=== PATIENT | male | born 1955 | race Caucasian/White ===

== ENCOUNTER 2016-04-19 10:22 | Observation (INO) | payer BC, OTHER ==
[~2016-04-19] VITALS: Ht 180.3 cm; Wt 94.0 kg
[~2016-04-19 10:22] MED LIST: ALFU10TA30 PO; ASPI81TA21 PO; CIPR-255 PO; MULTTAB58 PO; OXYC-57 PO
[2016-04-19] MEDS ORDERED: SODIUM CHLORIDE 0.9% 1000ML 1,000 ML IV SCH (10:49)
--- NOTE | 2016-04-19 11:00 | EMERGENCY ROOM VISIT NOTE ---
History Report prepared by Jessica: Ketan Wilde Under the Supervision of: Dr. Chacho Schrader M.D. First contact with patient: 10:38 Chief Complaint: DIZZY Stated Complaint: DIZZY, LIGHTHEADED, BURNING SENSATION IN ARM Nursing Triage Summary: Reports dizziness and light headedness upon awakening at 0730 this am. Also reports left bicep discomfort. History of Present Illness The patient is a 60 year old male who presents to the Emergency Room with complaints of persistent dizziness beginning about 3.5 hours ago. He notes when he woke this morning he was lightheaded and dizzy, but did not feel as though the room was spinning. He reports worsening of his symptoms with standing. The patient states he has some tingling, numbness, and burning in his left shoulder that was present when he woke and is still present. He reports having some cramps in his left leg but without numbness or burning. He has not had difficulty walking, difficulty with speech, or numbness on the left side of his face. He also denies having any headache. He admits he is currently getting over a recent cold. He admits to having a heart murmur which he has had for some time. The patient admits taking a baby Aspirin once per day at night. He denies having any history of stroke or TIA, though admits to a family history of stroke and hypertension. He notes a history of kidney stones. Source of History: patient Onset: about 3.5 hours ago Position: other (global) Quality: other (dizziness) Timing: other (persistent) Modifying Factors (Worsening): other (standing) Associated Symptoms: No headache Note: The patient reports having tingling, numbness, and burning in his left shoulder , and left leg cramping. Review of Systems See HPI for pertinent positives & negatives. A total of 10 systems reviewed and were otherwise negative. Past Medical & Surgical Medical Problems: (1) History of kidney stones (2) Peritonitis Surgical Problems: (1) History of appendectomy (2) S/P hemorrhoidectomy Family History Cancer Heart disease Hypertension Stroke Social History Smoking Status: Never Smoker Alcohol Use: occasionally Marital Status: Housing Status: lives with family Occupation Status: employed Current/Historical Medications Scheduled Alfuzosin Hcl (Uroxatral), 10 MG PO DAILY Aspirin Enteric Coated (Ecotrin Or Generic), 81 MG PO DAILY Calcium/Vitamin D (Os-Suhail 500 Plus D), 1 TAB PO DAILY Multiple Vitamin (Multivitamin), 1 TAB PO DAILY Allergies Coded Allergies: No Known Allergies (Unverified , 04/19/16) Physical Exam Vital Signs Date Time Temp Pulse Resp B/P Pulse Ox O2 Delivery O2 Flow Rate FiO2 04/19/16 12:41 36.7 85 18 144/95 95 Room Air 04/19/16 11:50 79 16 119/84 95 Room Air 04/19/16 11:08 94 Room Air 04/19/16 11:06 86 04/19/16 10:30 36.6 100 16 147/93 98 Room Air Physical Exam GENERAL: Patient is in no acute distress. HEENT: No acute trauma, normocephalic atraumatic, mucous membranes moist, no nasal congestion, no scleral icterus. NECK: No stridor, no adenopathy, no meningismus, trachea is midline. LUNGS: Clear to auscultation bilaterally, no wheeze, no rhonchi, breath sounds equal. HEART: Without murmurs gallops or rubs, regular rate and rhythm. ABDOMEN: Soft, nontender, bowel sounds positive, no hernias, no peritonitis. EXTREMITIES: No cyanosis or edema, full range of motion of all the joints without pain or difficulty, no signs for acute trauma. NEUROLOGIC: Awake, alert, oriented x3. No speech slur or facial droop. No upper or lower extremity drift. No lower extremity cerebellar dysfunction. Slight unsteadiness with left upper extremity cerebellar testing. SKIN: No rash, no jaundice, no diaphoresis. Medical Decision & Procedures ER Provider Diagnostic Interpretation: X ray results and stated below per my interpretation and radiologist interpretation. Other radiology results and stated below per my review and radiologist interpretation: HEAD CT NONCONTRAST Findings: The paranasal sinuses and mastoid air cells are clear. The calvarium and skull base are intact. The ventricles and sulci are within normal limits. There is no mass, hematoma, midline shift, or acute infarct. Impression: No acute intracranial abnormality. Electronically signed by: Javed Pearl M.D. 04/19/2016 11:24 AM Dictated Date/Time: 04/19/2016 11:23 AM CHEST ONE VIEW PORTABLE FINDINGS: The bones soft tissues and hemidiaphragms are normal. The cardiomediastinal silhouette is normal. The lungs are clear. The pulmonary vasculature is normal. IMPRESSION: Negative chest. Electronically signed by: Javed Pearl M.D. 04/19/2016 11:02 AM Dictated Date/Time: 04/19/2016 11:02 AM Laboratory Results 04/19/16 11:08 Red Blood Count 5.15, Mean Corpuscular Volume 91.3, Mean Corpuscular Hemoglobin 31.8, Mean Corpuscular Hemoglobin Concent 34.9, Mean Platelet Volume 10.1, Neutrophils (%) (Auto) 69.4, Lymphocytes (%) (Auto) 20.7, Monocytes (%) (Auto) 8.2, Eosinophils (%) (Auto) 1.2, Basophils (%) (Auto) 0.3, Neutrophils # (Auto) 4.05, Lymphocytes # (Auto) 1.21, Monocytes # (Auto) 0.48, Eosinophils # (Auto) 0.07, Basophils # (Auto) 0.02 04/19/16 11:08 Test 04/19/16 10:54 04/19/16 11:03 04/19/16 11:08 04/19/16 11:09 Bedside Glucose 86 mg/dl (70-99) Bedside Prothrombin Time INR 1.0 (0.9-1.1) White Blood Count 5.84 K/uL (4.8-10.8) Red Blood Count 5.15 M/uL (4.7-6.1) Hemoglobin 16.4 g/dL (14.0-18.0) Hematocrit 47.0 % (42-52) Mean Corpuscular Volume 91.3 fL (80-100) Mean Corpuscular Hemoglobin 31.8 pg (25-34) Mean Corpuscular Hemoglobin Concent 34.9 g/dl (32-36) Platelet Count 219 K/uL (130-400) Mean Platelet Volume 10.1 fL (7.4-10.4) Neutrophils (%) (Auto) 69.4 % Lymphocytes (%) (Auto) 20.7 % Monocytes (%) (Auto) 8.2 % Eosinophils (%) (Auto) 1.2 % Basophils (%) (Auto) 0.3 % Neutrophils # (Auto) 4.05 K/uL (1.4-6.5) Lymphocytes # (Auto) 1.21 K/uL (1.2-3.4) Monocytes # (Auto) 0.48 K/uL (0.11-0.59) Eosinophils # (Auto) 0.07 K/uL (0-0.5) Basophils # (Auto) 0.02 K/uL (0-0.2) RDW Standard Deviation 43.8 fL (36.4-46.3) RDW Coefficient of Variation 13.1 % (11.5-14.5) Immature Granulocyte % (Auto) 0.2 % Immature Granulocyte # (Auto) 0.01 K/uL (0.00-0.02) Prothrombin Time 10.2 SECONDS (9.0-12.0) Prothromb Time International Ratio 1.0 (0.9-1.1) Activated Partial Thromboplast Time 25.5 SECONDS (21.0-31.0) Partial Thromboplastin Ratio 1.0 Anion Gap 8.0 mmol/L (3-11) Est Creatinine Clear Calc Drug Dose 90.1 ml/min Estimated GFR () 93.1 Estimated GFR (Non- 80.3 BUN/Creatinine Ratio 16.6 (10-20) Estimated Average Glucose 105 mg/dl Hemoglobin A1c 5.3 % (4.5-5.6) Calcium Level 9.4 mg/dl (8.5-10.1) Total Creatine Kinase 316 U/L (39-308) Creatine Kinase MB 1.2 ng/ml (0.5-3.6) Creatine Kinase MB Ratio 0.4 (0-3.0) Troponin I < 0.015 ng/ml (0-0.045) Hepatitis C Antibody Screen NEG (NEG) Urine Opiates Screen NEG (NEG) Urine Methadone, Qualitative NEG (NEG) Urine Barbiturates NEG (NEG) Urine Phencyclidine (PCP) Level NEG (NEG) Ur Amphetamine/Methamphetamine NEG (NEG) MDMA (Ecstasy) Screen NEG (NEG) Urine Benzodiazepines Screen NEG (NEG) Urine Cocaine Metabolite NEG (NEG) Urine Marijuana (THC) NEG (NEG) Laboratory results reviewed by me. Medications Administered Medications (Trade) Dose Ordered Sig/Anel Route Start Time Stop Time Status Last Admin Dose Admin Sodium Chloride (Nss 1000ml) 1,000 ml @ 50 mls/hr Q20H IV 04/19/16 10:49 04/19/16 15:12 DC 04/19/16 11:26 50 MLS/HR ECG Indication: other (dizziness) Rate (beats per minute): 80 Rhythm: normal sinus Findings: no acute ischemic change, no ectopy ED Course 1041: The patient was evaluated in room C7. A complete history and physical exam was performed. 1049: Ordered NSS 1,000 ml @ 50 mls/hr IV. 1200: Discussed the patient's case with Nisha Salvador PA-C. The patient will be evaluated for further management. 1205: Upon reexamination the patient is hemodynamically stable. I discussed results and treatment plan with the patient. He verbalizes agreement and understanding. The patient will be evaluated for further management. Medical Decision Differentials include CVA or TIA, intracranial bleeding, nerve impingement, IL, dysrhythmia, anemia, electrolyte imbalance, and infection. There is no leukocytosis or concerning anemia. No significant electrolyte abnormality or kidney failure. EKG shows a normal sinus rhythm, no acute ischemia. Cardiac enzyme testing times one is not consistent with acute cardiac injury. Chest x-ray shows no mediastinal widening, pneumonia or pneumothorax. Brain CT shows no acute bleed or mass effect. The patient presents with symptoms concerning for a TIA or small stroke. On exam, he had some very subtle unsteadiness when performing left upper extremity cerebellar testing. This was the side that he had noticed issues with today. Stroke scale testing did return at 0. Admission/observation is warranted. Further workup for stroke is advised. The patient is not a candidate for TPA as he is out of the window for this medication. In addition, he has no significant findings that would warrant the use of TPA. I talked to the patient, I talked to the on-call hospitalist and case management. Consults Time Called: 1155 Consulting Physician: Nisha Salvador PA-C, [facility] [place] Returned Call: 1200 Discussed the patient's case with iNsha Salvador PA-C. The patient will be evaluated for further management. Impression Primary Impression: Stroke-like symptoms Scribe Attestation The scribe's documentation has been prepared under my direction and personally reviewed by me in its entirety. I confirm that the note above accurately reflects all work, treatment, procedures, and medical decision making performed by me. Departure Information Dispostion Being Evaluated By Hospitalist Referrals Cristiano Arana M.D. (PCP) Patient Instructions [facility]
--- NOTE | 2016-04-19 11:04 | DIAGNOSTIC IMAGING REPORT ---
CHEST ONE VIEW PORTABLE CLINICAL HISTORY: Stroke dyspnea COMPARISON STUDY: 04/28/2014 FINDINGS: The bones soft tissues and hemidiaphragms are normal. The cardiomediastinal silhouette is normal. The lungs are clear. The pulmonary vasculature is normal. IMPRESSION: Negative chest. Electronically signed by: Javed Pearl M.D. 04/19/2016 11:02 AM Dictated Date/Time: 04/19/2016 11:02 AM
[2016-04-19 11:18] LABS: BASO % 0.3 %; BASO ABS # 0.02 K/uL (0-0.2); COMPLETE YES; EOS % 1.2 %; IG% 0.2 %; LYMPH % 20.7 %; LYMPH ABS # 1.21 K/uL (1.2-3.4); MEAN CELL VOLUME 91.3 fL (80-100); MEAN CORPUSCULAR HEMOGLOBIN 31.8 pg (25-34); MEAN CORPUSCULAR HGB CONC 34.9 g/dl (32-36); MEAN PLATELET VOLUME 10.1 fL (7.4-10.4); MONO % 8.2 %; NEUT % 69.4 %; PLATELET COUNT 219 K/uL (130-400); RED BLOOD COUNT 5.15 M/uL (4.7-6.1); WHITE BLOOD COUNT 5.84 K/uL (4.8-10.8)
--- NOTE | 2016-04-19 11:25 | DIAGNOSTIC IMAGING REPORT ---
HEAD CT NONCONTRAST CT DOSE: 687.98 mGy.cm HISTORY: Mental status change Stroke TECHNIQUE: Multiaxial CT images of the head were performed without the use of intravenous contrast. Comparison: None. Findings: The paranasal sinuses and mastoid air cells are clear. The calvarium and skull base are intact. The ventricles and sulci are within normal limits. There is no mass, hematoma, midline shift, or acute infarct. Impression: No acute intracranial abnormality. Electronically signed by: Javed Pearl M.D. 04/19/2016 11:24 AM Dictated Date/Time: 04/19/2016 11:23 AM
[2016-04-19 11:26] LABS: PROTHROMBIN TIME (PATIENT) 10.2 SECONDS (9.0-12.0)
[2016-04-19 12:03] LABS: BLOOD UREA NITROGEN 17 mg/dl (7-18); BUN/CREATININE RATIO 16.6 (10-20); CALCIUM 9.4 mg/dl (8.5-10.1); CARBON DIOXIDE 27 mmol/L (21-32); CHLORIDE 106 mmol/L (98-107); GLUCOSE 86 mg/dl (70-99)
[2016-04-19 12:08] LABS: POTASSIUM 4.5 mmol/L (3.5-5.1); SODIUM 141 mmol/L (136-145)
[2016-04-19 12:16] LABS: CKMB/CK RATIO 0.4 (0-3.0)
[2016-04-19 12:18] LABS: BENZODIAZEPINE, URINE NEG (NEG); COCAINE,URINE NEG (NEG); PHENCYCLIDINE, URINE NEG (NEG)
[2016-04-19 12:41] VITALS: BP 144/95; PULSE 85; TEMP 36.7; O2SAT 95; Ht 180.3 cm; Wt 94.0 kg
[2016-04-19] MEDS ORDERED: CALC500C70 PO (13:07)
[2016-04-19] MEDS ORDERED: ONDANSETRON INJ 2 MG/ML 2 ML VIAL IV PRN (13:15)
[2016-04-19] MEDS ORDERED: PHARMACIST DISCHARGE MED REC CONSULT PRN (13:15)
[2016-04-19] MEDS ORDERED: ACETAMINOPHEN 325 MG TAB PO PRN (13:15)
--- NOTE | 2016-04-19 13:23 | History and Physical ---
History & Physical Date & Time of Service: Apr 19, 2016 at 13:13 Chief Complaint: Dizzy, Lightheaded, Burning Sensation In Arm Primary Care Physician: Cristiano Arana M.D. History of Present Illness Source: patient, family, hospital records This patient is a pleasant 60-year-old male that presents the emergency department complaining of dizziness that started when he woke up this morning at around 7:30 AM. He describes it as a lightheadedness, however he does admit to feeling a little bit of a spinning sensation. He denies any nausea. Ambulating makes it slightly worse. It is not currently as bad as it was at 7: 30 this morning. The patient also describes a burning, numbness and tingling sensation in his left shoulder down into his left bicep. He denies any weakness. He denies any confusion or slurred speech. The patient denies any chest pressure, shortness of breath or diaphoresis. He denies any personal history of TIA or stroke. He denies any history of vertigo. The patient does note a family history of strokes. His father had a stroke in his 50s. Workup in the emergency department thus far has been benign. Past Medical/Surgical History Medical Problems: BPH History of a heart murmur Obstructive sleep apnea-uses a CPAP at night Surgical history (1) History of appendectomy Status: Resolved (2) S/P hemorrhoidectomy Status: Chronic Family History Cancer Heart disease Hypertension Stroke Father-stroke in his 50s Hypertension Skin cancer Social History Smoking Status: Never Smoker Smokeless Tobacco Use: No Alcohol Use: socially Drug Use: none Marital Status: Housing status: lives with family Occupational Status: employed Multi-Drug Resistant Organisms History of MDRO: No Allergies Coded Allergies: No Known Allergies (Unverified , 04/19/16) Home Medications Scheduled Alfuzosin Hcl (Uroxatral), 10 MG PO DAILY Aspirin Enteric Coated (Ecotrin Or Generic), 81 MG PO DAILY Calcium/Vitamin D (Os-Suhail 500 Plus D), 1 TAB PO DAILY Multiple Vitamin (Multivitamin), 1 TAB PO DAILY Review of Systems 10 system review performed and negative unless noted in HPI or below Physical Exam Vital Signs Date Time Temp Pulse Resp B/P Pulse Ox O2 Delivery O2 Flow Rate FiO2 04/19/16 12:41 95 Room Air 04/19/16 11:50 79 16 119/84 95 Room Air 04/19/16 11:08 94 Room Air 04/19/16 11:06 86 04/19/16 10:30 36.6 100 16 147/93 98 Room Air VITALS: Vitals are noted on the nurse's note and reviewed by myself. Vital signs stable. GENERAL: 60-year-old male, in no acute distress, nondiaphoretic, well-developed well-nourished. SKIN: The skin was without rashes, erythema, edema, or bruising. HEAD: Normocephalic atraumatic. EYES: Pupils equal round and reactive to light and accommodation. Conjunctivae without injection, sclerae without icterus. Extraocular movements intact. MOUTH: Mucous membranes dry Tongue does not deviate. NECK: Supple without nuchal rigidity. No JVD. HEART: Regular rate and rhythm without murmurs gallops or rubs. LUNGS: Clear to auscultation bilaterally without wheezes, rales or rhonchi. No accessory muscle use. ABDOMEN: Positive bowel sounds x 4.Soft, nontender, without organomegaly. No guarding or rebound tenderness. MUSCULOSKELETAL: No muscle atrophy, erythema, or edema noted. Strength 5/5 throughout. NEURO: Patient was alert and oriented to person place and time. Cerebellar function intact. No pronator drift noted. No weakness noted. Cranial nerves II through XII grossly intact. Normal sensation to touch. No focal neurological deficits. Diagnostics Laboratory Results Results Past 24 Hours Test 04/19/16 10:54 04/19/16 11:03 04/19/16 11:08 04/19/16 11:09 Range/Units Bedside Glucose 86 70-99 mg/dl Bedside Prothrombin Time INR 1.0 0.9-1.1 White Blood Count 5.84 4.8-10.8 K/uL Red Blood Count 5.15 4.7-6.1 M/uL Hemoglobin 16.4 14.0-18.0 g/dL Hematocrit 47.0 42-52 % Mean Corpuscular Volume 91.3 80-100 fL Mean Corpuscular Hemoglobin 31.8 25-34 pg Mean Corpuscular Hemoglobin Concent 34.9 32-36 g/dl Platelet Count 219 130-400 K/uL Mean Platelet Volume 10.1 7.4-10.4 fL Neutrophils (%) (Auto) 69.4 % Lymphocytes (%) (Auto) 20.7 % Monocytes (%) (Auto) 8.2 % Eosinophils (%) (Auto) 1.2 % Basophils (%) (Auto) 0.3 % Neutrophils # (Auto) 4.05 1.4-6.5 K/uL Lymphocytes # (Auto) 1.21 1.2-3.4 K/uL Monocytes # (Auto) 0.48 0.11-0.59 K/uL Eosinophils # (Auto) 0.07 0-0.5 K/uL Basophils # (Auto) 0.02 0-0.2 K/uL RDW Standard Deviation 43.8 36.4-46.3 fL RDW Coefficient of Variation 13.1 11.5-14.5 % Immature Granulocyte % (Auto) 0.2 % Immature Granulocyte # (Auto) 0.01 0.00-0.02 K/uL Prothrombin Time 10.2 9.0-12.0 SECONDS Prothromb Time International Ratio 1.0 0.9-1.1 Activated Partial Thromboplast Time 25.5 21.0-31.0 SECONDS Partial Thromboplastin Ratio 1.0 Sodium Level 141 136-145 mmol/L Potassium Level 4.5 3.5-5.1 mmol/L Chloride Level 106 98-107 mmol/L Carbon Dioxide Level 27 21-32 mmol/L Anion Gap 8.0 3-11 mmol/L Blood Urea Nitrogen 17 7-18 mg/dl Creatinine 1.00 0.60-1.40 mg/dl Est Creatinine Clear Calc Drug Dose 90.1 ml/min Estimated GFR () 93.1 Estimated GFR (Non- 80.3 BUN/Creatinine Ratio 16.6 10-20 Random Glucose 86 70-99 mg/dl Calcium Level 9.4 8.5-10.1 mg/dl Total Creatine Kinase 316 39-308 U/L Creatine Kinase MB 1.2 0.5-3.6 ng/ml Creatine Kinase MB Ratio 0.4 0-3.0 Troponin I < 0.015 0-0.045 ng/ml Urine Opiates Screen NEG NEG Urine Methadone, Qualitative NEG NEG Urine Barbiturates NEG NEG Urine Phencyclidine (PCP) Level NEG NEG Ur Amphetamine/Methamphetamine NEG NEG MDMA (Ecstasy) Screen NEG NEG Urine Benzodiazepines Screen NEG NEG Urine Cocaine Metabolite NEG NEG Urine Marijuana (THC) NEG NEG Test 2/4/17 13:03 Range/Units Diagnostic Radiology HEAD CT NONCONTRAST Findings: The paranasal sinuses and mastoid air cells are clear. The calvarium and skull base are intact. The ventricles and sulci are within normal limits. There is no mass, hematoma, midline shift, or acute infarct. Impression: No acute intracranial abnormality. Electronically signed by: Javed Pearl M.D. 04/19/2016 11:24 AM Dictated Date/Time: 04/19/2016 11:23 AM CHEST ONE VIEW PORTABLE FINDINGS: The bones soft tissues and hemidiaphragms are normal. The cardiomediastinal silhouette is normal. The lungs are clear. The pulmonary vasculature is normal. IMPRESSION: Negative chest. Electronically signed by: Javed Pearl M.D. 04/19/2016 11:02 AM Dictated Date/Time: 04/19/2016 11:02 AM EKG Normal sinus rhythm 80 bpm Impression Assessment and Plan 60-year-old male presents to the emergency department with a main complaint of dizziness and a burning and tingling sensation in his left shoulder/arm. CT of the head shows no acute findings. No deficits noted on physical exam TIA versus CVA-has strong family hx as risk factor -Observe in telemetry -Neuro checks every 4 hours -MRI brain combo -Check echo -Carotid US -Trend cardiac enzymes -Lipid profile -Begin atorvastatin 40 mg daily -Increase aspirin to 325 mg daily BPH -Continue Uroxatral 10 mg daily DVT prophylaxis -Lovenox 40 mg subQ daily -TEDS, SCDs CODE STATUS -LEVEL I FULL CODE Advanced Directives Existing Living Will: Yes Existing Power of Clipper Counters: No VTE Prophylaxis VTE Risk Assessment Done? Y/N: Yes Risk Level: Low Given or contraindicated: Enoxaparin (Lovenox)SQ, T.E.D. Stockings, SCD's Note Attending note: Patient was seen and examined. Case was discussed with Nisha Salvador PA-C. I agree with her assessment and plan as written above. In addition, MRI shows chronic small vessel ischemic changes without evidence for acute stroke. On exam, he has left upper extremity dysmetria and dysdiadochokinesia. Will ask neuro opinion. Await TTE.
[2016-04-19 13:35] LABS: ESTIMATED AVERAGE GLUCOSE 105 mg/dl; HA1C FLAG Normal (Normal)
[2016-04-19] MEDS ORDERED: IV FLUIDS COMPLETED PRN (13:45)
--- NOTE | 2016-04-19 15:00 | DIAGNOSTIC IMAGING REPORT ---
BILATERAL CAROTID DOPPLER STUDY HISTORY: Mental status change Stroke COMPARISON: None. TECHNIQUE: Real-time, grayscale, and color Doppler sonography of the carotid arteries was performed. Imaging reviewed in the transverse and longitudinal planes. All measurements were calculated based on NASCET criteria. FINDINGS: Antegrade flow is seen in the bilateral vertebral arteries. The brachial pressures are hemodynamically similar. The peak systolic velocity within the right ICA is 53. The right systolic ratio is 0.7. The peak systolic velocity within the left ICA is 52. The left systolic ratio is 0.7. IMPRESSION: No hemodynamically significant stenosis seen within the carotid arteries. Electronically signed by: Javed Pearl M.D. 04/19/2016 2:59 PM Dictated Date/Time: 04/19/2016 2:58 PM
[2016-04-19 15:16] VITALS: BP 144/95; PULSE 85; TEMP 36.7; O2SAT 96
--- NOTE | 2016-04-19 16:53 | DIAGNOSTIC IMAGING REPORT ---
MRI OF THE BRAIN WITHOUT AND WITH IV CONTRAST CLINICAL HISTORY: Stroke mental status change COMPARISON STUDY: CT study same date TECHNIQUE: Utilizing a 1.5 Jaleesa magnet and dedicated coil, multiplanar, multiecho imaging of the brain was performed pre and postcontrast administration. IV administration of 8.5 mL of Gadavist contrast was uneventful. FINDINGS: Diffusion-weighted images are negative for an acute ischemic insult. Several small foci of increased signal within the periventricular and deep white matter regions consistent with minimal chronic small vessel change. Ventricular system is midline. Internal artery canals are symmetric. Sella and parasellar regions are unremarkable. Postcontrast images are negative for an enhancing lesion. IMPRESSION: Negative MRI of the brain for age Electronically signed by: Javed Pearl M.D. 04/19/2016 4:51 PM Dictated Date/Time: 04/19/2016 4:49 PM
[2016-04-19 19:41] VITALS: BP 133/90; PULSE 79; TEMP 36.9; O2SAT 94
[2016-04-19 20:56] LABS: CKMB/CK RATIO 0.4 (0-3.0)
[2016-04-19] MEDS ORDERED: ENOXAPARIN 40 MG/0.4 ML SYR SC SCH (21:00)
[2016-04-19 22:39] VITALS: BP 119/85; PULSE 81; TEMP 36.7; O2SAT 94
[2016-04-20] VITALS: O2SAT 94
[2016-04-20 03:14] LABS: BASO % 0.6 %; BASO ABS # 0.04 K/uL (0-0.2); COMPLETE YES; EOS % 2.7 %; HEMATOCRIT 44.9 % (42-52); IG% 0.3 %; LYMPH % 23.5 %; LYMPH ABS # 1.54 K/uL (1.2-3.4); MEAN CELL VOLUME 91.6 fL (80-100); MEAN CORPUSCULAR HEMOGLOBIN 31.8 pg (25-34); MEAN CORPUSCULAR HGB CONC 34.7 g/dl (32-36); MONO % 8.1 %; NEUT % 64.8 %; PLATELET COUNT 213 K/uL (130-400); WHITE BLOOD COUNT 6.56 K/uL (4.8-10.8)
[2016-04-20 03:34] LABS: BLOOD UREA NITROGEN 16 mg/dl (7-18); BUN/CREATININE RATIO 16.6 (10-20); CALCIUM 9.5 mg/dl (8.5-10.1); CARBON DIOXIDE 27 mmol/L (21-32); CHLORIDE 106 mmol/L (98-107); CHOLESTEROL 185 mg/dl (0-200); CREATININE 0.96 mg/dl (0.60-1.40); GLUCOSE 81 mg/dl (70-99); POTASSIUM 4.2 mmol/L (3.5-5.1); SODIUM 142 mmol/L (136-145)
[2016-04-20 03:39] LABS: CKMB/CK RATIO 0.5 (0-3.0); HDL CHOLESTEROL 46 mg/dl; LDL CHOLESTEROL CALCULATED 108 mg/dl; TRIGLYCERIDES 155 mg/dl (0-150); VERY LOW DENSITY LIPOPROT CALC 31 mg/dl
[2016-04-20 04:00] VITALS: BP 125/82; PULSE 74; TEMP 36.5; O2SAT 95
[2016-04-20] MEDS: ATORVASTATIN 40 MG TAB PO SCH ×2 (07:35→07:54)
[2016-04-20 07:57] VITALS: BP 135/89; PULSE 80; TEMP 36.5; O2SAT 96
[2016-04-20] MEDS ORDERED: ASPIRIN 325 MG ECTAB PO SCH ×2 (09:00→19:00)
[2016-04-20] MEDS ORDERED: ALFUZosin TAB 10 MG TAB PO SCH ×2 (09:00→19:00)
[2016-04-20] MEDS ORDERED: MULTIVITAMIN TAB PO SCH ×2 (09:00→19:00)
[2016-04-20] MEDS ORDERED: CALCIUM 600MG + VIT D 400 IU TAB PO SCH ×2 (09:00→19:00)
[2016-04-20] MEDS ORDERED: NURSING VERBAL MED ORDER ONE (09:45)
--- NOTE | 2016-04-20 11:26 | Neurology Consultation ---
Neurology Consultation Date of Consultation: Apr 20, 2016. Attending Physician: Sam Magaña MD Primary Care Physician: Cristiano Arana M.D. Reason for Consultation: Consultation for stroke like symptoms and concern for ataxia History of Present Illness Source: patient, hospital records This is a 60-year-old right-handed man who presents for evaluation of dizziness. He reports that he woke up yesterday morning with new dizziness. He reports that it felt like accommodation of lightheadedness and feeling off balance. He couldn't describe any specific of vertigo but reports that it was more than just lightheadedness. He reports that it was there when he was both laid down or standing up. It was worse with movement. He has been recovering from a viral upper respiratory cold. He's never had anything like this in the past. In addition to-year-old so reported some new burning/numbness over his left bicep. He reports that for the last month he is also felt like his left upper extremity was a little bit weaker than normal. He is also have filled past few months the numbness in his second distal digit of his left hand. He denies any changes with his vision. Denies any trouble with walking or coordination. Denies any trouble with speaking or swallowing. No slurred speech. No aphasia. No facial symptoms. No facial numbness or droop face. No double vision. He denies any chest pain or heart palpitations. No symptoms of the lower extremities except for some nonspecific muscle cramps. Patient reports stiffness but no severe neck pain or shooting pain down his arms. 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 He is normally independent in his activities of daily living. No tobacco use. Drinks a couple of drinks per week. No illegal drug use Smoking Status: Never smoker Smokeless Tobacco Use: No Alcohol Use: socially Drug Use: none Marital Status: Housing Status: lives with family Occupation Status: employed Allergies Coded Allergies: No Known Allergies (Unverified , 04/19/16) Current Inpatient Medications Current Inpatient Medications Medications (Trade) Dose Ordered Sig/Anel Route Start Time Stop Time Status Last Admin Dose Admin Miscellaneous Information (Pharmacist Discharge Med Rec Consult) 1 ea UD PRN N/A 04/19/16 13:15 05/19/16 13:14 Enoxaparin Sodium (Lovenox Inj) 40 mg Q24H SC 04/19/16 21:00 05/19/16 20:59 04/19/16 21:16 40 MG Acetaminophen (Tylenol Tab) 650 mg Q4H PRN PO 04/19/16 13:15 05/19/16 13:14 Ondansetron HCl (Zofran Inj) 4 mg Q6H PRN IV 04/19/16 13:15 05/19/16 13:14 Miscellaneous (Iv Fluids Completed) 1 ea PRN PRN N/A 04/19/16 13:45 04/19/17 13:44 Atorvastatin Calcium (Lipitor Tab) 40 mg DAILY@1900 PO 04/20/16 19:00 05/20/16 18:59 Aspirin (Ecotrin Tab) 325 mg DAILY@1900 PO 04/20/16 19:00 05/20/16 18:59 Alfuzosin HCl (Uroxatral Tab) 10 mg DAILY@1900 PO 04/20/16 19:00 05/20/16 18:59 Calcium/Vitamin D (Caltrate Plus Tab) 1 tab DAILY@1900 PO 04/20/16 19:00 05/20/16 18:59 Multivitamins (Multivitamin Tab) 1 tab DAILY@1900 PO 04/20/16 19:00 05/20/16 18:59 Review of Systems Complete review of systems otherwise negative except for what is noted in history of present illness. Physical Exam Vital Signs (Past 24 Hrs): Date Time Temp Pulse Resp B/P Pulse Ox O2 Delivery O2 Flow Rate FiO2 04/20/16 07:57 36.5 80 18 135/89 96 Room Air 04/20/16 04:00 36.5 74 20 125/82 95 CPAP 04/20/16 04:00 95 CPAP 04/20/16 00:00 94 Room Air 04/19/16 22:39 36.7 81 20 119/85 94 Room Air 04/19/16 20:00 Room Air 04/19/16 19:41 36.9 79 20 133/90 94 Room Air 04/19/16 15:16 36.7 85 18 144/95 96 04/19/16 13:52 86 16 128/86 96 Room Air 04/19/16 12:41 36.7 85 18 144/95 95 Room Air 04/19/16 11:50 79 16 119/84 95 Room Air Gen.: Patient is alert and sitting in bed, in no acute distress. HEENT: Normocephalic /atraumatic, no scleral icterus Heart: Regular rate and rhythm Extremities: No gross deformities or rashes noted Neurological examination: Mental status: Patient is alert and oriented x3. Attention and concentration normal for the situation. Good fund of knowledge. Able to give her own history. Speech is fluent without any dysarthria or aphasia noted Cranial nerve: Funduscopic examination was unremarkable. No papilledema. Pupils equally round and reactive to light. Extraocular muscles intact without nystagmus. No facial asymmetry noted. Facial sensation intact. Tongue is midline. Good palatal elevation. Good shoulder shrug bilaterally. Hearing grossly intact to voice. Strength: 5/5 both proximal and distally in all extremities. There is no arm drift. Tone is normal. Sensation: Grossly intact to light touch in all extremities. Deep tendon reflexes: +1 in bilateral biceps, brachioradialis and patellar. Toes were downgoing to plantar stimulation Coordination: Patient had good finger to nose without dysmetria Station within the bed was normal Laboratory Results Past 24 Hours: 04/20/16 02:59 Red Blood Count 4.90, Mean Corpuscular Volume 91.6, Mean Corpuscular Hemoglobin 31.8, Mean Corpuscular Hemoglobin Concent 34.7, Mean Platelet Volume 10.0, Neutrophils (%) (Auto) 64.8, Lymphocytes (%) (Auto) 23.5, Monocytes (%) (Auto) 8.1, Eosinophils (%) (Auto) 2.7, Basophils (%) (Auto) 0.6, Neutrophils # (Auto) 4.25, Lymphocytes # (Auto) 1.54, Monocytes # (Auto) 0.53, Eosinophils # (Auto) 0.18, Basophils # (Auto) 0.04 04/20/16 02:59 Test 04/20/16 02:59 White Blood Count 6.56 K/uL (4.8-10.8) Red Blood Count 4.90 M/uL (4.7-6.1) Hemoglobin 15.6 g/dL (14.0-18.0) Hematocrit 44.9 % (42-52) Mean Corpuscular Volume 91.6 fL (80-100) Mean Corpuscular Hemoglobin 31.8 pg (25-34) Mean Corpuscular Hemoglobin Concent 34.7 g/dl (32-36) Platelet Count 213 K/uL (130-400) Mean Platelet Volume 10.0 fL (7.4-10.4) Neutrophils (%) (Auto) 64.8 % Lymphocytes (%) (Auto) 23.5 % Monocytes (%) (Auto) 8.1 % Eosinophils (%) (Auto) 2.7 % Basophils (%) (Auto) 0.6 % Neutrophils # (Auto) 4.25 K/uL (1.4-6.5) Lymphocytes # (Auto) 1.54 K/uL (1.2-3.4) Monocytes # (Auto) 0.53 K/uL (0.11-0.59) Eosinophils # (Auto) 0.18 K/uL (0-0.5) Basophils # (Auto) 0.04 K/uL (0-0.2) RDW Standard Deviation 43.7 fL (36.4-46.3) RDW Coefficient of Variation 13.1 % (11.5-14.5) Immature Granulocyte % (Auto) 0.3 % Immature Granulocyte # (Auto) 0.02 K/uL (0.00-0.02) Anion Gap 9.0 mmol/L (3-11) Est Creatinine Clear Calc Drug Dose 93.9 ml/min Estimated GFR () 97.8 Estimated GFR (Non- 84.4 BUN/Creatinine Ratio 16.6 (10-20) Calcium Level 9.5 mg/dl (8.5-10.1) Total Creatine Kinase 274 U/L (39-308) Creatine Kinase MB 1.4 ng/ml (0.5-3.6) Creatine Kinase MB Ratio 0.5 (0-3.0) Troponin I < 0.015 ng/ml (0-0.045) Triglycerides Level 155 mg/dl (0-150) Cholesterol Level 185 mg/dl (0-200) HDL Cholesterol 46 mg/dl LDL Cholesterol, Calculated 108 mg/dl VLDL Cholesterol, Calculated 31 mg/dl Cholesterol/HDL Ratio 4.0 Imaging MRI of the brain report and images were reviewed by myself and normal for age. No evidence of new or old strokes. Total cholesterol 185, LDL 108, HDL 46, triglycerides 155, hemoglobin A1c 5.3 Toxicology screen was negative and CBC and complete metabolic panel were unremarkable. Impression This is a 60-year-old male who presented with nonspecific dizziness. Has been recovering from a viral cold and may have a component of viral induced peripheral vertigo. No signs of strokes. I do not think that the patient had a TIA or mini stroke. No signs of vascular compromise. Neuralgia over the left bicep and is likely secondary either to compression of a peripheral nerve to the bicep versus a mild radiculopathy. In addition the patient's more long-standing numbness of the second digit on the left hand is either secondary to peripheral neuropathy versus radiculopathy. Cramping of the lower extremity is nonspecific. Plan No additional neurological workup needed at this time. Continue with home aspirin 81 mg daily If the patient continues to have pain, numbness, and a sense of weakness in his left arm, could follow up as an outpatient for further evaluation for neuropathy versus cervical radiculopathy. In general would recommend outpatient physical therapy of the arm and neck, and if that does not help, consideration for an EMG and MRI of the neck if needed. General vascular risk factor modifications per primary care: Neurology vascular risk factor modifications recommendations: Blood pressure recommendations 130/80-110/70 Total cholesterol goal 100- 200 and LDL goal less than 100 Hemoglobin A1c goal less than 7 Encourage cardiovascular exercise at least 3 times a week for 30 minutes. Thank you for allowing me to participate in this patient's care. If there is any questions or concerns, feel free to call/page me.
[2016-04-20 11:40] VITALS: BP 119/77; PULSE 85; TEMP 36.6; O2SAT 92
--- NOTE | 2016-04-20 13:32 | Discharge Instructions ---
Discharge Instructions Admission Reason for Admission: Stroke-Like Symptoms Discharge Discharge Diagnosis / Problem: Vertigo, likely related to viral infection Discharge Goals Goal(s): Decrease discomfort, Improve function, Increase independence Activity Recommendations Activity Limitations: resume your previous activity . Instructions / Follow-Up Instructions / Follow-Up Follow up with PCP, Dr. Arana, within one week. Current Hospital Diet Patient's current hospital diet: AHA Diet (Heart Healthy) Discharge Diet Recommended Diet: AHA Diet (Heart Healthy) Procedures Procedures Performed: CT head: no acute findings Chest x-ray: normal. Carotid artery dopplers: No significant blockages in either carotid artery. MRI brain: Normal for age. No evidence of acute stroke. Pending Studies Studies pending at discharge: no Laboratory Results Hemoglobin A1c Test 04/19/16 11:08 Range/Units Estimated Average Glucose 105 mg/dl Hemoglobin A1c 5.3 4.5-5.6 % Lipid Panel Test 04/20/16 02:59 Range/Units Triglycerides Level 155 H 0-150 mg/dl Cholesterol Level 185 0-200 mg/dl HDL Cholesterol 46 mg/dl Cholesterol/HDL Ratio 4.0 LDL Cholesterol, Calculated 108 mg/dl Medical Emergencies . Who to Call and When: Medical Emergencies: If at any time you feel your situation is an emergency, please call 911 immediately. . Non-Emergent Contact Non-Emergency issues call your: Primary Care Provider Call Non-Emergent contact if: you have any medication questions You become dizzy again. If the numbness in the shoulder gets worse. . . "Provider Documentation" section prepared by Sam Magaña. VTE Core Measure Inpt VTE Proph given/why not?: Enoxaparin (Lovenox)DORA, T.E.Caro. Stockings, SCD's
[2016-04-20 13:44] VITALS: BP 119/77; PULSE 85; TEMP 36.6; O2SAT 92
--- NOTE | 2016-04-20 13:44 | Discharge Summary ---
Discharge Summary Admission Date: Apr 19, 2016 at 13:11 Discharge Date: Apr 20, 2016 Discharge Disposition: Home Principal Diagnosis: Vertigo, probably related to viral infection Procedures: CT head: no acute findings Chest x-ray: normal. Carotid artery dopplers: No significant blockages in either carotid artery. MRI brain: Normal for age. No evidence of acute stroke. Consultations: Dr. Rolle, Neurology Medication Reconciliation Continued Medications: Alfuzosin Hcl (Uroxatral) 10 Mg Tab 10 MG PO DAILY, TAB Aspirin Enteric Coated (Ecotrin Or Generic) 81 Mg Tab 81 MG PO DAILY, TAB Calcium/Vitamin D (Os-Suhail 500 Plus D) Tab 1 TAB PO DAILY, TAB Multiple Vitamin (Multivitamin) 1 Tab Tab 1 TAB PO DAILY, TAB Discharge Exam Physical Exam: General Appearance: no apparent distress Eyes: sclerae normal Neck: no JVD Respiratory/Chest: lungs clear, no respiratory distress Cardiovascular: regular rate, rhythm, no murmur Abdomen / GI: normal bowel sounds, non tender, soft Extremities: no pedal edema Neurologic/Psychiatric: alert, normal mood/affect, oriented x 3 Skin: normal color, warm/dry Hospital Course Mr. Young is a 60-year-old male with a history of MAGDALENE and BPH who presented to the Emergency Department complaining of dizziness that he was unable to really describe along with a vague burning, tingling or numbness in his left shoulder. Initial work up included a negative CT head and CXR. EKG was non-revealing. He was subsequently admitted for further evaluation. MRI of the brain showed no evidence for acute stroke and carotid dopplers were negative for any significant stenosis. When I examined him shortly after admission, he had dysmetria on finger to nose testing with the left arm. He also had obvious dysdiadochokinesia with his left hand. Both tests were plainly normal on the right side. Because of this, I had neurology evaluate the patient. By this morning, he is no longer complaining of dizziness and the dysmetria is not present on the neurologist's exam. She recommended that he undergo EMG or MRI of the spine if his symptoms were to recur or worsen. At this point, he is stable for discharge home. No changes were made to his medication regimen. He will follow up with his PCP within one week. Total Time Spent: Less than 30 minutes This includes examination of the patient, discharge planning, medication reconciliation, and communication with other providers. Discharge Instructions Please refer to the electronic Patient Visit Report (Discharge Instructions) for additional information. Follow-Up 1. Make appointment to be seen by PCP, Dr. Arana, within one week. Additional Copies To Cristiano Arana M.D.
[2016-04-20] MEDS ORDERED: ATORVASTATIN 40 MG TAB PO SCH (19:00)
--- NOTE | 2016-04-21 10:41 | ECHOCARDIOGRAM REPORT ---
*NOTICE TO RECEIVING DEMOCRAT AGENCY This information is strictly Confidential and protected under [place] law. [place] law prohibits you from making any further disclosure of this information unless further disclosure is expressly permitted by the written consent of the person to whom it pertains or is authorized by law. A general authorization for the release of medical or other information is not sufficient for this purpose. Hospital accepts no responsibility if the information is made available to any other person, INCLUDING THE PATIENT. Interpretation Summary * Name: VANIA OSBORN Study Date: 04/20/2016 08:04 AM BP: 125/82 mmHg * Patient Location: .2E\S\E211\S\1 HR: 74 * : 1955 (M/d/yyyy) Gender: Male Height: 71 in * Age: 60 yrs Ethnicity: CA Weight: 209 lb * Ordering Physician: Nisha Salvador * Performed By: Rosetta Snider * * Reason For Study: CEREBRAL ISCHEMIA/ EMBOLUS * BSA: 2.1 m2 * Low normal left ventricular systolic function. * Mild concentric left ventricular hypertrophy. * Left ventricular diastolic dysfunction. * No significant valvular abnormalities. * No cardiac source of emboli noted. Procedure Details * A complete two-dimensional transthoracic echocardiogram was performed (2D, M-mode, Doppler and color flow Doppler). * A saline contrast injection was performed to assess for cardiac shunting. * The injection was performed through an intravenous line in the right arm. * The attending nurse who injected the saline contrast was OLIVE CUBA RN. * A total of 20 cc of agitated saline was given. Left Ventricle * The left ventricle is normal in size. * There is no thrombus. * There is mild concentric left ventricular hypertrophy. * Ejection Fraction = 50-55%. * Left ventricular systolic function is low normal. * The transmitral spectral Doppler flow pattern is suggestive of impaired LV relaxation. * No regional wall motion abnormalities noted. Right Ventricle * The right ventricle is normal in size and function. * The right ventricular systolic function is normal as assessed by tricuspid annular plane systolic excursion (TAPSE) (normal >1.5 cm). Atria * The left atrial size is normal. * Right atrial size is normal. * Injection of contrast documented no interatrial shunt. Mitral Valve * The mitral valve is normal. * There is no mitral valve stenosis. * There is trace mitral regurgitation. Tricuspid Valve * The tricuspid valve is normal. * There is no tricuspid stenosis. * There is trace tricuspid regurgitation. Aortic Valve * The aortic valve is trileaflet. * The aortic valve opens well. * Aortic stenosis is absent. * No aortic regurgitation is present. Pulmonic Valve * The pulmonic valve is not well seen, but is grossly normal. * There is no pulmonic valvular stenosis. * There is no pulmonic valvular regurgitation. Great Vessels * The aortic root is normal size. Pericardium/Pleural * There is no pericardial effusion. MMode 2D Measurements and Calculations IVSd 1.2 cm IVSs 1.3 cm LVIDd 3.9 cm LVIDs 2.9 cm LVPWd 1.2 cm LVPWs 1.7 cm IVS/LVPW 1.0 FS 25.3 % EDV(Teich) 65.6 ml ESV(Teich) 32.4 ml EF(Teich) 50.6 % EDV(cubed) 59.0 ml ESV(cubed) 24.6 ml EF(cubed) 58.3 % % IVS thick 10.5 % % LVPW thick 41.2 % LV mass(C)d 161.2 grams LV mass(C)dI 75.0 grams/m\S\2 LV mass(C)s 155.9 grams LV mass(C)sI 72.6 grams/m\S\2 SV(Teich) 33.2 ml SI(Teich) 15.5 ml/m\S\2 SV(cubed) 34.4 ml SI(cubed) 16.0 ml/m\S\2 Ao root diam 2.9 cm Ao root area 6.7 cm\S\2 ACS 1.8 cm asc Aorta Diam 3.1 cm LVOT diam 2.0 cm LVOT area 3.3 cm\S\2 LVAd ap4 36.1 cm\S\2 LVLd ap4 9.6 cm EDV(MOD-sp4) 109.2 ml EDV(sp4-el) 115.4 ml LVAs ap4 22.2 cm\S\2 LVLs ap4 7.7 cm ESV(MOD-sp4) 52.6 ml ESV(sp4-el) 54.5 ml EF(MOD-sp4) 51.8 % EF(sp4-el) 52.8 % LVAd ap2 32.1 cm\S\2 LVLd ap2 9.2 cm EDV(MOD-sp2) 94.5 ml EDV(sp2-el) 95.0 ml LVAs ap2 20.5 cm\S\2 LVLs ap2 7.6 cm ESV(MOD-sp2) 44.7 ml ESV(sp2-el) 46.7 ml EF(MOD-sp2) 52.7 % EF(sp2-el) 50.9 % LVLd %diff -4.10 % EDV(MOD-bp) 102.6 ml LVLs %diff -1.12 % ESV(MOD-bp) 48.3 ml EF(MOD-bp) 52.9 % SV(MOD-sp4) 56.6 ml SI(MOD-sp4) 26.3 ml/m\S\2 SV(MOD-sp2) 49.8 ml SI(MOD-sp2) 23.2 ml/m\S\2 SV(MOD-bp) 54.3 ml SI(MOD-bp) 25.3 ml/m\S\2 SV(sp4-el) 61.0 ml SI(sp4-el) 28.4 ml/m\S\2 SV(sp2-el) 48.4 ml SI(sp2-el) 22.5 ml/m\S\2 Doppler Measurements and Calculations MV E max alvarez 62.6 cm/sec MV A max alvarez 60.2 cm/sec MV E/A 1.0 MV dec time 0.29 sec Ao V2 max 114.7 cm/sec Ao max PG 5.3 mmHg Ao max PG (full) 10 mmHg MARIAELENA(V,A) 3.0 cm\S\2 MARIAELENA(V,D) 3.0 cm\S\2 LV V1 max PG 4.3 mmHg LV V1 mean PG 2.3 mmHg LV V1 max 103.2 cm/sec LV V1 mean 69.4 cm/sec LV V1 VTI 21.7 cm MR max alvarez 220.0 cm/sec MR max PG 19.4 mmHg SV(LVOT) 71.3 ml SI(LVOT) 33.2 ml/m\S\2 PA V2 max 77.1 cm/sec PA max PG 2.4 mmHg
[2016-12-15] MEDS ORDERED: PSYL0.524 PO (11:41)
== END 2016-04-20 17:13 | disposition home or self-care (01) ==
LOC: ENRESERVTM → ENRESERVDT → C.EDB 10:24 → C.2E 13:11
PROVIDERS: ADMIT Hospitalist; ATTEND Hospitalist
DX: R42 Dizziness and giddiness (principal); G47.33 Obstructive sleep apnea (adult) (pediatric); N40.0 Benign prostatic hyperplasia without lower urinary tract symptoms; R20.0 Anesthesia of skin; Z79.82 Long term (current) use of aspirin; Z87.442 Personal history of urinary calculi; Z90.49 Acquired absence of other specified parts of digestive tract; Z82.49 Family history of ischemic heart disease and other diseases of the circulatory system; Z82.3 Family history of stroke

== ENCOUNTER → 2016-07-27 | Outpatient (CLI) | payer BC ==
[~2016-07-27] MED LIST changes: +ALFU10TA2 PO; -ALFU10TA30 PO; +CALC500C70 PO; -CIPR-255 PO; -OXYC-57 PO; +PSYL0.524 PO
--- NOTE | 2016-07-27 13:18 | DIAGNOSTIC IMAGING REPORT ---
RIGHT RIBS UNILATERAL WITH PA CHEST CLINICAL HISTORY: Right rib pain. COMPARISON STUDY: Right rib series and chest radiograph April 28, 2014. FINDINGS: There is no pneumothorax or pleural effusion. Lungs are clear. Cardiac size is normal. Mediastinal contours are normal. There are multiple old right-sided rib fractures. This makes evaluation for acute rib fractures difficult. There is a possible acute nondisplaced fracture of the lateral right fifth rib. A mixed lucent and sclerotic lesion within the proximal shaft of the right humerus is unchanged since exam of April 28, 2014. IMPRESSION: 1. No pneumothorax. Possible acute nondisplaced fracture of the lateral right fifth rib. 2. Multiple old right-sided rib fractures which makes evaluation for acute rib fractures difficult. Electronically signed by: Mian Pizano M.D. 07/27/2016 1:17 PM Dictated Date/Time: 07/27/2016 1:10 PM
== END | disposition home or self-care (01) ==
LOC: C.RAD 12:30
PROVIDERS: ATTEND Nurse Practitioner Family
DX: R07.81 Pleurodynia (principal)

== ENCOUNTER → 2016-08-29 | Outpatient (CLI) | payer BC ==
--- NOTE | 2016-08-29 09:36 | DIAGNOSTIC IMAGING REPORT ---
ABDOMINAL ULTRASOUND COMPLETE HISTORY: Pain. Nausea. GASTRITIS. COMPARISON: None. FINDINGS: Pancreas: The pancreas demonstrates a normal echotexture. Liver: Unremarkable. Gallbladder: Several small gallstones. CBD: 4 mm Kidneys: No hydronephrosis. Spleen: Normal in size. Aorta: Normal in caliber. IVC: Patent. IMPRESSION: Several small gallstones. Normal caliber bile ducts. Otherwise negative study. Electronically signed by: Javed Pearl M.D. 08/29/2016 9:34 AM Dictated Date/Time: 08/29/2016 9:29 AM
== END | disposition home or self-care (01) ==
LOC: C.ULTR 08:11
PROVIDERS: ATTEND Family Medicine
DX: K29.70 Gastritis, unspecified, without bleeding (principal); K80.20 Calculus of gallbladder without cholecystitis without obstruction

== ENCOUNTER → 2016-09-09 | Outpatient (CLI) | payer BC ==
[~2016-09-09] MED LIST changes: -ALFU10TA2 PO; +ALFU10TA30 PO; -PSYL0.524 PO
== END | disposition home or self-care (01) ==
LOC: C.RDSM 17:14
PROVIDERS: ATTEND Family Medicine
DX: M54.2 Cervicalgia (principal); M95.8 Other specified acquired deformities of musculoskeletal system; M54.12 Radiculopathy, cervical region

== ENCOUNTER → 2016-09-15 | Outpatient (CLI) | payer BC ==
[~2016-09-15] MED LIST changes: +PSYL0.524 PO
--- NOTE | 2016-09-15 13:31 | DIAGNOSTIC IMAGING REPORT ---
MRI OF THE CERVICAL SPINE WITHOUT IV CONTRAST CLINICAL HISTORY: Cervicalgia. Left upper extremity weakness and numbness. COMPARISON STUDY: Radiographs of the cervical spine dated 09/09/2016. TECHNIQUE: MRI of the cervical spine is performed using various T1 and T2-weighted sequences in the axial and sagittal planes. IV contrast was not administered for this examination. FINDINGS: Cervical spine: Vertebral body height is maintained throughout the cervical spine. There is minimal anterolisthesis at C6-C7. Alignment is otherwise preserved. There is straightening of cervical lordosis with mild reversal centered at C5-C6. The atlantodental articulation appears maintained. The spinous processes are intact as imaged. Chronic degenerative plate change is seen at C6-C7. Tiny anterior osteophytes are seen in the lower cervical region. Intervertebral discs: There is degenerative disc desiccation seen throughout the cervical spine. Moderate loss of height is noted at C5-C6 and C6-C7. Spinal cord: The cervical spinal cord is normal in morphology and signal intensity. C2-C3: A small posterior disc osteophyte complex effaces the ventral subarachnoid space. Mild facet arthropathy is of no consequence. The neural foramina are patent. C3-C4: A posterior disc osteophyte complex eccentric to the right abuts the ventral cord. Uncovertebral and facet arthropathy contribute to severe right and minimal left neural foraminal stenosis. C4-C5: A posterior disc osteophyte complex eccentric to the right abuts the ventral cord. Uncovertebral and facet arthropathy causes moderate to severe right and mild left neural foraminal stenosis. C5-C6: A posterior disc osteophyte complex effaces the ventral subarachnoid space. Uncovertebral and facet arthropathy causes severe bilateral neural foraminal stenosis, right greater than left. C6-C7: A posterior disc osteophyte complex effaces the ventral subarachnoid space. Uncovertebral and facet arthropathy causes severe right and moderate to severe left neural foraminal stenosis. C7-T1: Unremarkable. Soft tissues: The prevertebral and paraspinous soft tissues are normal as imaged. Brain parenchyma: Partially imaged brain parenchyma at the skull base is within normal limits. IMPRESSION: 1. The cervical spinal cord is normal in morphology and signal intensity. 2. Multilevel cervical spondylosis as detailed above. See discussion for detailed level by level analysis. 3. No destructive bony process is seen. Electronically signed by: Chacho Velasco M.D. 09/15/2016 1:30 PM Dictated Date/Time: 09/15/2016 1:24 PM
== END | disposition home or self-care (01) ==
LOC: C.MRIBC 12:29
PROVIDERS: ATTEND Family Medicine
DX: R29.898 Other symptoms and signs involving the musculoskeletal system (principal); M47.22 Other spondylosis with radiculopathy, cervical region

== ENCOUNTER → 2017-01-28 | Outpatient (CLI) | payer BC ==
[~2017-01-28] MED LIST changes: +ALFU10TA2 PO; -ALFU10TA30 PO; +GADAVIST IV PRN
[2017-01-28 17:44] LABS: ISTAT CREATININE 0.9 mg/dl (0.6-1.3); ISTAT IONIZED CALCIUM 0.92 mmol/l (1.12-1.32)
--- NOTE | 2017-01-28 18:30 | DIAGNOSTIC IMAGING REPORT ---
BRAIN COMBO CLINICAL HISTORY: 61 years-old Male presenting with LEFT ARM WEAKNESS,TREMORS. TECHNIQUE: Multisequence, multiplanar MR imaging of the brain was performed before and after the administration of intravenous contrast. IV contrast: 8 mL of Gadavist. COMPARISON: 04/19/2016. FINDINGS: Ventricles and sulci normal in size. Minimal subcortical white matter T2/FLAIR hyperintensity, nonspecific but likely age-related change or chronic small vessel ischemic change. No mass effect or midline shift. No restricted diffusion to suggest acute ischemia. No hemorrhage. No extra-axial fluid collection. T2 skull base flow voids preserved. Tiny focus of enhancement in the lauro may represent a capillary telangiectasia. No suspicious focus of enhancement. Bone marrow signal intensity within the calvarium within normal limits. Atherosclerosis of the cavernous segments of the carotid arteries suspected. [place] left lens is absent. IMPRESSION: 1. No acute intracranial pathology. No suspicious enhancement. Electronically signed by: Carlos Enrique Nielsen M.D. 01/28/2017 6:29 PM Dictated Date/Time: 01/28/2017 6:17 PM
== END | disposition home or self-care (01) ==
LOC: C.MRI 16:44
PROVIDERS: ATTEND Family Medicine
DX: R25.3 Fasciculation (principal); R29.898 Other symptoms and signs involving the musculoskeletal system

== ENCOUNTER → 2017-02-18 | Outpatient (CLI) | payer BC ==
[~2017-02-18] MED LIST changes: -GADAVIST IV PRN
== END | disposition home or self-care (01) ==
LOC: C.LAB 11:07
PROVIDERS: ATTEND Urology
DX: R35.0 Frequency of micturition (principal); N40.1 Benign prostatic hyperplasia with lower urinary tract symptoms

== ENCOUNTER → 2017-05-18 | Outpatient (CLI) | payer OTHER ==
[~2017-05-18] MED LIST changes: +SNM/25100 PO
== END | disposition home or self-care (01) ==
LOC: C.LAB 16:25
PROVIDERS: ATTEND Urology
DX: R35.0 Frequency of micturition (principal)

== ENCOUNTER 2020-05-17 08:42 | Inpatient (IN) ==
[2020-05-17] MEDS ORDERED: SODIUM CHLORIDE 0.9% 1000ML 1,000 ML IV STA (09:25)
[2020-05-17] MEDS ORDERED: ONDANSETRON INJ 2 MG/ML 2 ML VIAL IV STA (09:25)
[2020-05-17] MEDS ORDERED: MoRPHine SULFATE 4 MG/ML 1 ML CARP\\VIAL IV STA ×2 (09:25→10:28)
[2020-05-17 09:54] LABS: Basophils # (auto) 0.01 K/uL (0-0.2); Basophils % (auto) 0.1 %; Hematocrit (blood only) 43.4 % (42-52); Immature Granulocytes # (auto) 0.03 K/uL (0.00-0.02); Immature Granulocytes % (auto) 0.2 %; Lymphocytes # (auto) 1.26 K/uL (1.2-3.4); Lymphocytes % (auto) 7.6 %; Mean Corpuscular Hemoglobin 32.2 pg (25-34); Mean Corpuscular Hgb Conc 34.6 g/dL (32-36); Mean Corpuscular Volume 93.1 fL (80-100); Monocytes # (auto) 0.53 K/uL (0.11-0.59); Monocytes % (auto) 3.2 %; Neutrophils # (auto) 14.65 K/uL (1.4-6.5); Neutrophils % (auto) 88.9 %; Platelet Count 205 K/uL (130-400); RDW Coefficient of Variation 13.7 % (11.5-14.5); RDW Standard Deviation 46.3 fL (36.4-46.3); Red Blood Count 4.66 M/uL (4.7-6.1); White Blood Count 16.48 K/uL (4.8-10.8)
--- NOTE | 2020-05-17 09:54 | Emergency Department Note ---
History of Present Illness General Chief complaint: Abdominal Pain Stated complaint: LOWER ABD PAIN ON LEFT SIDE Time Seen by Provider: 05/17/20 09:07 History of Present Illness 64-year-old male who presents to the emergency department for evaluation of left lower quadrant abdominal pain, nausea and sensation like he has to have a bowel movement. The patient also reports that he is also had some increased urinary frequency as well. The patient reports a prior history of kidney stones, but reports this feels different. He did see his PCP yesterday, who was concerned that this could be diverticulitis. They tried to draw bloods in the office, but were unsuccessful. The patient elected to go home and try Metamucil in case it was related to constipation. Patient reports decreased appetite and chills. His reports that he has not been spiking a fever at home. The patient has had prior colonoscopies with history of polyps. The patient thinks that he may have been told that he had diverticulosis as well. The patient reports that the majority of the pain is in the lower abdomen, and does not feel any significant pain radiating into the back or right abdomen region. The patient rates his d iscomfort a 7 out of 10. Home Medications Medication Instructions Recorded Confirmed Type aspirin 81 mg tablet,delayed 81 mg PO PM 03/11/18 05/17/20 History release calcium carbonate 500 mg calcium 500 mg PO PM tab 03/11/18 05/17/20 History (1,250 mg) tablet carbidopa 25 mg-levodopa 100 mg 1 tab PO QID 03/11/18 05/17/20 History tablet multivitamin 1 tab PO PM 03/11/18 05/17/20 History psyllium seed (sugar) oral powder 1 tbs PO DAILY 03/12/18 05/17/20 History amitriptyline 25 mg tablet 25 mg PO QPM tab 01/03/19 05/17/20 History acetaminophen [Tylenol 8 Hour] 1,300 mg PO Q8H PRN 05/17/20 05/17/20 History alfuzosin [Uroxatral] 10 mg PO PM 05/17/20 05/17/20 History ibuprofen 600 mg PO Q6H PRN 05/17/20 05/17/20 History rasagiline 1 mg PO QAM 05/17/20 05/17/20 History Allergies Allergy/AdvReac Type Severity Reaction Status Date / Time No Known Drug Allergies Allergy Verified 05/17/20 10:26 Past Med/Surg History Medical History BPH (benign prostatic hyperplasia) Heart murmur History of kidney stones Left lumbar radiculopathy HX INJECTION DEC 05 2019 LLQ abdominal pain Low back pain Neck pain PINCHED NERVE AND ARTHRITIS - MILD LIMITATION WITH ROM Obstructive sleep apnea CPAP Parkinson disease Surgical History History of appendectomy History of colonoscopy History of left cataract surgery History of right cataract surgery S/P hemorrhoidectomy HX Family History Mother Breast cancer Father Hypertension Stroke Social History Smoking Status: Never smoker Hx Alcohol Use: No Hx Substance Use: No Preferred Language: Kiswahili Communication Ability: Effective Visual Impairment: No Limitations Hearing Ability: Normal Supervisor [employer] Required: No Beliefs That Will Affect Care: None marital status: Current Living Situation: Spouse current occupational status: retired Other Information That Helps Us Care for You: No Feels Safe at Home: Yes Safety Concerns: Feels Safe At This Time Assistive Devices: Glasses Review of Systems 10 system review was performed and was negative except for pertinent positives and negatives as indicated in history of present illness Physical Exam Vital Signs Vital Signs - 24 hr 05/17/20 08:48 05/17/20 10:40 05/17/20 11:01 Temperature 36.8 C Temperature Source Temporal Artery Scan Pulse Rate 123 H Pulse Rate [Right] 112 H Pulse Rate from SpO2 Sensor 101 H Pulse Rhythm Regular Pulse Strength Normal Respiratory Rate 18 20 Respiratory Effort / Characteristics Non-Labored Spontaneous Non-Labored Spontaneous Respiratory Depth Normal Normal Respiratory Pattern Regular Regular Blood Pressure 112/70 127/84 Blood Pressure [Right Arm] 128/80 Blood Pressure Mean 84 98 Blood Pressure Mean [Right Arm] 96 Blood Pressure Position Sitting Blood Pressure Position [Right Arm] Lying Pulse Oximetry 98 95 97 Oxygen Delivery Method Room Air Room Air Sepsis Recent Fever Within 48 Hours No Sepsis New/Unexplained Change in Mental Status No Sepsis Action Taken by Nursing No Action Required 05/17/20 11:47 05/17/20 12:00 Temperature Temperature Source Pulse Rate 98 H 105 H Pulse Rate [Right] Pulse Rate from SpO2 Sensor 98 H 105 H Pulse Rhythm Pulse Strength Respiratory Rate 27 H 19 Respiratory Effort / Characteristics Respiratory Depth Respiratory Pattern Blood Pressure 126/86 127/84 Blood Pressure [Right Arm] Blood Pressure Mean 99 98 Blood Pressure Mean [Right Arm] Blood Pressure Position Blood Pressure Position [Right Arm] Pulse Oximetry 94 94 Oxygen Delivery Method Sepsis Recent Fever Within 48 Hours Sepsis New/Unexplained Change in Mental Status Sepsis Action Taken by Nursing CONSTITUTIONAL: Healthy and well nourished. Patient appears in mild to moderate discomfort, and does not appear toxic. HEENT: Normocephalic, atraumatic. No scleral icterus or conjunctival injection. NECK: Full active range of motion without discomfort. LYMPHATICS: No cervical chain adenopathy. RESPIRATORY: Clear to auscultation bilaterally with no wheezing, crackles, rhon chi or stridor. CARDIOVASCULAR: Regular rate and rhythm with no murmurs, rubs or gallops. GASTROINTESTINAL: Bowel sounds present in all quadrants. Patient has notable left lower quadrant tenderness to palpation without rigidity, guarding or rebound. Negative CVA tenderness. Negative McBurney's point tenderness. MUSCULOSKELETAL: Full range of motion of all joints without discomfort. Negative logroll of the left hip. INTEGUMENTARY: No rash or other significant dermatologic conditions noted. HEMATOLOGIC: No ecchymosis or petechiae. PSYCHIATRIC: Positive affect. NEUROLOGIC: No focal neurologic deficits noted. Course Course History and physical exam were performed. Nurses notes were reviewed. Vital signs were reviewed, showing a tachycardia without fever. The patient is also normotensive. IV access was established, and labs were drawn. The patient was hydrated with a liter normal saline, and administered IV morphine and Zofran for pain and nausea. Review of labs shows a moderate leukocytosis with left shift and bandemia. Remaining labs are otherwise grossly normal except a mildly elevated random glucose. Urinalysis shows no evidence for infection. CT with IV contrast of the abdomen and pelvis is concerning for a partial colonic obstruction secondary to stool, along with pericolonic stranding concerning for possible ischemic colitis. He also has moderate stool within the cecum and ascending colon as well. Findings were discussed with Dr. Babin, ED attending physician, who recommended consulting gastroenterology. The case was then further discussed with Dr. Hewitt, [facility], who recommended admission for possible ischemic colitis. The patient was ordered Zosyn IV antibiotics. COVID-19 test was performed and was negative. While awaiting consultation with the [facility] hospitalist group, Dr. Lira (Dr. Hewitt's partner) did come to the emergency department to perform a physical examination, and agrees with hospital admission with antibiotics and hopefully planning for outpatient colonoscopy. Dr. Lira did explain these options with the patient and , who were in agreement. The patient was further evaluated by the hospitalist service. Please see their dictation for further treatment and final disposition. Administered Medications Lactated Ringer's (Lr) 1,000 mls @ 125 mls/hr IV .Q8H ZEB Stop: 06/16/20 14:40 Last Admin: 05/17/20 15:46 Dose: 125 mls/hr Documented by: [id number] Acetaminophen (Ofirmev) 1,000 mg in 100 mls @ 400 mls/hr IV Q8H ZEB Stop: 05/20/20 15:59 Last Infusion: 05/17/20 16:26 Dose: 0 mls/hr Documented by: [id number] Admin: 05/17/20 15:51 Dose: 400 mls/hr Documented by: [id number] Miscellaneous (Rasagiline - Order Awaiting Action) 1 ea N/A QS ZEB Stop: 06/16/20 15:59 Last Admin: 05/17/20 16:26 Dose: Not Given Documented by: [id number] Discontinued Medications Carbidopa/Levodopa (Carbidopa/Levodopa 25/100mg Tab) 1 tab PO QID ZEB Stop: 06/16/20 14:40 Last Admin: 05/17/20 15:46 Dose: 1 tab Documented by: [id number] Sodium Chloride (Nss 1000ml) 1,000 mls @ 999 mls/hr IV .Q1H1M STA Stop: 05/17/20 10:25 Last Infusion: 05/17/20 11:05 Dose: 0 mls/hr Documented by: [id number] Admin: 05/17/20 09:58 Dose: 999 mls/hr Documented by: [id number] Piperacillin Sod/Tazobactam Sod (Zosyn) 4.5 gm in 120 mls @ 240 mls/hr IV NOW ONE Stop: 05/17/20 12:06 Last Infusion: 05/17/20 12:21 Dose: 0 mls/hr Documented by: [id number] Admin: 05/17/20 11:50 Dose: 240 mls/hr Documented by: [id number] Ioversol (Ioversol 100ml) 94 ml IV ONCE ONE Stop: 05/17/20 10:47 Last Admin: 05/17/20 10:46 Dose: 94 ml Documented by: [id number] Morphine Sulfate (Morphine Sulfate 4 Mg/Ml 1 Ml Carp\Vial) 4 mg IV NOW STA Stop: 05/17/20 09:26 Last Admin: 05/17/20 09:58 Dose: 4 mg Documented by: [id number] Morphine Sulfate (Morphine Sulfate 4 Mg/Ml 1 Ml Carp\Vial) 4 mg IV NOW STA Stop: 05/17/20 10:29 Last Admin: 05/17/20 10:37 Dose: 4 mg Documented by: [id number] Ondansetron HCl (Ondansetron Inj 2 Mg/Ml 2 Ml Vial) 4 mg IV NOW STA Stop: 05/17/20 09:26 Last Admin: 05/17/20 09:58 Dose: 4 mg Documented by: [id number] Medical Decision Making Medical Records Attestation: I reviewed the patient's medical records. Home Medications Current Medication List: was personally reviewed by me Laboratory Data Attestation: I reviewed the patient's lab results. Result diagrams: 05/17/20 09:40 05/17/20 09:40 Lab Results 05/17/20 05/17/20 05/17/20 Range/Units 09:40 09:40 11:00 WBC 16.48 H (4.8-10.8) K/uL RBC 4.66 L (4.7-6.1) M/uL Hgb 15.0 (14.0-18.0) g/dL Hct 43.4 (42-52) % MCV 93.1 (80-100) fL MCH 32.2 (25-34) pg MCHC 34.6 (32-36) g/dL RDW Std Deviation 46.3 (36.4-46.3) fL RDW Coeff of Gregorio 13.7 (11.5-14.5) % Plt Count 205 (130-400) K/uL MPV 10.0 (7.4-10.4) fL Immature Gran % (Auto) 0.2 % Neut % (Auto) 88.9 % Lymph % (Auto) 7.6 % Pershing % (Auto) 3.2 % Eos % (Auto) 0.0 % Baso % (Auto) 0.1 % Neut # (Auto) 14.65 H (1.4-6.5) K/uL Lymph # (Auto) 1.26 (1.2-3.4) K/uL Pershing # (Auto) 0.53 (0.11-0.59) K/uL Eos # (Auto) 0.00 (0-0.5) K/uL Baso # (Auto) 0.01 (0-0.2) K/uL Immature Gran # (Auto) 0.03 H (0.00-0.02) K/uL Sodium 137 (136-145) mmol/L Potassium 4.2 (3.5-5.1) mmol/L Chloride 105 (98-107) mmol/L Carbon Dioxide 26 (21-32) mmol/L Anion Gap 6.0 (3-11) BUN 15 (7-18) mg/dl Creatinine 1.00 (0.6-1.4) mg/dl Est Cr Clr Drug Dosing 75.0 ml/min Est GFR ( Amer) 90.5 Est GFR (Non-Af Amer) 78.1 BUN/Creatinine Ratio 15.4 (10-20) Glucose 120 H (70-99) mg/dl Calcium 10.0 (8.5-10.1) mg/dl Total Bilirubin 0.9 (0.2-1) mg/dl AST 33 (15-37) U/L ALT 17 (12-78) U/L Alkaline Phosphatase 88 (45-117) U/L Total Protein 7.8 (6.4-8.2) gm/dl Albumin 4.1 (3.4-5.0) gm/dl Globulin 3.7 (2.5-4.0) gm/dl Albumin/Globulin Ratio 1.1 (0.9-2) Lipase 114 (73-393) U/L Urine Color Dark Yellow Urine Appearance Clear (Clear) Urine pH 6.5 (4.5-7.5) Ur Specific [place] 1.028 (1.000-1.030) Urine Protein 1+ H (Negative) Urine Glucose (UA) Negative (Negative) Urine Ketones 2+ H (Negative) Urine Blood Negative (Negative) Urine Nitrite Negative (Negative) Urine Bilirubin Negative (Negative) Urine Urobilinogen Negative (Negative) Ur Leukocyte Esterase Negative (Negative) Urine WBC (Auto) 1-5 (0-5) /hpf Urine RBC (Auto) 5-10 H (0-4) /hpf U Hyaline Cast (Auto) 5-10 H (0-5) /lpf U Epithel Cells (Auto) 10-20 H (0-5) /lpf Urine Bacteria (Auto) Negative (Negative) Imaging Data Attestation: I personally reviewed and interpreted this imaging study as follows: My Impression: My interpretation of a CT with IV contrast of the abdomen and pelvis shows at least a partial colonic obstruction from distal descending colon stool. Adjacent infiltration is also suggestive of a stercoral colitis. Radiologist report was also reviewed. Radiologist's Impression: CT OF THE ABDOMEN AND PELVIS WITH CONTRAST CLINICAL HISTORY: Left lower quadrant abdominal pain. COMPARISON STUDY: CT of the abdomen and pelvis April 30, 2012. KUB August 03, 2018. TECHNIQUE: Following IV administration of 94 mL of Optiray-320, axial images of the abdomen and pelvis were obtained from the lung bases to the proximal femurs. Images were reviewed in the axial, sagittal, and coronal planes. IV contrast was administered without complication. Automated exposure control was utilized for the study. A dose lowering technique was utilized adhering to the principles of ALARA. CT DOSE: 705.31 mGycm FINDINGS: Lung bases are unremarkable. No pneumatosis, free air or portal venous gas is present. A 9 mm hypodense segment 6 hepatic lesion is unchanged since CT of April 30, 2012. This is benign. There is no biliary or pancreatic ductal dilatation. There is no peripancreatic or pericholecystic infiltration. Note is made of calcified gallstones within the gallbladder without evidence for acute cholecystitis. The spleen and adrenal glands are unremarkable. Several bilateral renal calculi measure up to 5 mm. There are no ureteral calculi. There is no hydronephrosis. Several renal cysts are noted. There are a few subcentimeter r enal lesions which are too small to characterize. Colonic diverticulosis is noted. There is no convincing evidence for acute diverticulitis. There is moderate stranding adjacent to the distal descending colon. There is a moderate amount of stool within the distal descending colon with caliber change at the junction of the descending colon and sigmoid colon shown on axial image 335 of 471. No colonic mass is identified however these may be occult by CT. Moderate colonic distention is noted with a large amount stool within the cecum and ascending colon. These findings suggest a partial colonic obstruction. No lymphadenopathy is present. A few prominent small bowel loops are noted. This may reflect an ileus. Mild mesenteric infiltration is shown on prior CT. This is of doubtful significance. IMPRESSION: 1. Moderate amount of stool within the distal descending colon with adjacent stranding and mild to moderate upstream colonic dilatation. The findings suggest a partial colonic obstruction most likely due to stool. Adjacent infiltration suggests stercoral colitis. An underlying stricture or occult mass cannot be excluded by CT. Therefore, GI consultation for consideration for colonoscopy is recommended. Large amount of stool within the cecum and ascending colon. 2. A few mildly dilated loops of small bowel. This may reflect an ileus. No evidence for a small bowel obstruction. 3. Cholelithiasis. 4. Bilateral nephrolithiasis. Blood Pressure Blood Pressure Findings: Normal blood pressure MDM Narrative 64-year-old male who presents to the emergency department for evaluation of left lower quadrant abdominal pain for the past few days, that is progressively worsening. CT imaging is concerning for possible stercoral colitis, and possibility of ischemic colitis. CT imaging does show pericolonic infiltration without obvious perforation or abscess. Other differentials include carcinoma or diverticulitis. Patient does not have any additional small bowel obstruction, appendicitis or abdominal free air. Urinalysis is not consistent with UTI. Patient does have a history of BPH, however I do not suspect pain secondary to this condition or prostatitis. Impression & Plan Partial obstruction of colon, Parkinson disease, LLQ abdominal pain Discharge Plan Visit Data Chief Complaint: Abdominal Pain Stated Complaint: LOWER ABD PAIN ON LEFT SIDE ED Provider: Ketan Babin ED Midlevel Provider: Rashaad Cao Discharge Problem: Partial obstruction of colon, Parkinson disease, LLQ abdominal pain Patient Disposition: Admitted As Inpatient Discharge Instructions Interventions: ED Discharge Assessment Last Done: 05/17/20 13:36
[2020-05-17 10:13] LABS: Albumin Level 4.1 gm/dl (3.4-5.0); BUN Creatinine Ratio 15.4 (10-20); Est GFR (African American) 90.5; Est GFR (Non-African American) 78.1; Potassium 4.2 mmol/L (3.5-5.1)
[2020-05-17 10:16] LABS: Albumin Globulin Ratio 1.1 (0.9-2); Bilirubin,Total 0.9 mg/dl (0.2-1); Globulin 3.7 gm/dl (2.5-4.0); Total Protein 7.8 gm/dl (6.4-8.2)
[2020-05-17] MEDS ORDERED: OPTIRAY 320 100ml IV ONE (10:46)
--- NOTE | 2020-05-17 11:09 | CT Scan Report ---
CT OF THE ABDOMEN AND PELVIS WITH CONTRAST CLINICAL HISTORY: Left lower quadrant abdominal pain. COMPARISON STUDY: CT of the abdomen and pelvis April 30, 2012. KUB August 03, 2018. TECHNIQUE: Following IV administration of 94 mL of Optiray-320, axial images of the abdomen and pelvi s were obtained from the lung bases to the proximal femurs. Images were reviewed in the axial, sagitt al, and coronal planes. IV contrast was administered without complication. Automated exposure contro l was utilized for the study. A dose lowering technique was utilized adhering to the principles of A BRITTNEE. CT DOSE: 705.31 mGycm FINDINGS: Lung bases are unremarkable. No pneumatosis, free air or portal venous gas is present. A 9 mm hypodense segment 6 hepatic lesion is unchanged since CT of April 30, 2012. This is benign. The re is no biliary or pancreatic ductal dilatation. There is no peripancreatic or pericholecystic infil tration. Note is made of calcified gallstones within the gallbladder without evidence for acute maranda cystitis. The spleen and adrenal glands are unremarkable. Several bilateral renal calculi measure up to 5 mm. There are no ureteral calculi. There is no hydronephrosis. Several renal cysts are noted. Th ere are a few subcentimeter renal lesions which are too small to characterize. Colonic diverticulosis is noted. There is no convincing evidence for acute diverticulitis. There is m oderate stranding adjacent to the distal descending colon. There is a moderate amount of stool within the distal descending colon with caliber change at the junction of the descending colon and sigmoid colon shown on axial image 335 of 471. No colonic mass is identified however these may be occult by C T. Moderate colonic distention is noted with a large amount stool within the cecum and ascending colo n. These findings suggest a partial colonic obstruction. No lymphadenopathy is present. A few promine nt small bowel loops are noted. This may reflect an ileus. Mild mesenteric infiltration is shown on p rior CT. This is of doubtful significance. IMPRESSION: 1. Moderate amount of stool within the distal descending colon with adjacent stranding and mild to mo derate upstream colonic dilatation. The findings suggest a partial colonic obstruction most likely du e to stool. Adjacent infiltration suggests stercoral colitis. An underlying stricture or occult mass cannot be excluded by CT. Therefore, GI consultation for consideration for colonoscopy is recommended . Large amount of stool within the cecum and ascending colon. 2. A few mildly dilated loops of small bowel. This may reflect an ileus. No evidence for a small marisol l obstruction. 3. Cholelithiasis. 4. Bilateral nephrolithiasis. ACT 112: Negative or not required by law. Electronically signed by: Mian Pizano M.D. 05/17/2020 11:07 AM
[2020-05-17 11:17] LABS: Appearance Urine Clear (Clear); Bacteria Urine Automated Negative (Negative); Bilirubin Urine Negative (Negative); Blood Urine Negative (Negative); Color Urine Dark Yellow; Glucose Urine UA Negative (Negative); Ketones Urine 2+ (Negative); Leukocyte Esterase Urine Negative (Negative); Nitrite Urine Negative (Negative); Protein Urine 1+ (Negative); Specific Gravity Urine 1.028 (1.000-1.030); Urobilinogen Urine Negative (Negative); pH Urine 6.5 (4.5-7.5)
[2020-05-17] MEDS ORDERED: PIPERACILL/TAZOBAC CONSULT ACTIVE PRN (11:37)
[2020-05-17] MEDS ORDERED: PIPERACILLIN/TAZOBACTAM 4.5 GM/120 ML BAG IV ONE (11:37)
--- NOTE | 2020-05-17 12:14 | Gastrointestinal Consultation ---
Date of Consultation May 17, 2020 Assessment & Plan (1) LLQ abdominal pain: Differential includes diverticulitis and ischemic colitis both of which can cause pain and elevated WBC. Would give broad spectrum abx and supportive care with NPO, IVF and pain meds. If patient develops worsening pain and/or peritoneal signs would get general surgery involved. change of caliber of DC on CT with partial obstruction --can be from inflammatory process causing edema but will need colonoscopy electively (likely need to wait 6 weeks) to rule out occult neoplasm increased stool in colon on CT--reevaluate in 24 hours--may be able to use some enemas from below of miralax from above to stimulate BM History of Present Illness Reason for Consultation: LLQ pain History of Present Illness CC abd pain HPI with patient for H and P. Pt with hx of colonoscopy done 2017 showing sigmoid diverticulitis presents with 48 hours of abupt onset of LLQ pain. Pain level waxes and wanes but continues to present throughout. Some sweats and chills but he checked his temp and afebrile. Pt states he moves his bowels once daily and occosional hard stools but no definite change in bowels until onset of pain and no bms since. WBC elevated to 16.5, LFTs nl, lipase nl. CT a/p shows diverticulosis, moderate colon distension with stool, change of caliber of colon at jxn DC /sigmoid and stranding at DC. Allergies Allergy/AdvReac Type Severity Reaction Status Date / Time No Known Drug Allergies Allergy Verified 05/17/20 10:26 Home Medications Medication Instructions Recorded Confirmed Type aspirin 81 mg tablet,delayed 81 mg PO PM 03/11/18 05/17/20 History release calcium carbonate 500 mg calcium 500 mg PO PM tab 03/11/18 05/17/20 History (1,250 mg) tablet carbidopa 25 mg-levodopa 100 mg 1 tab PO QID 03/11/18 05/17/20 History tablet multivitamin 1 tab PO PM 03/11/18 05/17/20 History psyllium seed (sugar) oral powder 1 tbs PO DAILY 03/12/18 05/17/20 History amitriptyline 25 mg tablet 25 mg PO QPM tab 01/03/19 05/17/20 History acetaminophen [Tylenol 8 Hour] 1,300 mg PO Q8H PRN 05/17/20 05/17/20 History alfuzosin [Uroxatral] 10 mg PO PM 05/17/20 05/17/20 History ibuprofen 600 mg PO Q6H PRN 05/17/20 05/17/20 History rasagiline 1 mg PO QAM 05/17/20 05/17/20 History Patient History Medical History BPH (benign prostatic hyperplasia) Heart murmur History of kidney stones Left lumbar radiculopathy HX INJECTION DEC 05 2019 Low back pain Neck pain PINCHED NERVE AND ARTHRITIS - MILD LIMITATION WITH ROM Obstructive sleep apnea CPAP Parkinson disease Surgical History History of appendectomy History of colonoscopy History of left cataract surgery History of right cataract surgery S/P hemorrhoidectomy HX Family History Mother Breast cancer Father Hypertension Stroke Social History Smoking Status: Never smoker Hx Alcohol Use: No Hx Substance Use: No Preferred Language: Hungarian Communication Ability: Effective Visual Impairment: No Limitations Hearing Ability: Normal Manager Transplant Required: No Beliefs That Will Affect Care: None marital status: Current Living Situation: Spouse and Family current occupational status: retired Feels Safe at Home: Yes Assistive Devices: CPAP Review of Systems Review of Systems: All systems reviewed & are unremarkable except as noted in HPI & below Physical Exam Constitutional: WD/WN, vitals as above Eyes: PERRL, conjunctivae normal, anicteric sclerae ENMT: external ears and nose normal. Neck: normal visual inspection and trachea midline Respiratory: normal respiratory effort, lungs clear to auscultation Cardiovascular: RRR, no murmur, no edema Gastrointestinal (Abdomen): diminshed bowel sounds, guarding LLQ but no rebound, no visible distension. Skin: normal turgor Neurologic: PERRL, EOMI, accommodation nl, no face palsy, no dysarthria Psychiatric: A+Ox3, euthymic affect Results & Data ([facility]) Vital Signs (Past 12 Hours) Vital Signs Temp Pulse Pulse Resp BP BP Pulse Ox 05/17/20 11:01 127/84 97 05/17/20 10:40 112 H 20 128/80 95 03/04/21 08:48 36.8 C 123 H 18 112/70 98
--- NOTE | 2020-05-17 12:20 | History & Physical Report ---
Date of Service May 17, 2020 Assessment & Plan (1) LLQ abdominal pain: N.p.o. except p.o. meds for Sinemet and alfuzosin as benefit > risk with partial bowel obstruction. IV fluids. Acetaminophen scheduled and Dilaudid as needed for pain relief Broad-spectrum antibiotics to cover for diverticulitis with Zosyn. Discontinue amitriptyline Consult GI -planning on outpatient colonoscopy. Will defer MiraLAX or enemas at present time due to concern for partial bowel obstruction. X-ray KUB in a.m. If worsening will consult surgery. (2) BPH (benign prostatic hyperplasia): Continue alfuzosin 10 mg p.o. every afternoon (3) Obstructive sleep apnea: CPAP at bedtime (4) Parkinson disease: Continue his usual Sinemet dosing. Admission and Anticipated Discharge Date Admission Date: May 17, 2020 History of Present Illness Chief Complaint: Abdominal pain Primary Care Provider: Cristiano Arana MD Zelalem Young is a 64-year-old male who presents to the ER with abdominal pain. He reports 2 days of mainly LLQ abdominal cramping pain - felt like he needed to move his bowels but could not go. Seen by PCP yesterday and was ordered lab work but were unable to get this. Therefore he went home and tried Metamucil for constipation taking then twice yesterday with no effect. He does not take any regular laxatives. This morning he felt lightheaded and faint with associated nausea and diaphoresis therefore decided to come to the ER. He denies any vomiting, just nausea. His pain is generalized abdominal but more concentrated in left lower quadrant radiating to left flank, severity 7/10 in ER, currently 2/10. No bowel movement for past 2 days, usually regular with Metamucil daily. He reports a significant history of Parkinson's disease and has been taking his Sinemet regularly. Also notably taking amitriptyline for insomnia for last 6 months although he is unclear if this is helping his insomnia. In the ER CT was concerning for moderate amount of stool in descending colon with adjacent stranding and mild to moderate upstream colonic dilatation concerning for partial colonic obstruction suggestive of stercoral colitis. NG t ube was placed with significant output of green thin liquid and relief of his abdominal discomfort. He was given Zosyn to cover for infective cause +/- translocation of bacteria. He was referred to medicine for admission and ongoing management of ischemic colitis. Allergies Allergy/AdvReac Type Severity Reaction Status Date / Time No Known Drug Allergies Allergy Verified 05/22/20 14:06 Home Medications Medication Instructions Recorded Confirmed Type aspirin 81 mg tablet,delayed 81 mg PO PM 03/11/18 05/17/20 History release calcium carbonate 500 mg calcium 500 mg PO PM tab 03/11/18 05/17/20 History (1,250 mg) tablet carbidopa 25 mg-levodopa 100 mg 1 tab PO QID 03/11/18 05/17/20 History tablet multivitamin 1 tab PO PM 03/11/18 05/17/20 History psyllium seed (sugar) oral powder 1 tbs PO DAILY 03/12/18 05/17/20 History amitriptyline 25 mg tablet 25 mg PO QPM tab 01/03/19 05/17/20 History acetaminophen [Tylenol 8 Hour] 1,300 mg PO Q8H PRN 05/17/20 05/17/20 History alfuzosin [Uroxatral] 10 mg PO PM 05/17/20 05/17/20 History ibuprofen 600 mg PO Q6H PRN 05/17/20 05/17/20 History rasagiline 1 mg PO QAM 05/17/20 05/17/20 History Past Med/Surg History Medical History BPH (benign prostatic hyperplasia) Heart murmur History of kidney stones Left lumbar radiculopathy HX INJECTION DEC 05 2019 LLQ abdominal pain Low back pain Neck pain PINCHED NERVE AND ARTHRITIS - MILD LIMITATION WITH ROM Obstructive sleep apnea CPAP Parkinson disease Surgical History History of appendectomy History of colonoscopy History of left cataract surgery History of right cataract surgery S/P hemorrhoidectomy HX Family History Mother Breast cancer Father Hypertension Stroke Social History Smoking Status: Never smoker Hx Alcohol Use: No Hx Substance Use: No Preferred Language: Moroccan Communication Ability: Effective Visual Impairment: No Limitations Hearing Ability: Normal Stock Trader Required: No Beliefs That Will Affect Care: None marital status: Current Living Situation: Spouse current occupational status: retired Other Information That Helps Us Care for You: No Feels Safe at Home: Yes Safety Concerns: Feels Safe At This Time Assistive Devices: Walker Review of Systems Review of Systems: All systems reviewed & are unremarkable except as noted in HPI & below Physical Exam Constitutional: WD/WN, vitals as above Eyes: + anicteric sclerae; normal pupil size ENMT: external ear and nose normal, oropharynx normal Neck: trachea midline Respiratory: normal respiratory effort, lungs clear to auscultation Cardiovascular: Rate/Rhythm: regular rhythm and + tachycardic Heart Sounds: no murmur Vessels: no JVD Extremities: normal capillary refill; no calf tenderness and no pedal edema Gastrointestinal (Abdomen): Inspection/Auscultation: + abdomen distended and + hypoactive bowel sounds Percussion/Palpation: + abdomen tender (epigastric and LLQ, improved since NG tube placement) and abdomen soft; no guarding and abdomen not rigid Musculoskeletal: no cyanosis or clubbing, extremities motor strength 5/5 Skin: no rashes, warm and dry Neurologic: moves all extremities and awake; not confused Psychiatric: A+Ox3, euthymic affect Genitourinary: no CVA tenderness Results & Data Results & Data ([facility]) Vital Signs (Past 12 Hours) Vital Signs Temp Pulse Pulse Resp BP BP Pulse Ox 05/17/20 11:01 127/84 97 05/17/20 10:40 112 H 20 128/80 95 05/17/20 08:48 36.8 C 123 H 18 112/[address] OF THE ABDOMEN AND PELVIS WITH CONTRAST IMPRESSION: 1. Moderate amount of stool within the distal descending colon with adjacent stranding and mild to moderate upstream colonic dilatation. The findings suggest a partial colonic obstruction most likely due to stool. Adjacent infiltration suggests stercoral colitis. An underlying stricture or occult mass cannot be excluded by CT. Therefore, GI consultation for consideration for colonoscopy is recommended. Large amount of stool within the cecum and ascending colon. 2. A few mildly dilated loops of small bowel. This may reflect an ileus. No evidence for a small bowel obstruction. 3. Cholelithiasis. 4. Bilateral nephrolithiasis. Medications Administered ER medications given: NSS 1 hour bolus Morphine 4 mg IV Ondansetron 4 mg IV Morphine 4 mg IV Zosyn 4.5 g IV ECG Rate (beats per minute): 103 Rhythm: normal sinus Findings: + other (T wave flattening in lateral leads) and + acute ischemic change Comparison ECG Date: from (April 20, 2016) Change: the following changes noted (T wave flattening as above is new) Code Status & VTE Plan Code Status Full VTE Prophylaxis Plan VTE Prophylaxis will be ordered: Yes PG Care Time/CCT Total # of Minutes Spent Total Time Spent with Patient: Total time spent is greater than 50% in coordination of care (as documented) at patient's floor/unit and/or counseling patient: Coding Level of Care Code 40090 Initial Inpt Care Lvl 3 Diagnoses LLQ abdominal pain R10.32 BPH (benign prostatic hyperplasia) N40.0 Obstructive sleep apnea G47.33 Parkinson disease G20
[2020-05-17] MEDS ORDERED: HYDROmorphone INJ 0.5 MG/0.5 ML SYR IV PRN (14:41)
[2020-05-17] MEDS ORDERED: CARBIDOPA/LEVODOPA 25/100MG TAB PO SCH (14:41)
[2020-05-17] MEDS: LACTATED RINGER'S 1,000 ML IV SCH ×2 (15:46→23:10)
[2020-05-17] MEDS: ACETAMINOPHEN 1,000 MG/100 ML VIAL IV SCH ×2 (15:51→23:10)
[2020-05-17] MEDS ORDERED: Nursing to Pharmacy Communication SCH (16:30)
[2020-05-17] MEDS: PIPERACILLIN/TAZOBACTAM 3.375 GM in DEXTROSE 5% 100 ML IV SCH (17:27)
[2020-05-17] MEDS: CARBIDOPA/LEVODOPA 25/100MG TAB PO SCH (19:57)
[2020-05-17] MEDS: ALFUZOSIN HCL 10 MG TAB PO SCH (22:02)
[2020-05-18] MEDS: PIPERACILLIN/TAZOBACTAM 3.375 GM in DEXTROSE 5% 100 ML IV SCH ×3 (02:10→17:45)
[2020-05-18] MEDS: ONDANSETRON INJ 2 MG/ML 2 ML VIAL IV PRN (02:18)
[2020-05-18] MEDS: PROMETHAZINE HCL 12.5 MG in SODIUM CHLORIDE 0.9% 50 ML IV PRN (05:06)
--- NOTE | 2020-05-18 05:37 | Electrocardiogram Report ---
Test Reason : Blood Pressure : / mmHG Vent. Rate : 103 BPM Atrial Rate : 103 BPM P-R Int : 196 ms QRS Dur : 114 ms QT Int : 344 ms P-R-T Axes : 078 046 073 degrees QTc Int : 450 ms Sinus tachycardia Nonspecific T wave abnormality Abnormal ECG When compared with ECG of 20-APR-2016 06:27, Non-specific change in ST segment in Anterolateral leads Nonspecific T wave abnormality now evident in Inferior leads Nonspecific T wave abnormality, worse in Lateral leads Confirmed by Harinder Olivia ([id number]) on 05/18/2020 5:37:44 AM Referred By: REFERRED SELF Confirmed By:Harinder Olivia
[2020-05-18] MEDS: LACTATED RINGER'S 1,000 ML IV SCH ×3 (06:31→21:54)
[2020-05-18 06:56] LABS: Basophils # (auto) 0.01 K/uL (0-0.2); Hematocrit (blood only) 39.5 % (42-52); Hemoglobin 13.6 g/dL (14.0-18.0); Immature Granulocytes # (auto) 0.07 K/uL (0.00-0.02); Immature Granulocytes % (auto) 0.3 %; Lymphocytes # (auto) 0.96 K/uL (1.2-3.4); Lymphocytes % (auto) 4.4 %; Mean Corpuscular Hemoglobin 31.6 pg (25-34); Mean Corpuscular Hgb Conc 34.4 g/dL (32-36); Mean Corpuscular Volume 91.6 fL (80-100); Neutrophils # (auto) 19.35 K/uL (1.4-6.5); Neutrophils % (auto) 89.3 %; Platelet Count 206 K/uL (130-400); RDW Coefficient of Variation 13.7 % (11.5-14.5); RDW Standard Deviation 46.2 fL (36.4-46.3); Red Blood Count 4.31 M/uL (4.7-6.1); White Blood Count 21.69 K/uL (4.8-10.8)
[2020-05-18 07:34] LABS: BUN Creatinine Ratio 14.3 (10-20); Calcium 9.3 mg/dl (8.5-10.1); Creatinine Clr Calc Pharmacy 78.2 ml/min; Est GFR (African American) 95.1; Potassium 3.8 mmol/L (3.5-5.1)
[2020-05-18] MEDS: ACETAMINOPHEN 1,000 MG/100 ML VIAL IV SCH ×3 (07:37→23:28)
[2020-05-18] MEDS: CARBIDOPA/LEVODOPA 25/100MG TAB PO SCH ×4 (07:38→20:05)
[2020-05-18] MEDS: RASAGILINE PO SCH (07:39)
--- NOTE | 2020-05-18 08:50 | XRay Report ---
XR KUB/Abdomen 1 view CLINICAL HISTORY: bowel obstruction COMPARISON STUDY: 08/03/2018 FINDINGS: There is moderate right colonic stool. There is mild gaseous distention of both large and s mall bowel loops. There is cholelithiasis. There are equivocal renal calculi. IMPRESSION: Gaseous distention of both large and small bowel loops. ACT 112: Negative or not required by law. Electronically signed by: Mika Smith M.D. 05/18/2020 8:48 AM
[2020-05-18] MEDS ORDERED: RASAGILINE PO SCH (09:00)
[2020-05-18] MEDS ORDERED: SOD PHOSPHATE/SOD BIPHOSPHATE ENEMA 132 ML BTL PR STA ×2 (12:03→14:55)
--- NOTE | 2020-05-18 12:04 | Hospitalist Progress Note ---
Date of Service May 18, 2020 Assessment & Plan (1) Partial obstruction of colon: CT shows large amount of stool in cecum and ascending colon, pressure on colon large amount of stool in junction of sigmoid and descending colon evidence of obstruction with distension of colon, small bowel and obstipation had a small BM with fleet enema, will repeat allow clear liquid diet once he evacuates more will give some laxatives to promote motility appreciate GI and surgical consults will continue on Zosyn for coverage of sterocolitis (2) Obstipation: due to stool had a BM and passed some flatus with fleet enema will repeat, follow clinically (3) Colitis: stercocolitis, could represent diverticulitis but less likely will cover with Zosyn IV clear liquid diet promote bowel movements with enema will need colonoscopy in 6 weeks (4) LLQ abdominal pain: see above, most of the pain is in LLQ gained relief with enema and moving bowels (5) BPH (benign prostatic hyperplasia): Continue alfuzosin 10 mg p.o. every afternoon (6) Obstructive sleep apnea: CPAP at bedtime (7) Parkinson disease: Continue his usual Sinemet dosing. Admission and Anticipated Discharge Date Admission Date: May 17, 2020 Subjective patient says his last BM was on Thursday, 3 days ago typically has no issues with moving his bowels, goes every morning without fail currently he has some distension, burping, mild discomfort he is not passing any gas either reviewed chart, reviewed CT personally and read the radiology report d/w Dr. Lira this morning, gave him a fleet enema which induced a small bowel movement and some flatus spoke with Dr. Hewitt this afternoon, will give another enema, try to reduce distension further with promoting bowel movements once he is moving bowels will use laxatives consulted general surgery, Dr. Núñez, he will follow this weekend updated his at the bedside Review of Systems Review of Systems: All systems reviewed & are unremarkable except as noted in Subjective Constitutional: no fever, no chills, no sweats, no fatigue and no weakness Respiratory: no cough and no dyspnea Cardiovascular: no chest pain, no syncope and no edema Gastrointestinal: + belching, + bloating, + nausea, + cramping and + constipation; no abdominal pain, no vomiting, no excessive flatulence, no diarrhea/loose stools, no blood in stools and no melena Genitourinary: no dysuria Musculoskeletal: no back pain, no neck pain and no joint pain Physical Exam Constitutional: WD/WN, vitals as above + uncomfortable Neck: trachea midline, no thyromegaly Respiratory: normal respiratory effort, lungs clear to auscultation Cardiovascular: RRR, no murmur, no edema Gastrointestinal (Abdomen): Inspection/Auscultation: + abdomen distended and + hypoactive bowel sounds Percussion/Palpation: + tympanic to percussion and + abdomen firm; abdomen nontender and no ascites Musculoskeletal: no cyanosis or clubbing, extremities motor strength 5/5 Skin: no rashes, warm and dry Neurologic: patellar DTR's 2+ bilat, sensation intact and PERRL, EOMI, accommodation nl, no face palsy, no dysarthria Psychiatric: A+Ox3, euthymic affect Lymphatic: no cervical or axillary lymphadenopathy Results & Data Results & Data ([facility]) Vital Signs (Past 12 Hours) Vital Signs Temp Pulse Pulse Resp BP Pulse Ox 05/18/20 11:49 36.9 C 100 H 18 122/77 91 05/18/20 07:40 95 H 05/18/20 07:26 36.9 C 104 H 18 123/77 91 05/18/20 03:47 104 H Laboratory Results Laboratory Results - last 24 hr 05/17/20 05/17/20 05/18/20 12:34 12:34 06:35 WBC 21.69 H RBC 4.31 L Hgb 13.6 L Hct 39.5 L MCV 91.6 MCH 31.6 MCHC 34.4 RDW Std Deviation 46.2 RDW Coeff of Gregorio 13.7 Plt Count 206 MPV 10.0 Immature Gran % (Auto) 0.3 Neut % (Auto) 89.3 Lymph % (Auto) 4.4 [place] % (Auto) 6.0 Eos % (Auto) 0.0 Baso % (Auto) 0.0 Neut # (Auto) 19.35 H Lymph # (Auto) 0.96 L [place] # (Auto) 1.30 H Eos # (Auto) 0.00 Baso # (Auto) 0.01 Immature Gran # (Auto) 0.07 H Sodium Potassium Chloride Carbon Dioxide Anion Gap BUN Creatinine Est Cr Clr Drug Dosing Est GFR ( Amer) Est GFR (Non-Af Amer) BUN/Creatinine Ratio Glucose Calcium COVID-19 Eval [facility] SARS-CoV-2, RNA, NAAT NEGATIVE 05/18/20 06:35 WBC RBC Hgb Hct MCV MCH MCHC RDW Std Deviation RDW Coeff of Gregorio Plt Count MPV Immature Gran % (Auto) Neut % (Auto) Lymph % (Auto) [place] % (Auto) Eos % (Auto) Baso % (Auto) Neut # (Auto) Lymph # (Auto) [place] # (Auto) Eos # (Auto) Baso # (Auto) Immature Gran # (Auto) Sodium 137 Potassium 3.8 Chloride 104 Carbon Dioxide 26 Anion Gap 7.0 BUN 14 Creatinine 0.96 Est Cr Clr Drug Dosing 78.2 Est GFR ( Amer) 95.1 Est GFR (Non-Af Amer) 82.0 BUN/Creatinine Ratio 14.3 Glucose 117 H Calcium 9.3 COVID-19 Eval Order SARS-CoV-2, RNA, NAAT Diagnostic Findings XR KUB/Abdomen 1 view CLINICAL HISTORY: bowel obstruction COMPARISON STUDY: 08/03/2018 FINDINGS: There is moderate right colonic stool. There is mild gaseous distention of both large and small bowel loops. There is cholelithiasis. There are equivocal renal calculi. IMPRESSION: Gaseous distention of both large and small bowel loops. Medications Administered Current Inpatient Medications Alfuzosin HCl (Alfuzosin Hcl 10 Mg Tab) 10 mg PO PM ZEB Stop: 06/16/20 20:59 Last Admin: 05/17/20 22:02 Dose: 10 mg Documented by: Carbidopa/Levodopa (Carbidopa/Levodopa 25/100mg Tab) 1 tab PO 0800,1200,1600,2000 ZEB Stop: 06/16/20 19:59 Last Admin: 05/18/20 12:03 Dose: 1 tab Documented by: Hydromorphone HCl (Hydromorphone Inj 0.5 Mg/0.5 Ml Syr) 0.5 mg IV Q4H PRN PRN Reason: Pain Stop: 05/31/20 14:40 Last Admin: 05/18/20 05:06 Dose: 0.5 mg Documented by: Lactated Ringer's (Lr) 1,000 mls @ 125 mls/hr IV .Q8H ZEB Stop: 06/16/20 14:40 Last Admin: 05/18/20 06:31 Dose: 125 mls/hr Documented by: Acetaminophen (Ofirmev) 1,000 mg in 100 mls @ 400 mls/hr IV Q8H ZEB Stop: 05/20/20 15:59 Last Infusion: 05/18/20 07:56 Dose: Infused Documented by: Promethazine HCl 12.5 mg/ (Sodium Chloride) 50.5 mls @ 202 mls/hr IV Q6H PRN PRN Reason: Nausea And Vomiting Stop: 06/16/20 14:40 Last Infusion: 05/18/20 05:32 Dose: Infused Documented by: Piperacillin Sod/Tazobactam (Sod 3.375 gm/ Dextrose) 115 mls @ 28.75 mls/hr IV Q8H ZEB; Protocol Stop: 05/27/20 17:59 Last Admin: 05/18/20 10:41 Dose: 28.8 mls/hr Documented by: Miscellaneous Information (Piperacill/Tazobac Consult Active) 1 ea N/A UD PRN PRN Reason: Consult Stop: 06/16/20 11:36 *Rasagiline*Non- Formulary Patient's Own Med 1 ea PO Q24H ZEB; Protocol Stop: 06/17/20 07:59 Last Admin: 05/18/20 07:39 Dose: 1 mg Documented by: Ondansetron HCl (Ondansetron Inj 2 Mg/Ml 2 Ml Vial) 4 mg IV Q4H PRN PRN Reason: Nausea/Vomiting Stop: 06/16/20 14:40 Last Admin: 05/18/20 02:18 Dose: 4 mg Documented by: Polyethylene Glycol (Polyethylene (Miralax) 17 Gm Pack) 17 gm PO DAILY ZEB Stop: 06/17/20 12:14 Sodium Biphosphate/Sodium Phosphate (Sod Phosphate/Sod Biphosphate Enema 132 Ml Btl) 132 ml NC NOW STA Stop: 05/18/20 12:04 PG Care Time/CCT Total # of Minutes Spent Total Time Spent: 35 Total Time Spent with Patient: Total time spent is greater than 50% in coordination of care (as documented) at patient's floor/unit and/or counseling patient: spoke with Dr. Lira, Dr. Hewitt and Dr. Núñez updated his on the phone and again in person at the bedside reviewed chart, imaging, labs documentation Coding Level of Care Code 50153 Subseq Hosp Care Lvl 3 Diagnoses Partial obstruction of colon K56.600 Obstipation K59.00 Colitis K52.9 LLQ abdominal pain R10.32 BPH (benign prostatic hyperplasia) N40.0 Obstructive sleep apnea G47.33 Parkinson disease G20
[2020-05-18] MEDS ORDERED: POLYETHYLENE (MIRALAX) 17 GM PACK PO SCH (12:30)
--- NOTE | 2020-05-18 13:19 | Surgery Consultation ---
Date of Consultation May 18, 2020 Assessment & Plan (1) Obstipation: WBC elevated, continue Zosyn. No acute abdominal findings. Would start Miralax and enemas, and possibly more aggressive regimen if needed. as above. agree...would start with enemas and then initiate miralax once bowel fx begins. force fluids. colonoscopy in near future [facility]. will follow along until issue improves. History of Present Illness Attending Physician: Taz Bell DO History of Present Illness 64 y/o male admitted 1 day ago for abdominal pain, no BM for several days. Had colonoscopy approx 5 years ago. No previous bowel history or surgery. Was seen by GI, Miralax and enemas were recommended with outpatient colonoscopy planned in a few weeks. He has a little more discomfort today, no fevers or chills. Is NPO, c/o some acid reflux. Allergies Allergy/AdvReac Type Severity Reaction Status Date / Time No Known Drug Allergies Allergy Verified 05/17/20 10:26 Home Medications Medication Instructions Recorded Confirmed Type aspirin 81 mg tablet,delayed 81 mg PO PM 03/11/18 05/17/20 History release calcium carbonate 500 mg calcium 500 mg PO PM tab 03/11/18 05/17/20 History (1,250 mg) tablet carbidopa 25 mg-levodopa 100 mg 1 tab PO QID 03/11/18 05/17/20 History tablet multivitamin 1 tab PO PM 03/11/18 05/17/20 History psyllium seed (sugar) oral powder 1 tbs PO DAILY 03/12/18 05/17/20 History amitriptyline 25 mg tablet 25 mg PO QPM tab 01/03/19 05/17/20 History acetaminophen [Tylenol 8 Hour] 1,300 mg PO Q8H PRN 05/17/20 05/17/20 History alfuzosin [Uroxatral] 10 mg PO PM 05/17/20 05/17/20 History ibuprofen 600 mg PO Q6H PRN 05/17/20 05/17/20 History rasagiline 1 mg PO QAM 05/17/20 05/17/20 History Patient History Medical History BPH (benign prostatic hyperplasia) Heart murmur History of kidney stones Left lumbar radiculopathy HX INJECTION DEC 05 2019 LLQ abdominal pain Low back pain Neck pain PINCHED NERVE AND ARTHRITIS - MILD LIMITATION WITH ROM Obstructive sleep apnea CPAP Parkinson disease Surgical History History of appendectomy History of colonoscopy History of left cataract surgery History of right cataract surgery S/P hemorrhoidectomy HX Family History Mother Breast cancer Father Hypertension Stroke Social History Smoking Status: Never smoker Hx Alcohol Use: No Hx Substance Use: No Preferred Language: Lao Communication Ability: Effective Visual Impairment: No Limitations Hearing Ability: Normal Trial Consultant Required: No Beliefs That Will Affect Care: None marital status: Current Living Situation: Spouse current occupational status: retired Other Information That Helps Us Care for You: No Feels Safe at Home: Yes Safety Concerns: Feels Safe At This Time Assistive Devices: None Review of Systems Constitutional: no fever and no chills Gastrointestinal: + abdominal pain and + bloating; no vomiting and no change in stools Physical Exam Constitutional: WD/WN, vitals as above Respiratory: normal respiratory effort Cardiovascular: Rate/Rhythm: + tachycardic Gastrointestinal (Abdomen): Inspection/Auscultation: + abdomen distended Percussion/Palpation: + abdomen tender (mild lower ) and abdomen soft; no guarding Results & Data ([facility]) Vital Signs (Past 12 Hours) Vital Signs Temp Pulse Pulse Resp BP Pulse Ox 05/18/20 11:49 36.9 C 100 H 18 122/77 91 05/18/20 07:40 95 H 05/18/20 07:26 36.9 C 104 H 18 123/77 91 05/18/20 03:47 104 H PG Care Time/CCT Total # of Minutes Spent Total Time Spent with Patient: Total time spent is greater than 50% in coordination of care (as documented) at patient's floor/unit and/or counseling patient: Coding Level of Care Code 56428 Inpt Consult Level 4 Diagnoses Obstipation K59.00
--- NOTE | 2020-05-18 15:33 | Consultation Report ---
DATE OF CONSULTATION: 05/18/2020 GASTROINTESTINAL CONSULT NOTE REASON FOR EVALUATION: Left lower quadrant pain and leukocytosis. HISTORY OF PRESENT ILLNESS: The patient is a 64-year-old with Parkinson disease, who presented with the onset of left lower quadrant pain on Monday 05/15. The patient states that he typically moves his bowels once a day in the morning and has a formed or firm stool. The patient noted that his abdomen started hurting later on Thursday and into the evening on Thursday, he went to see his primary care physician who noted the left lower quadrant pain and was suspecting that he might have diverticulitis. The patient did have a colonoscopy less than 3 years ago that just showed diffuse sigmoid diverticula and no other abnormalities. He ordered some lab work, which was to be drawn the next morning, but by that time his pain had gotten worse and he presented to the Emergency Room where he was noted to have a white count of 16,000, and a CT scan showed some thickening of the descending colon and sigmoid with a lot of stool burden and distention associated with it. There was some mesenteric stranding, but it did not really fit the pattern typical of diverticulitis. There was no tumor to suggest cancer. There was a narrowed area in the descending and sigmoid junction area where there appeared to be impacted stool. Since being hospitalized, the patient has been n.p.o. and got an enema and he had kind of a thin caliber stool, but is still significantly distended more so than yesterday even. His white count has also gone from 16,000 to 21,000 but he has remained afebrile. He has had a previous appendectomy when he had a ruptured appendix in the past. PHYSICAL EXAMINATION: GENERAL: The patient appears awake, alert, in no acute distress. He does have a little bit of bradykinesia and a slight tremor. ABDOMEN: Distended. There is a right lower quadrant scar. Abdomen is tympanitic. There is some tenderness in the left lower quadrant. RECTAL: Showed normal anal sphincter tone and no stool palpable in the rectal vault. IMPRESSION AND PLAN: The patient appears to have obstipation with some pressure necrosis in the descending and sigmoid colon from the stool. It is also possible it may be slightly ischemic and I have ordered a lactic acid level. I have ordered an additional enemas to help hopefully open up his bowel from below and remove the remaining stool in the sigmoid and descending area. Once this occurs, we can start MiraLax from above. He has been taking a lot of Metamucil and I have recommended that he stop the fiber and instead, once this resolves, to go with MiraLax to keep his bowels soft and moving. We will continue to follow his abdominal exam and white count and physical exam. Dr. Fernie Mills from [facility] will be covering for me this weekend.
[2020-05-18] MEDS: SOD PHOSPHATE/SOD BIPHOSPHATE ENEMA 132 ML BTL PR PRN (17:46)
[2020-05-18] MEDS: ALFUZOSIN HCL 10 MG TAB PO SCH (20:06)
[2020-05-19] MEDS: PIPERACILLIN/TAZOBACTAM 3.375 GM in DEXTROSE 5% 100 ML IV SCH ×3 (02:09→18:08)
[2020-05-19] MEDS: LACTATED RINGER'S 1,000 ML IV SCH ×2 (06:00→18:07)
[2020-05-19] MEDS: SOD PHOSPHATE/SOD BIPHOSPHATE ENEMA 132 ML BTL PR PRN (06:09)
--- NOTE | 2020-05-19 06:40 | Surgery Progress Note ---
Date of Service May 19, 2020 Assessment & Plan (1) Obstipation: -Continue hydration measures that are in place Continue bowel regimen as ordered by primary service Continue antibiotics for concern of colitis The present time there is no indication for surgical intervention as above. constipation regiment per GI. will continue to follow until bowel fx resumes. Admission and Anticipated Discharge Date Admission Date: May 17, 2020 Subjective Patient denies nausea, vomiting, or abdominal pain. He is passing small amount of flatus and he notes that he had a very tiny bowel movement this morning. Physical Exam Constitutional: well developed and well nourished; no acute distress Gastrointestinal (Abdomen): Nondistended. No pain with palpation Results & Data ([facility]) Vital Signs (Past 12 Hours) Vital Signs Temp Pulse Pulse Resp BP BP Pulse Ox 05/19/20 03:04 36.6 C 92 H 18 131/84 94 05/18/20 23:15 36.7 C 98 H 18 127/84 92 05/18/20 22:20 89 05/18/20 19:50 36.9 C 79 18 114/74 93 PG Care Time/CCT Total # of Minutes Spent Total Time Spent with Patient: Total time spent is greater than 50% in coordination of care (as documented) at patient's floor/unit and/or counseling p atient: Coding Level of Care Code 16347 Subseq Hosp Care Lvl 2 Diagnoses Obstipation K59.00
[2020-05-19] MEDS: CARBIDOPA/LEVODOPA 25/100MG TAB PO SCH ×4 (07:45→20:00)
[2020-05-19] MEDS: RASAGILINE PO SCH (07:46)
[2020-05-19] MEDS: ACETAMINOPHEN 1,000 MG/100 ML VIAL IV SCH ×2 (07:47→16:00)
[2020-05-19 08:35] LABS: Basophils # (auto) 0.01 K/uL (0-0.2); Basophils % (auto) 0.1 %; Eosinophils # (auto) 0.02 K/uL (0-0.5); Eosinophils % (auto) 0.1 %; Hematocrit (blood only) 37.1 % (42-52); Hemoglobin 12.7 g/dL (14.0-18.0); Immature Granulocytes # (auto) 0.05 K/uL (0.00-0.02); Immature Granulocytes % (auto) 0.3 %; Lymphocytes % (auto) 5.1 %; Mean Corpuscular Hemoglobin 31.5 pg (25-34); Mean Corpuscular Hgb Conc 34.2 g/dL (32-36); Mean Corpuscular Volume 92.1 fL (80-100); Mean Platelet Volume 9.8 fL (7.4-10.4); Monocytes # (auto) 1.15 K/uL (0.11-0.59); Monocytes % (auto) 7.4 %; Neutrophils # (auto) 13.53 K/uL (1.4-6.5); Platelet Count 192 K/uL (130-400); RDW Coefficient of Variation 13.5 % (11.5-14.5); RDW Standard Deviation 45.6 fL (36.4-46.3); Red Blood Count 4.03 M/uL (4.7-6.1); White Blood Count 15.56 K/uL (4.8-10.8)
[2020-05-19 08:51] LABS: BUN Creatinine Ratio 17.9 (10-20); Calcium 9.4 mg/dl (8.5-10.1); Creatinine Clr Calc Pharmacy 98.7 ml/min; Est GFR (African American) 110.2; Est GFR (Non-African American) 95.1; Potassium 3.5 mmol/L (3.5-5.1)
--- NOTE | 2020-05-19 11:49 | Hospitalist Progress Note ---
Date of Service May 19, 2020 Assessment & Plan (1) Partial obstruction of colon: CT shows large amount of stool in cecum and ascending colon, pressure on colon large amount of stool in junction of sigmoid and descending colon evidence of obstruction with distension of colon, small bowel and obstipation had a small BM with fleet enema on 05/18 no further BM today but is passing much more flatus, a little less distended continue clear liquid diet will give Miralax bowel prep this afternoon to try to evacuate bowels will continue on Zosyn for coverage of sterocolitis (2) Obstipation: due to stool resolved, passing flatus a few times today (3) Colitis: stercocolitis, could represent diverticulitis but less likely will cover with Zosyn IV, no fever, less pain, WBC going down clear liquid diet promote bowel movements with enema and try Miralax today will need colonoscopy in 6 weeks (4) LLQ abdominal pain: see above, most of the pain is in LLQ gained relief with enema and moving bowels (5) BPH (benign prostatic hyperplasia): Continue alfuzosin 10 mg p.o. every afternoon (6) Obstructive sleep apnea: CPAP at bedtime (7) Parkinson disease: Continue his usual Sinemet dosing. Admission and Anticipated Discharge Date Admission Date: May 17, 2020 Subjective patient feeling better, passing more flatus had a tap water enema this morning, 500mL, could not hold it very long but then he had flatus abdomen still distended, no vomiting, tolerating clear liquids WBC trending down d/w Dr. Mills with GI, will give miralax bowel prep to clear him out he was reviewing prior films, he had a KUB in 2019 that looked similar, the right sided fecal load might have been even more Review of Systems Review of Systems: All systems reviewed & are unremarkable except as noted in Subjective Gastrointestinal: + belching, + bloating, + cramping and + constipation; no abdominal pain, no nausea, no vomiting and no diarrhea/loose stools Physical Exam Constitutional: WD/WN, vitals as above Neck: trachea midline, no thyromegaly Respiratory: normal respiratory effort, lungs clear to auscultation Cardiovascular: RRR, no murmur, no edema Gastrointestinal (Abdomen): Inspection/Auscultation: + abdomen distended and + hypoactive bowel sounds Percussion/Palpation: + tympanic to percussion and + abdomen firm; abdomen nontender and no ascites Musculoskeletal: no cyanosis or clubbing, extremities motor strength 5/5 Skin: no rashes, warm and dry Neurologic: patellar DTR's 2+ bilat, sensation intact and PERRL, EOMI, accommodation nl, no face palsy, no dysarthria Psychiatric: A+Ox3, euthymic affect Lymphatic: no cervical or axillary lymphadenopathy Results & Data Results & Data ([facility]) Vital Signs (Past 12 Hours) Vital Signs Temp Pulse Pulse Resp BP BP Pulse Ox 05/19/20 11:39 36.9 C 109 H 18 114/79 92 05/19/20 07:50 103 H 05/19/20 07:47 36.7 C 98 H 18 126/77 92 05/19/20 03:04 36.6 C 92 H 18 131/84 94 Laboratory Results Laboratory Results - last 24 hr 05/18/20 05/19/20 05/19/20 14:57 08:25 08:25 WBC 15.56 H RBC 4.03 L Hgb 12.7 L Hct 37.1 L MCV 92.1 MCH 31.5 MCHC 34.2 RDW Std Deviation 45.6 RDW Coeff of Gregorio 13.5 Plt Count 192 MPV 9.8 Immature Gran % (Auto) 0.3 Neut % (Auto) 87.0 Lymph % (Auto) 5.1 [place] % (Auto) 7.4 Eos % (Auto) 0.1 Baso % (Auto) 0.1 Neut # (Auto) 13.53 H Lymph # (Auto) 0.[address] [place] # (Auto) 1.15 H Eos # (Auto) 0.02 Baso # (Auto) 0.01 Immature Gran # (Auto) 0.05 H Sodium 135 L Potassium 3.5 Chloride 102 Carbon Dioxide 26 Anion Gap 6.0 BUN 14 Creatinine 0.76 Est Cr Clr Drug Dosing 98.7 Est GFR ( Amer) 110.2 Est GFR (Non-Af Amer) 95.1 BUN/Creatinine Ratio 17.9 Glucose 100 H Lactate 1.2 Calcium 9.4 Medications Administered Current Inpatient Medications Alfuzosin HCl (Alfuzosin Hcl 10 Mg Tab) 10 mg PO PM ZEB Stop: 06/16/20 20:59 Last Admin: 05/18/20 20:06 Dose: 10 mg Documented by: Carbidopa/Levodopa (Carbidopa/Levodopa 25/100mg Tab) 1 tab PO 0800,1200,1600,2000 [facility] Stop: 06/16/20 19:59 Last Admin: 05/19/20 07:45 Dose: 1 tab Documented by: Hydromorphone HCl (Hydromorphone Inj 0.5 Mg/0.5 Ml Syr) 0.5 mg IV Q4H PRN PRN Reason: Pain Stop: 05/31/20 14:40 Last Admin: 05/18/20 05:06 Dose: 0.5 mg Documented by: Lactated Ringer's (Lr) 1,000 mls @ 80 mls/hr IV .[id number] [facility] Stop: 06/16/20 14:40 Last Infusion: 05/19/20 08:39 Dose: 80 mls/hr Documented by: Acetaminophen (Ofirmev) 1,000 mg in 100 mls @ 400 mls/hr IV Q8H [facility] Stop: 05/20/20 15:59 Last Infusion: 05/19/20 08:38 Dose: Infused Documented by: Promethazine HCl 12.5 mg/ (Sodium Chloride) 50.5 mls @ 202 mls/hr IV Q6H PRN PRN Reason: Nausea And Vomiting Stop: 06/16/20 14:40 Last Infusion: 05/18/20 05:32 Dose: Infused Documented by: Piperacillin Sod/Tazobactam (Sod 3.375 gm/ Dextrose) 115 mls @ 28.75 mls/hr IV Q8H [facility]; Protocol Stop: 05/27/20 17:59 Last Admin: 05/19/20 10:04 Dose: 28.8 mls/hr Documented by: Miscellaneous Information (Piperacill/Tazobac Consult Active) 1 ea N/A UD PRN PRN Reason: Consult Stop: 06/16/20 11:36 *Rasagiline*Non- Formulary Patient's Own Med 1 ea PO Q24H [facility]; Protocol Stop: 06/17/20 07:59 Last Admin: 05/19/20 07:46 Dose: 1 mg Documented by: Ondansetron HCl (Ondansetron Inj 2 Mg/Ml 2 Ml Vial) 4 mg IV Q4H PRN PRN Reason: Nausea/Vomiting Stop: 06/16/20 14:40 Last Admin: 05/18/20 02:18 Dose: 4 mg Documented by: Sodium Biphosphate/Sodium Phosphate (Sod Phosphate/Sod Biphosphate Enema 132 Ml Btl) 132 ml [place] Q2H PRN PRN Reason: UNTIL LESS DISTENDED Stop: 06/17/20 17:25 Last Admin: 05/19/20 06:09 Dose: 132 ml Documented by: PG Care Time/CCT Total # of Minutes Spent Total Time Spent with Patient: Total time spent is greater than 50% in coordination of care (as documented) at patient's floor/unit and/or counseling patient: Coding Level of Care Code 83744 Subseq Hosp Care Lvl 2 Diagnoses Partial obstruction of colon K56.600 Obstipation K59.00 Colitis K52.9 LLQ abdominal pain R10.32 BPH (benign prostatic hyperplasia) N40.0 Obstructive sleep apnea G47.33 Parkinson disease G20
--- NOTE | 2020-05-19 12:26 | Gastroenterology Progress Note ---
Date of Service May 19, 2020 Assessment & Plan (1) Constipation: Please start a miralax colon prep. If patient develops abdominal pain stop the prep and then we may consider a barium enema +/_ a flex sig for evaluation and help empty stool. His belly is soft , mildly distended and he is comfortable. passing gas is a good sign. Stool pattern has been there on KUB from 2018! Present on Admission?: Yes Admission and Anticipated Discharge Date Admission Date: May 17, 2020 Subjective Doing well, passing gas, no much of a BM despite a large volume enema Physical Exam Physical Exam: NAD Gastrointestinal (Abdomen): Inspection/Auscultation: abdomen normal to inspection, normal bowel sounds and + abdominal surgical scar Percussion/Palpation: abdomen soft; abdomen nontender Results & Data ([facility]) Vital Signs (Past 12 Hours) Vital Signs Temp Pulse Pulse Resp BP BP Pulse Ox 05/19/20 11:39 36.9 C 109 H 18 114/79 92 05/19/20 07:50 103 H 05/19/20 07:47 36.7 C 98 H 18 126/77 92 05/19/20 03:04 36.6 C 92 H 18 131/84 94
[2020-05-19] MEDS ORDERED: POLYETHYLENE (MIRALAX) 17 GM PACK PO SCH (13:00)
[2020-05-19] MEDS: POLYETHYLENE (MIRALAX) 17 GM PACK PO SCH (14:11)
--- NOTE | 2020-05-19 14:12 | XRay Report ---
XR KUB/Abdomen 1 view CLINICAL HISTORY: Colonic obstruction COMPARISON STUDY: 05/18/2020 FINDINGS: There is persistent but slightly diminished colonic distention. Transverse colon measures 7 .5 cm in diameter. IMPRESSION: Persistent but diminished gaseous distention of the colon. ACT 112: Negative or not required by law. Electronically signed by: Mika Smith M.D. 05/19/2020 2:11 PM
[2020-05-19] MEDS: ALFUZOSIN HCL 10 MG TAB PO SCH (20:00)
[2020-05-19] MEDS ORDERED: MELATONIN 3 MG TAB PO PRN (22:14)
[2020-05-20] MEDS: ACETAMINOPHEN 1,000 MG/100 ML VIAL IV SCH ×2 (00:10→08:12)
[2020-05-20] MEDS: ONDANSETRON INJ 2 MG/ML 2 ML VIAL IV PRN (00:38)
[2020-05-20] MEDS: PROMETHAZINE HCL 12.5 MG in SODIUM CHLORIDE 0.9% 50 ML IV PRN (01:00)
[2020-05-20] MEDS: PIPERACILLIN/TAZOBACTAM 3.375 GM in DEXTROSE 5% 100 ML IV SCH ×3 (01:38→17:57)
[2020-05-20 06:42] LABS: Basophils # (auto) 0.01 K/uL (0-0.2); Basophils % (auto) 0.1 %; Eosinophils # (auto) 0.01 K/uL (0-0.5); Eosinophils % (auto) 0.1 %; Hematocrit (blood only) 39.3 % (42-52); Hemoglobin 13.8 g/dL (14.0-18.0); Immature Granulocytes # (auto) 0.04 K/uL (0.00-0.02); Immature Granulocytes % (auto) 0.3 %; Lymphocytes # (auto) 0.83 K/uL (1.2-3.4); Lymphocytes % (auto) 6.4 %; Mean Corpuscular Hemoglobin 31.8 pg (25-34); Mean Corpuscular Hgb Conc 35.1 g/dL (32-36); Mean Corpuscular Volume 90.6 fL (80-100); Mean Platelet Volume 9.9 fL (7.4-10.4); Monocytes # (auto) 0.99 K/uL (0.11-0.59); Monocytes % (auto) 7.7 %; Neutrophils # (auto) 11.04 K/uL (1.4-6.5); Neutrophils % (auto) 85.4 %; Platelet Count 275 K/uL (130-400); RDW Coefficient of Variation 13.4 % (11.5-14.5); RDW Standard Deviation 44.6 fL (36.4-46.3); Red Blood Count 4.34 M/uL (4.7-6.1); White Blood Count 12.92 K/uL (4.8-10.8)
--- NOTE | 2020-05-20 06:51 | Surgery Progress Note ---
Date of Service May 20, 2020 Assessment & Plan (1) Obstipation: -Continue hydration measures GI had ordered MiraLAX bowel prep Due to events last night NG tube has been inserted we will continue this modality for the present time GI had previously noted if MiraLAX was unsuccessful they may consider a flexible sigmoidoscopy. Will await their recommendations today concerning this intervention Continue antibiotics for concern of colitis No plans for surgical invention at the present time pt seen/sleeping. agree with above. will wait to see results of flex sig/etiology of the stricture. ideally would get the colon decompress prior to surgical intervention. will continue to follow along closely. Admission and Anticipated Discharge Date Admission Date: May 17, 2020 Subjective Patient developed some nausea and abdominal pressure yesterday and therefore had an NG tube placed. Currently he denies significant abdominal pain does not have any nausea or vomiting. Passed a small amount of flatus but has not really had much in the way of bowel movement in the past 24 hours. Physical Exam Gastrointestinal (Abdomen): Bowel sounds are present. There is slight distention of his abdomen. There is no pain with palpation. Results & Data ([facility]) Vital Signs (Past 12 Hours) Vital Signs Temp Pulse Pulse Resp BP Pulse Ox 05/20/20 03:44 36.7 C 105 H 16 130/90 91 05/20/20 01:43 98 H 05/19/20 23:14 37 C 95 H 16 124/85 95 05/19/20 19:29 37.1 C 87 18 127/85 93 PG Care Time/CCT Total # of Minutes Spent Total Time Spent with Patient: Total time spent is greater than 50% in coordination of care (as documented) at patient's floor/unit and/or counseling patient: Coding Level of Care Code 72791 Subseq Hosp Care Lvl 3 Diagnoses Obstipation K59.00
[2020-05-20 07:13] LABS: BUN Creatinine Ratio 18.2 (10-20); Calcium 9.5 mg/dl (8.5-10.1); Creatinine Clr Calc Pharmacy 91.5 ml/min; Est GFR (African American) 106.8; Est GFR (Non-African American) 92.1; Potassium 3.3 mmol/L (3.5-5.1)
[2020-05-20 07:23] LABS: Thyroid Stimulating Hormone 1.58 uIu/ml (0.300-4.500)
--- NOTE | 2020-05-20 08:00 | Gastroenterology Progress Note ---
Date of Service May 20, 2020 Assessment & Plan (1) Constipation: Will do an unprepped flex sig for evaluation and help empty stool + _ diagnosis. We may be facing a surgical situation. I discussed with his Milly and Dilip the procedure and its potential complications. His belly is more distented mildly distended and he is less comfortable. HBe behaved like an obstruction with the prepp. Not passing gas at this time. Admission and Anticipated Discharge Date Admission Date: May 17, 2020 Subjective He took a step back with the miralax. now has an NG tube. Pain and distention Physical Exam Constitutional: cooperative Gastrointestinal (Abdomen): Inspection/Auscultation: + abdomen distended and + hypoactive bowel sounds Percussion/Palpation: + abdomen firm Psychiatric: Orientation: alert, oriented to person and cooperative Eye Contact: good eye contact Results & Data ([facility]) Vital Signs (Past 12 Hours) Vital Signs Temp Pulse Pulse Resp BP Pulse Ox 05/20/20 07:30 116 H 05/20/20 07:17 36.6 C 102 H 20 129/87 90 05/20/20 03:44 36.7 C 105 H 16 130/90 91 05/20/20 01:43 98 H 05/19/20 23:14 37 C 95 H 16 124/85 95
[2020-05-20] MEDS: RASAGILINE PO SCH (08:12)
[2020-05-20] MEDS: CARBIDOPA/LEVODOPA 25/100MG TAB PO SCH ×4 (08:13→19:28)
[2020-05-20] MEDS: POLYETHYLENE (MIRALAX) 17 GM PACK PO SCH (08:14)
--- NOTE | 2020-05-20 09:46 | Hospitalist Progress Note ---
Date of Service May 20, 2020 Assessment & Plan (1) Partial obstruction of colon: CT shows large amount of stool in cecum and ascending colon, pressure on colon large amount of stool in junction of sigmoid and descending colon evidence of obstruction with distension of colon, small bowel and obstipation had a small BM with fleet enema on 05/18 no further BM for two days attempted Miralax bowel prep on 05/19 but this caused more pain and distension Dr. Mills took for flex sigmoidoscopy on 05/20, encountered 5cm long segment of very dense, fibrous stool that was at junction of descending and sigmoid colon Dr. Mills was able to break up the stool, irrigated with saline patient feels better, less distended, passing some flatus plan is to give Miralax through NGT, want to clean out his colon while he is here if he has several bowel movements and feels better then pull NGT if the miralax causes more pain and distension then stop miralax and attach NGT to low intermittent suction he will need repeat colonoscopy in 6 months to follow up on ulcer in descending colon will continue on Zosyn for coverage of sterocolitis (2) Obstipation: due to hard stool in distal descending colon passing more flatus since flex sig today (3) Colitis: stercocolitis from very hard impacted stool in distal descending colon will cover with Zosyn IV, no fever, less pain, WBC going down clear liquid diet promote bowel movements with Miralax (4) LLQ abdominal pain: see above, most of the pain is in LLQ gained relief after flex sig (5) BPH (benign prostatic hyperplasia): Continue alfuzosin 10 mg p.o. every afternoon (6) Obstructive sleep apnea: CPAP at bedtime (7) Parkinson disease: Continue his usual Sinemet dosing. Admission and Anticipated Discharge Date Admission Date: May 17, 2020 Subjective patient feeling more distended, more tender this morning had to have NG tube inserted last night due to pain and distension and nausea yellow, bilious fluid draining, he says he feels a little better since he had the NGT d/w GI, plan for flex sig this morning to try to relieve obstruction reviewed labs, WBC down to 12k, Hb 13, Cr 0.8 and K is 3.3, will replace the K through IV d/w Dr. Núñez, surgery, he is aware of plans for flex sig patient denies any chest pain, dyspnea, cough, fever/chills flex sigmoidoscopy showed large amount of solid stool in the distal descending colon, irrigated with saline one large ulcer seen in colon, no bleeding tolerated procedure well, no complications d/w Dr. Mills after procedure, he feels that the hard stool was the source of obstruction should be able to move bowels now recommends giving Miralax through the NGT will give a dose now and then scheduled TID Review of Systems Review of Systems: All systems reviewed & are unremarkable except as noted in Subjective Constitutional: no fever, no chills, no sweats, no fatigue and no weakness Respiratory: no cough and no dyspnea Cardiovascular: no chest pain, no palpitations, no syncope and no edema Gastrointestinal: + abdominal pain, + bloating, + nausea, + cramping and + constipation (obstipation); no belching, no vomiting and no diarrhea/loose stools Physical Exam Constitutional: WD/WN, vitals as above + uncomfortable Neck: trachea midline, no thyromegaly Respiratory: normal respiratory effort, lungs clear to auscultation Cardiovascular: RRR, no murmur, no edema Gastrointestinal (Abdomen): Inspection/Auscultation: + abdomen distended and + hypoactive bowel sounds Percussion/Palpation: + tympanic to percussion and + abdomen firm; abdomen nontender and no ascites Musculoskeletal: no cyanosis or clubbing, extremities motor strength 5/5 Skin: no rashes, warm and dry Neurologic: patellar DTR's 2+ bilat, sensation intact and PERRL, EOMI, accommodation nl, no face palsy, no dysarthria Psychiatric: A+Ox3, euthymic affect Lymphatic: no cervical or axillary lymphadenopathy Results & Data Results & Data ([facility]) Vital Signs (Past 12 Hours) Vital Signs Temp Pulse Pulse Resp BP Pulse Ox 05/20/20 07:30 116 H 05/20/20 07:17 36.6 C 102 H 20 129/87 90 05/20/20 03:44 36.7 C 105 H 16 130/90 91 05/20/20 01:43 98 H 05/19/20 23:14 37 C 95 H 16 124/85 95 Laboratory Results Laboratory Results - last 24 hr 05/20/20 05/20/20 06:19 06:19 WBC 12.92 H RBC 4.34 L Hgb 13.8 L Hct 39.3 L MCV 90.6 MCH 31.8 MCHC 35.1 RDW Std Deviation 44.6 RDW Coeff of Gregorio 13.4 Plt Count 275 MPV 9.9 Immature Gran % (Auto) 0.3 Neut % (Auto) 85.4 Lymph % (Auto) 6.4 [place] % (Auto) 7.7 Eos % (Auto) 0.1 Baso % (Auto) 0.1 Neut # (Auto) 11.04 H Lymph # (Auto) 0.83 L [place] # (Auto) 0.99 H Eos # (Auto) 0.01 Baso # (Auto) 0.01 Immature Gran # (Auto) 0.04 H Sodium 133 L Potassium 3.3 L Chloride 96 L Carbon Dioxide 29 Anion Gap 8.0 BUN 15 Creatinine 0.82 Est Cr Clr Drug Dosing 91.5 Est GFR ( Amer) 106.8 Est GFR (Non-Af Amer) 92.1 BUN/Creatinine Ratio 18.2 Glucose 94 Calcium 9.5 TSH 1.580 Medications Administered Current Inpatient Medications Alfuzosin HCl (Alfuzosin Hcl 10 Mg Tab) 10 mg PO PM ZEB Stop: 06/16/20 20:59 Last Admin: 05/19/20 20:00 Dose: 10 mg Documented by: Carbidopa/Levodopa (Carbidopa/Levodopa 25/100mg Tab) 1 tab PO 0800,1200,1600,2000 Z[facility] Stop: 06/16/20 19:59 Last Admin: 05/20/20 08:13 Dose: 1 tab Documented by: Hydromorphone HCl (Hydromorphone Inj 0.5 Mg/0.5 Ml Syr) 0.5 mg IV Q4H PRN PRN Reason: Pain Stop: 05/31/20 14:40 Last Admin: 05/18/20 05:06 Dose: 0.5 mg Documented by: Acetaminophen (Ofirmev) 1,000 mg in 100 mls @ 400 mls/hr IV Q8H ZEB Stop: 05/20/20 15:59 Last Infusion: 05/20/20 08:27 Dose: Infused Documented by: Promethazine HCl 12.5 mg/ (Sodium Chloride) 50.5 mls @ 202 mls/hr IV Q6H PRN PRN Reason: Nausea And Vomiting Stop: 06/16/20 14:40 Last Infusion: 05/20/20 01:38 Dose: Infused Documented by: Piperacillin Sod/Tazobactam (Sod 3.375 gm/ Dextrose) 115 mls @ 28.75 mls/hr IV Q8H [facility]; Protocol Stop: 05/27/20 17:59 Last Admin: 05/20/20 09:37 Dose: 28.8 mls/hr Documented by: Potassium Chloride 40 meq/ (Sodium Chloride) 1,020 mls @ 80 mls/hr IV .[id number] [facility] Stop: 06/19/20 09:59 Melatonin (Melatonin 3 Mg Tab) 3 mg PO HS PRN PRN Reason: Sleep Stop: 06/18/20 22:13 Last Admin: 05/19/20 22:30 Dose: 3 mg Documented by: Miscellaneous Information (Piperacill/Tazobac Consult Active) 1 ea N/A UD PRN PRN Reason: Consult Stop: 06/16/20 11:36 *Rasagiline*Non- Formulary Patient's Own Med 1 ea PO Q24H [facility]; Protocol Stop: 06/17/20 07:59 Last Admin: 05/20/20 08:12 Dose: 1 mg Documented by: Ondansetron HCl (Ondansetron Inj 2 Mg/Ml 2 Ml Vial) 4 mg IV Q4H PRN PRN Reason: Nausea/Vomiting Stop: 06/16/20 14:40 Last Admin: 05/20/20 00:38 Dose: 4 mg Documented by: Polyethylene Glycol (Polyethylene (Miralax) 17 Gm Pack) 119 gm PO TODAY@0800,1300 [facility] Stop: 05/20/20 12:00 Last Admin: 05/20/20 08:14 Dose: Not Given Documented by: Sodium Biphosphate/Sodium Phosphate (Sod Phosphate/Sod Biphosphate Enema 132 Ml Btl) 132 ml [place] Q2H PRN PRN Reason: UNTIL LESS DISTENDED Stop: 06/17/20 17:25 Last Admin: 05/19/20 06:09 Dose: 132 ml Documented by: PG Care Time/CCT Total # of Minutes Spent Total Time Spent: 33 Total Time Spent with Patient: Total time spent is greater than 50% in coordination of care (as documented) at patient's floor/unit and/or counseling patient: Coding Level of Care Code 66664 Subseq Hosp Care Lvl 3 Diagnoses Partial obstruction of colon K56.600 Obstipation K59.00 Colitis K52.9 LLQ abdominal pain R10.32 BPH (benign prostatic hyperplasia) N40.0 Obstructive sleep apnea G47.33 Parkinson disease G20
[2020-05-20] MEDS: LACTATED RINGER'S 1,000 ML IV SCH (09:56)
[2020-05-20] MEDS: POTASSIUM CHLORIDE 40 MEQ in SODIUM CHLORIDE 0.9% 1000ML 1,000 ML IV SCH ×2 (09:56→23:39)
--- NOTE | 2020-05-20 10:13 | Anesthesiology Consultation ---
Date of Service May 20, 2020 Assessment & Plan Chart Review Chart Review: Acceptable Risk for Surgery and Patient NOT seen in Pre Admission Testing Consults Requested none ASA ASA3 Proposed Anesthesia Anesthesia Type: MAC History Surgery Operation Date: 05/20/20 11:00 Proposed Procedures p Colonoscopy - Jax Addison MD Height/Weight Height: 5 ft 10 in Weight: 83.6 kg Allergies Allergy/AdvReac Type Severity Reaction Status Date / Time No Known Drug Allergies Allergy Verified 05/17/20 10:26 Medications Home Medications Medication Instructions Recorded Confirmed Last Taken aspirin 81 mg tablet,delayed 81 mg PO PM 03/11/18 05/17/20 05/16/20 release calcium carbonate 500 mg calcium 500 mg PO PM tab 03/11/18 05/17/20 05/16/20 (1,250 mg) tablet carbidopa 25 mg-levodopa 100 mg 1 tab PO QID 03/11/18 05/17/20 05/17/20 tablet multivitamin 1 tab PO PM 03/11/18 05/17/20 05/16/20 psyllium seed (sugar) oral powder 1 tbs PO DAILY 03/12/18 05/17/20 12/05/19 12:00 amitriptyline 25 mg tablet 25 mg PO QPM tab 01/03/19 05/17/20 05/16/20 acetaminophen [Tylenol 8 Hour] 1,300 mg PO Q8H PRN 05/17/20 05/17/20 05/16/20 1300 mg alfuzosin [Uroxatral] 10 mg PO PM 05/17/20 05/17/20 05/16/20 ibuprofen 600 mg PO Q6H PRN 05/17/20 05/17/20 05/16/20 rasagiline 1 mg PO QAM 05/17/20 05/17/20 05/17/20 Active Medications Generic Name Dose Route Start Last Admin Trade Name Freq PRN Reason Stop Dose Admin Alfuzosin HCl 10 mg 05/17/20 21:00 05/19/20 20:00 Alfuzosin Hcl 10 Mg Tab PO 06/16/20 20:59 10 mg PM ZEB Administration Carbidopa/Levodopa 1 tab 05/17/20 20:00 05/20/20 08:13 Carbidopa/Levodopa 25/100mg Tab PO 06/16/20 19:59 1 tab 0800,1200,1600,2000 ZEB Administration Hydromorphone HCl 0.5 mg 05/17/20 14:41 05/18/20 05:06 Hydromorphone Inj 0.5 Mg/0.5 Ml Syr IV 05/31/20 14:40 0.5 mg Q4H PRN Administration Pain Acetaminophen 1,000 mg in 100 mls @ 400 mls/hr 05/17/20 16:00 05/20/20 08:27 Ofirmev IV 05/20/20 15:59 Infused Q8H ZEB Infusion Promethazine HCl 12.5 mg/ 50.5 mls @ 202 mls/hr 05/17/20 14:41 05/20/20 01:38 Sodium Chloride IV 06/16/20 14:40 Infused Q6H PRN Infusion Nausea And Vomiting Piperacillin Sod/Tazobactam 115 mls @ 28.75 mls/hr 05/17/20 18:00 05/20/20 09:37 Sod 3.375 gm/ Dextrose IV 05/27/20 17:59 28.8 mls/hr Q8H ZEB Administration Protocol Potassium Chloride 40 meq/ 1,020 mls @ 80 mls/hr 05/20/20 10:00 05/20/20 09:56 Sodium Chloride IV 06/19/20 09:59 80 mls/hr .[id number] ZEB Administration Melatonin 3 mg 05/19/20 22:14 05/19/20 22:30 Melatonin 3 Mg Tab PO 06/18/20 22:13 3 mg HS PRN Administration Sleep *Rasagiline*Non- 1 ea 05/18/20 08:00 05/20/20 08:12 Formulary Patient's PO 06/17/20 07:59 1 mg Own Med Q24H ZEB Administration Protocol Ondansetron HCl 4 mg 05/17/20 14:41 05/20/20 00:38 Ondansetron Inj 2 Mg/Ml 2 Ml Vial IV 06/16/20 14:40 4 mg Q4H PRN Administration Nausea/Vomiting Polyethylene Glycol 119 gm 05/19/20 13:00 05/20/20 08:14 Polyethylene (Miralax) 17 Gm Pack PO 05/20/20 12:00 Not Given TODAY@0800,1300 ZEB Sodium Biphosphate/Sodium Phosphate 132 ml 05/18/20 17:26 05/19/20 06:09 Sod Phosphate/Sod Biphosphate Enema 132 Ml Btl DE 06/17/20 17:25 132 ml Q2H PRN Administration UNTIL LESS DISTENDED Past Medical History Medical History BPH (benign prostatic hyperplasia) Heart murmur History of kidney stones Left lumbar radiculopathy HX INJECTION DEC 05 2019 LLQ abdominal pain Low back pain Neck pain PINCHED NERVE AND ARTHRITIS - MILD LIMITATION WITH ROM Obstructive sleep apnea CPAP Parkinson disease Exercise / Class Metabolic Activity II 4-5 Yardwork/Stairs/Walk up hill Past Family History Family History Mother Breast cancer Father Hypertension Stroke Past Surgical History Surgical History History of appendectomy History of colonoscopy History of left cataract surgery History of right cataract surgery S/P hemorrhoidectomy HX Past Anesthesia History No Hx of Anesthesia Complications and No Family Hx of Anesthesia Complications History of PONV No Hx of PONV and No Hx of Motion Sickness Social History Smoking Status: Never smoker Hx Alcohol Use: No Hx Substance Use: No substance use type: does not use Physical Exam Vital Signs Last Vital Signs Temp 36.6 C 05/20/20 07:17 Pulse 116 H 05/20/20 07:30 Resp 20 05/20/20 07:17 BP 129/87 05/20/20 07:17 Pulse Ox 90 05/20/20 07:17 Testing Laboratory Results 05/20/20 06:19 05/20/20 06:19 Urine Color Dark Yellow 05/17/20 11:00 Urine Appearance Clear (Clear) 05/17/20 11:00 Urine pH 6.5 (4.5-7.5) 05/17/20 11:00 Ur Specific [place] 1.028 (1.000-1.030) 05/17/20 11:00 Urine Protein 1+ (Negative) H 05/17/20 11:00 Urine Glucose (UA) Negative (Negative) 05/17/20 11:00 Urine Ketones 2+ (Negative) H 05/17/20 11:00 Urine Nitrite Negative (Negative) 05/17/20 11:00 Ur Leukocyte Esterase Negative (Negative) 05/17/20 11:00 Urine WBC (Auto) 1-5 /hpf (0-5) 05/17/20 11:00 Urine RBC (Auto) 5-10 /hpf (0-4) H 05/17/20 11:00 U Hyaline Cast (Auto) 5-10 /lpf (0-5) H 05/17/20 11:00 U Epithel Cells (Auto) 10-20 /lpf (0-5) H 05/17/20 11:00 Urine Bacteria (Auto) Negative (Negative) 05/17/20 11:00 Electrocardiogram Date: 05/17/20 Findings: + NSST changes and + ST @ (at 103) Echocardiogram Date: 04/20/16 EF: 50% LV Function: normal RWMA: + none Other Findings: + LVH (mild) and + diastolic dysfunction (grade 1) Valvular Disease: + no significant valvular disease
[2020-05-20] MEDS ORDERED: ATROPINE SULFATE 0.1 MG/ML 10ML SYR IV PRN (11:57)
[2020-05-20] MEDS ORDERED: FLUMAZENIL 0.1 MG/1 ML 10 ML VIAL IV PRN (11:57)
[2020-05-20] MEDS ORDERED: NALOXONE HCL 0.4 MG/1 ML VIAL/CARP IV PRN (11:57)
[2020-05-20] MEDS ORDERED: PROMETHAZINE HCL 12.5 MG in SODIUM CHLORIDE 0.9% 50 ML IV PRN (11:57)
[2020-05-20] MEDS ORDERED: ONDANSETRON INJ 2 MG/ML 2 ML VIAL IV PRN (11:57)
[2020-05-20] MEDS ORDERED: fentaNYL citrate 100 MCG/2 ML VIAL IV PRN (11:57)
[2020-05-20] MEDS ORDERED: ePHEDrine sulfate 50 MG/ML AMP IV PRN (11:57)
[2020-05-20] MEDS ORDERED: LABETALOL HCL IV 5 MG/ML 20ML IV PRN (11:57)
[2020-05-20] MEDS ORDERED: MINERAL OIL 30 ML UDC ONE (12:06)
[2020-05-20] MEDS ORDERED: LIDOCAINE 2% 2 ML VIAL/AMP(20MG/ML) INFIL ONE (12:10)
[2020-05-20] MEDS ORDERED: PROPOFOL IV EMULSION 10 MG/ML 20 ML VIAL IV ONE ×2 (12:10→12:52)
[2020-05-20] MEDS ORDERED: MINERAL OIL LIGHT 10 ML BTL ONE (12:50)
--- NOTE | 2020-05-20 13:37 | GI REPORT ---
Patient Name: Zelalem Young Procedure Date: 05/20/2020 10:28 AM Date of : 1955 Admit Type: Inpatient Age: 64 Gender: Male Attending MD: Fernie Mills MD Procedure: Colonoscopy Providers: Fernie Mills MD Referring MD: Taz Bell Indications: Abdominal pain in the left lower quadrant, Abnormal CT of the GI tract Medicines: Propofol per Anesthesia Complications: No immediate complications. Estimated blood loss: Minimal. Estimated Blood Loss: Estimated blood loss: none. Procedure: Pre-Anesthesia Assessment: - Prior to the procedure, a History and Physical was performed, and patient medications and allergies were reviewed. The patient's tolerance of previous anesthesia was also reviewed. The risks and benefits of the procedure and the sedation options and risks were discussed with the patient. All questions were answered, and informed consent was obtained. Prior Anticoagulants: The patient has taken no previous anticoagulant or antiplatelet agents. ASA Grade Assessment: III - A patient with severe systemic disease. After reviewing the risks and benefits, the patient was deemed in satisfactory condition to undergo the procedure. After I obtained informed consent, the scope was passed under direct vision. Throughout the procedure, the patient's blood pressure, pulse, and oxygen saturations were monitored continuously. The Endoscope was introduced through the anus and advanced to the transverse colon for evaluation. This was the intended extent. The colonoscopy was performed without difficulty. The patient tolerated the procedure well. The quality of the bowel preparation was poor. Findings: A large amount of solid stool was found in the distal descending colon, precluding visualization. Lavage of the area was performed using a large amount of normal saline, resulting in clearance with fair visualization. A single (solitary) ulcer was found in the distal descending colon. No bleeding was present. No stigmata of recent bleeding were seen. Consistent with a lkarge stercpral ulcer Impression: - Preparation of the colon was poor. - Stool in the distal descending colon. - A single (solitary) ulcer in the distal descending colon. - No specimens collected. Recommendation: - [facility]. - Clear liquid diet today. - Continue present medications. Lu Mcdonald MD 05/20/2020 1:36:55 PM This report has been signed electronically. Note Initiated On: 05/20/2020 10:28 AM Number of Addenda: 0 I attest to the content of the Intraoperative Record and orders documented therein, exceptions below {[id number]}
[2020-05-20] MEDS ORDERED: ONDANSETRON INJ 2 MG/ML 2 ML VIAL ONE (13:50)
[2020-05-20] MEDS ORDERED: ACETAMINOPHEN 325 MG TAB PO PRN (14:23)
[2020-05-20] MEDS ORDERED: IBUPROFEN 600 MG TAB PO PRN (14:23)
[2020-05-20] MEDS ORDERED: POLYETHYLENE (MIRALAX) 17 GM PACK NG STA (15:17)
--- NOTE | 2020-05-20 15:30 | Anesthesiology Progress Note ---
Date of Service May 20, 2020 Anesthesia Post Procedure Vital Signs Vital Signs: Temp Pulse Pulse Pulse Pulse Resp BP 05/20/20 15:11 36.8 C 87 20 05/20/20 14:49 36.5 C 90 18 120/82 05/20/20 14:22 36.5 C 89 20 127/78 05/20/20 14:10 36.7 C 88 20 126/81 05/20/20 14:00 92 H 20 134/86 05/20/20 13:50 87 20 130/79 05/20/20 13:42 36.5 C 96 H 20 129/91 05/20/20 11:14 36.4 C L 111 H 19 134/83 05/20/20 07:30 116 H 05/20/20 07:17 36.6 C 102 H 20 129/87 05/20/20 03:44 36.7 C 105 H 16 130/90 05/20/20 01:43 98 H 05/19/20 23:14 37 C 95 H 16 124/85 05/19/20 19:29 37.1 C 87 18 127/85 05/19/20 17:20 93 H 05/19/20 15:46 36.5 C 89 18 129/86 BP Pulse Ox 05/20/20 15:11 132/83 90 05/20/20 14:49 90 05/20/20 14:22 94 05/20/20 14:10 93 05/20/20 14:00 95 05/20/20 13:50 95 05/20/20 13:42 100 05/20/20 11:14 90 05/20/20 07:30 05/20/20 07:17 90 05/20/20 03:44 91 05/20/20 01:43 05/19/20 23:14 95 05/19/20 19:29 93 05/19/20 17:20 05/19/20 15:46 94 Pain Intensity Abdomen: Pain Intensity: 4 Transfer of Care Handoff Completed per policy Notes Mental Status: alert / awake / arousable Patient Amnestic to Procedure: Yes Nausea / Vomiting: adequately controlled Pain: adequately controlled Airway Patency, RR, SpO2: stable & adequate BP & HR: stable & adequate Hydration State: stable & adequate Anesthetic Complications: no major complications apparent
--- NOTE | 2020-05-20 19:52 | XRay Report ---
KUB HISTORY: obstruction, s/p flex sig with stool removal COMPARISON: KUB 05/29/2020. FINDINGS: The nasogastric tube terminates in the stomach. There is trace bilateral pleural effusions and bibasilar densities suggesting subsegmental atelectasis. A few small gallstones are again noted. Stable to slight improvement in the dilated gas-filled loops of large or small bowel seen throughout the abdomen. This favors an ileus. No renal calculi. No ureteral calculi. No pneumoperitoneum or pne umatosis. IMPRESSION: Stable to slight improvement in the gaseous distention of the large and small bowel. ACT 112: Negative or not required by law. Electronically signed by: Ramon Farley M.D. 05/20/2020 7:51 PM
[2020-05-20] MEDS: MULTIVITAMIN TAB PO SCH (20:45)
[2020-05-20] MEDS: ASPIRIN 81 MG ECTAB PO SCH (20:45)
[2020-05-20] MEDS: CALCIUM CARBONATE 1250MG TAB PO SCH (20:45)
[2020-05-20] MEDS: ALFUZOSIN HCL 10 MG TAB PO SCH (20:46)
[2020-05-20] MEDS ORDERED: POLYETHYLENE (MIRALAX) 17 GM PACK NG SCH (21:00)
[2020-05-20] MEDS: GABAPENTIN 100 MG CAP PO PRN (22:08)
[2020-05-21] MEDS: PIPERACILLIN/TAZOBACTAM 3.375 GM in DEXTROSE 5% 100 ML IV SCH ×3 (02:08→17:58)
[2020-05-21 06:17] LABS: Hematocrit (blood only) 39.2 % (42-52); Hemoglobin 13.4 g/dL (14.0-18.0); Mean Corpuscular Hemoglobin 31.3 pg (25-34); Mean Corpuscular Hgb Conc 34.2 g/dL (32-36); Mean Corpuscular Volume 91.6 fL (80-100); Mean Platelet Volume 9.7 fL (7.4-10.4); Platelet Count 274 K/uL (130-400); RDW Coefficient of Variation 13.5 % (11.5-14.5); RDW Standard Deviation 44.6 fL (36.4-46.3); Red Blood Count 4.28 M/uL (4.7-6.1); White Blood Count 10.53 K/uL (4.8-10.8)
[2020-05-21 06:47] LABS: BUN Creatinine Ratio 17.3 (10-20); Calcium 8.9 mg/dl (8.5-10.1); Creatinine Clr Calc Pharmacy 93.8 ml/min; Est GFR (African American) 107.9; Est GFR (Non-African American) 93.1; Potassium 3.5 mmol/L (3.5-5.1)
--- NOTE | 2020-05-21 07:42 | Surgery Progress Note ---
Date of Service May 21, 2020 Assessment & Plan (1) Obstipation: sx improved after endo/levage KUB last night improved cont NG, can probably restart some miralax WBC normalized as above. nothing to add surgically. surgical resection of the ulcerated/strictured area would be last resort. Admission and Anticipated Discharge Date Admission Date: May 17, 2020 Subjective BM this AM solid and liquid, no pain, better with NG Physical Exam Gastrointestinal (Abdomen): Inspection/Auscultation: + abdomen distended (mild) Percussion/Palpation: abdomen soft; abdomen nontender Results & Data ([facility]) Vital Signs (Past 12 Hours) Vital Signs Temp Pulse Pulse Resp BP Pulse Ox 05/21/20 07:22 36.5 C 91 H 18 145/82 H 90 05/21/20 03:33 36.5 C 84 18 133/75 91 05/21/20 00:28 97 H 05/20/20 23:10 36.7 C 91 H 16 137/73 92 PG Care Time/CCT Total # of Minutes Spent Total Time Spent with Patient: Total time spent is greater than 50% in coordination of care (as documented) at patient's floor/unit and/or counseling patient: Coding Level of Care Code 70072 Inpt Consult Level 3 Diagnoses Obstipation K59.00
[2020-05-21] MEDS: CARBIDOPA/LEVODOPA 25/100MG TAB PO SCH ×4 (07:44→20:04)
[2020-05-21] MEDS: RASAGILINE PO SCH (07:45)
--- NOTE | 2020-05-21 08:54 | Hospitalist Progress Note ---
Date of Service May 21, 2020 Assessment & Plan (1) Partial obstruction of colon: CT abd pelvis 05/17/20 IMPRESSION: 1. Moderate amount of stool within the distal descending colon with adjacent stranding and mild to moderate upstream colonic dilatation. The findings suggest a partial colonic obstruction most likely due to stool. Adjacent infiltration suggests stercoral colitis. An underlying stricture or occult mass cannot be excluded by CT. Therefore, GI consultation for consideration for colonoscopy is recommended. Large amount of stool within the cecum and ascending colon. 2. A few mildly dilated loops of small bowel. This may reflect an ileus. No evidence for a small bowel obstruction. 3. Cholelithiasis. 4. Bilateral nephrolithiasis. small formed stool and liquid stools today Dr. Mills took for flex sigmoidoscopy on 05/20, encountered 5cm long segment of very dense, fibrous stool that was at junction of descending and sigmoid colon Dr. Mills was able to break up the stool, irrigated with saline passing flatus and liquid stools Surgery wants to clean out his colon while he is here he will need repeat colonoscopy in 6 months to follow up on ulcer in descending colon will continue on Zosyn for coverage of sterocolitis (2) Obstipation: due to hard stool in distal descending colon passing more flatus since flex sig no convincing large stool passed (3) Colitis: stercocolitis from very hard impacted stool in distal descending colon will cover with Zosyn IV, no fever, less pain, WBC going down clear liquid diet promote bowel movements with Miralax (4) LLQ abdominal pain: see above, most of the pain is in LLQ obstipation (5) BPH (benign prostatic hyperplasia): Continue alfuzosin 10 mg p.o. every afternoon (6) Obstructive sleep apnea: CPAP at bedtime (7) Parkinson disease: Continue his usual Sinemet dosing. Admission and Anticipated Discharge Date Admission Date: May 17, 2020 Subjective this pt has some formed stool but mostly diarrhea, did have ng suction stopped and developed bloating, KUB from this am looks similar to previous without much improvement. Review of Systems Review of Systems: Mild distress and fatigue no headache, blurry or double vision no speech or swallowing issues no chest pain, pressure or palpitations no shortness of breath, cough or wheezes vague diffuse abdominal pain, no nausea or vomiting while with NGT to suction still without significant stool output no dysuria, hematuria or frequency no focal joint pain or swelling no back pain, CVA tenderness or radicular pain no bruising, bleeding or rashes no focal signs of weakness or numbness or altered sensation no complaints of anxiety or depression.. Physical Exam Physical Exam: The patient appeared well nourished and normally developed. Vital signs as documented. Head exam is normocephalic atraumatic no scleral icterus Neck is without JVD, thyromegaly, or carotid bruits. Lungs are clear to auscultation, no focal loss of breath sounds Cardiac exam, Rhythm is regular.. No murmurs, rubs or gallops. Abdominal exam reveals hypoactive bowel sounds, soft mildly tender Extremities are nonedematous and both pedal pulses are present Neurologic exam is alert and oriented, no focal loss of strength or sensation Skin is without bruises or rashes Psychologically is without concerns for anxiety or depression Results & Data Results & Data ([facility]) Vital Signs (Past 12 Hours) Vital Signs Temp Pulse Pulse Resp BP Pulse Ox 05/21/20 08:46 86 05/21/20 07:22 97.7 F 91 H 18 145/82 H 90 05/21/20 03:33 97.7 F 84 18 133/75 91 05/21/20 00:28 97 H 05/20/20 23:10 98.1 F 91 H 16 137/73 92 PG Care Time/CCT Total # of Minutes Spent Total Time Spent with Patient: Total time spent is greater than 50% in coordination of care (as documented) at patient's floor/unit and/or counseling patient: Coding Level of Care Code 92336 Subseq Hosp Care Lvl 2 Diagnoses Partial obstruction of colon K56.600 Obstipation K59.00 Colitis K52.9 LLQ abdominal pain R10.32 BPH (benign prostatic hyperplasia) N40.0 Obstructive sleep apnea G47.33 Parkinson disease G20
--- NOTE | 2020-05-21 09:15 | XRay Report ---
KUB HISTORY: large bowel obstruction COMPARISON: KUB 05/20/2020. FINDINGS: Nasogastric tube terminates in the stomach. This remains unchanged. There are trace bilater al pleural effusions. No change in the distended gas-filled loops of large or small bowel seen throug hout the abdomen. The distal colon is decompressed consistent with the history of a partial large bow el obstruction. No renal calculi. No ureteral calculi. No pneumoperitoneum or pneumatosis. Cholelith iasis. IMPRESSION: No change in the distended gas-filled loops of large and small bowel suggestive of a partial large anabel wel obstruction. Nasogastric tube remains within the stomach. ACT 112: Negative or not required by law. Electronically signed by: Ramon Farley M.D. 05/21/2020 9:14 AM
[2020-05-21] MEDS: POTASSIUM CHLORIDE 40 MEQ in SODIUM CHLORIDE 0.9% 1000ML 1,000 ML IV SCH (11:50)
[2020-05-21] MEDS ORDERED: SOD PHOSPHATE/SOD BIPHOSPHATE ENEMA 132 ML BTL PR PRN (15:21)
--- NOTE | 2020-05-21 15:49 | Progress Notes ---
DATE: 05/21/2020 The patient reports that he has been passing some solid stool, but mostly liquid and gas. He has had a nasogastric tube placed yesterday after Dr. Mills did a sigmoid exam and found an impacted stool in the sigmoid and descending region covering an area of about 5 cm. This was broken up and irrigated free. After that, he was ordered MiraLax orally to help flush out the remainder of his colon, but when he drank the MiraLax, he started vomiting, so they put a nasogastric tube down. He is draining a fair amount of dark brown liquid. His abdomen still feels slightly distended on exam. His white count has returned to normal and he is afebrile. IMPRESSION: The patient is still distended and has a pressure or stercoral ulcer in the sigmoid, descending area. We would like to continue nasogastric suction overnight and reassess tomorrow. If he is still distended and still draining a fair amount through his nasogastric tube, we will proceed with a flexible sigmoidoscopy tomorrow to try to make sure that that area still remains open and irrigated to assure that stool can flow through that area. We will hold off on the MiraLax at this time.
[2020-05-21] MEDS: ALFUZOSIN HCL 10 MG TAB PO SCH (20:04)
[2020-05-21] MEDS: CALCIUM CARBONATE 1250MG TAB PO SCH (20:04)
[2020-05-21] MEDS: ASPIRIN 81 MG ECTAB PO SCH (20:04)
[2020-05-21] MEDS: MULTIVITAMIN TAB PO SCH (20:04)
[2020-05-21] MEDS: GABAPENTIN 100 MG CAP PO PRN (20:04)
[2020-05-22] MEDS: POTASSIUM CHLORIDE 40 MEQ in SODIUM CHLORIDE 0.9% 1000ML 1,000 ML IV SCH ×2 (00:34→12:06)
[2020-05-22] MEDS: PIPERACILLIN/TAZOBACTAM 3.375 GM in DEXTROSE 5% 100 ML IV SCH ×3 (03:15→17:58)
[2020-05-22] MEDS: CARBIDOPA/LEVODOPA 25/100MG TAB PO SCH ×4 (07:55→20:19)
[2020-05-22] MEDS: RASAGILINE PO SCH (07:56)
--- NOTE | 2020-05-22 09:34 | XRay Report ---
KUB CLINICAL HISTORY: Enteric tube placement. FINDINGS: 2 AP, portable, supine abdominal radiograph is are compared to study dated 05/21/2020 and cor related with abdominal CT dated 05/17/2020. An enteric tube is in place. The tip projects below the vani phragm over the proximal stomach. There is evidence of persistent bowel obstruction. Small bowel loop s measure up to 5 cm in diameter. There is a paucity of distal bowel gas. No evidence of intraperiton eal free air is seen on these supine views. Surgical clips are noted in the lower abdomen and there a re numerous pelvic phleboliths. Calcified gallstones are seen in the right upper quadrant. The bony s tructures appear intact noting mild lumbosacral spondylosis. Trace pleural effusions are suggested at the lung bases. IMPRESSION: 1. An enteric tube projects below the diaphragm over the proximal stomach. 2. Persistent bowel obstruction. 3. Cholelithiasis. Electronically signed by: Chacho Velasco M.D. 05/22/2020 9:33 AM
--- NOTE | 2020-05-22 09:39 | Surgery Progress Note ---
Date of Service May 22, 2020 Assessment & Plan (1) Obstipation: clinically doing better. await to see xray results large bm on his own obviously a good sign will continue to follow along. GI may re-look at colonic ulceration/stool burden again today. (2) Partial obstruction of colon: Admission and Anticipated Discharge Date Admission Date: May 17, 2020 Subjective pt seen. just had large/soft bm. no new complaints. looks better Physical Exam Physical Exam: alert. nad abd: soft. mild distension. non-tender. Results & Data ([facility]) Vital Signs (Past 12 Hours) Vital Signs Temp Pulse Pulse Resp BP Pulse Ox 05/22/20 07:58 36.5 C 84 20 133/83 90 05/22/20 03:20 36.6 C 92 H 16 137/83 93 05/22/20 01:10 80 05/21/20 22:45 36.8 C 86 16 124/79 94 PG Care Time/CCT Total # of Minutes Spent Total Time Spent with Patient: Total time spent is greater than 50% in coordination of care (as documented) at patient's floor/unit and/or counseling patient: Coding Level of Care Code 78476 Subseq Hosp Care Lvl 2 Diagnoses Obstipation K59.00 Partial obstruction of colon K56.600
[2020-05-22] MEDS: ENOXAPARIN INJ 40 MG/0.4 ML SYR SQ SCH (10:37)
[2020-05-22] MEDS ORDERED: ONDANSETRON INJ 2 MG/ML 2 ML VIAL ONE (13:47)
[2020-05-22] MEDS ORDERED: LIDOCAINE 2% 2 ML VIAL/AMP(20MG/ML) INFIL ONE (13:47)
[2020-05-22] MEDS ORDERED: PROPOFOL IV EMULSION 10 MG/ML 20 ML VIAL IV ONE (13:47)
[2020-05-22] MEDS ORDERED: MIDAZOLAM HCL 1 MG/ML 2ML VIAL ONE ×2 (14:14→14:23)
[2020-05-22] MEDS ORDERED: SODIUM CHLORIDE 0.9% 1000ML 1,000 ML IV SCH (14:30)
--- NOTE | 2020-05-22 14:30 | History & Physical Report ---
Date of Service May 22, 2020 Assessment & Plan Admission and Anticipated Discharge Date Admission Date: May 17, 2020 History of Present Illness Chief Complaint: Obstipation with stercoral colon ulcer Primary Care Provider: Cristiano Arana MD For Flex sig Allergies Allergy/AdvReac Type Severity Reaction Status Date / Time No Known Drug Allergies Allergy Verified 05/22/20 14:06 Home Medications Medication Instructions Recorded Confirmed Type aspirin 81 mg tablet,delayed 81 mg PO PM 03/11/18 05/17/20 History release calcium carbonate 500 mg calcium 500 mg PO PM tab 03/11/18 05/17/20 History (1,250 mg) tablet carbidopa 25 mg-levodopa 100 mg 1 tab PO QID 03/11/18 05/17/20 History tablet multivitamin 1 tab PO PM 03/11/18 05/17/20 History psyllium seed (sugar) oral powder 1 tbs PO DAILY 03/12/18 05/17/20 History amitriptyline 25 mg tablet 25 mg PO QPM tab 01/03/19 05/17/20 History acetaminophen [Tylenol 8 Hour] 1,300 mg PO Q8H PRN 05/17/20 05/17/20 History alfuzosin [Uroxatral] 10 mg PO PM 05/17/20 05/17/20 History ibuprofen 600 mg PO Q6H PRN 05/17/20 05/17/20 History rasagiline 1 mg PO QAM 05/17/20 05/17/20 History Past Med/Surg History Medical History BPH (benign prostatic hyperplasia) Heart murmur History of kidney stones Left lumbar radiculopathy HX INJECTION DEC 05 2019 LLQ abdominal pain Low back pain Neck pain PINCHED NERVE AND ARTHRITIS - MILD LIMITATION WITH ROM Obstructive sleep apnea CPAP Parkinson disease Surgical History History of appendectomy History of colonoscopy History of left cataract surgery History of right cataract surgery S/P hemorrhoidectomy HX Family History Mother Breast cancer Father Hypertension Stroke Social History Smoking Status: Never smoker Hx Alcohol Use: No Hx Substance Use: No Preferred Language: Greek Communication Ability: Effective Visual Impairment: No Limitations Hearing Ability: Normal 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 Beliefs That Will Affect Care: None marital status: Current Living Situation: Spouse current occupational status: retired Other Information That Helps Us Care for You: No Feels Safe at Home: Yes Safety Concerns: Feels Safe At This Time Assistive Devices: None Physical Exam Constitutional: well developed and well nourished Respiratory: normal respiratory effort Cardiovascular: Rate/Rhythm: regular rate and regular rhythm Gastrointestinal (Abdomen): Percussion/Palpation: + tympanic to percussion Results & Data ([facility]) Vital Signs (Past 12 Hours) Vital Signs Temp Pulse Pulse Pulse Resp BP Pulse Ox 05/22/20 14:08 36.9 C 89 16 133/84 91 05/22/20 11:22 36.6 C 85 18 117/77 94 05/22/20 08:00 87 05/22/20 07:58 36.5 C 84 20 133/83 90 05/22/20 03:20 36.6 C 92 H 16 137/83 93 Code Status & VTE Plan VTE Prophylaxis Plan VTE Prophylaxis will be ordered: Yes
--- NOTE | 2020-05-22 14:32 | Anesthesiology Consultation ---
Date of Service May 22, 2020 Assessment & Plan (1) Encounter for pre-operative examination: Chart Review Chart Review: Acceptable Risk for Surgery and Patient NOT seen in Pre Admission Testing Consults Requested none ASA ASA3 Proposed Anesthesia Anesthesia Type: MAC History Surgery Operation Date: 05/20/20 11:00 Proposed Procedures p Colonoscopy - Jax Addison MD Operation Date: 05/20/20 12:30 Proposed Procedures p Colonoscopy - Fernie Mills Operation Date: 05/22/20 17:45 Proposed Procedures p Flexible Sigmoidoscopy Dr Kash Hewitt Height/Weight Height: 5 ft 10 in Weight: 82 kg Allergies Allergy/AdvReac Type Severity Reaction Status Date / Time No Known Drug Allergies Allergy Verified 05/22/20 14:06 Medications Home Medications Medication Instructions Recorded Confirmed Last Taken aspirin 81 mg tablet,delayed 81 mg PO PM 03/11/18 05/17/20 05/16/20 release calcium carbonate 500 mg calcium 500 mg PO PM tab 03/11/18 05/17/20 05/16/20 (1,250 mg) tablet carbidopa 25 mg-levodopa 100 mg 1 tab PO QID 03/11/18 05/17/20 05/17/20 tablet multivitamin 1 tab PO PM 03/11/18 05/17/20 05/16/20 psyllium seed (sugar) oral powder 1 tbs PO DAILY 03/12/18 05/17/20 12/05/19 12:00 amitriptyline 25 mg tablet 25 mg PO QPM tab 01/03/19 05/17/20 05/16/20 acetaminophen [Tylenol 8 Hour] 1,300 mg PO Q8H PRN 05/17/20 05/17/20 05/16/20 1300 mg alfuzosin [Uroxatral] 10 mg PO PM 05/17/20 05/17/20 05/16/20 ibuprofen 600 mg PO Q6H PRN 05/17/20 05/17/20 05/16/20 rasagiline 1 mg PO QAM 05/17/20 05/17/20 05/17/20 Active Medications Generic Name Dose Route Start Last Admin Trade Name Freq PRN Reason Stop Dose Admin Alfuzosin HCl 10 mg 05/17/20 21:00 05/21/20 20:04 Alfuzosin Hcl 10 Mg Tab PO 06/16/20 20:59 10 mg PM ZEB Administration Aspirin 81 mg 05/20/20 21:00 05/21/20 20:04 Aspirin 81 Mg Ectab PO 06/19/20 20:59 81 mg PM ZEB Administration Calcium Carbonate 1,250 mg 05/20/20 21:00 05/21/20 20:04 Calcium Carbonate 1250mg Tab PO 06/19/20 20:59 1,250 mg PM ZEB Administration Carbidopa/Levodopa 1 tab 05/17/20 20:00 05/22/20 12:03 Carbidopa/Levodopa 25/100mg Tab PO 06/16/20 19:59 1 tab 0800,1200,1600,2000 ZEB Administration Enoxaparin Sodium 40 mg 05/22/20 09:00 05/22/20 10:37 Enoxaparin Inj 40 Mg/0.4 Ml Syr SQ 06/21/20 08:59 40 mg QAM ZEB Administration Gabapentin 100 mg 05/20/20 21:17 05/21/20 20:04 Gabapentin 100 Mg Cap PO 06/20/20 08:59 100 mg TID PRN Administration hiccups Hydromorphone HCl 0.5 mg 05/17/20 14:41 05/18/20 05:06 Hydromorphone Inj 0.5 Mg/0.5 Ml Syr IV 05/31/20 14:40 0.5 mg Q4H PRN Administration Pain Promethazine HCl 12.5 mg/ 50.5 mls @ 202 mls/hr 05/17/20 14:41 05/20/20 01:38 Sodium Chloride IV 06/16/20 14:40 Infused Q6H PRN Infusion Nausea And Vomiting Piperacillin Sod/Tazobactam 115 mls @ 28.75 mls/hr 05/17/20 18:00 05/22/20 10:37 Sod 3.375 gm/ Dextrose IV 05/27/20 17:59 28.8 mls/hr Q8H ZEB Administration Protocol Potassium Chloride 40 meq/ 1,020 mls @ 80 mls/hr 05/20/20 10:00 05/22/20 12:06 Sodium Chloride IV 06/19/20 09:59 80 mls/hr .[id number] ZEB Administration Melatonin 3 mg 05/19/20 22:14 05/19/20 22:30 Melatonin 3 Mg Tab PO 06/18/20 22:13 3 mg HS PRN Administration Sleep Multivitamins 1 tab 05/20/20 21:00 05/21/20 20:04 Multivitamin Tab PO 06/19/20 20:59 1 tab PM ZEB Administration *Rasagiline*Non- 1 ea 05/18/20 08:00 05/22/20 07:56 Formulary Patient's PO 06/17/20 07:59 1 mg Own Med Q24H ZEB Administration Protocol Ondansetron HCl 4 mg 05/17/20 14:41 05/20/20 00:38 Ondansetron Inj 2 Mg/Ml 2 Ml Vial IV 06/16/20 14:40 4 mg Q4H PRN Administration Nausea/Vomiting NPO Date Last Intake of Fluids: 05/22/20 Time Last Intake of Fluids: 12:30 Date Last Intake of Solids: 05/17/20 Time Last Intake of Solids: 21:00 Past Medical History Medical History BPH (benign prostatic hyperplasia) Heart murmur History of kidney stones Left lumbar radiculopathy HX INJECTION DEC 05 2019 LLQ abdominal pain Low back pain Neck pain PINCHED NERVE AND ARTHRITIS - MILD LIMITATION WITH ROM Obstructive sleep apnea CPAP Parkinson disease Past Family History Family History Mother Breast cancer Father Hypertension Stroke Past Surgical History Surgical History History of appendectomy History of colonoscopy History of left cataract surgery History of right cataract surgery S/P hemorrhoidectomy HX Social History Smoking Status: Never smoker Hx Alcohol Use: No Hx Substance Use: No substance use type: does not use Physical Exam Vital Signs Last Vital Signs Temp 36.9 C 05/22/20 14:08 Pulse 89 05/22/20 14:08 Resp 16 05/22/20 14:08 BP 133/84 05/22/20 14:08 Pulse Ox 91 05/22/20 14:08 Testing Laboratory Results 05/21/20 05:37 05/21/20 05:37 Urine Color Dark Yellow 05/17/20 11:00 Urine Appearance Clear (Clear) 05/17/20 11:00 Urine pH 6.5 (4.5-7.5) 05/17/20 11:00 Ur Specific Center Line 1.028 (1.000-1.030) 05/17/20 11:00 Urine Protein 1+ (Negative) H 05/17/20 11:00 Urine Glucose (UA) Negative (Negative) 05/17/20 11:00 Urine Ketones 2+ (Negative) H 05/17/20 11:00 Urine Nitrite Negative (Negative) 05/17/20 11:00 Ur Leukocyte Esterase Negative (Negative) 05/17/20 11:00 Urine WBC (Auto) 1-5 /hpf (0-5) 05/17/20 11:00 Urine RBC (Auto) 5-10 /hpf (0-4) H 05/17/20 11:00 U Hyaline Cast (Auto) 5-10 /lpf (0-5) H 05/17/20 11:00 U Epithel Cells (Auto) 10-20 /lpf (0-5) H 05/17/20 11:00 Urine Bacteria (Auto) Negative (Negative) 05/17/20 11:00 Electrocardiogram Date: 05/17/20 Findings: + NSST changes and + ST @ (at 103) Echocardiogram Date: 04/20/16 EF: 50% LV Function: normal RWMA: + none Other Findings: + LVH (mild) and + diastolic dysfunction (grade 1) Valvular Disease: + no significant valvular disease
[2020-05-22] MEDS ORDERED: Nursing to Pharmacy Communication SCH (15:00)
--- NOTE | 2020-05-22 15:00 | Anesthesiology Progress Note ---
Date of Service May 22, 2020 Anesthesia Post Procedure Vital Signs Vital Signs: Temp Pulse Pulse Pulse Resp BP BP 05/22/20 14:08 36.9 C 89 16 133/84 05/22/20 11:22 36.6 C 85 18 117/77 05/22/20 08:00 87 05/22/20 07:58 36.5 C 84 20 133/83 05/22/20 03:20 36.6 C 92 H 16 137/83 05/22/20 01:10 80 05/21/20 22:45 36.8 C 86 16 124/79 05/21/20 19:07 36.5 C 81 16 136/83 05/21/20 15:51 36.5 C 89 18 123/83 Pulse Ox 05/22/20 14:08 91 05/22/20 11:22 94 05/22/20 08:00 05/22/20 07:58 90 05/22/20 03:20 93 05/22/20 01:10 05/21/20 22:45 94 05/21/20 19:07 94 05/21/20 15:51 93 Pain Intensity Abdomen: Pain Intensity: 4 Transfer of Care Handoff Completed per policy Notes Mental Status: alert / awake / arousable Patient Amnestic to Procedure: Yes Nausea / Vomiting: adequately controlled Pain: adequately controlled Airway Patency, RR, SpO2: stable & adequate BP & HR: stable & adequate Hydration State: stable & adequate Anesthetic Complications: no major complications apparent
--- NOTE | 2020-05-22 15:40 | Progress Notes ---
DATE: 05/22/2020 The patient continues to drain fluid out of his nasogastric tube and is little bit more distended today than he was yesterday. He did report that he has had 3 stools this morning. Unfortunately, did not get an enema before having a sigmoid exam. The sigmoid exam was done with Versed sedation and the procedure was carried up to the descending colon. At 30 cm at the junction of the sigmoid and descending, there is an ulcerated area in a circumferential fashion. There are couple of associated diverticula. It is not clear whether this represents a stercoral ulcer from impacted stool or whether this is localized diverticulitis. The patient continues on IV antibiotics. Biopsies were not performed because of the necrotic nature of the lesion. IMPRESSION: The patient has a localized area of inflammation at the junction of the sigmoid and descending colon. For now, we will continue on nasogastric suction because he is still somewhat distended and his KUB today shows persistent distention, although much less than when he came in. I plan on starting him back on MiraLax 3 times a day. We will clamp the NG tube for now or after each dose and see if that will help flush out his colon and decompress him and hopefully avoid any surgical intervention.
--- NOTE | 2020-05-22 18:44 | Hospitalist Progress Note ---
Date of Service May 22, 2020 Assessment & Plan (1) Partial obstruction of colon: CT abd pelvis 05/17/20 IMPRESSION: 1. Moderate amount of stool within the distal descending colon with adjacent stranding and mild to moderate upstream colonic dilatation. The findings suggest a partial colonic obstruction most likely due to stool. Adjacent infiltration suggests stercoral colitis. An underlying stricture or occult mass cannot be excluded by CT. Therefore, GI consultation for consideration for colonoscopy is recommended. Large amount of stool within the cecum and ascending colon. 2. A few mildly dilated loops of small bowel. This may reflect an ileus. No evidence for a small bowel obstruction. 3. Cholelithiasis. 4. Bilateral nephrolithiasis. small formed stool and liquid stools continue on 05/22 Dr. Mills took for flex sigmoidoscopy on 05/20, encountered 5cm long segment of very dense, fibrous stool that was at junction of descending and sigmoid colon Dr. Mills was able to break up the stool, irrigated with saline passing flatus and liquid stools GI medicine for repeat flex sig on 05/22/2020 he will need repeat colonoscopy in 6 months to follow up on ulcer in descending colon will continue on Zosyn for coverage of sterocolitis (2) Obstipation: due to hard stool in distal descending colon Additional flex sig attempted for cleaning out hard stool clinically still has some distention and previous KUB showing abdominal bowel distention (3) Colitis: stercocolitis from very hard impacted stool in distal descending colon will cover with Zosyn IV, no fever, less pain, WBC going down clear liquid diet Continue to promote bowel movements with Miralax (4) LLQ abdominal pain: see above, most of the pain is in LLQ obstipation (5) BPH (benign prostatic hyperplasia): Continue alfuzosin 10 mg p.o. every afternoon (6) Obstructive sleep apnea: CPAP at bedtime (7) Parkinson disease: Continue his usual Sinemet dosing. Admission and Anticipated Discharge Date Admission Date: May 17, 2020 Subjective Patient is not feeling much better with abdominal distention he did have 3 soft bowel movements today. He has been allowed clear liquids by GI medicine but continues have NG tube to low intermittent suction. Unclear exactly what his fluid balance is however clinically he feels still distended Review of Systems Review of Systems: Mild distress and fatigue no headache, blurry or double vision no speech or swallowing issues no chest pain, pressure or palpitations no shortness of breath, cough or wheezes Mild abdominal fullness and distention. No nausea or vomiting while having NG tube is having soft stools no dysuria, hematuria or frequency no focal joint pain or swelling no back pain, CVA tenderness or radicular pain no bruising, bleeding or rashes no focal signs of weakness or numbness or altered sensation no complaints of anxiety or depression.. Physical Exam Physical Exam: The patient appeared well nourished and normally developed. Vital signs as documented. Head exam is normocephalic atraumatic no scleral icterus Neck is without JVD, thyromegaly, or carotid bruits. Lungs are clear to auscultation, no focal loss of breath sounds Cardiac exam, Rhythm is regular.. No murmurs, rubs or gallops. Abdominal exam reveals hypoactive bowel sounds, soft distended with fullness no fluid wave Extremities are nonedematous and both pedal pulses are present Neurologic exam is alert and oriented, no focal loss of strength or sensation Skin is without bruises or rashes Psychologically is without concerns for anxiety or depression Results & Data Results & Data ([facility]) Vital Signs (Past 12 Hours) Vital Signs Temp Pulse Pulse Pulse Resp BP Pulse Ox 05/22/20 16:02 98.2 F 80 18 127/80 92 05/22/20 15:26 79 16 125/76 92 05/22/20 15:11 86 16 127/75 93 05/22/20 14:56 99 H 16 113/65 96 05/22/20 14:08 98.4 F 89 16 133/84 91 05/22/20 11:22 97.9 F 85 18 117/77 94 05/22/20 08:00 87 05/22/20 07:58 97.7 F 84 20 133/83 90 PG Care Time/CCT Total # of Minutes Spent Total Time Spent with Patient: Total time spent is greater than 50% in coordination of care (as documented) at patient's floor/unit and/or counseling patient: Coding Level of Care Code 86493 Subseq Hosp Care Lvl 2 Diagnoses Partial obstruction of colon K56.600 Obstipation K59.00 Colitis K52.9 LLQ abdominal pain R10.32 BPH (benign prostatic hyperplasia) N40.0 Obstructive sleep apnea G47.33 Parkinson disease G20
[2020-05-22] MEDS: CALCIUM CARBONATE 1250MG TAB PO SCH (20:18)
[2020-05-22] MEDS: MULTIVITAMIN TAB PO SCH (20:18)
[2020-05-22] MEDS: ASPIRIN 81 MG ECTAB PO SCH (20:18)
[2020-05-22] MEDS: POLYETHYLENE (MIRALAX) 17 GM PACK NG SCH (20:18)
[2020-05-22] MEDS: GABAPENTIN 100 MG CAP PO PRN (20:18)
[2020-05-22] MEDS: ALFUZOSIN HCL 10 MG TAB PO SCH (20:19)
[2020-05-23] MEDS: POTASSIUM CHLORIDE 40 MEQ in SODIUM CHLORIDE 0.9% 1000ML 1,000 ML IV SCH ×2 (00:50→13:06)
[2020-05-23] MEDS: PIPERACILLIN/TAZOBACTAM 3.375 GM in DEXTROSE 5% 100 ML IV SCH ×3 (00:50→18:12)
--- NOTE | 2020-05-23 08:05 | Anesthesiology Progress Note ---
Date of Service May 23, 2020 Anesthesia Post Procedure Vital Signs Vital Signs: Temp Pulse Pulse Pulse Pulse Resp BP 05/23/20 04:00 36.6 C 84 18 05/22/20 23:52 75 05/22/20 23:00 36.5 C 79 16 05/22/20 19:44 36.5 C 87 18 05/22/20 16:02 36.8 C 80 18 127/80 05/22/20 15:47 83 05/22/20 15:26 79 16 125/76 05/22/20 15:11 86 16 127/75 05/22/20 14:56 99 H 16 113/65 05/22/20 14:08 36.9 C 89 16 133/84 05/22/20 11:22 36.6 C 85 18 117/77 BP Pulse Ox 05/23/20 04:00 143/84 H 90 05/22/20 23:52 05/22/20 23:00 134/88 92 05/22/20 19:44 126/85 95 05/22/20 16:02 92 05/22/20 15:47 05/22/20 15:26 92 05/22/20 15:11 93 05/22/20 14:56 96 05/22/20 14:08 91 05/22/20 11:22 94 Pain Intensity Abdomen: Pain Intensity: 0 Notes Mental Status: alert / awake / arousable and participated in evaluation Patient Amnestic to Procedure: Yes Nausea / Vomiting: adequately controlled Pain: adequately controlled Airway Patency, RR, SpO2: stable & adequate BP & HR: stable & adequate Hydration State: stable & adequate Anesthetic Complications: no major complications apparent
[2020-05-23] MEDS: CARBIDOPA/LEVODOPA 25/100MG TAB PO SCH ×4 (08:09→20:10)
[2020-05-23] MEDS: ENOXAPARIN INJ 40 MG/0.4 ML SYR SQ SCH (08:10)
[2020-05-23] MEDS: RASAGILINE PO SCH (08:10)
[2020-05-23] MEDS: POLYETHYLENE (MIRALAX) 17 GM PACK NG SCH ×4 (08:10→20:10)
[2020-05-23 09:35] LABS: Hematocrit (blood only) 40.5 % (42-52); Hemoglobin 14.1 g/dL (14.0-18.0); Mean Corpuscular Hemoglobin 31.6 pg (25-34); Mean Corpuscular Hgb Conc 34.8 g/dL (32-36); Mean Corpuscular Volume 90.8 fL (80-100); Mean Platelet Volume 9.5 fL (7.4-10.4); Platelet Count 309 K/uL (130-400); RDW Coefficient of Variation 13.5 % (11.5-14.5); RDW Standard Deviation 44.3 fL (36.4-46.3); Red Blood Count 4.46 M/uL (4.7-6.1); White Blood Count 9.78 K/uL (4.8-10.8)
--- NOTE | 2020-05-23 09:50 | Surgery Progress Note ---
Date of Service May 23, 2020 Assessment & Plan (1) Obstipation: Patient still with some abdominal discomfort, not as much pain. denies n/v He is passing BM's, minimal flatus Abdomen non tender, but remains mildly distended NGT 1350cc over 24hrs/850cc over 12 hrs, but he is drinking clear liquids which could account for some of the output Yesterday GI took patient for a flex sig which revealed an ulcerated area at the junction of the sigmoid and descending colon, which a couple diverticula. Questionable if from a stercoral ulcer vs localized diverticulitis Appreciate GI assistance with patient. He appears to be making some slow improvement No plans for surgical intervention at this time as above. continues to have loose bm's but continues to be distended. IM ordered ct of abdomen....will continue to follow along. Admission and Anticipated Discharge Date Admission Date: May 17, 2020 Subjective Patient states he is feeling about the same, still has some abdominal "tightness and discomfort", not as much pain. He is passing BM's, minimal flatus. He denies any n/v. He is drinking clears with NGT in place. Physical Exam Physical Exam: awake/alert Gastrointestinal (Abdomen): Inspection/Auscultation: + abdomen distended Percussion/Palpation: abdomen soft; abdomen nontender NGT with brown bilious fluid Results & Data ([facility]) Vital Signs (Past 12 Hours) Vital Signs Temp Pulse Pulse Pulse Resp BP BP 05/23/20 08:08 36.7 C 79 18 128/85 05/23/20 04:00 36.6 C 84 18 143/84 H 05/22/20 23:52 75 05/22/20 23:00 36.5 C 79 16 134/88 Pulse Ox 05/23/20 08:08 93 05/23/20 04:00 90 05/22/20 23:52 05/22/20 23:00 92 PG Care Time/CCT Total # of Minutes Spent Total Time Spent with Patient: Total time spent is greater than 50% in coordination of care (as documented) at patient's floor/unit and/or counseling patient: Coding Level of Care Code 42671 Subseq Hosp Care Lvl 3 Diagnoses Obstipation K59.00
[2020-05-23 10:22] LABS: BUN Creatinine Ratio 11.3 (10-20); Creatinine Clr Calc Pharmacy 104.2 ml/min; Est GFR (African American) 112.7; Est GFR (Non-African American) 97.2; Potassium 3.9 mmol/L (3.5-5.1)
--- NOTE | 2020-05-23 15:17 | Progress Notes ---
DATE: 05/23/2020 The patient has been ambulating in the hallways, which tends to make his abdomen a little more tender, but the left lower quadrant pain is significantly improved. He had 4 mushy bowel movements today. He is not passing a tremendous amount of gas rectally. He continues to have NG tube in for decompression. His white count continues to remain normal. Vital signs are normal. The patient is going for a CAT scan this evening to reassess the status of his colon. On exam, his abdomen is less distended, less tympanitic and there is no appreciable left lower quadrant tenderness anymore on exam. These were all encouraging signs, we will see what his CAT scan shows today, and we will continue to follow him.
--- NOTE | 2020-05-23 16:08 | CT Scan Report ---
CT abd pelvis oral con only CLINICAL HISTORY: Bowel obstruction. COMPARISON STUDY: 05/17/2020 FINDINGS: Patient was imaged following administration of dilute oral contrast. No intravenous contrast was admi nistered. Images to the lung bases reveal small bilateral pleural effusions with bibasilar parenchymal opacitie s likely representing compressive atelectasis although a pneumonia could appear similar There is an indwelling nasogastric tube. There is mild hepatic steatosis. No focal masses are visualized in this noncontrast study. There is cholelithiasis. No splenic masses are visualized. No pancreatic masses are visualized. There is mild low density adrenal gland thickening. There are multiple bilateral nonobstructing renal calculi. No ureteral or bladder calculi are visuali zed. There is no evidence of abdominal aortic aneurysm. There is no pathologic adenopathy. There is mild prostatomegaly. There are dilated fluid-filled small bowel loops, with normal caliber distal ileum. There appears to be a transition within the right anterior abdomen. The colon is relatively decompressed. There is an area of borderline colonic wall thickening at the descending sigmoid junction. In addition there is a mildly thick-walled distal ileal small bowel loop. IMPRESSION: 1. Small bowel obstruction with a transition identified within the right anterior abdomen 2. Nonspecific mildly thick-walled distal ileal small bowel loop 3. Area of borderline colonic wall thickening at the descending sigmoid junction. 4. Cholelithiasis 5. Bilateral nephrolithiasis ACT 112: Negative or not required by law. Electronically signed by: Mika Smith M.D. 05/23/2020 4:06 PM
--- NOTE | 2020-05-23 18:32 | Hospitalist Progress Note ---
Date of Service May 23, 2020 Assessment & Plan (1) Partial obstruction of colon: CT abd pelvis 05/23/20 IMPRESSION: 1. Small bowel obstruction with a transition identified within the right anterior abdomen 2. Nonspecific mildly thick-walled distal ileal small bowel loop 3. Area of borderline colonic wall thickening at the descending sigmoid junction. 4. Cholelithiasis 5. Bilateral nephrolithiasis small formed stool and liquid stools continue on 05/23 but still with ngt output Dr. Mills took for flex sigmoidoscopy on 05/20, encountered 5cm long segment of very dense, fibrous stool that was at junction of descending and sigmoid colon Dr. Mills was able to break up the stool, irrigated with saline passing flatus and liquid stools GI medicine for repeat flex sig on 05/22/2020, did see ulceration in colon, agrees to CT -> make NPO and discuss with surgery he will need repeat colonoscopy in 6 months to follow up on ulcer in descending colon will continue on Zosyn for coverage of sterocolitis (2) Obstipation: due to hard stool in distal descending colon Additional flex sig attempted for cleaning out hard stool clinically still has some distention and previous KUB showing abdominal bowel distention now CT suggests sbo (3) Colitis: stercocolitis from very hard impacted stool in distal descending colon will cover with Zosyn IV, no fever, less pain, WBC going down clear liquid diet Continue to promote bowel movements with Miralax (4) LLQ abdominal pain: see above, most of the pain is in LLQ obstipation (5) BPH (benign prostatic hyperplasia): Continue alfuzosin 10 mg p.o. every afternoon (6) Obstructive sleep apnea: CPAP at bedtime (7) Parkinson disease: Continue his usual Sinemet dosing. Admission and Anticipated Discharge Date Admission Date: May 17, 2020 Subjective Patient states he is feeling about the same, still has some abdominal "tightness and discomfort", not as much pain. He is passing BM's, minimal flatus. He denies any n/v. He is drinking clears with NGT in place. Review of Systems Review of Systems: Mild distress and fatigue no headache, blurry or double vision no speech or swallowing issues no chest pain, pressure or palpitations no shortness of breath, cough or wheezes Mild abdominal fullness and distention. No nausea or vomiting while having NG tube is having soft stools no dysuria, hematuria or frequency no focal joint pain or swelling no back pain, CVA tenderness or radicular pain no bruising, bleeding or rashes no focal signs of weakness or numbness or altered sensation no complaints of anxiety or depression.. Physical Exam Physical Exam: The patient appeared well nourished and normally developed. Vital signs as documented. Head exam is normocephalic atraumatic no scleral icterus Neck is without JVD, thyromegaly, or carotid bruits. Lungs are clear to auscultation, no focal loss of breath sounds Cardiac exam, Rhythm is regular.. No murmurs, rubs or gallops. Abdominal exam reveals hypoactive bowel sounds, soft distended with fullness no fluid wave Extremities are nonedematous and both pedal pulses are present Neurologic exam is alert and oriented, no focal loss of strength or sensation Skin is without bruises or rashes Psychologically is without concerns for anxiety or depression Results & Data Results & Data ([facility]) Vital Signs (Past 12 Hours) Vital Signs Temp Pulse Pulse Resp BP BP Pulse Ox 05/23/20 16:09 98.2 F 86 16 125/86 96 05/23/20 16:00 99 H 05/23/20 11:44 97.7 F 84 20 138/92 93 05/23/20 08:08 98.1 F 79 18 128/85 93 05/23/20 08:00 105 H PG Care Time/CCT Total # of Minutes Spent Total Time Spent with Patient: Total time spent is greater than 50% in coordination of care (as documented) at patient's floor/unit and/or counseling patient: Coding Level of Care Code 52418 Subseq Hosp Care Lvl 2 Diagnoses Partial obstruction of colon K56.600 Obstipation K59.00 Colitis K52.9 LLQ abdominal pain R10.32 BPH (benign prostatic hyperplasia) N40.0 Obstructive sleep apnea G47.33 Parkinson disease G20
[2020-05-23] MEDS: ALFUZOSIN HCL 10 MG TAB PO SCH (20:11)
[2020-05-24] MEDS ORDERED: MELATONIN 3 MG TAB PO PRN (01:44)
[2020-05-24] MEDS ORDERED: MELATONIN 3 MG TAB PO ONE (01:47)
[2020-05-24] MEDS: POTASSIUM CHLORIDE 40 MEQ in SODIUM CHLORIDE 0.9% 1000ML 1,000 ML IV SCH ×2 (02:33→15:32)
[2020-05-24] MEDS: PIPERACILLIN/TAZOBACTAM 3.375 GM in DEXTROSE 5% 100 ML IV SCH ×3 (02:34→17:31)
[2020-05-24 06:27] LABS: Creatinine Clr Calc Pharmacy 93.8 ml/min; Est GFR (African American) 107.9; Est GFR (Non-African American) 93.1
[2020-05-24] MEDS: CARBIDOPA/LEVODOPA 25/100MG TAB PO SCH ×4 (07:57→19:55)
[2020-05-24] MEDS: POLYETHYLENE (MIRALAX) 17 GM PACK NG SCH ×2 (07:58→15:40)
[2020-05-24] MEDS: ENOXAPARIN INJ 40 MG/0.4 ML SYR SQ SCH (07:58)
[2020-05-24] MEDS: THIAMINE HCL 100 MG in SYRINGE 9 ML IV SCH (07:58)
--- NOTE | 2020-05-24 08:16 | Surgery Progress Note ---
Date of Service May 24, 2020 Assessment & Plan (1) Obstipation: Patient underwent CT a/p yesterday which revealed small bowel obstruction with a transition identified within the right anterior abdomen with a nonspecific mildly thick-walled distal ileal small bowel loop He reports he is passing more flatus today, and continues to pass loose BM's Denies n/v/abdominal pain NGT documented 1.2L over last 12 hours Abdomen feels a little less distended today Will order KUB for further evaluation as above. pt seen. feels better. feels less distended. +multiple loose bm's. on toilet now going. very confusing picture. pt presented with "large bowel obstruction"... now radiographic evidence of "small bowel obstruction"...yet he is having a large volume of loose bm's. I suspect this is more functional than physical obstruction. may need to start tpn. would keep ngt for now. surgery would be last resort and i suspect conservative tx would better serve him at this point. Admission and Anticipated Discharge Date Admission Date: May 17, 2020 Subjective Patient states he has not been sleeping well. From an abdominal standpoint he feeling okay. He denies any abdominal pain/nausea/vomiting. Says the abdominal tightness he was getting is improving. He is feeling hungry. Patient is passing loose BM's and more flatus. Physical Exam Physical Exam: awake/alert Constitutional: no acute distress Gastrointestinal (Abdomen): Inspection/Auscultation: + abdomen distended (improving some) Percussion/Palpation: abdomen soft; abdomen nontender NGT with brown drainage (2 L overnight) Results & Data ([facility]) Vital Signs (Past 12 Hours) Vital Signs Temp Pulse Pulse Resp BP BP Pulse Ox 05/24/20 07:48 86 05/24/20 07:31 36.5 C 85 18 138/89 95 05/24/20 04:00 100 H 05/24/20 03:18 36.5 C 91 H 18 145/84 H 93 05/23/20 23:13 36.5 C 98 H 18 146/93 H 96 PG Care Time/CCT Total # of Minutes Spent Total Time Spent with Patient: Total time spent is greater than 50% in coordination of care (as documented) at patient's floor/unit and/or counseling patient: Coding Level of Care Code 74196 Subseq Hosp Care Lvl 2 Diagnoses Obstipation K59.00
[2020-05-24] MEDS: RASAGILINE PO SCH (08:23)
[2020-05-24] MEDS ORDERED: NON-FORMULARY PATIENT'S OWN MED SCH (09:00)
--- NOTE | 2020-05-24 09:00 | XRay Report ---
KUB CLINICAL HISTORY: Follow-up bowel obstruction. FINDINGS: An AP, portable, supine abdominal radiograph is compared to study dated 05/22/2020 and correl ated with abdominal CT dated 05/23/2020. An enteric tube is in place. The tip projects over the proxim al stomach. There is evidence of bowel obstruction with persistent gaseous distention of the small anabel wel loops measuring up to 5 cm. There is a paucity of distal bowel gas. No evidence of intraperitonea l free air is seen on this supine image. Surgical clips and vascular calcifications are noted in the pelvis. The bony structures appear intact. IMPRESSION: Persistent small bowel obstruction. Electronically signed by: Chacho Velasco M.D. 05/24/2020 8:59 AM
--- NOTE | 2020-05-24 11:33 | Gastroenterology Progress Note ---
Date of Service May 24, 2020 Assessment & Plan (1) Partial obstruction of colon: He is passing stools at present. Ulceration found at jxn DC/sigmoid on FS times two so whether obstipation caused ulcer or ulcer caused obstipation is unclear. Recommend outpt colonoscopy in 6 weeks. ? SBO--CT a/p 05/23 suggested SBO but maybe this is residual dilatation from colon obstruction. Good bs today. Per surgery but maybe can clamp NG. constipation--will need to be on bowel regimen on DC I am going off service tomorrow at [address] Hewitt assuming GI care then. Admission and Anticipated Discharge Date Admission Date: May 17, 2020 Subjective cc f/u bowel obstruction HPI No abd pain. NG draining brown bile. He is passing liquid stools. Physical Exam Gastrointestinal (Abdomen): normal bowel sounds, soft, nontender, no hepatosplenomegaly Results & Data ([facility]) Vital Signs (Past 12 Hours) Vital Signs Temp Pulse Pulse Resp BP Pulse Ox 05/24/20 07:48 86 05/24/20 07:31 36.5 C 85 18 138/89 95 05/24/20 04:00 100 H 05/24/20 03:18 36.5 C 91 H 18 145/84 H 93
[2020-05-24] MEDS ORDERED: DEXTROSE 10% 1,000 ML IV PRN (12:54)
--- NOTE | 2020-05-24 13:31 | Hospitalist Progress Note ---
Date of Service May 24, 2020 Assessment & Plan (1) Partial obstruction of colon: CT abd pelvis 05/23/20 IMPRESSION: 1. Small bowel obstruction with a transition identified within the right anterior abdomen 2. Nonspecific mildly thick-walled distal ileal small bowel loop 3. Area of borderline colonic wall thickening at the descending sigmoid junction. 4. Cholelithiasis 5. Bilateral nephrolithiasis small formed stool and liquid stools continue on 05/24 but still with ngt output. unclear if sbo was result of colon obstipation. will start ppn as now without feeding for some time may need to transition to tpn but will need picc or similar, will discuss with surgery Dr. Mills took for flex sigmoidoscopy on 05/20, encountered 5cm long segment of very dense, fibrous stool that was at junction of descending and sigmoid colon Dr. Mills was able to break up the stool, irrigated with saline passing flatus and liquid stools GI medicine for repeat flex sig on 05/22/2020, did see ulceration in colon, agrees to CT -> make NPO and discuss with surgery he will need repeat colonoscopy in 6 months to follow up on ulcer in descending colon will continue on Zosyn for coverage of sterocolitis (2) Obstipation: due to hard stool in distal descending colon now CT suggests sbo (3) Colitis: stercocolitis from very hard impacted stool in distal descending colon continues on Zosyn IV, no fever, less pain, WBC initially elevated now normalized npo now with sbo (4) LLQ abdominal pain: see above, most of the pain is in LLQ obstipation (5) BPH (benign prostatic hyperplasia): Continue alfuzosin 10 mg p.o. every afternoon (6) Obstructive sleep apnea: CPAP at bedtime (7) Parkinson disease: Continue his usual Sinemet and other parkinsons meds dosing. Admission and Anticipated Discharge Date Admission Date: May 17, 2020 Subjective pt still with ngt drainage, dark at times, labs 05/23 Stable. did not eat for 7 days or so, still with bloating and some discomfort to walking Review of Systems Review of Systems: Mild distress and fatigue no headache, blurry or double vision no speech or swallowing issues no chest pain, pressure or palpitations no shortness of breath, cough or wheezes Mild abdominal fullness and distention. No nausea or vomiting while having NG tube is having soft stools no dysuria, hematuria or frequency no focal joint pain or swelling no back pain, CVA tenderness or radicular pain no bruising, bleeding or rashes no focal signs of weakness or numbness or altered sensation no complaints of anxiety or depression.. Physical Exam Physical Exam: The patient appeared well nourished and normally developed. Vital signs as documented. Head exam is normocephalic atraumatic no scleral icterus Neck is without JVD, thyromegaly, or carotid bruits. Lungs are clear to auscultation, no focal loss of breath sounds Cardiac exam, Rhythm is regular.. No murmurs, rubs or gallops. Abdominal exam reveals hypoactive bowel sounds, soft distended with fullness no fluid wave Extremities are nonedematous and both pedal pulses are present Neurologic exam is alert and oriented, no focal loss of strength or sensation Skin is without bruises or rashes Psychologically is without concerns for anxiety or depression Results & Data Results & Data ([facility]) Vital Signs (Past 12 Hours) Vital Signs Temp Pulse Pulse Resp BP Pulse Ox 05/24/20 11:43 97.9 F 82 18 137/87 92 05/24/20 07:48 86 05/24/20 07:31 97.7 F 85 18 138/89 95 05/24/20 04:00 100 H 05/24/20 03:18 97.7 F 91 H 18 145/84 H 93 PG Care Time/CCT Total # of Minutes Spent Total Time Spent with Patient: Total time spent is greater than 50% in coordination of care (as documented) at patient's floor/unit and/or counseling patient: Coding Level of Care Code 41439 Subseq Hosp Care Lvl 3 Diagnoses Partial obstruction of colon K56.600 Obstipation K59.00 Colitis K52.9 LLQ abdominal pain R10.32 BPH (benign prostatic hyperplasia) N40.0 Obstructive sleep apnea G47.33 Parkinson disease G20
[2020-05-24 14:22] LABS: Hematocrit (blood only) 39.7 % (42-52); Hemoglobin 13.8 g/dL (14.0-18.0); Mean Corpuscular Hemoglobin 31.8 pg (25-34); Mean Corpuscular Volume 91.5 fL (80-100); Mean Platelet Volume 9.2 fL (7.4-10.4); Platelet Count 286 K/uL (130-400); RDW Coefficient of Variation 13.5 % (11.5-14.5); RDW Standard Deviation 44.7 fL (36.4-46.3); Red Blood Count 4.34 M/uL (4.7-6.1); White Blood Count 9.75 K/uL (4.8-10.8)
[2020-05-24 14:25] LABS: Mean Corpuscular Hgb Conc 34.8 g/dL (32-36)
[2020-05-24 15:02] LABS: Bilirubin,Total 0.7 mg/dl (0.2-1)
[2020-05-24] MEDS: LORazepam 0.5 MG/1 ML VIAL IV PRN (22:49)
[2020-05-25] MEDS ORDERED: TPN/PPN CONSULT PHARMACY PRN (00:01)
[2020-05-25] MEDS: PIPERACILLIN/TAZOBACTAM 3.375 GM in DEXTROSE 5% 100 ML IV SCH ×3 (01:59→17:58)
[2020-05-25] MEDS: POTASSIUM CHLORIDE 40 MEQ in SODIUM CHLORIDE 0.9% 1000ML 1,000 ML IV SCH (03:12)
[2020-05-25 07:25] LABS: BUN Creatinine Ratio 13.3 (10-20); Calcium 9.4 mg/dl (8.5-10.1); Creatinine Clr Calc Pharmacy 89.3 ml/min; Est GFR (African American) 105.7; Est GFR (Non-African American) 91.2; Magnesium 2.2 mg/dl (1.8-2.4); Phosphorus 3.1 mg/dl (2.5-4.9); Potassium 4.2 mmol/L (3.5-5.1)
[2020-05-25] MEDS: CARBIDOPA/LEVODOPA 25/100MG TAB PO SCH ×4 (08:05→20:09)
[2020-05-25] MEDS: RASAGILINE PO SCH (08:05)
--- NOTE | 2020-05-25 09:45 | Surgery Progress Note ---
Date of Service May 25, 2020 Assessment & Plan (1) Stercoral ulcer of large intestine: (2) Small bowel obstruction: I had a lonng discussion with patient as well as with Dr. Durnat and Dr. Farley. Not a clear-cut scenario particularly with his bowels continuing to move. Since his symptoms are relatively mild I think we should continue conservative treatment for another couple of days. would start peripheral nutrition and keep his NG tube. We will repeat his KUB daily. There is no improvement in his x-rays and NG tube output then we may be forced for an exploration on Thursday. Discussed all this with the patient and he is agrees with the plan. Dr. Luna will be covering for the weekend. Admission and Anticipated Discharge Date Admission Date: May 17, 2020 Subjective Patient seen. No new complaints. He had another bowel movement last night and again this morning. He has no pain. Physical Exam Physical Exam: Alert and oriented no acute distress Abdomen is soft with mild distention. Nontender. Results & Data ([facility]) Vital Signs (Past 12 Hours) Vital Signs Temp Pulse Pulse Resp BP Pulse Ox 05/25/20 07:31 36.8 C 85 18 129/83 96 05/25/20 00:55 108 H PG Care Time/CCT Total # of Minutes Spent Total Time Spent with Patient: Total time spent is greater than 50% in coordination of care (as documented) at patient's floor/unit and/or counseling patient: Coding Level of Care Code 96151 Subseq Hosp Care Lvl 2 Diagnoses Stercoral ulcer of large intestine K63.3 Small bowel obstruction K56.609
[2020-05-25] MEDS: ENOXAPARIN INJ 40 MG/0.4 ML SYR SQ SCH (09:47)
[2020-05-25] MEDS: THIAMINE HCL 100 MG in SYRINGE 9 ML IV SCH (09:48)
--- NOTE | 2020-05-25 13:52 | Progress Notes ---
DATE: 05/25/2020 The patient is day 8 in the hospital for a stercoral ulcer of the colon and the sigmoid descending junction with obstipation. The patient continues to have NG tube in place with drainage of a fair amount of liquid. He is passing liquidy stools without the need for MiraLax. He is not reporting any extensive abdominal pain. He was seen by the surgeons today and they plan on checking his KUBs daily due to some persistent small bowel distention and continue the NG tube through the weekend. If he is not showing any significant progress or deterioration by that time then the plan is for him to do a laparotomy or laparoscopy for further evaluation. Hopefully, the patient will continue to improve and it will not be necessary. We will continue to follow the patient during his hospital stay. If he does recover, we will proceed with a colonoscopy as an outpatient in 6-8 weeks.
--- NOTE | 2020-05-25 14:35 | Pharmacy Report ---
Pharmacy PN Initial Consult - Date of Service May 25, 2020 - Scope Pharmacy has been consulted to manage parenteral nutrition orders and order appropriate labs. As part of the Nutrition Support Team guidelines, pharmacy will work in conjunction with dietary when determining the patients caloric needs. - Subjective The patient is a 64 year old M admitted on 05/17/20 12:21 for PARTIAL LARGE BOWEL OBSTRUCTION, COLITIS. Patient is to receive parenteral nutrition for prolonged NPO status secondary to bowel obstruction. - Objective Height: 5 ft 10 in Weight: 85.2 kg Intake & Output (Last 24Hrs): Intake & Output 05/23/20 05/24/20 05/25/20 05/26/20 06:59 06:59 06:59 06:59 Intake Total 3511.334 / 3511.334 3963.173 / 3963.173 2292.773 / 2292.773 115 / 115 Output Total 2251 / 2251 2555 / 2555 2151 / 2151 440 / 440 Balance 1260.334 / 3290.062 5384.173 / 1408.173 141.773 / 141.773 -325 / -325 Weight 85.2 kg 85.2 kg 85.2 kg Laboratory Data (Last 24 Hrs):: 05/24/20 05/25/20 14:08 06:07 Sodium 136 Potassium 4.2 Chloride 102 Carbon Dioxide 29 BUN 11 Creatinine 0.84 Glucose 73 Calcium 9.4 Phosphorus 3.1 Magnesium 2.2 Total Bilirubin 0.7 AST 63 H ALT 51 Alkaline Phosphatase 107 Triglycerides 98 Nutrition Assessment:: Please refer to the Notes section of the EMR for the most recent community living coach note. - Assessment * GHADA is a 64 year old male originally presented to [facility] ED on 05/17/20 with complaints of LLQ abdominal pain * He was subsequently found to have partial colon obstruction * PO intake has been minimal/absent since admission * PPN to be initiated due to this prolonged NPO status (> 1 week) * Macronutrient goals provided by dietitian * Dextrose 125 g * Amino Acids 80 g * Lipids 50 g * This will provide 1245 Kcal/day * Currently, NS w/ 40 KCl infusing at 80 mL/hr - fluids to be discontinued at time of ppn discontinuation * PPN to also infuse at 80 mL/hr * Day #8 of Zosyn for treatment of colitis - Plan For day 1 of PN administration, the following will be ordered: Macronutrients Amino acids 60 grams/day Dextrose 100 grams/day Lipids 25 grams/day Will titrate to goal macronutrients as provided by dietitian Micronutrients Combined electrolytes 40 mL - contains 35 mEq Na, 20 meq K, 4.5 mEq Ca, 5 mEq Mg, 35 mEq Cl, 29.5 mEq acetate per 20 mL Sodium chloride 20 mEq Potassium phosphate 24 mMol Potassium chloride 10 mEq Multivitamins 10 mL Trace Elements 10 mL Additional additives: folic acid 1 mg, thiamine 100 mg Total volume 1920 mL to be infused over 24 hrs will provide 830 kcal/day Final osmolarity 784 mOsm/L (maximum for PPN is 900 mOsm/L) Labs to be ordered per PN order protocol Pharmacy will follow and adjust parenteral nutrition orders on a daily basis. Thank you.
[2020-05-25] MEDS ORDERED: Custom Peripheral Pn 1,920 ML in TPN BAG 0 ML IV SCH (16:00)
[2020-05-25] MEDS ORDERED: DEXTROSE 10% 1,000 ML IV PRN (16:00)
--- NOTE | 2020-05-25 17:41 | Hospitalist Progress Note ---
Date of Service May 25, 2020 Assessment & Plan (1) Partial obstruction of colon: CT abd pelvis 05/23/20 IMPRESSION: 1. Small bowel obstruction with a transition identified within the right anterior abdomen 2. Nonspecific mildly thick-walled distal ileal small bowel loop 3. Area of borderline colonic wall thickening at the descending sigmoid junction. 4. Cholelithiasis 5. Bilateral nephrolithiasis small formed stool and liquid stools continue on 05/24 but still with ngt output. unclear if sbo was result of colon obstipation. will start ppn as now without feeding for some time may need to transition to tpn but will need picc or similar, will discuss with surgery Dr. Mills took for flex sigmoidoscopy on 05/20, encountered 5cm long segment of very dense, fibrous stool that was at junction of descending and sigmoid colon Dr. Mills was able to break up the stool, irrigated with saline passing flatus and liquid stools GI medicine for repeat flex sig on 05/22/2020, did see ulceration in colon, kub 05/26 he will need repeat colonoscopy in 6 months to follow up on ulcer in descending colon will continue on Zosyn for coverage of sterocolitis (2) Obstipation: due to hard stool in distal descending colon now CT suggests sbo (3) Colitis: stercocolitis from very hard impacted stool in distal descending colon continues on Zosyn IV, no fever, less pain, WBC initially elevated now no rmalized npo now with sbo (4) LLQ abdominal pain: see above, most of the pain is in LLQ obstipation (5) BPH (benign prostatic hyperplasia): Continue alfuzosin 10 mg p.o. every afternoon (6) Obstructive sleep apnea: CPAP at bedtime (7) Parkinson disease: Continue his usual Sinemet and other parkinsons meds dosing. Admission and Anticipated Discharge Date Admission Date: May 17, 2020 Subjective Patient seen. No new complaints. He had another bowel movement last night and again this morning. He has no pain. ngt still draining, some improved abdominal pain. kub still shows persistent bowel obstruction Review of Systems Review of Systems: Mild distress and fatigue no headache, blurry or double vision no speech or swallowing issues no chest pain, pressure or palpitations no shortness of breath, cough or wheezes Mild abdominal fullness and distention. No nausea or vomiting while having NG tube is having soft stools no dysuria, hematuria or frequency no focal joint pain or swelling no back pain, CVA tenderness or radicular pain no bruising, bleeding or rashes no focal signs of weakness or numbness or altered sensation no complaints of anxiety or depression.. Physical Exam Physical Exam: The patient appeared well nourished and normally developed. Vital signs as documented. Head exam is normocephalic atraumatic no scleral icterus Neck is without JVD, thyromegaly, or carotid bruits. Lungs are clear to auscultation, no focal loss of breath sounds Cardiac exam, Rhythm is regular.. No murmurs, rubs or gallops. Abdominal exam reveals hypoactive bowel sounds, soft distended with fullness no fluid wave Extremities are nonedematous and both pedal pulses are present Neurologic exam is alert and oriented, no focal loss of strength or sensation Skin is without bruises or rashes Psychologically is without concerns for anxiety or depression Results & Data Results & Data ([facility]) Vital Signs (Past 12 Hours) Vital Signs Temp Pulse Pulse Resp BP BP Pulse Ox 05/25/20 15:30 98.2 F 106 H 93 H 20 136/93 95 05/25/20 11:36 98.2 F 75 18 141/87 H 94 05/25/20 08:00 79 05/25/20 07:31 98.2 F 85 18 129/83 96 PG Care Time/CCT Total # of Minutes Spent Total Time Spent with Patient: Total time spent is greater than 50% in coordination of care (as documented) at patient's floor/unit and/or counseling patient: Coding Level of Care Code 15445 Subseq Hosp Care Lvl 2 Diagnoses Partial obstruction of colon K56.600 Obstipation K59.00 Colitis K52.9 LLQ abdominal pain R10.32 BPH (benign prostatic hyperplasia) N40.0 Obstructive sleep apnea G47.33 Parkinson disease G20
[2020-05-25] MEDS: ALFUZOSIN HCL 10 MG TAB PO SCH (20:50)
[2020-05-25] MEDS: LORazepam 0.5 MG/1 ML VIAL IV PRN (22:28)
[2020-05-26] MEDS: PIPERACILLIN/TAZOBACTAM 3.375 GM in DEXTROSE 5% 100 ML IV SCH ×3 (01:48→18:09)
--- NOTE | 2020-05-26 07:43 | Hospitalist Progress Note ---
Date of Service May 26, 2020 Assessment & Plan (1) Partial obstruction of colon: CT abd pelvis 05/23/20 IMPRESSION: 1. Small bowel obstruction with a transition identified within the right anterior abdomen 2. Nonspecific mildly thick-walled distal ileal small bowel loop 3. Area of borderline colonic wall thickening at the descending sigmoid junction. 4. Cholelithiasis 5. Bilateral nephrolithiasis small formed stool and liquid stools continue KUB 05/26 looks markedly improved did start ppn feeding appreciate surgery following Dr. Mills took for flex sigmoidoscopy on 05/20, encountered 5cm long segment of very dense, fibrous stool that was at junction of descending and sigmoid colon Dr. Mills was able to break up the stool, irrigated with saline passing flatus and liquid stools GI medicine for repeat flex sig on 05/22/2020, did see ulceration in colon, kub 05/26 marked improvement in bowel gas pattern he will need repeat colonoscopy in 6 months to follow up on ulcer in descending colon will continue on Zosyn for coverage of sterocolitis (2) Obstipation: due to hard stool in distal descending colon (3) Colitis: stercocolitis from very hard impacted stool in distal descending colon continues on Zosyn IV, no fever, less pain, WBC initially elevated now normalized npo now with continued ngt (4) LLQ abdominal pain: see above, most of the pain is in LLQ obstipation (5) BPH (benign prostatic hyperplasia): Continue alfuzosin 10 mg p.o. every afternoon (6) Obstructive sleep apnea: CPAP at bedtime (7) Parkinson disease: Continue his usual Sinemet and other parkinsons meds dosing. (8) Protein calorie malnutrition: Admission and Anticipated Discharge Date Admission Date: May 17, 2020 Subjective Patient seen. No new complaints. He continues bowel movements . He has no pain. markedly improved abdominal pain. Review of Systems Review of Systems: Mild distress and fatigue no headache, blurry or double vision no speech or swallowing issues no chest pain, pressure or palpitations no shortness of breath, cough or wheezes Mild abdominal fullness and distention. No nausea or vomiting while having NG tube is having soft stools no dysuria, hematuria or frequency no focal joint pain or swelling no back pain, CVA tenderness or radicular pain no bruising, bleeding or rashes no focal signs of weakness or numbness or altered sensation no complaints of anxiety or depression.. Physical Exam Physical Exam: The patient appeared well nourished and normally developed. Vital signs as documented. Head exam is normocephalic atraumatic no scleral icterus Neck is without JVD, thyromegaly, or carotid bruits. Lungs are clear to auscultation, no focal loss of breath sounds Cardiac exam, Rhythm is regular.. No murmurs, rubs or gallops. Abdominal exam reveals hypoactive bowel sounds, soft distended with fullness no fluid wave Extremities are nonedematous and both pedal pulses are present Neurologic exam is alert and oriented, no focal loss of strength or sensation Skin is without bruises or rashes Psychologically is without concerns for anxiety or depression Results & Data Results & Data ([facility]) Vital Signs (Past 12 Hours) Vital Signs Temp Pulse Pulse Resp BP Pulse Ox 05/26/20 07:32 98.4 F 77 18 144/82 H 95 05/26/20 07:24 77 05/26/20 04:35 98.6 F 89 20 141/93 H 95 05/26/20 01:39 87 05/25/20 23:25 97.5 F L 81 20 113/75 93 PG Care Time/CCT Total # of Minutes Spent Total Time Spent with Patient: Total time spent is greater than 50% in coordination of care (as documented) at patient's floor/unit and/or counseling patient: Coding Level of Care Code 94573 Subseq Hosp Care Lvl 2 Diagnoses Partial obstruction of colon K56.600 Obstipation K59.00 Colitis K52.9 LLQ abdominal pain R10.32 BPH (benign prostatic hyperplasia) N40.0 Obstructive sleep apnea G47.33 Parkinson disease G20 Protein calorie malnutrition E46
[2020-05-26 08:00] LABS: BUN Creatinine Ratio 13.7 (10-20); Calcium 9.7 mg/dl (8.5-10.1); Creatinine Clr Calc Pharmacy 83.4 ml/min; Est GFR (African American) 102.8; Est GFR (Non-African American) 88.7; Magnesium 2.4 mg/dl (1.8-2.4); Phosphorus 2.7 mg/dl (2.5-4.9)
[2020-05-26] MEDS: RASAGILINE PO SCH (08:03)
[2020-05-26] MEDS: CARBIDOPA/LEVODOPA 25/100MG TAB PO SCH ×4 (08:03→19:29)
--- NOTE | 2020-05-26 08:12 | XRay Report ---
KUB HISTORY: Acute generalized abdominal pain with distention ileus vs SBO COMPARISON: KUB 05/24/2020, CT abdomen and pelvis 05/23/2020 FINDINGS: Distal tip enteric tube projects over the mid gastric lumen. Air is noted within the large bowel. Air-filled loop of bowel measuring 5.4 cm transversely is noted within the left paracentral ab domen suggestive of persistent small bowel dilation, mildly improved from comparison. Surgical clips of the mid pelvis. No renal calculi. No ureteral calculi. No pneumoperitoneum or pneumatosis. No fra cture. IMPRESSION: 1. Distal tip of the enteric tube projects over the mid stomach. 2. Decreased small bowel distention suggests resolving small bowel obstruction. ACT 112: Negative or not required by law. The above report was generated using voice recognition software. It may contain grammatical, syntax o r spelling errors. Electronically signed by: Anival Ladd M.D. 05/26/2020 8:11 AM
[2020-05-26] MEDS: ENOXAPARIN INJ 40 MG/0.4 ML SYR SQ SCH (09:29)
--- NOTE | 2020-05-26 09:42 | Progress Notes ---
DATE: 05/26/2020 SUBJECTIVE: The patient continues to have NG tube in with about 1220 mL out over the last 24 hours, dark brown liquid. His abdominal film today shows essentially normal bowel gas pattern. There is complete decompression of the small bowel and a little bit of gas still in the transverse and left colon. He reports no abdominal pain. He was started on peripheral hyperalimentation about 4:00 yesterday. PHYSICAL EXAMINATION: GENERAL: The patient is sitting in bedside chair. ABDOMEN: Flat, soft. There is no tenderness. LABORATORY DATA: Shows normal metabolic profile. BUN, creatinine, calcium phosphorus, magnesium are all normal. Hemoglobin is 13.8. IMPRESSION: The patient has a left colon Stercoral ulcer which is probably from his obstipation. The patient is improving at this time with NG decompression and peripheral hyperalimentation. I would recommend continuing these probably for another 24 hours and then see if we can remove the nasogastric tube and start him on liquids and advance his diet as tolerated. He will need a followup colonoscopy in 6-8 weeks to assess healing of the ulcer. We will also need to be on a maintenance bowel regimen to prevent this from happening again in the future.
--- NOTE | 2020-05-26 11:00 | Surgery Progress Note ---
Date of Service May 26, 2020 Assessment & Plan (1) Small bowel obstruction: Feels better today No pain Feels as though his abdomen is less distended. This is my first exam so I do not have an experience to compare with Abdomen is soft with good peristalsis KUB appears improved Would continue NG tube for today If improvement continues tomorrow consider clamping NG tube and then unclamp for recurrent nausea. Admission and Anticipated Discharge Date Admission Date: May 17, 2020 Subjective Feels better today No nausea Feels like his abdomen is much flatter and softer than it had been Continues to have multiple liquid bowel movements NG had 1600 cc out yesterday and 1220 cc out last shift Physical Exam Gastrointestinal (Abdomen): Inspection/Auscultation: + abdomen distended (Mild) and normal bowel sounds Percussion/Palpation: abdomen soft; abdomen nontender Results & Data ([facility]) Vital Signs (Past 12 Hours) Vital Signs Temp Pulse Pulse Resp BP Pulse Ox 05/26/20 07:32 36.9 C 77 18 144/82 H 95 05/26/20 07:24 77 05/26/20 04:35 37.0 C 89 20 141/93 H 95 05/26/20 01:39 87 05/25/20 23:25 36.4 C L 81 20 113/75 93 Laboratory Results 05/26/20 05/26/20 05/26/20 Range/Units 06:43 06:26 00:07 Sodium 136 (136-145) mmol/L Potassium 4.0 (3.5-5.1) mmol/L Chloride 102 (98-107) mmol/L Carbon Dioxide 30 (21-32) mmol/L Anion Gap 4.0 (3-11) BUN 12 (7-18) mg/dl Creatinine 0.90 (0.6-1.4) mg/dl Est Cr Clr Drug Dosing 83.4 ml/min Est GFR ( Amer) 102.8 Est GFR (Non-Af Amer) 88.7 BUN/Creatinine Ratio 13.7 (10-20) Glucose 92 (70-99) mg/dl POC Glucose 90 87 (70-99) mg/dl Calcium 9.7 (8.5-10.1) mg/dl Phosphorus 2.7 (2.5-4.9) mg/dl Magnesium 2.4 (1.8-2.4) mg/dl 05/25/20 Range/Units 18:03 Sodium (136-145) mmol/L Potassium (3.5-5.1) mmol/L Chloride (98-107) mmol/L Carbon Dioxide (21-32) mmol/L Anion Gap (3-11) BUN (7-18) mg/dl Creatinine (0.6-1.4) mg/dl Est Cr Clr Drug Dosing ml/min Est GFR ( Amer) Est GFR (Non-Af Amer) BUN/Creatinine Ratio (10-20) Glucose (70-99) mg/dl POC Glucose 70 (70-99) mg/dl Calcium (8.5-10.1) mg/dl Phosphorus (2.5-4.9) mg/dl Magnesium (1.8-2.4) mg/dl Diagnostic Findings KUB HISTORY: Acute generalized abdominal pain with distention ileus vs SBO COMPARISON: KUB 05/24/2020, CT abdomen and pelvis 05/23/2020 FINDINGS: Distal tip enteric tube projects over the mid gastric lumen. Air is noted within the large bowel. Air-filled loop of bowel measuring 5.4 cm transversely is noted within the left paracentral abdomen suggestive of persistent small bowel dilation, mildly improved from comparison. Surgical clips of the mid pelvis. No renal calculi. No ureteral calculi. No pneumoperitoneum or pneumatosis. No fracture. IMPRESSION: 1. Distal tip of the enteric tube projects over the mid stomach. 2. Decreased small bowel distention suggests resolving small bowel obstruction.
[2020-05-26] MEDS ORDERED: PERIPHERAL PN IV SCH (16:00)
[2020-05-26] MEDS ORDERED: TPN IV SCH (16:00)
[2020-05-26] MEDS: ALFUZOSIN HCL 10 MG TAB PO SCH (19:29)
[2020-05-26] MEDS: LORazepam 0.5 MG/1 ML VIAL IV PRN (22:28)
[2020-05-27] MEDS: PIPERACILLIN/TAZOBACTAM 3.375 GM in DEXTROSE 5% 100 ML IV SCH ×2 (03:45→09:38)
[2020-05-27 06:29] LABS: BUN Creatinine Ratio 14.2 (10-20); Calcium 9.8 mg/dl (8.5-10.1); Creatinine Clr Calc Pharmacy 80.7 ml/min; Est GFR (African American) 98.8; Est GFR (Non-African American) 85.2; Magnesium 2.3 mg/dl (1.8-2.4); Phosphorus 3.2 mg/dl (2.5-4.9)
[2020-05-27] MEDS: CARBIDOPA/LEVODOPA 25/100MG TAB PO SCH ×4 (07:57→19:57)
[2020-05-27] MEDS: RASAGILINE PO SCH (07:57)
[2020-05-27] MEDS: ENOXAPARIN INJ 40 MG/0.4 ML SYR SQ SCH (09:38)
--- NOTE | 2020-05-27 10:02 | Progress Notes ---
DATE: 05/27/2020 SUBJECTIVE: The patient reports that he had a peaceful night sleep. He is passing some liquidy stools and gas. His abdomen is not painful. OBJECTIVE: VITAL SIGNS: Are normal. ABDOMEN: Soft. There is no tenderness. No distention. IMPRESSION: The patient's constipation and ileus appeared to have been significantly improved. He had his nasogastric tube clamped at 4:00 a.m. today and a KUB will be done at 10:00 a. m. and if his abdomen on KUB looks good, we can have a nasogastric tube removed and start him on liquids. He will need to continue on MiraLax for maintenance medication to prevent recurrence of the constipation once he is taking solid food. Colonoscopy will be arranged in 6-8 weeks as an outpatient.
--- NOTE | 2020-05-27 12:12 | Surgery Progress Note ---
Date of Service May 27, 2020 Assessment & Plan (1) Small bowel obstruction: Small bowel remains dilated after clamping NG tube. NG tube placed back to suction. I agree Continue to monitor and for further evaluation for possible surgical options tomorrow. Admission and Anticipated Discharge Date Admission Date: May 17, 2020 Subjective Feels well today Thinks his abdomen is a little more bloated Had NG tube clamped at 4 AM this morning and 8 KUB 6 hours after that showed again dilatation of the small bowel Denies nausea and vomiting however Had multiple loose bowel movements yesterday and a loose bowel movement this morning without melena or hematochezia. Physical Exam Gastrointestinal (Abdomen): Inspection/Auscultation: + abdomen distended (Very mild) and normal bowel sounds Percussion/Palpation: abdomen soft; abdomen non tender Results & Data ([facility]) Vital Signs (Past 12 Hours) Vital Signs Temp Pulse Pulse Resp BP Pulse Ox 05/27/20 10:55 37.0 C 87 18 130/83 94 05/27/20 08:00 112 H 05/27/20 07:01 36.8 C 94 H 20 123/87 95 05/27/20 03:35 37.0 C 86 20 126/86 96 05/26/20 23:31 36.6 C 85 20 127/86 93
--- NOTE | 2020-05-27 12:16 | XRay Report ---
KUB CLINICAL HISTORY: Follow-up bowel obstruction. FINDINGS: An AP, portable, supine abdominal radiograph is compared to study dated 05/26/2020 and corre lated with abdominal CT dated 05/23/2020. An enteric tube is unchanged in position. There is evidence of persistent bowel obstruction with persistent gaseous distention of the small bowel loops measuring up to 5 cm. There is a paucity of distal bowel gas. No evidence of intraperitoneal free air is seen on this supine image. Surgical clips and vascular calcifications are noted in the pelvis. The bony st ructures appear intact. IMPRESSION: Persistent small bowel obstruction. Distention of the small bowel loops has increased fro m yesterday. Electronically signed by: Chacho Velasco M.D. 05/27/2020 12:15 PM
--- NOTE | 2020-05-27 15:24 | Hospitalist Progress Note ---
Date of Service May 27, 2020 Assessment & Plan (1) Partial obstruction of colon: CT abd pelvis 05/23/20 IMPRESSION: 1. Small bowel obstruction with a transition identified within the right anterior abdomen 2. Nonspecific mildly thick-walled distal ileal small bowel loop 3. Area of borderline colonic wall thickening at the descending sigmoid junction. 4. Cholelithiasis 5. Bilateral nephrolithiasis some darkening to ngt, will check hgb and add bid iv protonix did start ppn feeding appreciate surgery following Dr. Mills took for flex sigmoidoscopy on 05/20, encountered 5cm long segment of very dense, fibrous stool that was at junction of descending and sigmoid colon Dr. Mills was able to break up the stool, irrigated with saline passing flatus and liquid stools GI medicine for repeat flex sig on 05/22/2020, did see ulceration in colon, kub 05/27 after clamping ngt has return of obstructive bowel gas pattern, general surgery to comment he will need repeat colonoscopy in 6 months to follow up on ulcer in descending colon will continue on Zosyn for coverage of sterocolitis (2) Obstipation: due to hard stool in distal descending colon, maybe sterococal ulcer (3) Colitis: stercocolitis from very hard impacted stool in distal descending colon continues on Zosyn IV, now day 10, no fever, less pain, WBC initially elevated now normalized npo now with continued ngt (4) LLQ abdominal pain: see above, most of the pain is in LLQ obstipation (5) BPH (benign prostatic hyperplasia): Continue alfuzosin 10 mg p.o. every afternoon (6) Obstructive sleep apnea: CPAP at bedtime (7) Parkinson disease: Continue his usual Sinemet and other parkinsons meds dosing. (8) Protein calorie malnutrition: Admission and Anticipated Discharge Date Admission Date: May 17, 2020 Subjective Pt does not feel uncomfortable, some bloating, Had NG tube clamped at 4 AM this morning and 8 KUB 6 hours after that showed again dilatation of the small bowel Denies nausea and vomiting Had multiple loose bowel movements yesterday and a loose bowel movement this morning without melena or hematochezia. Review of Systems Review of Systems: Mild distress and fatigue no headache, blurry or double vision no speech or swallowing issues no chest pain, pressure or palpitations no shortness of breath, cough or wheezes Mild abdominal fullness and distention. No nausea or vomiting while having NG tube is having soft stools no dysuria, hematuria or frequency no focal joint pain or swelling no back pain, CVA tenderness or radicular pain no bruising, bleeding or rashes no focal signs of weakness or numbness or altered sensation no complaints of anxiety or depression.. Gastrointestinal: + abdominal pain, + bloating, + nausea, + cramping and + constipation (obstipation); no belching, no vomiting and no diarrhea/loose stools Physical Exam Physical Exam: The patient appeared well nourished and normally developed. Vital signs as documented. Head exam is normocephalic atraumatic no scleral icterus Neck is without JVD, thyromegaly, or carotid bruits. Lungs are clear to auscultation, no focal loss of breath sounds Cardiac exam, Rhythm is regular.. No murmurs, rubs or gallops. Abdominal exam reveals hypoactive bowel sounds, soft distended with fullness no fluid wave Extremities are nonedematous and both pedal pulses are present Neurologic exam is alert and oriented, no focal loss of strength or sensation Skin is without bruises or rashes Psychologically is without concerns for anxiety or depression Results & Data Results & Data ([facility]) Vital Signs (Past 12 Hours) Vital Signs Temp Pulse Pulse Resp BP Pulse Ox 05/27/20 10:55 98.6 F 87 18 130/83 94 05/27/20 08:00 112 H 05/27/20 07:01 98.2 F 94 H 20 123/87 95 05/27/20 03:35 98.6 F 86 20 126/86 96 PG Care Time/CCT Total # of Minutes Spent Total Time Spent with Patient: Total time spent is greater than 50% in coordination of care (as documented) at patient's floor/unit and/or counseling patient: Coding Level of Care Code 39939 Subseq Hosp Care Lvl 3 Diagnoses Partial obstruction of colon K56.600 Obstipation K59.00 Colitis K52.9 LLQ abdominal pain R10.32 BPH (benign prostatic hyperplasia) N40.0 Obstructive sleep apnea G47.33 Parkinson disease G20 Protein calorie malnutrition E46
[2020-05-27] MEDS: PANTOprazole 40 MG in SYRINGE 0 ML IV SCH ×2 (15:49→20:01)
[2020-05-27] MEDS ORDERED: TPN IV SCH (16:00)
[2020-05-27] MEDS ORDERED: PERIPHERAL PN IV SCH (16:00)
[2020-05-27] MEDS: ALFUZOSIN HCL 10 MG TAB PO SCH (19:57)
[2020-05-27] MEDS ORDERED: LORazepam 0.5 MG/1 ML VIAL IV ONE (21:00)
[2020-05-27] MEDS ORDERED: LORazepam 1 MG/2 ML VIAL IV ONE (21:00)
[2020-05-28 06:44] LABS: Hematocrit (blood only) 42.1 % (42-52); Hemoglobin 14.5 g/dL (14.0-18.0); Mean Corpuscular Hemoglobin 31.7 pg (25-34); Mean Corpuscular Hgb Conc 34.4 g/dL (32-36); Mean Corpuscular Volume 91.9 fL (80-100); Mean Platelet Volume 9.6 fL (7.4-10.4); Platelet Count 313 K/uL (130-400); RDW Coefficient of Variation 13.6 % (11.5-14.5); RDW Standard Deviation 45.1 fL (36.4-46.3); Red Blood Count 4.58 M/uL (4.7-6.1); White Blood Count 10.56 K/uL (4.8-10.8)
[2020-05-28 07:11] LABS: BUN Creatinine Ratio 23.5 (10-20); Calcium 9.5 mg/dl (8.5-10.1); Creatinine Clr Calc Pharmacy 86.2 ml/min; Est GFR (African American) 104.2; Est GFR (Non-African American) 89.9; Magnesium 2.4 mg/dl (1.8-2.4); Phosphorus 3.3 mg/dl (2.5-4.9); Potassium 4.7 mmol/L (3.5-5.1)
[2020-05-28] MEDS: RASAGILINE PO SCH (08:02)
[2020-05-28] MEDS: CARBIDOPA/LEVODOPA 25/100MG TAB PO SCH ×4 (08:03→19:51)
--- NOTE | 2020-05-28 08:41 | Anesthesiology Consultation ---
Date of Service May 28, 2020 Assessment & Plan Chart Review Chart Review: Acceptable Risk for Surgery Consults Requested none ASA ASA3 Proposed Anesthesia Anesthesia Type: General Risk / Benefits Reviewed With: PT / POA / Parent / Guardian, Accepts Plan and Informed Consent Obtained History Surgery Operation Date: 05/20/20 11:00 Proposed Procedures p Colonoscopy - Jax Addison MD Operation Date: 05/20/20 12:30 Proposed Procedures p Colonoscopy - Fernie Mills Operation Date: 05/22/20 17:45 Proposed Procedures p Flexible Sigmoidoscopy Dr Hewitt - Rocky Hewitt Operation Date: 05/28/20 09:00 Proposed Procedures p Laparoscopy, Possible Open, Release of Small Bowel Obstruction - Satnam Núñez, Height/Weight Height: 5 ft 10 in Weight: 76.6 kg Allergies Allergy/AdvReac Type Severity Reaction Status Date / Time No Known Drug Allergies Allergy Verified 05/22/20 14:06 Medications Home Medications Medication Instructions Recorded Confirmed Last Taken aspirin 81 mg tablet,delayed 81 mg PO PM 03/11/18 05/17/20 05/16/20 release calcium carbonate 500 mg calcium 500 mg PO PM tab 03/11/18 05/17/20 05/16/20 (1,250 mg) tablet carbidopa 25 mg-levodopa 100 mg 1 tab PO QID 03/11/18 05/17/20 05/17/20 tablet multivitamin 1 tab PO PM 03/11/18 05/17/20 05/16/20 psyllium seed (sugar) oral powder 1 tbs PO DAILY 03/12/18 05/17/20 12/05/19 12:00 amitriptyline 25 mg tablet 25 mg PO QPM tab 01/03/19 05/17/20 05/16/20 acetaminophen [Tylenol 8 Hour] 1,300 mg PO Q8H PRN 05/17/20 05/17/20 05/16/20 1300 mg alfuzosin [Uroxatral] 10 mg PO PM 05/17/20 05/17/20 05/16/20 ibuprofen 600 mg PO Q6H PRN 05/17/20 05/17/20 05/16/20 rasagiline 1 mg PO QAM 05/17/20 05/17/20 05/17/20 Active Medications Generic Name Dose Route Start Last Admin Trade Name Freq PRN Reason Stop Dose Admin Alfuzosin HCl 10 mg 05/17/20 21:00 05/27/20 19:57 Alfuzosin Hcl 10 Mg Tab PO 06/16/20 20:59 Not Given PM ZEB Carbidopa/Levodopa 1 tab 05/17/20 20:00 05/28/20 08:03 Carbidopa/Levodopa 25/100mg Tab PO 06/16/20 19:59 Not Given 0800,1200,1600,2000 ZEB Enoxaparin Sodium 40 mg 05/22/20 09:00 05/27/20 09:38 Enoxaparin Inj 40 Mg/0.4 Ml Syr SQ 06/21/20 08:59 40 mg QAM ZEB Administration Hydromorphone HCl 0.5 mg 05/17/20 14:41 05/18/20 05:06 Hydromorphone Inj 0.5 Mg/0.5 Ml Syr IV 05/31/20 14:40 0.5 mg Q4H PRN Administration Pain Promethazine HCl 12.5 mg/ 50.5 mls @ 202 mls/hr 05/17/20 14:41 05/20/20 01:38 Sodium Chloride IV 06/16/20 14:40 Infused Q6H PRN Infusion Nausea And Vomiting Lorazepam 0.5 mg in 1 mls @ 1 mls/min 05/24/20 15:19 05/26/20 22:28 Ativan IV 06/23/20 15:18 1 mls/min Q4H PRN Administration Agitation Nutrition (Parenteral) 2,150 2,150 mls @ 89.6 mls/hr 05/27/20 16:00 05/27/20 15:49 ml/ TPN BAG IV 05/28/20 15:59 89.6 mls/hr .Q24H ZEB Administration Protocol Pantoprazole Sodium 40 mg/ 10 mls @ 5 mls/min 05/27/20 16:00 05/27/20 20:01 Syringe IV 06/26/20 15:59 5 mls/min BID ZEB Administration *Rasagiline*Non- 1 ea 05/18/20 08:00 05/28/20 08:02 Formulary Patient's PO 06/17/20 07:59 Not Given Own Med Q24H ZEB Protocol Ondansetron HCl 4 mg 05/17/20 14:41 05/20/20 00:38 Ondansetron Inj 2 Mg/Ml 2 Ml Vial IV 06/16/20 14:40 4 mg Q4H PRN Administration Nausea/Vomiting NPO Date Last Intake of Fluids: 05/16/20 Time Last Intake of Fluids: 12:30 Date Last Intake of Solids: 05/16/20 Time Last Intake of Solids: 21:00 Past Medical History Medical History BPH (benign prostatic hyperplasia) Heart murmur History of kidney stones Left lumbar radiculopathy HX INJECTION DEC 05 2019 LLQ abdominal pain Low back pain Neck pain PINCHED NERVE AND ARTHRITIS - MILD LIMITATION WITH ROM Obstructive sleep apnea CPAP Parkinson disease Exercise / Class Metabolic Activity II 4-5 Yardwork/Stairs/Walk up hill Past Family History Family History Mother Breast cancer Father Hypertension Stroke Past Surgical History Surgical History History of appendectomy History of colonoscopy History of left cataract surgery History of right cataract surgery S/P hemorrhoidectomy HX Past Anesthesia History No Hx of Anesthesia Complications and No Family Hx of Anesthesia Complications History of PONV No Hx of PONV and No Hx of Motion Sickness Social History Smoking Status: Never smoker Hx Alcohol Use: No Hx Substance Use: No substance use type: does not use Physical Exam Vital Signs Last Vital Signs Temp 98.1 F 05/28/20 08:16 Pulse 106 H 05/28/20 08:16 Resp 18 05/28/20 08:16 BP 120/78 05/28/20 08:16 Pulse Ox 97 05/28/20 08:16 ENMT Mouth: + dental restorations Thyromental Distance: > or= 3.5 Finger Breadths Mallampati Class: II Neck normal visual inspection Respiratory normal respiratory effort Auscultation: lungs clear to auscultation bilaterally Cardiovascular Rate/Rhythm: regular rate and regular rhythm Testing Laboratory Results 05/28/20 06:22 05/28/20 06:22 Urine Color Dark Yellow 05/17/20 11:00 Urine Appearance Clear (Clear) 05/17/20 11:00 Urine pH 6.5 (4.5-7.5) 05/17/20 11:00 Ur Specific Martha 1.028 (1.000-1.030) 05/17/20 11:00 Urine Protein 1+ (Negative) H 05/17/20 11:00 Urine Glucose (UA) Negative (Negative) 05/17/20 11:00 Urine Ketones 2+ (Negative) H 05/17/20 11:00 Urine Nitrite Negative (Negative) 05/17/20 11:00 Ur Leukocyte Esterase Negative (Negative) 05/17/20 11:00 Urine WBC (Auto) 1-5 /hpf (0-5) 05/17/20 11:00 Urine RBC (Auto) 5-10 /hpf (0-4) H 05/17/20 11:00 U Hyaline Cast (Auto) 5-10 /lpf (0-5) H 05/17/20 11:00 U Epithel Cells (Auto) 10-20 /lpf (0-5) H 05/17/20 11:00 Urine Bacteria (Auto) Negative (Negative) 05/17/20 11:00 Blood Type A Negative 05/27/20 15:21 Antibody Screen NEGATIVE 05/27/20 15:21 05/28/20 05/27/20 06:07 21:44 POC Glucose 110 H 106 H Electrocardiogram Date: 05/17/20 Findings: + NSST changes and + ST @ (at 103) Echocardiogram Date: 04/20/16 EF: 50% LV Function: normal RWMA: + none Other Findings: + LVH (mild) and + diastolic dysfunction (grade 1) Valvular Disease: + no significant valvular disease
[2020-05-28] MEDS ORDERED: ONDANSETRON INJ 2 MG/ML 2 ML VIAL IV PRN (08:43)
[2020-05-28] MEDS ORDERED: ATROPINE SULFATE 0.1 MG/ML 10ML SYR IV PRN (08:43)
[2020-05-28] MEDS ORDERED: ePHEDrine sulfate 50 MG/ML AMP IV PRN (08:43)
[2020-05-28] MEDS ORDERED: PROPOFOL IV EMULSION 10 MG/ML 20 ML VIAL IV ONE (09:51)
[2020-05-28] MEDS ORDERED: ROCURONIUM BROMIDE 10 MG/ML 5 ML VIAL IV ONE (09:51)
[2020-05-28] MEDS ORDERED: LIDOCAINE 2% 2 ML VIAL/AMP(20MG/ML) INFIL ONE (09:51)
[2020-05-28] MEDS ORDERED: SUCCINYLCHOLINE CHLORIDE 20 MG/ML 10 ML VIAL IV ONE (09:51)
[2020-05-28] MEDS ORDERED: MIDAZOLAM HCL 1 MG/ML 2ML VIAL ONE (09:51)
[2020-05-28] MEDS ORDERED: fentaNYL citrate 100 MCG/2 ML VIAL ONE ×2 (09:51→13:11)
[2020-05-28] MEDS: PANTOprazole 40 MG in SYRINGE 0 ML IV SCH ×2 (10:04→19:57)
--- NOTE | 2020-05-28 10:10 | Surgery Progress Note ---
Date of Service May 28, 2020 Assessment & Plan (1) Small bowel obstruction: Patient seen and examined. Events reviewed from over the weekend Patient underwent NGT clamp trial yesterday, developed some increased abdominal distention and KUB revealed persistent SBO with an increase in dilated small bowel loops. NGT was subsequently replaced to suction Today he currently denies any abdominal discomfort or nausea as NGT connected to suction As patient was given a trial of conservative management without much improvement we will plan to take the patient to the OR today for further evaluation. Diagnostic laparoscopy, possible open release of small bowel obstruction Dr. Núñez will be by to speak with patient prior to taking patient back to the OR Admission and Anticipated Discharge Date Admission Date: May 17, 2020 Subjective Patient seen in the pre-op area. He reports having some increased abdominal bloating after NGT clamp trial yesterday. He denies much abdominal pain/nausea. Continues to pass BM's as of yesterday. Physical Exam Physical Exam: awake/alert Constitutional: no acute distress Gastrointestinal (Abdomen): Inspection/Auscultation: + abdomen distended (mild) Percussion/Palpation: abdomen soft; abdomen nontender NGT with dark output Results & Data ([facility]) Vital Signs (Past 12 Hours) Vital Signs Temp Pulse Pulse Resp BP BP Pulse Ox 05/28/20 08:16 36.7 C 106 H 18 120/78 97 05/28/20 07:26 36.6 C 95 H 20 128/87 94 05/28/20 07:02 97 H 05/28/20 04:29 36.6 C 94 H 20 118/83 93 05/28/20 00:05 90 PG Care Time/CCT Total # of Minutes Spent Total Time Spent with Patient: Total time spent is greater than 50% in coordination of care (as documented) at patient's floor/unit and/or counseling patient: Coding Level of Care Code 45560 Subseq Hosp Care Lvl 1 Diagnoses Small bowel obstruction K56.609
[2020-05-28] MEDS ORDERED: BUPIVACAINE/EPINEPHRINE 0.5% MPF 1:200,000 30 ML VIAL ONE (11:29)
[2020-05-28] MEDS ORDERED: ceFAZolin 2000MG 2,000 MG/15 ML SYR IV ONE (11:59)
[2020-05-28] MEDS ORDERED: ceFAZolin 2,000 MG/15 ML IV PUSH IV ONE (12:00)
--- NOTE | 2020-05-28 12:05 | History & Physical Bridge Note ---
Date of Service May 28, 2020 History & Physical Bridge Note I have examined the patient, reviewed the History & Physical and in the interval since the performance of the History & Physical I have noted the following changes of clinical significance: no changes noted pt seen. no improvement in clinical status. will proceed with laparoscopy/possible open release of small bowel obstruction. discussed options with him/his . discussed risks ( bleeding/infection/injury to another organ/blood clots/cva/mi/dvt etc... questions answered. will proceed today iwth exploration .
--- NOTE | 2020-05-28 12:31 | Pharmacy Report ---
PHA: Parenteral Nutrition Con - Date of Service May 28, 2020 - Scope Pharmacy was consulted on 05/25/20 to manage parenteral nutrition orders for this patient. - Subjective The patient is currently on day #4 of peripheral parenteral nutrition for partial large bowel obstruction, colitis, prolonged NPO status. - Objective Height: 5 ft 10 in Weight: 76.6 kg Diet: NPO Intake & Output (24hrs):: Intake & Output 05/26/20 05/27/20 05/28/20 05/29/20 05:59 06:59 06:59 06:59 Intake Total 2219.995 / 2219.995 Output Total 850 / 850 Balance 1369.995 / 1369.995 Weight 76.6 kg 76.6 kg Laboratory Data (Last 24 Hr):: 05/28/20 06:22 Sodium 136 Potassium 4.7 D Chloride 104 Carbon Dioxide 27 BUN 20 H D Creatinine 0.87 Glucose 103 H Calcium 9.5 Phosphorus 3.3 Magnesium 2.4 Nutrition Assessment:: Please refer to the Notes section of the EMR for the most recent extension associate note. - Assessment 05/28: * Patient is being taken to the OR today for release of small bowel obstruction * He remains NPO. Unsure of how much PPN will infuse today with patient going to surgery. Also, PPN may not start on time at 1600 which is fine. * Labs are ordered for tomorrow. All electrolytes are within normal limits. * Potassium with a significant increase so will back off on KCl in the bag. * Remains on Protonix 40 mg IV BID. 05/25: * GHADA is a 64 year old male originally presented to [facility] ED on 05/17/20 with c omplaints of LLQ abdominal pain * He was subsequently found to have partial colon obstruction * PO intake has been minimal/absent since admission * PPN to be initiated due to this prolonged NPO status (> 1 week) * Macronutrient goals provided by dietitian * Dextrose 125 g * Amino Acids 80 g * Lipids 50 g * This will provide 1245 Kcal/day * Currently, NS w/ 40 KCl infusing at 80 mL/hr - fluids to be discontinued at time of ppn discontinuation * PPN to also infuse at 80 mL/hr * Day #8 of Zosyn for treatment of colitis - Plan For day #4 of PN administration, the following will be ordered: Macronutrients Amino acids 80 grams/day Dextrose 125 grams/day Lipids 50 grams/day Micronutrients Combined electrolytes 20 mL - contains 35 mEq Na, 20 meq K, 4.5 mEq Ca, 5 mEq Mg, 35 mEq Cl, 29.5 mEq acetate per 20 mL Sodium chloride 60 mEq Potassium phosphate 30 mMol Multivitamins 10 mL Trace Elements 1 mL Folic acid 1 mg Thiamine 100 mg Total volume 2150 mL to be infused over 24 hrs will provide 1245 kcal/day Final osmolarity 844 mOsm/L (maximum for PPN is 900 mOsm/L) Labs, as indicated, will be ordered per protocol Pharmacy will continue to follow and adjust parenteral nutrition orders on a daily basis. Thank you for allowing us to participate in the care of this patient.
[2020-05-28] MEDS ORDERED: ONDANSETRON INJ 2 MG/ML 2 ML VIAL ONE (12:55)
[2020-05-28] MEDS ORDERED: GLYCOPYRROLATE 0.2 MG/ML VIAL ONE (12:55)
[2020-05-28] MEDS ORDERED: NEOSTIGMINE METHYLSULFATE 5 MG/5 ML SYR ONE (12:55)
[2020-05-28] MEDS ORDERED: PHENYLEPHRINE 100MCG/ML 5ML SYR ONE (13:56)
[2020-05-28] MEDS: fentaNYL citrate 100 MCG/2 ML VIAL IV PRN ×4 (14:30→14:50)
--- NOTE | 2020-05-28 14:30 | Operative Report ---
PG Post Operative Report Pre & Post Diagnosis Operation Date: 05/20/20 11:00 <No data on this case meets the specified criteria> Operation Date: 05/20/20 12:30 Pre-Op Diagnosis: PARTIAL LARGE BOWEL OBSTRUCTION, COLITIS Post-Op Diagnosis: PARTIAL LARGE BOWEL OBSTRUCTION, COLITIS Operation Date: 05/22/20 17:45 Pre-Op Diagnosis: PARTIAL LARGE BOWEL OBSTRUCTION, COLITIS Post-Op Diagnosis: diverticulosis, sigmoid ulcer Operation Date: 05/28/20 09:00 Pre-Op Diagnosis: PARTIAL SMALL BOWEL OBSTRUCTION, COLITIS Post-Op Diagnosis: PARTIAL SMALL BOWEL OBSTRUCTION, ; adhesions; umbilical hernia; remnant appendix, COLITIS I identified the patient and participated in the time-out.: Yes Procedure Operation Date: 05/20/20 11:00 <No data on this case meets the specified criteria> Operation Date: 05/20/20 12:30 Actual Procedures p Colonoscopy(Not Applicable) - Fernie Mills Operation Date: 05/22/20 17:45 Actual Procedures p Flexible Sigmoidoscopy - Rocky Hewitt Operation Date: 05/28/20 09:00 Actual Procedures p Laparoscopy with conversion to Open Release of Small Bowel Obstruction, ente rolysis, repair of umbilical hernia, excision of remnant appendix(Not Applicable) - Satnam Núñez DO Surgeon Satnam Núñez DO Director Of Recruitment And Admissions cornelius Ponce Estimated Blood Loss 10 Findings Consistent with Post-Op Diagnosis Specimens remnant appendix Description of Procedure After informed consent was obtained the patient was taken to the operating room and placed in supine position. After successful intubation the abdomen was shaved and sterilely prepped and draped in usual fashion. I began by making a an incision just above his umbilicus. We carried this down through the soft tissues using cautery where we encountered a small umbilical hernia. I excised the hernia sac and then extended the defect superiorly. Two #0 Vicryl stay sutures were placed. Blunt finger penetration was used to enter the peritoneum and a finger sweep was performed. A 12 mm Mauro trocar was placed and the abdomen was insufflated to 20 mmHg. The laparoscope was inserted and the abdomen examined in 360 degrees. There were some visible adhesions in the right lower quadrant as well as some proximal dilated small bowel. A left upper quadrant 5 mm port and left mid abdominal 5 mm port were placed under direct vision. I began by attempting to run the small bowel from proximal to distal. As I got near the cecum it became apparent that I was going to be unable to readily visualize the problem. There were a fair amount of dense adhesions involving several feet of the distal small bowel making laparoscopic enterolysis quite difficult. At this point I removed the camera and all the trochars and desufflated the abdomen. I extended the incision around the umbilicus and distally for several centimeters as well as superiorly for several centimeters. I then again found the ligament of Treitz and ran the small bowel distally. The bowel itself was rather dilated with minimal serosal tone. It was fluid-filled. As I got near the cecum I continue to use traction countertraction blunt finger fractionation as well as sharp scissor lysis to take down adhesions. I was able to find the clips on the cecum from the old appendectomy. Eventually I was able to find the terminal ileum. Interestingly in the mesentery of the terminal ileum there was a small about 1 inch segment of what readily appeared to be a portion of his appendix. It did not appear to be infarcted. I was able to remove it from surrounding tissue using traction and cautery. I did send it to pathology to be evaluated. Once I had all the adhesions down I again ran the bowel from the ligament of Treitz to the cecum. Any areas of adhesions or obstruction had been released. I did palpate the distal colon which did have some stool burden in it but no other palpable abnormality. Anesthesia exchanged the NG tube and I made sure that was in the distal stomach as well. No other gross abnormality was identified. The wound was thoroughly irrigated with warm irrigating solution. We then closed the fascia starting at either polel with an 0-looped PDS and securing them in the midline. We included the umbilical hernia and this closure. Soft tissue was irrigated and skin was closed using skin julieth. Silver dressing was applied. The patient was awakened extubated and transferred recovery in stable condition. My physician bakery assistant was present for the entire case. She was instrumental in retracting and exposing throughout my dissection as well as with wound closure and dressing placement. I attest to the content of the Intraoperative Record and any orders documented therein. Any exceptions are noted below.
--- NOTE | 2020-05-28 15:00 | Hospitalist Progress Note ---
Date of Service May 28, 2020 Assessment & Plan (1) Partial obstruction of colon: CT abd pelvis 05/23/20 IMPRESSION: 1. Small bowel obstruction with a transition identified within the right anterior abdomen 2. Nonspecific mildly thick-walled distal ileal small bowel loop 3. Area of borderline colonic wall thickening at the descending sigmoid junction. 4. Cholelithiasis 5. Bilateral nephrolithiasis 05/28: exploratory laparoscopy Dr. Núñez, lysis of adhesions, no obvious area of small bowel to release anticipate he will have ileus, continue NGT PICC line today to start TPN tomorrow, continue PPN this evening Dr. Mills took for flex sigmoidoscopy on 05/20, encountered 5cm long segment of very dense, fibrous stool that was at junction of descending and sigmoid colon Dr. Mills was able to break up the stool, irrigated with saline passing flatus and liquid stools GI medicine for repeat flex sig on 05/22/2020, did see ulceration in colon, will continue on Zosyn for coverage of stercocolitis, day 11 today, continue for three more days for total of 14 days (2) Ileus: anticipating post op ileus keep NGT in place, LIS keep NPO for now (3) Obstipation: due to hard stool in distal descending colon, maybe sterococal ulcer no flatus today (4) Colitis: stercocolitis from very hard impacted stool in distal descending colon continues on Zosyn IV, now day 11, no fever, less pain, WBC initially elevated now normalized continue NPO, NGT PPN today will need repeat colonoscopy in 6 weeks (5) LLQ abdominal pain: see above, most of the pain is in LLQ obstipation (6) BPH (benign prostatic hyperplasia): Continue alfuzosin 10 mg p.o. every afternoon (7) Obstructive sleep apnea: CPAP at bedtime (8) Parkinson disease: Continue his usual Sinemet and other parkinsons meds dosing on hold for now, can start tomorrow if okay with surgery (9) Protein calorie malnutrition: poor intake for about two weeks now on PPN, place PICC today to start TPN tomorrow Admission and Anticipated Discharge Date Admission Date: May 17, 2020 Subjective patient taken to the OR this morning prior to my exam he had failed a clamp trial of NGT discussed with Dr. Núñez post op, he had some lysis of adhesions but there was not a clear area of SBO that could be released Dr. Núñez anticipates he will develop an ileus that could take several days to a week to resolve, recommends keeping NGT discussed plan with patient and his , consented for PICC line to start TPN tomorrow, spoke with pharmacy about this plan patient c/o sharp, spasm or cramping like pain since surgery, Morphine 4mg did not help, will try Dilaudid 1mg no chest pain, no dyspnea post op Review of Systems Review of Systems: All systems reviewed & are unremarkable except as noted in Subjective Constitutional: + fatigue and + weakness; no fever, no chills and no sweats Respiratory: no cough and no dyspnea Cardiovascular: no chest pain, no palpitations and no edema Gastrointestinal: + abdominal pain and + constipation; no nausea, no vomiting and no diarrhea/loose stools Physical Exam Constitutional: WD/WN, vitals as above + uncomfortable Neck: trachea midline, no thyromegaly Respiratory: normal respiratory effort, lungs clear to auscultation Cardiovascular: RRR, no murmur, no edema Gastrointestinal (Abdomen): Inspection/Auscultation: + abdomen distended, + abdominal surgical incision and + hypoactive bowel sounds Percussion/Palpation: + abdomen tender, abdomen soft and + tympanic to percussion; no ascites Musculoskeletal: no cyanosis or clubbing, extremities motor strength 5/5 Skin: no rashes, warm and dry Neurologic: patellar DTR's 2+ bilat, sensation intact and PERRL, EOMI, ac commodation nl, no face palsy, no dysarthria Psychiatric: A+Ox3, euthymic affect Lymphatic: no cervical or axillary lymphadenopathy Results & Data Results & Data ([facility]) Vital Signs (Past 12 Hours) Vital Signs Temp Pulse Pulse Pulse Resp BP BP 05/28/20 14:55 37.4 C 95 H 14 114/77 05/28/20 14:45 96 H 18 125/82 05/28/20 14:35 80 18 125/81 05/28/20 14:25 65 18 135/84 05/28/20 14:17 36.1 C L 68 14 149/81 H 05/28/20 08:16 36.7 C 106 H 18 120/78 05/28/20 07:26 36.6 C 95 H 20 128/87 05/28/20 07:02 97 H 05/28/20 04:29 36.6 C 94 H 20 118/83 Pulse Ox 05/28/20 14:55 98 05/28/20 14:45 100 05/28/20 14:35 100 05/28/20 14:25 100 05/28/20 14:17 100 05/28/20 08:16 97 05/28/20 07:26 94 05/28/20 07:02 05/28/20 04:29 93 Laboratory Results Laboratory Results - last 24 hr 05/27/20 05/27/20 05/27/20 15:21 15:21 21:44 WBC RBC Hgb 14.7 Hct MCV MCH MCHC RDW Std Deviation RDW Coeff of Gregorio Plt Count MPV Sodium Potassium Chloride Carbon Dioxide Anion Gap BUN Creatinine Est Cr Clr Drug Dosing Est GFR ( Amer) Est GFR (Non-Af Amer) BUN/Creatinine Ratio Glucose POC Glucose 106 H Calcium Phosphorus Magnesium Blood Type A Negative Antibody Screen NEGATIVE 05/28/20 05/28/20 05/28/20 06:07 06:22 06:22 WBC 10.56 RBC 4.58 L Hgb 14.5 Hct 42.1 MCV 91.9 MCH 31.7 MCHC 34.4 RDW Std Deviation 45.1 RDW Coeff of Gregorio 13.6 Plt Count 313 MPV 9.6 Sodium 136 Potassium 4.7 D Chloride 104 Carbon Dioxide 27 Anion Gap 5.0 BUN 20 H D Creatinine 0.87 Est Cr Clr Drug Dosing 86.2 Est GFR ( Amer) 104.2 Est GFR (Non-Af Amer) 89.9 BUN/Creatinine Ratio 23.5 H Glucose 103 H POC Glucose 110 H Calcium 9.5 Phosphorus 3.3 Magnesium 2.4 Blood Type Antibody Screen Medications Administered Current Inpatient Medications Acetaminophen (Acetaminophen 325 Mg Tab) 1,300 mg PO Q8H PRN PRN Reason: Pain Stop: 06/19/20 14:22 Alfuzosin HCl (Alfuzosin Hcl 10 Mg Tab) 10 mg PO PM ZEB Stop: 06/16/20 20:59 Last Admin: 05/27/20 19:57 Dose: Not Given Documented by: Atropine Sulfate (Atropine Sulfate 0.1 Mg/Ml 10ml Syr) 0.5 mg IV Q1M PRN PRN Reason: PACU Use-HR<40 &/or Bradycardi Stop: 05/28/20 16:43 Carbidopa/Levodopa (Carbidopa/Levodopa 25/100mg Tab) 1 tab PO 0800,1200,1600,2000 ZEB Stop: 06/16/20 19:59 Last Admin: 05/28/20 12:01 Dose: Not Given Documented by: Diclofenac Sodium (Diclofenac Sod 1% Gel 100 Gm Tube) 2 gm EXT Q6H PRN PRN Reason: joint pain Stop: 06/27/20 00:14 Enoxaparin Sodium (Enoxaparin Inj 40 Mg/0.4 Ml Syr) 40 mg SQ QAM ZEB Stop: 06/21/20 08:59 Last Admin: 05/27/20 09:38 Dose: 40 mg Documented by: Ephedrine Sulfate (Ephedrine Sulfate 50 Mg/Ml Amp) 5 mg IV Q5M PRN PRN Reason: PACU Use Only-SBP<90 mmHg Stop: 05/28/20 16:43 Fentanyl Citrate (Fentanyl Citrate 100 Mcg/2 Ml Vial) 50 mcg IV Q5M PRN PRN Reason: PACU Use Only-Pain Stop: 05/28/20 16:43 Last Admin: 05/28/20 14:50 Dose: 50 mcg Documented by: Hydromorphone HCl (Hydromorphone Inj 0.5 Mg/0.5 Ml Syr) 0.5 mg IV Q4H PRN PRN Reason: Pain Stop: 05/31/20 14:40 Last Admin: 05/18/20 05:06 Dose: 0.5 mg Documented by: Promethazine HCl 12.5 mg/ (Sodium Chloride) 50.5 mls @ 202 mls/hr IV Q6H PRN PRN Reason: Nausea And Vomiting Stop: 06/16/20 14:40 Last Infusion: 05/20/20 01:38 Dose: Infused Documented by: Dextrose (D10w) 1,000 mls @ 0 mls/hr IV .Q0M PRN PRN Reason: protocol (see label comments) Stop: 06/24/20 15:59 Lorazepam (Ativan) 0.5 mg in 1 mls @ 1 mls/min IV Q4H PRN PRN Reason: Agitation Stop: 06/23/20 15:18 Last Admin: 05/26/20 22:28 Dose: 1 mls/min Documented by: Nutrition (Parenteral) 2,150 (ml/ TPN BAG) 2,150 mls @ 0 mls/hr IV .Q0M ZEB; Protocol Stop: 05/28/20 15:59 Last Infusion: 05/28/20 08:30 Dose: 0 mls/hr Documented by: Pantoprazole Sodium 40 mg/ (Syringe) 10 mls @ 5 mls/min IV BID ZEB Stop: 06/26/20 15:59 Last Admin: 05/28/20 10:04 Dose: Not Given Documented by: Nutrition (Parenteral) 2,150 (ml/ TPN BAG) 2,150 mls @ 89.6 mls/hr IV .Q24H ZEB; Protocol Stop: 05/29/20 15:59 Piperacillin Sod/Tazobactam (Sod 3.375 gm/ Dextrose) 115 mls @ 28.75 mls/hr IV Q8H ZEB; Protocol Stop: 05/31/20 23:59 Melatonin (Melatonin 3 Mg Tab) 3 mg PO HS PRN PRN Reason: Sleep Stop: 06/23/20 01:43 Miscellaneous Information (Piperacill/Tazobac Consult Active) 1 ea N/A UD PRN PRN Reason: Consult Stop: 06/16/20 11:36 Miscellaneous Information (Tpn/Ppn Consult Pharmacy) 1 ea N/A UD PRN PRN Reason: Consult Stop: 06/24/20 00:00 *Rasagiline*Non- Formulary Patient's Own Med 1 ea PO Q24H ZEB; Protocol Stop: 06/17/20 07:59 Last Admin: 05/28/20 08:02 Dose: Not Given Documented by: Ondansetron HCl (Ondansetron Inj 2 Mg/Ml 2 Ml Vial) 4 mg IV Q4H PRN PRN Reason: Nausea/Vomiting Stop: 06/16/20 14:40 Last Admin: 05/20/20 00:38 Dose: 4 mg Documented by: Ondansetron HCl (Ondansetron Inj 2 Mg/Ml 2 Ml Vial) 4 mg IV ONCE PRN PRN Reason: PACU Use Only-Nausea/Vomiting Stop: 05/28/20 16:44 Polyethylene Glycol (Polyethylene (Miralax) 17 Gm Pack) 17 gm NG TID ZEB Stop: 06/19/20 20:59 Sodium Biphosphate/Sodium Phosphate (Sod Phosphate/Sod Biphosphate Enema 132 Ml Btl) 132 ml KS DAILY PRN PRN Reason: Constipation Stop: 06/20/20 15:20 PG Care Time/CCT Total # of Minutes Spent Total Time Spent with Patient: Total time spent is greater than 50% in coordination of care (as documented) at patient's floor/unit and/or counseling patient: Coding Level of Care Code 36773 Subseq Hosp Care Lvl 3 Diagnoses Partial obstruction of colon K56.600 Ileus K56.7 Obstipation K59.00 Colitis K52.9 LLQ abdominal pain R10.32 BPH (benign prostatic hyperplasia) N40.0 Obstructive sleep apnea G47.33 Parkinson disease G20 Protein calorie malnutrition E46
--- NOTE | 2020-05-28 15:01 | Anesthesiology Progress Note ---
Date of Service May 28, 2020 Anesthesia Post Procedure Vital Signs Vital Signs: Temp Pulse Pulse Pulse Resp BP BP 05/28/20 14:55 37.4 C 95 H 14 114/77 05/28/20 14:45 96 H 18 125/82 05/28/20 14:35 80 18 125/81 05/28/20 14:25 65 18 135/84 05/28/20 14:17 36.1 C L 68 14 149/81 H 05/28/20 08:16 36.7 C 106 H 18 120/78 05/28/20 07:26 36.6 C 95 H 20 128/87 05/28/20 07:02 97 H 05/28/20 04:29 36.6 C 94 H 20 118/83 05/28/20 00:05 90 05/27/20 21:43 36.4 C L 98 H 18 127/82 05/27/20 19:03 36.6 C 106 H 20 119/80 Pulse Ox 05/28/20 14:55 98 05/28/20 14:45 100 05/28/20 14:35 100 05/28/20 14:25 100 05/28/20 14:17 100 05/28/20 08:16 97 05/28/20 07:26 94 05/28/20 07:02 05/28/20 04:29 93 05/28/20 00:05 05/27/20 21:43 94 05/27/20 19:03 95 Pain Intensity Abdomen: Pain Intensity: 6 Transfer of Care Handoff Completed per policy Notes Mental Status: alert / awake / arousable Patient Amnestic to Procedure: Yes Nausea / Vomiting: adequately controlled Pain: adequately controlled Airway Patency, RR, SpO2: stable & adequate BP & HR: stable & adequate Hydration State: stable & adequate Anesthetic Complications: no major complications apparent
[2020-05-28] MEDS ORDERED: MoRPHine SULFATE 2 MG/ML CARP IV PRN (15:26)
[2020-05-28] MEDS ORDERED: MoRPHine SULFATE 4 MG/ML 1 ML CARP\\VIAL IV PRN (15:26)
[2020-05-28] MEDS: SODIUM CHLORIDE 0.9% 1000ML 1,000 ML IV SCH (15:44)
[2020-05-28] MEDS ORDERED: TPN IV SCH (16:00)
[2020-05-28] MEDS ORDERED: PERIPHERAL PN IV SCH (16:00)
[2020-05-28] MEDS ORDERED: HYDROmorphone INJ 1 MG/ML SYRINGE IV PRN (16:30)
[2020-05-28] MEDS: DICLOFENAC SOD 1% GEL 100 GM TUBE EXT PRN ×2 (17:04→20:19)
[2020-05-28] MEDS: ACETAMINOPHEN 1,000 MG/100 ML VIAL IV SCH ×2 (17:06→23:19)
[2020-05-28] MEDS: PIPERACILLIN/TAZOBACTAM 3.375 GM in DEXTROSE 5% 100 ML IV SCH ×2 (17:06→23:20)
--- NOTE | 2020-05-28 17:49 | Progress Notes ---
DATE: 05/28/2020 The patient failed his clamping of the NG tube over the weekend. Six hours after it was clamped, his KUB showed a significant increase in the small bowel distention and today he underwent a surgery by Dr. Núñez. It was started as a laparoscopic procedure, but had to be converted to an open procedure due to extensive adhesions, particularly in the right lower quadrant where he had ruptured appendix several years ago. He also had an incidental umbilical hernia that was repaired. At the end of the procedure, the surgeon was able to run the bowel from the ligament of Treitz all the way to the colon without obstruction or any adhesions. The patient is currently lying in bed with nasogastric tube and he is sedated with pain medication. IMPRESSION: The patient is status post lysis of adhesions today. Hopefully, he will recover well with recovery of his bowel function now. He may need a rehabilitation stay depending on how he recovers over the next several days.
[2020-05-28] MEDS: ALFUZOSIN HCL 10 MG TAB PO SCH (19:51)
[2020-05-28] MEDS: HYDROmorphone INJ 0.5 MG/0.5 ML SYR IV PRN (20:19)
[2020-05-29] MEDS: DICLOFENAC SOD 1% GEL 100 GM TUBE EXT PRN ×2 (05:29→16:12)
[2020-05-29] MEDS: HYDROmorphone INJ 0.5 MG/0.5 ML SYR IV PRN (05:29)
[2020-05-29 05:39] LABS: Hematocrit (blood only) 37.2 % (42-52); Hemoglobin 12.5 g/dL (14.0-18.0); Mean Corpuscular Hemoglobin 31.5 pg (25-34); Mean Corpuscular Hgb Conc 33.6 g/dL (32-36); Mean Corpuscular Volume 93.7 fL (80-100); Mean Platelet Volume 9.9 fL (7.4-10.4); Platelet Count 269 K/uL (130-400); RDW Coefficient of Variation 13.7 % (11.5-14.5); RDW Standard Deviation 46.9 fL (36.4-46.3); Red Blood Count 3.97 M/uL (4.7-6.1); White Blood Count 11.48 K/uL (4.8-10.8)
[2020-05-29 06:05] LABS: BUN Creatinine Ratio 24.2 (10-20); Calcium 8.9 mg/dl (8.5-10.1); Creatinine Clr Calc Pharmacy 89.3 ml/min; Est GFR (African American) 105.7; Est GFR (Non-African American) 91.2; Magnesium 2.2 mg/dl (1.8-2.4); Potassium 4.6 mmol/L (3.5-5.1)
[2020-05-29 06:06] LABS: Phosphorus 3.5 mg/dl (2.5-4.9)
[2020-05-29] MEDS: RASAGILINE PO SCH (08:04)
[2020-05-29] MEDS: CARBIDOPA/LEVODOPA 25/100MG TAB PO SCH ×4 (08:05→20:01)
--- NOTE | 2020-05-29 08:06 | Surgery Progress Note ---
Date of Service May 29, 2020 Assessment & Plan (1) Small bowel obstruction: POD#1 laparoscopy converted to open release of small bowel obstruction and lysis of adhesions + umbilical hernia repair WBC: 11.4, Hb.5, Cr: .84 Patient denies nausea/vomiting, pain is manageable this AM NGT documented 450cc. Plan to keep in place today. KUB ordered for post op baseline evaluation Will consider d/c of everett later today Received PICC line yesterday to start TPN Encourage ambulation and out of bed to chair as able as above. pt seen. doing as expected. pain controlled currently. keep ngt and everett for now. will check KUB tomorrow. pt at high risk for ileus. continue TPN. Admission and Anticipated Discharge Date Admission Date: May 17, 2020 Subjective Patient states he is feeling well. Had a good nights rest. He denies any nausea/vomiting. Abdominal pain managed on current regimen. Physical Exam Physical Exam: awake/alert Constitutional: no acute distress Respiratory: normal respiratory effort Gastrointestinal (Abdomen): Inspection/Auscultation: + abdominal surgical incision (surgical dressing in place with some shadowing on dressing. ); abdomen not distended Percussion/Palpation: abdomen soft; abdomen nontender NGT with 450cc documented Results & Data ([facility]) Vital Signs (Past 12 Hours) Vital Signs Temp Pulse Pulse Resp BP Pulse Ox 05/29/20 07:36 36.7 C 95 H 16 127/86 97 05/29/20 07:10 76 05/29/20 04:08 36.6 C 92 H 20 116/80 99 05/28/20 23:41 36.3 C L 95 H 20 113/76 98 05/28/20 23:25 110 H PG Care Time/CCT Total # of Minutes Spent Total Time Spent with Patient: Total time spent is greater than 50% in coordination of care (as documented) at patient's floor/unit and/or counseling patient: Coding Level of Care Code None Diagnoses Small bowel obstruction K56.609
[2020-05-29] MEDS: ACETAMINOPHEN 1,000 MG/100 ML VIAL IV SCH ×3 (08:10→23:41)
[2020-05-29] MEDS: PIPERACILLIN/TAZOBACTAM 3.375 GM in DEXTROSE 5% 100 ML IV SCH ×3 (08:10→23:41)
[2020-05-29] MEDS: PANTOprazole 40 MG in SYRINGE 0 ML IV SCH ×2 (08:12→20:02)
--- NOTE | 2020-05-29 09:02 | XRay Report ---
KUB CLINICAL HISTORY: Postoperative examination status post lysis of adhesions. FINDINGS: 2 AP, portable, supine abdominal radiographs are compared to study dated 05/27/2020 and derrick elated with abdominal CT dated 05/23/2020. Midline skin clips are new from previous. An enteric tube p rojects below the diaphragm over the stomach. There is gaseous distention of the small bowel loops wh ich measure up to 4.4 cm in diameter. There is also gas seen throughout the colon. Surgical clips are also seen in the right lower quadrant. Pelvic phleboliths are observed. Moderate lumbosacral spondyl osis is noted. IMPRESSION: 1. Skin clips are noted from previous. 2. There is gaseous distention of the small bowel loops. Gas is also seen throughout the colon and th e appearance favors a postoperative ileus. Clinical correlation will be required. Electronically signed by: Chacho Velasco M.D. 05/29/2020 9:01 AM
[2020-05-29] MEDS: SODIUM CHLORIDE 0.9% 1000ML 1,000 ML IV SCH (10:40)
--- NOTE | 2020-05-29 11:20 | Hospitalist Progress Note ---
Date of Service May 29, 2020 Assessment & Plan (1) Partial obstruction of colon: CT abd pelvis 05/23/20 IMPRESSION: 1. Small bowel obstruction with a transition identified within the right anterior abdomen 2. Nonspecific mildly thick-walled distal ileal small bowel loop 3. Area of borderline colonic wall thickening at the descending sigmoid junction. 4. Cholelithiasis 5. Bilateral nephrolithiasis 05/28: exploratory laparoscopy Dr. Núñez, lysis of adhesions, no obvious area of small bowel to release continue NGT, has post operative ileus encourage ambulation, OOB to chair keep everett today move to medical/surgical floor PICC line 05/28, start TPN today, pharmacy orders Dr. Mills took for flex sigmoidoscopy on 05/20, encountered 5cm long segment of very dense, fibrous stool that was at junction of descending and sigmoid colon Dr. Mills was able to break up the stool, irrigated with saline GI medicine for repeat flex sig on 05/22/2020, did see ulceration in colon, will continue on Zosyn for coverage of stercocolitis, day 12 today, continue for two more days (2) Ileus: post op ileus as expected KUB 05/29 with dilated small bowel loops but also with gas in the colon keep NGT in place, LIS keep NPO for now, diet per surgery discontinue Dilaudid as pain is a lot better today, change to Morphine 2mg, 4mg for severe pain (3) Obstipation: due to hard stool in distal descending colon, maybe sterococal ulcer no flatus today but there is gas in colon so hopeful that he will pass some flatus (4) Colitis: stercocolitis from very hard impacted stool in distal descending colon continues on Zosyn IV, now day 12, no fever, less pain, WBC 11k continue NPO, NGT TPN today will need repeat colonoscopy in 6 weeks (5) LLQ abdominal pain: see above, most of the pain is in LLQ obstipation (6) BPH (benign prostatic hyperplasia): Continue alfuzosin 10 mg p.o. every afternoon (7) Obstructive sleep apnea: CPAP at bedtime (8) Parkinson disease: Continue his usual Sinemet dosing as allowed by surgery (9) Protein calorie malnutrition: poor intake for about two weeks now placed PICC, start TPN today Cr, K , Mag, Phos all normal today Admission and Anticipated Discharge Date Admission Date: May 17, 2020 Subjective patient feeling better today, less pain than yesterday right after surgery no flatus, no BM KUB this morning with dilated loops of small bowel, gas in colon, favors a post operative ileus as anticipated reviewed labs, WBC 11k, Hb 12.5, plts 269, K 4.6, Cr 0.8, mag and phos normal d/w Dr. Núñez, recommends keeping NGT and everett today, wants patient ambulating, OOB in chair will move patient to medical/surgical floor, no indication for color television console monitor at this time since pain is so much better, will change back to lower dose Morphine PRN, want to limit narcotics since we want bowels to function patient has some left sided neck pain, arthritic, says it is relieved with Voltaren gel Review of Systems Review of Systems: All systems reviewed & are unremarkable except as noted in Subjective Respiratory: no cough and no dyspnea Cardiovascular: no chest pain, no palpitations and no edema Gastrointestinal: + abdominal pain and + constipation; no nausea, no vomiting and no diarrhea/loose stools Musculoskeletal: + neck pain Physical Exam Constitutional: WD/WN, vitals as above comfortable; no acute distress Neck: trachea midline, no thyromegaly Respiratory: normal respiratory effort, lungs clear to auscultation Cardiovascular: RRR, no murmur, no edema Gastrointestinal (Abdomen): Inspection/Auscultation: + abdominal surgical incision and + hypoactive bowel sounds; abdomen not distended Percussion/Palpation: + abdomen tender, abdomen soft and + tympanic to percussion; no ascites Musculoskeletal: no cyanosis or clubbing, extremities motor strength 5/5 Skin: no rashes, warm and dry Neurologic: patellar DTR's 2+ bilat, sensation intact and PERRL, EOMI, accommodation nl, no face palsy, no dysarthria Psychiatric: A+Ox3, euthymic affect Lymphatic: no cervical or axillary lymphadenopathy Results & Data Results & Data ([facility]) Vital Signs (Past 12 Hours) Vital Signs Temp Pulse Pulse Resp BP Pulse Ox 05/29/20 07:36 36.7 C 95 H 16 127/86 97 05/29/20 07:10 76 05/29/20 04:08 36.6 C 92 H 20 116/80 99 05/28/20 23:41 36.3 C L 95 H 20 113/76 98 05/28/20 23:25 110 H Laboratory Results Laboratory Results - last 24 hr 05/28/20 05/29/20 05/29/20 20:26 00:00 05:10 WBC 11.48 H RBC 3.97 L Hgb 12.5 L Hct 37.2 L MCV 93.7 MCH 31.5 MCHC 33.6 RDW Std Deviation 46.9 H RDW Coeff of Gregorio 13.7 Plt Count 269 MPV 9.9 Sodium Potassium Chloride Carbon Dioxide Anion Gap BUN Creatinine Est Cr Clr Drug Dosing Est GFR ( Amer) Est GFR (Non-Af Amer) BUN/Creatinine Ratio Glucose POC Glucose 126 H 105 H Calcium Phosphorus Magnesium 05/29/20 05:10 WBC RBC Hgb Hct MCV MCH MCHC RDW Std Deviation RDW Coeff of Gregorio Plt Count MPV Sodium 138 Potassium 4.6 Chloride 106 Carbon Dioxide 29 Anion Gap 3.0 BUN 20 H Creatinine 0.84 Est Cr Clr Drug Dosing 89.3 Est GFR ( Amer) 105.7 Est GFR (Non-Af Amer) 91.2 BUN/Creatinine Ratio 24.2 H Glucose 104 H POC Glucose Calcium 8.9 Phosphorus 3.5 Magnesium 2.2 Medications Administered Current Inpatient Medications Alfuzosin HCl (Alfuzosin Hcl 10 Mg Tab) 10 mg PO PM ZEB Stop: 06/16/20 20:59 Last Admin: 05/28/20 19:51 Dose: Not Given Documented by: Carbidopa/Levodopa (Carbidopa/Levodopa 25/100mg Tab) 1 tab PO 0800,1200,1600,2000 ZEB Stop: 06/16/20 19:59 Last Admin: 05/29/20 08:05 Dose: 1 tab Documented by: Diclofenac Sodium (Diclofenac Sod 1% Gel 100 Gm Tube) 2 gm EXT Q6H PRN PRN Reason: joint pain Stop: 06/27/20 00:14 Last Admin: 05/29/20 05:29 Dose: 2 gm Documented by: Enoxaparin Sodium (Enoxaparin Inj 40 Mg/0.4 Ml Syr) 40 mg SQ QAM ZEB Stop: 06/21/20 08:59 Last Admin: 05/27/20 09:38 Dose: 40 mg Documented by: Heparin Sodium (Beef Lung) (Heparin 10 Unit/Ml 5 Ml Flush) 5 ml FLUSH PRN PRN PRN Reason: Flush Stop: 06/28/20 00:42 Hydromorphone HCl (Hydromorphone Inj 0.5 Mg/0.5 Ml Syr) 0.5 mg IV Q3H PRN PRN Reason: Mild to Moderate Pain Stop: 06/11/20 15:59 Last Admin: 05/29/20 05:29 Dose: 0.5 mg Documented by: Hydromorphone HCl (Hydromorphone Inj 1 Mg/Ml Syringe) 1 mg IV Q3H PRN PRN Reason: Severe Pain Stop: 06/11/20 16:29 Last Admin: 05/28/20 17:13 Dose: 1 mg Documented by: Promethazine HCl 12.5 mg/ (Sodium Chloride) 50.5 mls @ 202 mls/hr IV Q6H PRN PRN Reason: Nausea And Vomiting Stop: 06/16/20 14:40 Last Infusion: 05/20/20 01:38 Dose: Infused Documented by: Dextrose (D10w) 1,000 mls @ 0 mls/hr IV .Q0M PRN PRN Reason: protocol (see label comments) Stop: 06/24/20 15:59 Lorazepam (Ativan) 0.5 mg in 1 mls @ 1 mls/min IV Q4H PRN PRN Reason: Agitation Stop: 06/23/20 15:18 Last Admin: 05/26/20 22:28 Dose: 1 mls/min Documented by: Pantoprazole Sodium 40 mg/ (Syringe) 10 mls @ 5 mls/min IV BID ZEB Stop: 06/26/20 15:59 Last Admin: 05/29/20 08:12 Dose: 5 mls/min Documented by: Nutrition (Parenteral) 2,150 (ml/ TPN BAG) 2,150 mls @ 89.6 mls/hr IV .Q24H ZEB; Protocol Stop: 05/29/20 15:59 Last Admin: 05/28/20 16:05 Dose: 89.6 mls/hr Documented by: Piperacillin Sod/Tazobactam (Sod 3.375 gm/ Dextrose) 115 mls @ 28.75 mls/hr IV Q8H ZEB; Protocol Stop: 05/31/20 23:59 Last Admin: 05/29/20 08:10 Dose: 28.8 mls/hr Documented by: Sodium Chloride (Nss 1000ml) 1,000 mls @ 35 mls/hr IV .Q24H ZEB Stop: 06/27/20 15:25 Last Admin: 05/29/20 10:40 Dose: 35 mls/hr Documented by: Acetaminophen (Ofirmev) 1,000 mg in 100 mls @ 400 mls/hr IV Q8H ZEB Stop: 05/31/20 15:25 Last Infusion: 05/29/20 08:25 Dose: Infused Documented by: Nutrition (Parenteral) 1,888 (ml/ TPN BAG) 1,888 mls @ 79 mls/hr IV .[id number] [facility]; Protocol Stop: 05/30/20 15:59 Melatonin (Melatonin 3 Mg Tab) 3 mg PO HS PRN PRN Reason: Sleep Stop: 06/23/20 01:43 Miscellaneous Information (Piperacill/Tazobac Consult Active) 1 ea N/A UD PRN PRN Reason: Consult Stop: 06/16/20 11:36 Miscellaneous Information (Tpn/Ppn Consult Pharmacy) 1 ea N/A UD PRN PRN Reason: Consult Stop: 06/24/20 00:00 *Rasagiline*Non- Formulary Patient's Own Med 1 ea PO Q24H [facility]; Protocol Stop: 06/17/20 07:59 Last Admin: 05/29/20 08:04 Dose: 1 mg Documented by: Ondansetron HCl (Ondansetron Inj 2 Mg/Ml 2 Ml Vial) 4 mg IV Q4H PRN PRN Reason: Nausea/Vomiting Stop: 06/16/20 14:40 Last Admin: 05/20/20 00:38 Dose: 4 mg Documented by: Polyethylene Glycol (Polyethylene (Miralax) 17 Gm Pack) 17 gm NG TID [facility] Stop: 06/19/20 20:59 PG Care Time/CCT Total # of Minutes Spent Total Time Spent with Patient: Total time spent is greater than 50% in coordination of care (as documented) at patient's floor/unit and/or counseling patient: Coding Level of Care Code 61395 Subseq Hosp Care Lvl 3 Diagnoses Partial obstruction of colon K56.600 Ileus K56.7 Obstipation K59.00 Colitis K52.9 LLQ abdominal pain R10.32 BPH (benign prostatic hyperplasia) N40.0 Obstructive sleep apnea G47.33 Parkinson disease G20 Protein calorie malnutrition E46
[2020-05-29] MEDS ORDERED: MoRPHine SULFATE 4 MG/ML 1 ML CARP\\VIAL IV PRN (11:24)
[2020-05-29] MEDS ORDERED: MoRPHine SULFATE 2 MG/ML CARP IV PRN (11:24)
--- NOTE | 2020-05-29 11:26 | Gastroenterology Progress Note ---
Date of Service May 29, 2020 Assessment & Plan (1) Small bowel obstruction: supportive care post op--further per surger left colon ulcer/constipaiton---colonoscopy as outpt. Admission and Anticipated Discharge Date Admission Date: May 17, 2020 Subjective cc abd pain HPI Pt states abd pain is manageable. He is post op from surgery for SBO 05/28/2020. Does not feel like he is passing gas. Physical Exam Gastrointestinal (Abdomen): limited bowel sounds, no guarding nor rebound Results & Data ([facility]) Vital Signs (Past 12 Hours) Vital Signs Temp Pulse Pulse Resp BP Pulse Ox 05/29/20 11:19 36.8 C 85 16 126/79 97 05/29/20 07:36 36.7 C 95 H 16 127/86 97 05/29/20 07:10 76 05/29/20 04:08 36.6 C 92 H 20 116/80 99 05/28/20 23:41 36.3 C L 95 H 20 113/76 98 05/28/20 23:25 110 H
[2020-05-29] MEDS: CENTRAL PN IV SCH (16:07)
[2020-05-29] MEDS: TPN IV SCH (16:07)
[2020-05-29] MEDS ORDERED: LIDOCAINE VISCOUS 2% SOLN 60 ML, diphenhydrAMINE Syrup 150 MG, ALUMINUM/MAGNESIUM SUSP ... PO PRN (18:03)
[2020-05-29] MEDS: ALFUZOSIN HCL 10 MG TAB PO SCH (20:02)
[2020-05-29] MEDS: LORazepam 0.5 MG/1 ML VIAL IV PRN (23:41)
[2020-05-30] MEDS: DICLOFENAC SOD 1% GEL 100 GM TUBE EXT PRN (03:10)
[2020-05-30 06:33] LABS: Hematocrit (blood only) 36.7 % (42-52); Hemoglobin 12.3 g/dL (14.0-18.0); Mean Corpuscular Hemoglobin 31.3 pg (25-34); Mean Corpuscular Hgb Conc 33.5 g/dL (32-36); Mean Corpuscular Volume 93.4 fL (80-100); Mean Platelet Volume 10.2 fL (7.4-10.4); Platelet Count 264 K/uL (130-400); RDW Coefficient of Variation 13.5 % (11.5-14.5); RDW Standard Deviation 45.8 fL (36.4-46.3); Red Blood Count 3.93 M/uL (4.7-6.1); White Blood Count 10.25 K/uL (4.8-10.8)
[2020-05-30 07:03] LABS: Calcium 9.2 mg/dl (8.5-10.1); Creatinine Clr Calc Pharmacy 98.7 ml/min; Est GFR (African American) 110.2; Est GFR (Non-African American) 95.1; Magnesium 2.3 mg/dl (1.8-2.4); Potassium 4.4 mmol/L (3.5-5.1)
[2020-05-30 07:07] LABS: Phosphorus 2.5 mg/dl (2.5-4.9)
[2020-05-30] MEDS: ACETAMINOPHEN 1,000 MG/100 ML VIAL IV SCH ×3 (07:57→23:42)
[2020-05-30] MEDS: RASAGILINE PO SCH (07:57)
[2020-05-30] MEDS: CARBIDOPA/LEVODOPA 25/100MG TAB PO SCH ×4 (07:59→20:12)
[2020-05-30] MEDS: PIPERACILLIN/TAZOBACTAM 3.375 GM in DEXTROSE 5% 100 ML IV SCH ×3 (08:12→23:58)
[2020-05-30] MEDS: ENOXAPARIN INJ 40 MG/0.4 ML SYR SQ SCH (08:13)
[2020-05-30] MEDS: PANTOprazole 40 MG in SYRINGE 0 ML IV SCH ×2 (08:13→20:13)
--- NOTE | 2020-05-30 09:00 | XRay Report ---
KUB CLINICAL HISTORY: Evaluate bowel gas pattern COMPARISON STUDY: CT of the abdomen and pelvis May 23, 2020. KUB May 29, 2020. FINDINGS: Tip of nasogastric tube is within the gastric fundus. Skin julieth from laparotomy are note d. Multiple loops of moderately dilated small bowel are noted. This has slightly increased since prio r examination. Gas within portions of the colon are noted. There is minimal rectal gas. IMPRESSION: Slight increase in moderate small bowel dilatation. This may reflect a postoperative ile us or small bowel obstruction. ACT 112: Negative or not required by law. Electronically signed by: Mian Pizano M.D. 05/30/2020 8:59 AM
--- NOTE | 2020-05-30 09:57 | Surgery Progress Note ---
Date of Service May 30, 2020 Assessment & Plan (1) Small bowel obstruction: expected post op course at this point POD 2 awaiting bowel fx return. KUB still with dilated bowel. will repeat tomorrow. keep ngt for now cont tpn remove everett PT/OT consult Admission and Anticipated Discharge Date Admission Date: May 17, 2020 Subjective pt seen. feeling ok. no new complaints. no bowel fx yet. Physical Exam Physical Exam: alert. nad NGT: approx 600-700 cc overnight...some of which is ice chips he's eating abd: soft. incision c/d/i. minimal distension. expected incisional tenderness. Results & Data ([facility]) Vital Signs (Past 12 Hours) Vital Signs Temp Pulse Resp BP Pulse Ox 05/30/20 07:35 36.3 C L 100 H 16 127/86 93 05/29/20 23:25 36.6 C 99 H 20 138/88 93 PG Care Time/CCT Total # of Minutes Spent Total Time Spent with Patient: Total time spent is greater than 50% in coordination of care (as documented) at patient's floor/unit and/or counseling patient: Coding Level of Care Code None Diagnoses Small bowel obstruction K56.609
[2020-05-30] MEDS: SODIUM CHLORIDE 0.9% 1000ML 1,000 ML IV SCH (12:16)
--- NOTE | 2020-05-30 13:18 | Gastroenterology Progress Note ---
Date of Service May 30, 2020 Assessment & Plan (1) Small bowel obstruction: s/p lapratomy for this continue supportive care post op--bowel dilatation worse but has bowel sounds and passing gas-----further per surgery left colon ulcer/constipation--colonoscopy as outpt. Admission and Anticipated Discharge Date Admission Date: May 17, 2020 Subjective cc f/u SBO HPI NO abd pain. He states passing some gas but no stool. KUB today mildly increased SB dilatation. Physical Exam Gastrointestinal (Abdomen): pos bs, soft, mild distension, no guarding nor rebound Results & Data ([facility]) Vital Signs (Past 12 Hours) Vital Signs Temp Pulse Resp BP Pulse Ox 05/30/20 07:35 36.3 C L 100 H 16 127/86 93
[2020-05-30] MEDS: TPN IV SCH ×2 (15:51→16:21)
[2020-05-30] MEDS: CENTRAL PN IV SCH ×2 (15:51→16:21)
[2020-05-30] MEDS: ALFUZOSIN HCL 10 MG TAB PO SCH (20:13)
--- NOTE | 2020-05-30 23:19 | Hospitalist Progress Note ---
Date of Service May 30, 2020 Assessment & Plan (1) Partial obstruction of colon: CT abd pelvis 05/23/20 IMPRESSION: 1. Small bowel obstruction with a transition identified within the right anterior abdomen 2. Nonspecific mildly thick-walled distal ileal small bowel loop 3. Area of borderline colonic wall thickening at the descending sigmoid junction. 4. Cholelithiasis 5. Bilateral nephrolithiasis 05/28: exploratory laparoscopy Dr. Núñez, lysis of adhesions, no obvious area of small bowel to release continue NGT, has post operative ileus encourage ambulation, OOB to chair everett pulled today he had a bowel movement this afternoon, 05/30, first time in over a week, very pleased check KUB tomorrow, follow up surgery recommendations PICC line 05/28, start TPN today, pharmacy orders Dr. Mills took for flex sigmoidoscopy on 05/20, encountered 5cm long segment of very dense, fibrous stool that was at junction of descending and sigmoid colon Dr. Mills was able to break up the stool, irrigated with saline GI medicine for repeat flex sig on 05/22/2020, did see ulceration in colon, will continue on Zosyn for coverage of stercocolitis, day 13 today, continue for one more day (2) Ileus: post op ileus as expected KUB 05/30 with dilated small bowel loops but also with gas in the colon keep NGT in place, LIS keep NPO for now, diet per surgery not much pain today, able to avoid Morphine had bowel sounds on exam today and then later had a bowel movement, he was very pleased (3) Obstipation: due to hard stool in distal descending colon, maybe sterococal ulcer resolved, passed gas and stool today, 05/30 (4) Colitis: stercocolitis from very hard impacted stool in distal descending colon continues on Zosyn IV, now day 13, no fever, less pain, WBC normal continue NPO, NGT TPN today will need repeat colonoscopy in 6 weeks (5) LLQ abdominal pain: see above, most of the pain is in LLQ obstipation (6) BPH (benign prostatic hyperplasia): Continue alfuzosin 10 mg p.o. every afternoon (7) Obstructive sleep apnea: CPAP at bedtime (8) Parkinson disease: Continue his usual Sinemet dosing as allowed by surgery (9) Protein calorie malnutrition: poor intake for about two weeks now placed PICC, continue TPN today Cr, K , Mag, Phos all normal today Admission and Anticipated Discharge Date Admission Date: May 17, 2020 Subjective patient with less pain today, had some bowel sounds on exam which was a first everett pulled, participated with therapy, OOB in a chair which was the first time in a while labs reviewed, WBC normal, Cr stable, electrolytes stable, continues to be on TPN KUB with dilated loops of small bowel but air in colon, consistent with ileus later in the day he was able to have a bowel movement, first time in a week, he was very pleased will follow up surgery recommendations tomorrow Review of Systems Review of Systems: All systems reviewed & are unremarkable except as noted in Subjective Respiratory: no cough and no dyspnea Cardiovascular: no chest pain and no edema Gastrointestinal: + abdominal pain (minimal); no nausea, no vomiting, no constipation (had a BM today) and no diarrhea/loose stools Musculoskeletal: + neck pain Physical Exam Constitutional: WD/WN, vitals as above comfortable; no acute distress Neck: trachea midline, no thyromegaly Respiratory: normal respiratory effort, lungs clear to auscultation Cardiovascular: RRR, no murmur, no edema Gastrointestinal (Abdomen): Inspection/Auscultation: + abdominal surgical incision and + hypoactive bowel sounds; abdomen not distended Percussion/Palpation: + abdomen tender, abdomen soft and + tympanic to percussion; no ascites Musculoskeletal: no cyanosis or clubbing, extremities motor strength 5/5 Skin: no rashes, warm and dry Neurologic: patellar DTR's 2+ bilat, sensation intact and PERRL, EOMI, accommodation nl, no face palsy, no dysarthria Psychiatric: A+Ox3, euthymic affect Lymphatic: no cervical or axillary lymphadenopathy Results & Data Results & Data ([facility]) Vital Signs (Past 12 Hours) Vital Signs Temp Pulse Resp BP Pulse Ox 05/30/20 15:34 36.6 C 100 H 18 137/97 95 Laboratory Results Laboratory Results - last 24 hr 05/30/20 05/30/20 05/30/20 00:31 05:50 05:50 WBC 10.25 RBC 3.93 L Hgb 12.3 L Hct 36.7 L MCV 93.4 MCH 31.3 MCHC 33.5 RDW Std Deviation 45.8 RDW Coeff of Gregorio 13.5 Plt Count 264 MPV 10.2 Sodium 138 Potassium 4.4 Chloride 107 Carbon Dioxide 30 Anion Gap 1.0 L BUN 19 H Creatinine 0.76 Est Cr Clr Drug Dosing 98.7 Est GFR ( Amer) 110.2 Est GFR (Non-Af Amer) 95.1 BUN/Creatinine Ratio 25.0 H Glucose 101 H POC Glucose 107 H Calcium 9.2 Phosphorus 2.5 D Magnesium 2.3 05/30/20 11:40 WBC RBC Hgb Hct MCV MCH MCHC RDW Std Deviation RDW Coeff of Gregorio Plt Count MPV Sodium Potassium Chloride Carbon Dioxide Anion Gap BUN Creatinine Est Cr Clr Drug Dosing Est GFR ( Amer) Est GFR (Non-Af Amer) BUN/Creatinine Ratio Glucose POC Glucose 107 H Calcium Phosphorus Magnesium Medications Administered Current Inpatient Medications Alfuzosin HCl (Alfuzosin Hcl 10 Mg Tab) 10 mg PO PM ZEB Stop: 06/16/20 20:59 Last Admin: 05/30/20 20:13 Dose: 10 mg Documented by: Carbidopa/Levodopa (Carbidopa/Levodopa 25/100mg Tab) 1 tab PO 0800,1200,1600,2000 ZEB Stop: 06/16/20 19:59 Last Admin: 05/30/20 20:12 Dose: 1 tab Documented by: Lidocaine HCl 60 ml/Diphenhydramine HCl 150 mg/ Al Hydrox/Mg Hydrox/Simethicone 60 ml/ Glycerin 60 ml/ BARCODE IDENTIFIER 1 ea 0 ml PO Q4H PRN PRN Reason: Sore Throat Stop: 06/28/20 18:02 Diclofenac Sodium (Diclofenac Sod 1% Gel 100 Gm Tube) 2 gm EXT Q6H PRN PRN Reason: joint pain Stop: 06/27/20 00:14 Last Admin: 05/30/20 03:10 Dose: 2 gm Documented by: Enoxaparin Sodium (Enoxaparin Inj 40 Mg/0.4 Ml Syr) 40 mg SQ QAM ZEB Stop: 06/21/20 08:59 Last Admin: 05/30/20 08:13 Dose: 40 mg Documented by: Heparin Sodium (Beef Lung) (Heparin 10 Unit/Ml 5 Ml Flush) 5 ml FLUSH PRN PRN PRN Reason: Flush Stop: 06/28/20 00:42 Promethazine HCl 12.5 mg/ (Sodium Chloride) 50.5 mls @ 202 mls/hr IV Q6H PRN PRN Reason: Nausea And Vomiting Stop: 06/16/20 14:40 Last Infusion: 05/20/20 01:38 Dose: Infused Documented by: Dextrose (D10w) 1,000 mls @ 0 mls/hr IV .Q0M PRN PRN Reason: protocol (see label comments) Stop: 06/24/20 15:59 Last Infusion: 05/30/20 15:15 Dose: Infused Documented by: Lorazepam (Ativan) 0.5 mg in 1 mls @ 1 mls/min IV Q4H PRN PRN Reason: Agitation Stop: 06/23/20 15:18 Last Admin: 05/29/20 23:41 Dose: 1 mls/min Documented by: Pantoprazole Sodium 40 mg/ (Syringe) 10 mls @ 5 mls/min IV BID ZEB Stop: 06/26/20 15:59 Last Admin: 05/30/20 20:13 Dose: 5 mls/min Documented by: Piperacillin Sod/Tazobactam (Sod 3.375 gm/ Dextrose) 115 mls @ 28.75 mls/hr IV Q8H [facility]; Protocol Stop: 05/31/20 23:59 Last Infusion: 05/30/20 21:23 Dose: Infused Documented by: Sodium Chloride (Nss 1000ml) 1,000 mls @ 35 mls/hr IV .Q24H ZEB Stop: 06/27/20 15:25 Last Admin: 05/30/20 12:16 Dose: 35 mls/hr Documented by: Acetaminophen (Ofirmev) 1,000 mg in 100 mls @ 400 mls/hr IV Q8H ZEB Stop: 05/31/20 15:25 Last Infusion: 05/30/20 16:10 Dose: Infused Documented by: Nutrition (Parenteral) 2,027 (ml/ TPN BAG) 2,027 mls @ 85 mls/hr IV .[id number] [facility]; Protocol Stop: 05/31/20 15:59 Last Infusion: 05/30/20 16:23 Dose: 89.5 mls/hr Documented by: Melatonin (Melatonin 3 Mg Tab) 3 mg PO HS PRN PRN Reason: Sleep Stop: 06/23/20 01:43 Miscellaneous Information (Piperacill/Tazobac Consult Active) 1 ea N/A UD PRN PRN Reason: Consult Stop: 06/16/20 11:36 Miscellaneous Information (Tpn/Ppn Consult Pharmacy) 1 ea N/A UD PRN PRN Reason: Consult Stop: 06/24/20 00:00 Morphine Sulfate (Morphine Sulfate 2 Mg/Ml Carp) 2 mg IV Q4H PRN PRN Reason: Pain Stop: 06/12/20 11:23 Morphine Sulfate (Morphine Sulfate 4 Mg/Ml 1 Ml Carp\Vial) 4 mg IV Q4H PRN PRN Reason: Severe Pain Stop: 06/12/20 11:23 *Rasagiline*Non- Formulary Patient's Own Med 1 ea PO Q24H ZEB; Protocol Stop: 06/17/20 07:59 Last Admin: 05/30/20 07:57 Dose: 1 mg Documented by: Ondansetron HCl (Ondansetron Inj 2 Mg/Ml 2 Ml Vial) 4 mg IV Q4H PRN PRN Reason: Nausea/Vomiting Stop: 06/16/20 14:40 Last Admin: 05/20/20 00:38 Dose: 4 mg Documented by: PG Care Time/CCT Total # of Minutes Spent Total Time Spent with Patient: Total time spent is greater than 50% in coordination of care (as documented) at patient's floor/unit and/or counseling patient: Coding Level of Care Code 15553 Subseq Hosp Care Lvl 3 Diagnoses Partial obstruction of colon K56.600 Ileus K56.7 Obstipation K59.00 Colitis K52.9 LLQ abdominal pain R10.32 BPH (benign prostatic hyperplasia) N40.0 Obstructive sleep apnea G47.33 Parkinson disease G20 Protein calorie malnutrition E46
[2020-05-30] MEDS: LORazepam 0.5 MG/1 ML VIAL IV PRN (23:58)
[2020-05-31] MEDS: DICLOFENAC SOD 1% GEL 100 GM TUBE EXT PRN (05:01)
[2020-05-31 06:19] LABS: Hematocrit (blood only) 36.4 % (42-52); Hemoglobin 12.6 g/dL (14.0-18.0); Mean Corpuscular Hemoglobin 31.5 pg (25-34); Mean Corpuscular Hgb Conc 34.6 g/dL (32-36); Mean Platelet Volume 10.5 fL (7.4-10.4); Platelet Count 339 K/uL (130-400); RDW Coefficient of Variation 13.4 % (11.5-14.5); RDW Standard Deviation 44.6 fL (36.4-46.3); White Blood Count 8.39 K/uL (4.8-10.8)
[2020-05-31 06:46] LABS: BUN Creatinine Ratio 22.3 (10-20); Calcium 9.3 mg/dl (8.5-10.1); Creatinine Clr Calc Pharmacy 101.4 ml/min; Est GFR (African American) 111.4; Est GFR (Non-African American) 96.1; Potassium 4.2 mmol/L (3.5-5.1)
[2020-05-31 06:48] LABS: Bilirubin,Total 0.8 mg/dl (0.2-1); Phosphorus 2.6 mg/dl (2.5-4.9)
[2020-05-31] MEDS: CARBIDOPA/LEVODOPA 25/100MG TAB PO SCH ×4 (07:55→21:19)
[2020-05-31] MEDS: ACETAMINOPHEN 1,000 MG/100 ML VIAL IV SCH (07:56)
[2020-05-31] MEDS: RASAGILINE PO SCH (07:56)
[2020-05-31] MEDS: PIPERACILLIN/TAZOBACTAM 3.375 GM in DEXTROSE 5% 100 ML IV SCH ×2 (07:57→17:30)
[2020-05-31] MEDS: PANTOprazole 40 MG in SYRINGE 0 ML IV SCH ×2 (08:13→20:06)
[2020-05-31] MEDS: ENOXAPARIN INJ 40 MG/0.4 ML SYR SQ SCH (08:13)
--- NOTE | 2020-05-31 08:49 | XRay Report ---
XR KUB/Abdomen 1 view CLINICAL HISTORY: SBO COMPARISON STUDY: 05/30/2020 FINDINGS: An enteric tube is positioned within the stomach. There are persistent dilated small bowel loops measure 57 mm in diameter. There is gas within nondilated colon. IMPRESSION: Persistent dilated small bowel loops with normal caliber colon. Diagnostic consideration s include small bowel obstruction versus postoperative ileus. ACT 112: Negative or not required by law. Electronically signed by: Mika Smith M.D. 05/31/2020 8:47 AM
--- NOTE | 2020-05-31 10:01 | Gastroenterology Progress Note ---
Date of Service May 31, 2020 Assessment & Plan (1) Small bowel obstruction: s/p laparotomy for this---- continue supportive care post op--bowel dilatation persist but has bowel sounds -----further per surgery left colon ulcer/constipation--colonoscopy as outpt. Admission and Anticipated Discharge Date Admission Date: May 17, 2020 Subjective CC f/u SBO HPI Pt states had a bm yesterday but none today. No recent passage of gas. KUB report today persistent dilation of SB loops. No abd pain. WBC normal. Physical Exam Gastrointestinal (Abdomen): bowel sounds noted, mildly distended and tympanitic, no guarding nor rebound. Results & Data ([facility]) Vital Signs (Past 12 Hours) Vital Signs Temp Pulse Resp BP Pulse Ox 05/31/20 06:54 36.5 C 101 H 18 137/91 95 05/31/20 00:13 36.5 C 60 20 99/63 L 97 05/30/20 23:00 36.7 C 105 H 20 136/94 94
--- NOTE | 2020-05-31 11:02 | Surgery Progress Note ---
Date of Service May 31, 2020 Assessment & Plan (1) Small bowel obstruction: pod 3 keep ngt. will consider sbft via ngt soon try and increase activity/PT/OT will consult neurology to see if something more can be done for his Parkinson's? Possible not absorbing his medications completely. cont TPN. Admission and Anticipated Discharge Date Admission Date: May 17, 2020 Subjective pt seen. no new complaints. off pain meds. feels his parkinson's is worse than his baseline. +flatus. no appetite. no nausea. now bm. Physical Exam Physical Exam: alert. nad abd: soft. mild distension. minimal bs's. incision looks good. ngt output much more clear/thin. bile tinge. Results & Data ([facility]) Vital Signs (Past 12 Hours) Vital Signs Temp Pulse Resp BP Pulse Ox 05/31/20 06:54 36.5 C 101 H 18 137/91 95 05/31/20 00:13 36.5 C 60 20 99/63 L 97 05/30/20 23:00 36.7 C 105 H 20 136/94 94 PG Care Time/CCT Total # of Minutes Spent Total Time Spent with Patient: Total time spent is greater than 50% in coordination of care (as documented) at patient's floor/unit and/or counseling patient: Coding Level of Care Code None Diagnoses Small bowel obstruction K56.609
[2020-05-31] MEDS ORDERED: LORazepam 0.5 MG/1 ML VIAL IV PRN (16:25)
[2020-05-31] MEDS: CENTRAL PN IV SCH ×2 (17:29→17:30)
[2020-05-31] MEDS: TPN IV SCH ×2 (17:29→17:30)
[2020-05-31] MEDS: SODIUM CHLORIDE 0.9% 1000ML 1,000 ML IV SCH (17:31)
[2020-05-31] MEDS: ALFUZOSIN HCL 10 MG TAB PO SCH (20:06)
[2020-05-31] MEDS: LORazepam 1 MG/2 ML VIAL IV PRN (23:23)
[2020-06-01 06:54] LABS: BUN Creatinine Ratio 26.7 (10-20); Calcium 9.9 mg/dl (8.5-10.1); Creatinine Clr Calc Pharmacy 108.7 ml/min; Est GFR (African American) 114.7; Est GFR (Non-African American) 98.9
[2020-06-01 06:55] LABS: Phosphorus 2.5 mg/dl (2.5-4.9)
[2020-06-01] MEDS: RASAGILINE PO SCH (08:01)
[2020-06-01] MEDS: CARBIDOPA/LEVODOPA 25/100MG TAB PO SCH ×4 (08:02→20:56)
[2020-06-01] MEDS: ENOXAPARIN INJ 40 MG/0.4 ML SYR SQ SCH (08:03)
[2020-06-01] MEDS: PANTOprazole 40 MG in SYRINGE 0 ML IV SCH ×2 (08:03→21:00)
--- NOTE | 2020-06-01 08:11 | Hospitalist Progress Note ---
Date of Service May 31, 2020 Assessment & Plan (1) Partial obstruction of colon: CT abd pelvis 05/23/20 IMPRESSION: 1. Small bowel obstruction with a transition identified within the right anterior abdomen 2. Nonspecific mildly thick-walled distal ileal small bowel loop 3. Area of borderline colonic wall thickening at the descending sigmoid junction. 4. Cholelithiasis 5. Bilateral nephrolithiasis 05/28: exploratory laparoscopy Dr. Núñez, lysis of adhesions, no obvious area of small bowel to release continue NGT, has post operative ileus encourage ambulation, OOB to chair everett pulled 05/30, he is urinating normally after it was removed he had a bowel movement in afternoon on 05/30, first time in over a week, very pleased no further flatus or BM on 05/31 KUB looks the same, dilated loops of bowel with gas in colon check KUB tomorrow, follow up surgery recommendations PICC line 05/28, continue TPN today, pharmacy orders Dr. Mills took for flex sigmoidoscopy on 05/20, encountered 5cm long segment of very dense, fibrous stool that was at junction of descending and sigmoid colon Dr. Mills was able to break up the stool, irrigated with saline GI medicine for repeat flex sig on 05/22/2020, did see ulceration in colon, last day of Zosyn IV today, completed 14 days, treatment for stercocolitis (2) Ileus: post op ileus as expected KUB 05/31 with dilated small bowel loops but also with gas in the colon, no real change from day before keep NGT in place, LIS keep NPO for now, diet per surgery no pain today, able to avoid Morphine had bowel sounds on exam but hypoactive, had a bowel movement (liquid) on 05/30 (3) Obstipation: due to hard stool in distal descending colon, maybe sterococal ulcer resolved, passed gas and stool today, 05/30 no flatus on 05/31 (4) Colitis: stercocolitis from very hard impacted stool in distal descending colon stop Zosyn IV after today, now day 14, no fever, less pain, WBC normal continue NPO, NGT TPN today will need repeat colonoscopy in 6 weeks (5) LLQ abdominal pain: see above, most of the pain is in LLQ obstipation (6) BPH (benign prostatic hyperplasia): Continue alfuzosin 10 mg p.o. every afternoon (7) Obstructive sleep apnea: CPAP at bedtime (8) Parkinson disease: Continue his usual Sinemet dosing as allowed by surgery clamp NGT for 30 minutes d/w Dr Wynn, no other changes should be made (9) Protein calorie malnutrition: poor intake for about two weeks now placed PICC, continue TPN today Cr, K , Mag, Phos all normal today (10) Insomnia: no luch with Ativan 0.5mg, will try 1mg IV this evening Admission and Anticipated Discharge Date Admission Date: May 17, 2020 Subjective patient seen in the morning, he was pleased to say that he had a BM the day before, 05/30, it was liquids no flatus since then, no further BM, he is urinating okay since everett pulled 05/30 no abdominal pain at all having difficult time sleeping, no success with Ativan 0.5mg IV the past two nights, asking for something stronger c/o left neck pain, this is ongoing issue prior to admission, now worse due to hospital bed encouraged him to be more active, prior to the OR on Thursday he was ambulating in the halls, now very weak discussed Parkinson's with his , she says he follows with Noman Dialy, typically symptoms are very well controlled in fact, when he goes to the clinic he complains of his neck and left leg pain, the neurologist says that those are not the Parkinson's discussed with Dr. Wynn, no need for consult, continue to give Sinemet as prescribed holding NGT suction for 30 minutes afterwards d/w charge out clerk, will try to move him to a private room with a window, has been stuck with a curtain/door bed for over a week, very dark and gloomy talked with his at length in the hallway, he is very down and depressed, has been here over 2 weeks, minimal improvement she asked how long this ileus can last, told her there is no way to know, we need to continue trying to increase his activity, continue TPN, keep electrolytes stable Review of Systems Review of Systems: All systems reviewed & are unremarkable except as noted in Subjective Respiratory: no cough and no dyspnea Cardiovascular: no chest pain, no palpitations and no edema Gastrointestinal: + constipation (no flatus either) and + diarrhea/loose stools (one liquid stool on 3/17); no abdominal pain, no nausea and no vomiting Physical Exam Constitutional: WD/WN, vitals as above comfortable; no acute distress Neck: trachea midline, no thyromegaly Respiratory: normal respiratory effort, lungs clear to auscultation Cardiovascular: RRR, no murmur, no edema Gastrointestinal (Abdomen): Inspection/Auscultation: + abdominal surgical incision and + hypoactive bowel sounds; abdomen not distended Percussion/Palpation: + abdomen tender, abdomen soft and + tympanic to percussion; no ascites Musculoskeletal: no cyanosis or clubbing, extremities motor strength 5/5 Skin: no rashes, warm and dry Neurologic: patellar DTR's 2+ bilat, sensation intact and PERRL, EOMI, accommodation nl, no face palsy, no dysarthria Psychiatric: A+Ox3, euthymic affect Lymphatic: no cervical or axillary lymphadenopathy Results & Data Results & Data ([facility]) Vital Signs (Past 12 Hours) Vital Signs Temp Pulse Resp BP BP Pulse Ox 06/01/20 07:26 37.2 C 114 H 18 142/93 H 94 05/31/20 21:41 36.8 C 115 H 16 150/98 H 94 PG Care Time/CCT Total # of Minutes Spent Total Time Spent: 32 Total Time Spent with Patient: Total time spent is greater than 50% in coordination of care (as documented) at patient's floor/unit and/or counseling patient: 12 minutes speaking with patients other 20 minutes spent on exam and visiting patient, discussing care with Dr. Wynn, nurses reviewed chart, documentation, speaking with surgery Coding Level of Care Code 43130 Subseq Hosp Care Lvl 3 Diagnoses Partial obstruction of colon K56.600 Ileus K56.7 Obstipation K59.00 Colitis K52.9 LLQ abdominal pain R10.32 BPH (benign prostatic hyperplasia) N40.0 Obstructive sleep apnea G47.33 Parkinson disease G20 Protein calorie malnutrition E46 Insomnia G47.00
--- NOTE | 2020-06-01 08:14 | XRay Report ---
KUB HISTORY: Abdominal distention. Evaluate for small bowel obstruction. COMPARISON: KUB 05/31/2020. FINDINGS: Multiple dilated gas-filled loops of small bowel are seen throughout the abdomen. These melvin sure up to 6 cm in diameter. This is similar to the prior study. Nondilated gas-filled filled colon a nd rectum remains unchanged. There are midline skin julieth. There are surgical clips in the right lo wer quadrant. Cholelithiasis is again noted. No renal calculi. No ureteral calculi. No pneumoperiton eum or pneumatosis. Nasogastric tube terminates in the stomach. A central venous catheter is partiall y visualized and terminates in the distal SVC. IMPRESSION: No change in the significantly distended gas-filled loops of small bowel with normal caliber gas-fill ed colon. This favors a postoperative ileus. A residual small bowel obstruction could also have a sim ilar appearance. ACT 112: Negative or not required by law. Electronically signed by: Ramon Farley M.D. 06/01/2020 8:13 AM
--- NOTE | 2020-06-01 10:46 | Surgery Progress Note ---
Date of Service June 01, 2020 Assessment & Plan (1) Small bowel obstruction: POD#4 open lysis of adhesions, release of SBO KUB reviewed this AM; no change in distended loops of small bowel NGT output is decreasing in comparison and more bilious in appearance Will order a small bowel follow through study today for further evaluation Repeat KUB tomorrow Continue TPN and NGT Neuro consult regarding ?absorption of parkinson's meds with NGT in place Dr. Mena covering for the weekend Admission and Anticipated Discharge Date Admission Date: May 17, 2020 Subjective Patient seen sitting up in chair. Denies abdominal pain or nausea and not taking much pain medication for this. He endorses + neck pain/LLE pain which is a little better than yesterday. No meaningful return of bowel function yet. Physical Exam Physical Exam: awake/alert Constitutional: no acute distress Respiratory: normal respiratory effort Gastrointestinal (Abdomen): Inspection/Auscultation: + abdominal surgical incision (c/d/i with surgical julieth in midline) Percussion/Palpation: abdomen nontender Results & Data ([facility]) Vital Signs (Past 12 Hours) Vital Signs Temp Pulse Resp BP Pulse Ox 06/01/20 07:26 37.2 C 114 H 18 142/93 H 94 PG Care Time/CCT Total # of Minutes Spent Total Time Spent with Patient: Total time spent is greater than 50% in coordination of care (as documented) at patient's floor/unit and/or counseling patient: Coding Level of Care Code None Diagnoses Small bowel obstruction K56.609
--- NOTE | 2020-06-01 11:34 | Gastroenterology Progress Note ---
Date of Service June 01, 2020 Assessment & Plan (1) Small bowel obstruction: s/p laparotomy - continue supportive care post op--bowel dilatation persist but has bowel sounds -----further per surgery left colon ulcer/constipation--colonoscopy as outpatient. Please refer to supervising physician addendum for further recommendations. Admission and Anticipated Discharge Date Admission Date: May 17, 2020 Supervising Physician Co-Signing Physician Notes I have seen and examined the patient. I agree with note above by DIDIER Anthony except as noted below. HPI Some nausea, no abd pain. SBFT in progess PE Abdomen no bowel sounds noted, moderate distension, no guarding nor rebound A/P SBO s/p surgery now with presumed prolonged ileus--SBFT pending---if no transition point to suggest ongoing obstruction consider use of Entereg. Continue peripheral nutrition. Colon ulcer ---outpt colonoscopy. Subjective Patient lying in bed at time of evaluation. Alert, oriented, and conversant with evaluation. Denies current abdominal pain. Denies vomiting. Reports mild occasional nausea. Reports only minimal flatus. NGT intact. NPO. Reports no bowel movement in the last several days. Review of Systems Review of Systems: All systems reviewed & are unremarkable except as noted in Subjective Physical Exam Physical Exam: awake/alert Constitutional: no acute distress Respiratory: normal respiratory effort; no respiratory distress and no labored breathing Gastrointestinal (Abdomen): Inspection/Auscultation: normal bowel sounds and + abdominal surgical incision (c/d/i with surgical julieth in midline) Percussion/Palpation: + abdomen tender (incisional tenderness) and abdomen soft Results & Data ([facility]) Vital Signs (Past 12 Hours) Vital Signs Temp Pulse Resp BP Pulse Ox 06/01/20 07:26 37.2 C 114 H 18 142/93 H 94 Laboratory Results - last 24 hr 05/31/20 05/31/20 06/01/20 11:49 17:51 05:41 Sodium 136 Potassium 4.0 Chloride 105 Carbon Dioxide 27 Anion Gap 4.0 BUN 18 Creatinine 0.69 Est Cr Clr Drug Dosing 108.7 Est GFR ( Amer) 114.7 Est GFR (Non-Af Amer) 98.9 BUN/Creatinine Ratio 26.7 H Glucose 116 H POC Glucose 141 H 109 H Calcium 9.9 Phosphorus 2.5 Magnesium 2.0 05/31/2020 KUB: No change in the significantly distended gas-filled loops of small bowel with normal caliber gas-filled colon. This favors a postoperative ileus. A residual small bowel obstruction could also have a similar appearance.
[2020-06-01] MEDS: DICLOFENAC SOD 1% GEL 100 GM TUBE EXT PRN (15:46)
[2020-06-01] MEDS: CENTRAL PN IV SCH (17:31)
[2020-06-01] MEDS: TPN IV SCH (17:31)
[2020-06-01] MEDS: SODIUM CHLORIDE 0.9% 1000ML 1,000 ML IV SCH (21:00)
[2020-06-01] MEDS: LORazepam 1 MG/2 ML VIAL IV PRN (22:10)
[2020-06-01] MEDS: ALFUZOSIN HCL 10 MG TAB PO SCH (23:23)
--- NOTE | 2020-06-01 23:35 | Hospitalist Progress Note ---
Date of Service June 01, 2020 Assessment & Plan (1) Partial obstruction of colon: CT abd pelvis 05/23/20 IMPRESSION: 1. Small bowel obstruction with a transition identified within the right anterior abdomen 2. Nonspecific mildly thick-walled distal ileal small bowel loop 3. Area of borderline colonic wall thickening at the descending sigmoid junction. 4. Cholelithiasis 5. Bilateral nephrolithiasis 05/28: exploratory laparoscopy Dr. Núñez, lysis of adhesions, no obvious area of small bowel to release continue NGT, has post operative ileus encourage ambulation, OOB to chair everett pulled 05/30, he is urinating normally after it was removed he had a bowel movement in afternoon on 05/30, first time in over a week, very pleased some flatus today, 06/01 KUB looks the same, dilated loops of bowel with gas in colon small bowel follow through ordered by surgery today, final part of films tomorrow PICC line 05/28, continue TPN today, pharmacy orders Dr. Mills took for flex sigmoidoscopy on 05/20, encountered 5cm long segment of very dense, fibrous stool that was at junction of descending and sigmoid colon Dr. Mills was able to break up the stool, irrigated with saline GI medicine for repeat flex sig on 05/22/2020, did see ulceration in colon, Zosyn IV completed 14 days, treatment for stercocolitis (2) Ileus: post op ileus as expected KUB 06/01 with dilated small bowel loops but also with gas in the colon, no real change from day before keep NGT in place, LIS keep NPO for now, diet per surgery no pain today, able to avoid Morphine liquid BM on 05/30, flatus on 06/01 small bowel follow through today (3) Obstipation: due to hard stool in distal descending colon, maybe sterococal ulcer resolved, passed gas and stool today, 05/30 no flatus on 05/31 (4) Parkinson disease: Continue his usual Sinemet dosing QID clamp NGT for 30 minutes after giving medication d/w Dr Wynn, since he is having some tremors and rigidity, could increase frequ ency to 5x a day patient's would like me to check with neurology at [facility], will call them in the morning to discuss (5) Colitis: stercocolitis from very hard impacted stool in distal descending colon stop Zosyn IV after today, now day 14, no fever, less pain, WBC normal continue NPO, NGT TPN today will need repeat colonoscopy in 6 weeks (6) LLQ abdominal pain: see above, most of the pain is in LLQ obstipation (7) BPH (benign prostatic hyperplasia): Continue alfuzosin 10 mg p.o. every afternoon (8) Obstructive sleep apnea: CPAP at bedtime (9) Protein calorie malnutrition: poor intake for about two weeks now placed PICC, continue TPN today Cr, K , Mag, Phos all normal today (10) Insomnia: no luch with Ativan 0.5mg, will try 1mg IV this evening Admission and Anticipated Discharge Date Admission Date: May 17, 2020 Subjective patient passed a little gas today KUB with persistently dilated loops of small bowel surgery ordered small bowel follow through today, completed the first section, more x-rays tomorrow patient with increased tremors, more rigid today he typically is on Sinemet QID (8, noon, 4pm, 8pm) d/w Dr. Wynn, could increase frequency of Sinemet if having issues with ab sorption d/w his , she wants me to discuss with [facility] neurology prior to making any changes he participated with therapy today, got up to a chair for 1.5 hours labs are stable today, specifically Cr and electrolytes, continues on TPN c/o neck pain on left side, no chest pain, no dyspnea Review of Systems Review of Systems: All systems reviewed & are unremarkable except as noted in Subjective Constitutional: + fatigue and + weakness Respiratory: no cough and no dyspnea Cardiovascular: no chest pain and no edema Gastrointestinal: + bloating and + constipation; no abdominal pain, no nausea, no vomiting and no diarrhea/loose stools Musculoskeletal: + neck pain Neurologic: + abnormal movements (resting tremors in hands, more rigid) Physical Exam 2 Constitutional: WD/WN, vitals as above comfortable; no acute distress Neck: trachea midline, no thyromegaly Respiratory: normal respiratory effort, lungs clear to auscultation Cardiovascular: RRR, no murmur, no edema Gastrointestinal (Abdomen): Inspection/Auscultation: + abdominal surgical incision and + hypoactive bowel sounds; abdomen not distended Percussi on/Palpation: + abdomen tender, abdomen soft and + tympanic to percussion; no ascites Musculoskeletal: no cyanosis or clubbing, extremities motor strength 5/5 Skin: no rashes, warm and dry Neurologic: patellar DTR's 2+ bilat, sensation intact and PERRL, EOMI, accommodation nl, no face palsy, no dysarthria Motor/Sensory: + tremor and + abnormal movement (cogwheel rigidity) Gait: + shuffling gait Psychiatric: A+Ox3, euthymic affect Lymphatic: no cervical or axillary lymphadenopathy Results & Data Results & Data ([facility]) Vital Signs (Past 12 Hours) Vital Signs Temp Pulse Resp BP Pulse Ox 06/01/20 14:25 36.6 C 116 H 17 134/75 94 Laboratory Results Laboratory Results - last 24 hr 06/01/20 05:41 Sodium 136 Potassium 4.0 Chloride 105 Carbon Dioxide 27 Anion Gap 4.0 BUN 18 Creatinine 0.69 Est Cr Clr Drug Dosing 108.7 Est GFR ( Amer) 114.7 Est GFR (Non-Af Amer) 98.9 BUN/Creatinine Ratio 26.7 H Glucose 116 H Calcium 9.9 Phosphorus 2.5 Magnesium 2.0 Medications Administered Current Inpatient Medications Alfuzosin HCl (Alfuzosin Hcl 10 Mg Tab) 10 mg PO PM ZEB Stop: 06/16/20 20:59 Last Admin: 06/01/20 23:23 Dose: Not Given Documented by: Carbidopa/Levodopa (Carbidopa/Levodopa 25/100mg Tab) 1 tab PO 0800,1200,1600,2000 ZEB Stop: 06/16/20 19:59 Last Admin: 06/01/20 20:56 Dose: 1 tab Documented by: Lidocaine HCl 60 ml/Diphenhydramine HCl 150 mg/ Al Hydrox/Mg Hydrox/Simethicone 60 ml/ Glycerin 60 ml/ BARCODE IDENTIFIER 1 ea 0 ml PO Q4H PRN PRN Reason: Sore Throat Stop: 06/28/20 18:02 Diclofenac Sodium (Diclofenac Sod 1% Gel 100 Gm Tube) 2 gm EXT Q6H PRN PRN Reason: joint pain Stop: 06/27/20 00:14 Last Admin: 06/01/20 15:46 Dose: 2 gm Documented by: Enoxaparin Sodium (Enoxaparin Inj 40 Mg/0.4 Ml Syr) 40 mg SQ QAM ZEB Stop: 06/21/20 08:59 Last Admin: 06/01/20 08:03 Dose: 40 mg Documented by: Heparin Sodium (Beef Lung) (Heparin 10 Unit/Ml 5 Ml Flush) 5 ml FLUSH PRN PRN PRN Reason: Flush Stop: 06/28/20 00:42 Last Admin: 05/31/20 05:13 Dose: 5 ml Documented by: Promethazine HCl 12.5 mg/ (Sodium Chloride) 50.5 mls @ 202 mls/hr IV Q6H PRN PRN Reason: Nausea And Vomiting Stop: 06/16/20 14:40 Last Infusion: 05/20/20 01:38 Dose: Infused Documented by: Dextrose (D10w) 1,000 mls @ 0 mls/hr IV .Q0M PRN PRN Reason: protocol (see label comments) Stop: 06/24/20 15:59 Last Infusion: 05/30/20 15:15 Dose: Infused Documented by: Pantoprazole Sodium 40 mg/ (Syringe) 10 mls @ 5 mls/min IV BID ZEB Stop: 06/26/20 15:59 Last Admin: 06/01/20 21:00 Dose: 5 mls/min Documented by: Sodium Chloride (Nss 1000ml) 1,000 mls @ 35 mls/hr IV .Q24H ZEB Stop: 06/27/20 15:25 Last Admin: 06/01/20 21:00 Dose: 35 mls/hr Documented by: Lorazepam (Ativan) 1 mg in 2 mls @ 1 mls/min IV HS PRN PRN Reason: Insomnia Stop: 06/30/20 16:24 Last Admin: 06/01/20 22:10 Dose: 1 mls/min Documented by: Nutrition (Parenteral) 2,035.5 (ml/ TPN BAG) 2,035.5 mls @ 85 mls/hr IV .[id number] ZEB; Protocol Stop: 06/02/20 15:59 Last Admin: 06/01/20 17:31 Dose: 85 mls/hr Documented by: Acetaminophen (Ofirmev) 1,000 mg in 100 mls @ 400 mls/hr IV Q8H PRN PRN Reason: Pain or Fever Stop: 06/04/20 17:23 Melatonin (Melatonin 3 Mg Tab) 3 mg PO HS PRN PRN Reason: Sleep Stop: 06/23/20 01:43 Miscellaneous Information (Tpn/Ppn Consult Pharmacy) 1 ea N/A UD PRN PRN Reason: Consult Stop: 06/24/20 00:00 Morphine Sulfate (Morphine Sulfate 2 Mg/Ml Carp) 2 mg IV Q4H PRN PRN Reason: Pain Stop: 06/12/20 11:23 Morphine Sulfate (Morphine Sulfate 4 Mg/Ml 1 Ml Carp\Vial) 4 mg IV Q4H PRN PRN Reason: Severe Pain Stop: 06/12/20 11:23 *Rasagiline*Non- Formulary Patient's Own Med 1 ea PO Q24H ZEB; Protocol Stop: 06/17/20 07:59 Last Admin: 06/01/20 08:01 Dose: 1 mg Documented by: Ondansetron HCl (Ondansetron Inj 2 Mg/Ml 2 Ml Vial) 4 mg IV Q4H PRN PRN Reason: Nausea/Vomiting Stop: 06/16/20 14:40 Last Admin: 05/20/20 00:38 Dose: 4 mg Documented by: PG Care Time/CCT Total # of Minutes Spent Total Time Spent with Patient: Total time spent is greater than 50% in coordination of care (as documented) at patient's floor/unit and/or counseling patient: Coding Level of Care Code 59752 Subseq Hosp Care Lvl 3 Diagnoses Partial obstruction of colon K56.600 Ileus K56.7 Obstipation K59.00 Parkinson disease G20 Colitis K52.9 LLQ abdominal pain R10.32 BPH (benign prostatic hyperplasia) N40.0 Obstructive sleep apnea G47.33 Protein calorie malnutrition E46 Insomnia G47.00
--- NOTE | 2020-06-02 06:31 | Surgery Progress Note ---
Date of Service June 02, 2020 Assessment & Plan (1) Small bowel obstruction: Postoperative day #5 exploratory laparotomy with lysis of adhesions Keep NG tube in place until bowel function resumes Maintain n.p.o. status Continue TPN until patient able to take oral intake reliably Patient underwent a small bowel follow-through study yesterday we will follow up on results of this Lovenox is in place for DVT prevention Admission and Anticipated Discharge Date Admission Date: May 17, 2020 Supervising Physician Co-Signing Physician Notes I personally saw and evaluated the patient with Gagan Enriquez PA-C and agree with the assessment and plan. 64 yo male POD#5 Ex lap, FLOR, excision of appendiceal remnant -NGT in place, leave in place for now -SBFT ordered, will follow up results -Continue supportive care at this point Subjective Patient denies shortness of breath, cough, fevers, shakes, chills. He denies worsening abdominal pain. He notes he has not had a bowel movement or passed any flatus since surgery. Physical Exam Constitutional: no acute distress ENMT: NG tube is in place Neck: trachea midline Respiratory: normal respiratory effort; no respiratory distress and no labored breathing Gastrointestinal (Abdomen): Abdomen is soft with minimal distention. There is minimal pain with palpation. Bowel sounds are hypoactive. Musculoskeletal: No calf tenderness Results & Data ([facility]) Vital Signs (Past 12 Hours) Vital Signs Temp Pulse Resp BP Pulse Ox 06/01/20 23:50 36.9 C 130 H 18 122/85 95 PG Care Time/CCT Total # of Minutes Spent Total Time Spent with Patient: Total time spent is greater than 50% in coordination of care (as documented) at patient's floor/unit and/or counseling patient: Coding Level of Care Code None Diagnoses Small bowel obstruction K56.609
[2020-06-02 06:57] LABS: BUN Creatinine Ratio 30.1 (10-20); Calcium 10.2 mg/dl (8.5-10.1); Creatinine Clr Calc Pharmacy 97.4 ml/min; Est GFR (African American) 109.6; Est GFR (Non-African American) 94.6; Magnesium 2.1 mg/dl (1.8-2.4); Phosphorus 2.9 mg/dl (2.5-4.9)
[2020-06-02] MEDS: TPN IV SCH ×2 (07:41→15:28)
[2020-06-02] MEDS: CENTRAL PN IV SCH ×2 (07:41→15:28)
[2020-06-02] MEDS: RASAGILINE PO SCH (08:37)
[2020-06-02] MEDS: CARBIDOPA/LEVODOPA 25/100MG TAB PO SCH ×4 (08:37→20:08)
[2020-06-02] MEDS: ENOXAPARIN INJ 40 MG/0.4 ML SYR SQ SCH (08:38)
[2020-06-02] MEDS: PANTOprazole 40 MG in SYRINGE 0 ML IV SCH ×2 (08:38→20:07)
[2020-06-02] MEDS: DICLOFENAC SOD 1% GEL 100 GM TUBE EXT PRN (08:39)
--- NOTE | 2020-06-02 08:51 | XRay Report ---
KUB HISTORY: eval SBO and transit of contrast COMPARISON: Small bowel follow-through 06/01/2020. FINDINGS: Midline skin julieth are again noted. There are multiple dilated gas-filled loops of small bowel again seen throughout the abdomen. Contrast is seen within the distal small bowel within the de ep pelvis. The contrast has not yet reached the colon which is filled with gas but not dilated. A gas tric tube remains within the stomach. Small bowel measures up to 5.2 cm in diameter. No renal calcul i. No ureteral calculi. No pneumoperitoneum or pneumatosis. IMPRESSION: Persistent dilatation of the small bowel. The contrast is now seen within the distal small bowel loop s. Therefore, this favors a postoperative ileus. Nasogastric tube remains within the stomach. ACT 112: Negative or not required by law. Electronically signed by: Ramon Farley M.D. 06/02/2020 8:50 AM
[2020-06-02] MEDS: SODIUM CHLORIDE 0.9% 1000ML 1,000 ML IV SCH ×2 (09:10→22:33)
--- NOTE | 2020-06-02 10:00 | Fluoroscopy Report ---
FL small bowel follow through CLINICAL HISTORY: Small bowel obstruction versus ileus. Abdominal distention. COMPARISON STUDY: KUB 06/01/2020. FLUOROSCOPY TIME: 0 minutes.. FINDINGS: 6 overhead images of the abdomen and pelvis were submitted. There are midline skin juileth consistent with recent postoperative change. Multiple dilated gas-filled loops of small bowel are not ed throughout the abdomen. There is nondilated gas-filled colon and rectum. A total of 300 cc of one- to-one mixture of water and Optiray 300 were placed into the indwelling nasogastric tube. Contrast wa s seen extending throughout proximal to mid small bowel over a 5 hour time interval. The contrast did not reach the colon. No definite transition points by conventional radiographic technique. The small bowel is distended up to 5.8 cm. This is similar to the prior study. IMPRESSION: Persistent dilated loops of small bowel. Contrast is seen within the mid small bowel over a 5 hour time interval. No additional images were obtained for this study. No definite transition po ints. There is gas within the nondistended colon. Therefore, findings favor a postoperative ileus. A partial small bowel obstruction could also have a similar appearance. ACT 112: Negative or not required by law. Electronically signed by: Ramon Farley M.D. 06/02/2020 9:59 AM
--- NOTE | 2020-06-02 10:58 | Hospitalist Progress Note ---
Date of Service June 02, 2020 Assessment & Plan (1) Partial obstruction of colon: CT abd pelvis 05/23/20 IMPRESSION: Small bowel obstruction with a transition identified within the right anterior abdomen 05/28: exploratory laparoscopy Dr. Núñez, lysis of adhesions, no obvious area of small bowel to release continue NGT, has post operative ileus encourage ambulation, OOB to chair, therapy is ordered everett pulled 05/30, he is urinating normally after it was removed, has condom catheter he had a bowel movement in afternoon on 05/30, first time in over a week, very pleased some flatus on 06/01 but nothing today small bowel follow through on 06/01 shows contrast in the distal small bowel after 5 hours PICC line 05/28, continue TPN until he can maintain enteral nutrition Dr. Mills took for flex sigmoidoscopy on 05/20, encountered 5cm long segment of very dense, fibrous stool that was at junction of descending and sigmoid colon Dr. Mills was able to break up the stool, irrigated with saline GI medicine for repeat flex sig on 05/22/2020, did see ulceration in colon, Zosyn IV completed 14 days, treatment for stercocolitis (2) Ileus: post op ileus continues ever since 05/28 when he went for ex lap KUB 06/01 and 06/02 with dilated small bowel loops but also with gas in the colon keep NGT in place, LIS keep NPO for now, diet per surgery liquid BM on 05/30, flatus on 06/01 small bowel follow through on 06/01 confirms ileus (3) Obstipation: due to hard stool in distal descending colon, maybe sterococal ulcer passed some flatus on 06/01 (4) Parkinson disease: Continue his usual Sinemet dosing QID over past few days has developed more resting tremors and rigidity spoke with Dr. Mosqueda at [facility] on 06/02 recommend clamping tube longer, 60 minutes and will work on getting Neupro patch, 2mg daily this is non-formulary, pharmacy will obtain (5) Colitis: stercocolitis from very hard impacted stool in distal descending colon completed 14 days of Zosyn IV, no pain, WBC normal continue NPO, NGT TPN will need repeat colonoscopy in 6 weeks (6) LLQ abdominal pain: see above, most of the pain is in LLQ obstipation (7) BPH (benign prostatic hyperplasia): Continue alfuzosin 10 mg p.o. every afternoon (8) Obstructive sleep apnea: CPAP at bedtime (9) Protein calorie malnutrition: poor intake for about two weeks now placed PICC, continue TPN today Cr, K , Mag, Phos all normal today (10) Insomnia: continue Ativan 1mg IV HS Admission and Anticipated Discharge Date Admission Date: May 17, [address] Mosqueda this morning, neurologist and movement disorder specialist at [facility] discussed difficult situation with ileus and poor absorption of Sinemet she discussed trying to clamp tube longer, could try to obtain rapidly disintegrating anticholinergic and try Neupro patch spoke with pharmacy, the Neupro patch is non-formulary, completed a form, should get it by Thursday patient is sitting up in a chair, feels okay, no flatus or BM today connected to NGT, dark green bile suctioned back SBFT from yesterday shows contrast in the distal bowel in 5 hours time, no evidence of obstruction but a partial SBO could not be excluded + bowel sounds on exam neck feels a little better, slept okay last night, no chest pain, no dyspnea, no cough labs are all stable this morning, BMP and Mag/Phos Review of Systems Review of Systems: All systems reviewed & are unremarkable except as noted in Subjective Constitutional: + fatigue and + weakness; no fever Respiratory: no cough and no dyspnea Cardiovascular: no chest pain, no palpitations, no syncope and no edema Gastrointestinal: + constipation; no abdominal pain, no nausea, no vomiting and no diarrhea/loose stools Musculoskeletal: + stiffness and + muscle weakness Neurologic: + tremor(s) and + abnormal movements (more rigidity in arms) Psychiatric: + depression Physical Exam Constitutional: WD/WN, vitals as above comfortable; no acute distress Neck: trachea midline, no thyromegaly Respiratory: normal respiratory effort, lungs clear to auscultation Cardiovascular: RRR, no murmur, no edema Gastrointestinal (Abdomen): Inspection/Auscultation: + abdominal surgical incision and + hypoactive bowel sounds; abdomen not distended Percussion/Palpation: + abdomen tender, abdomen soft and + tympanic to percussion; no ascites Musculoskeletal: no cyanosis or clubbing, extremities motor strength 5/5 Skin: no rashes, warm and dry Neurologic: patellar DTR's 2+ bilat, sensation intact and PERRL, EOMI, accommodation nl, no face palsy, no dysarthria Motor/Sensory: + tremor and + abnormal movement (cogwheel rigidity) Gait: + shuffling gait Psychiatric: A+Ox3, euthymic affect Lymphatic: no cervical or axillary lymphadenopathy Results & Data Results & Data ([facility]) Vital Signs (Past 12 Hours) Vital Signs Temp Pulse Resp BP BP Pulse Ox 06/02/20 06:59 36.8 C 119 H 18 127/88 94 06/01/20 23:50 36.9 C 130 H 18 122/85 95 Laboratory Results Laboratory Results - last 24 hr 06/02/20 06/02/20 06/02/20 00:01 05:48 06:01 Sodium 136 Potassium 4.0 Chloride 104 Carbon Dioxide 28 Anion Gap 4.0 BUN 23 H Creatinine 0.77 Est Cr Clr Drug Dosing 97.4 Est GFR ( Amer) 109.6 Est GFR (Non-Af Amer) 94.6 BUN/Creatinine Ratio 30.1 H Glucose 132 H POC Glucose 109 H 120 H Calcium 10.2 H Phosphorus 2.9 Magnesium 2.1 Medications Administered Current Inpatient Medications Alfuzosin HCl (Alfuzosin Hcl 10 Mg Tab) 10 mg PO PM ZEB Stop: 06/16/20 20:59 Last Admin: 06/01/20 23:23 Dose: Not Given Documented by: Carbidopa/Levodopa (Carbidopa/Levodopa 25/100mg Tab) 1 tab PO 0800,1200,1600,2000 ZEB Stop: 06/16/20 19:59 Last Admin: 06/02/20 08:37 Dose: 1 tab Documented by: Lidocaine HCl 60 ml/Diphenhydramine HCl 150 mg/ Al Hydrox/Mg Hydrox/Simethicone 60 ml/ Glycerin 60 ml/ BARCODE IDENTIFIER 1 ea 0 ml PO Q4H PRN PRN Reason: Sore Throat Stop: 06/28/20 18:02 Diclofenac Sodium (Diclofenac Sod 1% Gel 100 Gm Tube) 2 gm EXT Q6H PRN PRN Reason: joint pain Stop: 06/27/20 00:14 Last Admin: 06/02/20 08:39 Dose: 2 gm Documented by: Enoxaparin Sodium (Enoxaparin Inj 40 Mg/0.4 Ml Syr) 40 mg SQ QAM ZEB Stop: 06/21/20 08:59 Last Admin: 06/02/20 08:38 Dose: 40 mg Documented by: Heparin Sodium (Beef Lung) (Heparin 10 Unit/Ml 5 Ml Flush) 5 ml FLUSH PRN PRN PRN Reason: Flush Stop: 06/28/20 00:42 Last Admin: 05/31/20 05:13 Dose: 5 ml Documented by: Promethazine HCl 12.5 mg/ (Sodium Chloride) 50.5 mls @ 202 mls/hr IV Q6H PRN PRN Reason: Nausea And Vomiting Stop: 06/16/20 14:40 Last Infusion: 05/20/20 01:38 Dose: Infused Documented by: Dextrose (D10w) 1,000 mls @ 0 mls/hr IV .Q0M PRN PRN Reason: protocol (see label comments) Stop: 06/24/20 15:59 Last Infusion: 05/30/20 15:15 Dose: Infused Documented by: Pantoprazole Sodium 40 mg/ (Syringe) 10 mls @ 5 mls/min IV BID ZEB Stop: 06/26/20 15:59 Last Admin: 06/02/20 08:38 Dose: 5 mls/min Documented by: Sodium Chloride (Nss 1000ml) 1,000 mls @ 35 mls/hr IV .Q24H ZEB Stop: 06/27/20 15:25 Last Admin: 06/02/20 09:10 Dose: Not Given Documented by: Lorazepam (Ativan) 1 mg in 2 mls @ 1 mls/min IV HS PRN PRN Reason: Insomnia Stop: 06/30/20 16:24 Last Admin: 06/01/20 22:10 Dose: 1 mls/min Documented by: Nutrition (Parenteral) 2,035.5 (ml/ TPN BAG) 2,035.5 mls @ 85 mls/hr IV .[id number] [facility]; Protocol Stop: 06/02/20 15:59 Last Admin: 06/01/20 17:31 Dose: 85 mls/hr Documented by: Acetaminophen (Ofirmev) 1,000 mg in 100 mls @ 400 mls/hr IV Q8H PRN PRN Reason: Pain or Fever Stop: 06/04/20 17:23 Nutrition (Parenteral) 2,043.5 (ml/ TPN BAG) 2,043.5 mls @ 85 mls/hr IV .Q24H ZEB; Protocol Stop: 06/03/20 15:59 Melatonin (Melatonin 3 Mg Tab) 3 mg PO HS PRN PRN Reason: Sleep Stop: 06/23/20 01:43 Miscellaneous Information (Tpn/Ppn Consult Pharmacy) 1 ea N/A UD PRN PRN Reason: Consult Stop: 06/24/20 00:00 Morphine Sulfate (Morphine Sulfate 2 Mg/Ml Carp) 2 mg IV Q4H PRN PRN Reason: Pain Stop: 06/12/20 11:23 Morphine Sulfate (Morphine Sulfate 4 Mg/Ml 1 Ml Carp\Vial) 4 mg IV Q4H PRN PRN Reason: Severe Pain Stop: 06/12/20 11:23 *Rasagiline*Non- Formulary Patient's Own Med 1 ea PO Q24H ZEB; Protocol Stop: 06/17/20 07:59 Last Admin: 06/02/20 08:37 Dose: 1 mg Documented by: Ondansetron HCl (Ondansetron Inj 2 Mg/Ml 2 Ml Vial) 4 mg IV Q4H PRN PRN Reason: Nausea/Vomiting Stop: 06/16/20 14:40 Last Admin: 05/20/20 00:38 Dose: 4 mg Documented by: PG Care Time/CCT Total # of Minutes Spent Total Time Spent: 36 Total Time Spent with Patient: Total time spent is greater than 50% in coordination of care (as documented) at patient's floor/unit and/or counseling patient: 16 minutes on the phone with [facility] 20 minutes otherwise spent on exam, discussing with family, reviewing chart, discussing with surgery, documentation Coding Level of Care Code 15205 Subseq Hosp Care Lvl 3 Diagnoses Partial obstruction of colon K56.600 Ileus K56.7 Obstipation K59.00 Parkinson disease G20 Colitis K52.9 LLQ abdominal pain R10.32 BPH (benign prostatic hyperplasia) N40.0 Obstructive sleep apnea G47.33 Protein calorie malnutrition E46 Insomnia G47.00
[2020-06-02] MEDS ORDERED: CENTRAL PN IV SCH (16:00)
[2020-06-02] MEDS ORDERED: TPN IV SCH (16:00)
--- NOTE | 2020-06-02 19:21 | Gastroenterology Progress Note ---
Date of Service June 02, 2020 Assessment & Plan (1) Small bowel obstruction: s/p laparotomy - continue supportive care post op--bowel sounds seem better and tolerating NG clamp and clears so far. --further per surgery left colon ulcer/constipation--colonoscopy as outpatient. Admission and Anticipated Discharge Date Admission Date: May 17, 2020 Subjective cc f/u SBO HPI Pt denies abd pain. At time seen NG clamped about 3 hours and taking in clear liquids tolerating both. No stools today. SBFT yesterday contrast to mid SB no obstruction seen. KUB today contrast to distal SB. Physical Exam Gastrointestinal (Abdomen): good bs, soft, mildly distended, no guarding nor rebound Results & Data ([facility]) Vital Signs (Past 12 Hours) Vital Signs Temp Pulse Resp BP Pulse Ox 06/02/20 15:03 36.7 C 112 H 18 134/92 95
[2020-06-02] MEDS: ALFUZOSIN HCL 10 MG TAB PO SCH (20:07)
[2020-06-02] MEDS: LORazepam 1 MG/2 ML VIAL IV PRN (22:33)
[2020-06-03 06:21] LABS: Mean Corpuscular Hemoglobin 31.7 pg (25-34); Mean Corpuscular Hgb Conc 34.3 g/dL (32-36); Mean Corpuscular Volume 92.6 fL (80-100); Mean Platelet Volume 10.7 fL (7.4-10.4); Platelet Count 303 K/uL (130-400); RDW Coefficient of Variation 13.9 % (11.5-14.5); RDW Standard Deviation 46.9 fL (36.4-46.3); Red Blood Count 3.78 M/uL (4.7-6.1)
[2020-06-03] MEDS: ACETAMINOPHEN 1,000 MG/100 ML VIAL IV PRN (06:21)
--- NOTE | 2020-06-03 06:43 | Surgery Progress Note ---
Date of Service June 03, 2020 Assessment & Plan (1) Small bowel obstruction: Postoperative day #6 exploratory laparotomy with lysis of adhesions -A small bowel follow-through study was performed on 06/01/2020; KUB was performed yesterdayboth of these studies demonstrated findings consistent with postoperative ileus We will keep NG tube in place until bowel function resumes Continue n.p.o. status Continue TPN until patient able to have diet advanced Lovenox is in place for DVT prevention Admission and Anticipated Discharge Date Admission Date: May 17, 2020 Supervising Physician Co-Signing Physician Notes I personally saw and evaluated the patient with Gagan Enriquez PA-C and agree with the assessment and plan. 64 yo male POD#6 Ex lap, FLOR, excision of appendiceal remnant -NGT in place, was clamped yesterday, however patient is nauseated and when hooked up to suction, thick bilious drainage was encountered -SBFT images and results reviewed, looks like a prolonged ileus -Continue supportive care at this point Subjective Patient denies worsening abdominal pain at the present time. He notes that when his NG tube is off suction it does not exacerbate any nausea or vomiting. He denies any shakes, chills, fevers. He is not short of breath. He notes he has been ambulating only a small amount in the hallway. He denies passing any flatus or having any bowel movement since surgery. Physical Exam Constitutional: no acute distress Gastrointestinal (Abdomen): Abdomen is soft with mild distention. Bowel sounds are present. Pain is noted with palpation near surgical incisions. Results & Data ([facility]) Vital Signs (Past 12 Hours) Vital Signs Temp Pulse Pulse Resp BP Pulse Ox 06/02/20 22:43 36.5 C 106 H 22 122/81 94 06/02/20 20:00 125 H 133/79 PG Care Time/CCT Total # of Minutes Spent Total Time Spent with Patient: Total time spent is greater than 50% in coordination of care (as documented) at patient's floor/unit and/or counseling patient: Coding Level of Care Code None Diagnoses Small bowel obstruction K56.609
[2020-06-03 06:50] LABS: Basophils # (auto) 0.04 K/uL (0-0.2); Basophils % (auto) 0.3 %; Eosinophils # (auto) 0.16 K/uL (0-0.5); Eosinophils % (auto) 1.3 %; Immature Granulocytes # (auto) 0.04 K/uL (0.00-0.02); Immature Granulocytes % (auto) 0.3 %; Lymphocytes # (auto) 1.78 K/uL (1.2-3.4); Lymphocytes % (auto) 14.7 %; Monocytes # (auto) 0.58 K/uL (0.11-0.59); Monocytes % (auto) 4.8 %; Neutrophils % (auto) 78.6 %
[2020-06-03 07:03] LABS: BUN Creatinine Ratio 39.8 (10-20); Calcium 9.4 mg/dl (8.5-10.1); Est GFR (African American) 120.6; Est GFR (Non-African American) 104.1; Phosphorus 2.8 mg/dl (2.5-4.9); Potassium 4.1 mmol/L (3.5-5.1)
[2020-06-03] MEDS: CARBIDOPA/LEVODOPA 25/100MG TAB PO SCH ×4 (07:49→20:06)
[2020-06-03] MEDS: RASAGILINE PO SCH (07:49)
[2020-06-03] MEDS: ENOXAPARIN INJ 40 MG/0.4 ML SYR SQ SCH (07:50)
[2020-06-03] MEDS: PANTOprazole 40 MG in SYRINGE 0 ML IV SCH ×2 (07:50→20:06)
--- NOTE | 2020-06-03 08:16 | Hospitalist Progress Note ---
Date of Service June 03, 2020 Assessment & Plan (1) Partial obstruction of colon: CT abd pelvis 05/23/20 IMPRESSION: Small bowel obstruction with a transition identified within the right anterior abdomen 05/28: exploratory laparoscopy Dr. Núñez, lysis of adhesions, no obvious area of small bowel to release continue NGT, continues to have post operative ileus encourage ambulation, OOB to chair, therapy is ordered everett pulled 05/30, he is urinating normally after it was removed, has condom catheter he had a bowel movement in afternoon on 05/30, first time in over a week some flatus on 06/01 small liquid BM and flatus in the morning on 06/03 small bowel follow through on 06/01 shows contrast in the distal small bowel after 5 hours PICC line 05/28, continue TPN until he can maintain enteral nutrition Dr. Mills took for flex sigmoidoscopy on 05/20, encountered 5cm long segment of very dense, fibrous stool that was at junction of descending and sigmoid colon Dr. Mills was able to break up the stool, irrigated with saline GI medicine for repeat flex sig on 05/22/2020, did see ulceration in colon, Zosyn IV completed 14 days, treatment for stercocolitis (2) Ileus: post op ileus continues ever since 05/28 when he went for ex lap KUB 06/01 and 06/02 with dilated small bowel loops but also with gas in the colon keep NGT in place at noon will be due for Sinemet, can keep tube clamped the rest of the day/evening and allow clears liquid BM on 05/30, flatus on 06/01 and now very small liquidd BM 06/03 and some flatus in morning small bowel follow through on 06/01 confirms ileus, no obvious obstruction (3) Obstipation: due to hard stool in distal descending colon, maybe sterococal ulcer passed some flatus on 06/01 (4) Parkinson disease: Continue his usual Sinemet dosing QID over past few days has developed more resting tremors and rigidity spoke with Dr. Mosqueda at [facility] [address] [facility] on 06/02 recommend clamping tube longer, at least 60 minutes and will work on getting Neupro patch, 2mg daily this is non-formulary, pharmacy will obtain and should be here Sunday 06/04 (5) Colitis: stercocolitis from very hard impacted stool in distal descending colon completed 14 days of Zosyn IV, no pain, WBC 12 continue NGT for suctioning as needed TPN will need repeat colonoscopy in 6 weeks (6) LLQ abdominal pain: see above, most of the pain is in LLQ obstipation (7) BPH (benign prostatic hyperplasia): Continue alfuzosin 10 mg p.o. every afternoon (8) Obstructive sleep apnea: CPAP at bedtime (9) Protein calorie malnutrition: poor intake for about two weeks now placed PICC, continue TPN today Cr, K , Mag, Phos all normal today (10) Insomnia: continue Ativan 1mg IV HS not working as well, add Trazodone 50mg HS (11) Left lumbar radiculopathy: shoot pain, spasms in left leg has had injections as outpatient difficult because want to avoid narcotics with his ileus and do not want to give muscle relaxer for same reasone try Lidoderm 5% patch today (12) Neck pain: chronic issue per , has seen numerous specialists without significant relief as outpatient it is worse right now being in the hospital Admission and Anticipated Discharge Date Admission Date: May 17, 2020 Subjective patient did okay yesterday with clear liquids and clamping NG tube all day and night however, started to have some distension, slight pain and nausea by this morning NGT hooked to suction, 300mL of dark bilious fluid drained but now it is back to clear yellow stomach contents he says his left leg was really bad last night, spasms and shooting pain, took a while to get comfortable discussed that we are in tough spot, cannot give anti-spasmotic because I would not want to risk decreasing contractility of bowel with ileus will try Lidoderm patch today not sleeping well, got Ativan but then 30 minutes afterwards he met his new night nurse who had to do an assessment and he was awake and then leg spasms will try Trazodone 50mg HS this evening in addition to the Ativan 1mg IV labs are stable, WBC is 12k waiting on KUB this morning he does report that he had a small liquid BM and passed some flatus this morning hypoactive bowel sounds on exam Review of Systems Review of Systems: All systems reviewed & are unremarkable except as noted in Subjective Constitutional: no fever Respiratory: no cough and no dyspnea Cardiovascular: no chest pain Gastrointestinal: + abdominal pain, + bloating, + nausea and + constipation Musculoskeletal: + muscle weakness Neurologic: + tremor(s) Psychiatric: + depression, + hopelessness and + abnormal sleep pattern Physical Exam Constitutional: WD/WN, vitals as above comfortable; no acute distress Neck: trachea midline, no thyromegaly Respiratory: normal respiratory effort, lungs clear to auscultation Cardiovascular: RRR, no murmur, no edema Gastrointestinal (Abdomen): Inspection/Auscultation: + abdominal surgical incision (clean, dry, intact) and + hypoactive bowel sounds; abdomen not distended Percussion/Palpation: abdomen soft and + tympanic to percussion; abdomen nontender and no ascites Musculoskeletal: Head/Neck/Chest: normocephalic, head atraumatic and neck supple Extremities: + abnormal strength (generalized weakness, cannot transfer independently) Skin: no rashes, warm and dry Neurologic: patellar DTR's 2+ bilat, sensation intact and PERRL, EOMI, accommodation nl, no face palsy, no dysarthria Motor/Sensory: + tremor and + abnormal movement (cogwheel rigidity) Gait: + shuffling gait Psychiatric: Orientation: alert and oriented x 3 Affect: + flat affect Mood: + depressed mood Lymphatic: no cervical or axillary lymphadenopathy Results & Data Results & Data ([facility]) Vital Signs (Past 12 Hours) Vital Signs Temp Pulse Resp BP Pulse Ox 06/03/20 07:17 36.6 C 100 H 16 134/92 95 06/02/20 22:43 36.5 C 106 H 22 122/81 94 Laboratory Results Laboratory Results - last 24 hr 06/02/20 06/03/20 06/03/20 20:35 01:20 05:48 WBC 12.10 H RBC 3.78 L Hgb 12.0 L Hct 35.0 L MCV 92.6 MCH 31.7 MCHC 34.3 RDW Std Deviation 46.9 H RDW Coeff of Gregorio 13.9 Plt Count 303 MPV 10.7 H Immature Gran % (Auto) 0.3 Neut % (Auto) 78.6 Lymph % (Auto) 14.7 Tyler % (Auto) 4.8 Eos % (Auto) 1.3 Baso % (Auto) 0.3 Neut # (Auto) 9.50 H Lymph # (Auto) 1.78 Tyler # (Auto) 0.58 Eos # (Auto) 0.16 Baso # (Auto) 0.04 Immature Gran # (Auto) 0.04 H Sodium Potassium Chloride Carbon Dioxide Anion Gap BUN Creatinine Est Cr Clr Drug Dosing Est GFR ( Amer) Est GFR (Non-Af Amer) BUN/Creatinine Ratio Glucose POC Glucose 112 H 108 H Calcium Phosphorus Magnesium 06/03/20 06/03/20 05:48 06:00 WBC RBC Hgb Hct MCV MCH MCHC RDW Std Deviation RDW Coeff of Gregorio Plt Count MPV Immature Gran % (Auto) Neut % (Auto) Lymph % (Auto) Tyler % (Auto) Eos % (Auto) Baso % (Auto) Neut # (Auto) Lymph # (Auto) Tyler # (Auto) Eos # (Auto) Baso # (Auto) Immature Gran # (Auto) Sodium 140 Potassium 4.1 Chloride 108 H Carbon Dioxide 27 Anion Gap 5.0 BUN 24 H Creatinine 0.61 Est Cr Clr Drug Dosing 123.0 Est GFR ( Amer) 120.6 Est GFR (Non-Af Amer) 104.1 BUN/Creatinine Ratio 39.8 H Glucose 117 H POC Glucose 105 H Calcium 9.4 Phosphorus 2.8 Magnesium 2.0 Medications Administered Current Inpatient Medications Alfuzosin HCl (Alfuzosin Hcl 10 Mg Tab) 10 mg PO PM ZEB Stop: 06/16/20 20:59 Last Admin: 06/02/20 20:07 Dose: Not Given Documented by: Carbidopa/Levodopa (Carbidopa/Levodopa 25/100mg Tab) 1 tab PO 0800,1200 ,1600,2000 ZEB Stop: 06/16/20 19:59 Last Admin: 06/03/20 07:49 Dose: 1 tab Documented by: Lidocaine HCl 60 ml/Diphenhydramine HCl 150 mg/ Al Hydrox/Mg Hydrox/Simethicone 60 ml/ Glycerin 60 ml/ BARCODE IDENTIFIER 1 ea 0 ml PO Q4H PRN PRN Reason: Sore Throat Stop: 06/28/20 18:02 Diclofenac Sodium (Diclofenac Sod 1% Gel 100 Gm Tube) 2 gm EXT Q6H PRN PRN Reason: joint pain Stop: 06/27/20 00:14 Last Admin: 06/02/20 08:39 Dose: 2 gm Documented by: Enoxaparin Sodium (Enoxaparin Inj 40 Mg/0.4 Ml Syr) 40 mg SQ QAM ZEB Stop: 06/21/20 08:59 Last Admin: 06/03/20 07:50 Dose: 40 mg Documented by: Heparin Sodium (Beef Lung) (Heparin 10 Unit/Ml 5 Ml Flush) 5 ml FLUSH PRN PRN PRN Reason: Flush Stop: 06/28/20 00:42 Last Admin: 05/31/20 05:13 Dose: 5 ml Documented by: Promethazine HCl 12.5 mg/ (Sodium Chloride) 50.5 mls @ 202 mls/hr IV Q6H PRN PRN Reason: Nausea And Vomiting Stop: 06/16/20 14:40 Last Infusion: 05/20/20 01:38 Dose: Infused Documented by: Dextrose (D10w) 1,000 mls @ 0 mls/hr IV .Q0M PRN PRN Reason: protocol (see label comments) Stop: 06/24/20 15:59 Last Infusion: 05/30/20 15:15 Dose: Infused Documented by: Pantoprazole Sodium 40 mg/ (Syringe) 10 mls @ 5 mls/min IV BID ZEB Stop: 06/26/20 15:59 Last Admin: 06/03/20 07:50 Dose: 5 mls/min Documented by: Sodium Chloride (Nss 1000ml) 1,000 mls @ 40 mls/hr IV .Q24H ZEB Stop: 06/27/20 15:25 Last Admin: 06/02/20 22:33 Dose: 35 mls/hr Documented by: Lorazepam (Ativan) 1 mg in 2 mls @ 1 mls/min IV HS PRN PRN Reason: Insomnia Stop: 06/30/20 16:24 Last Admin: 06/02/20 22:33 Dose: 1 mls/min Documented by: Acetaminophen (Ofirmev) 1,000 mg in 100 mls @ 400 mls/hr IV Q8H PRN PRN Reason: Pain or Fever Stop: 06/04/20 17:23 Last Infusion: 06/03/20 07:11 Dose: Infused Documented by: Nutrition (Parenteral) 2,043.5 (ml/ TPN BAG) 2,043.5 mls @ 85 mls/hr IV .Q24H ZEB; Protocol Stop: 06/03/20 15:59 Last Admin: 06/02/20 15:18 Dose: 85 mls/hr Documented by: Melatonin (Melatonin 3 Mg Tab) 3 mg PO HS PRN PRN Reason: Sleep Stop: 06/23/20 01:43 Miscellaneous (Neupro (Rotigotine) Transdermal 2mg/24h - Non-Formulary Medication) 1 ea N/A DAILY [facility]; Protocol Stop: 07/04/20 08:59 Miscellaneous (Remove Neupro Patch) 1 ea N/A DAILY@0859 [facility]; Protocol Stop: 07/05/20 08:58 Miscellaneous Information (Tpn/Ppn Consult Pharmacy) 1 ea N/A UD PRN PRN Reason: Consult Stop: 06/24/20 00:00 Morphine Sulfate (Morphine Sulfate 2 Mg/Ml Carp) 2 mg IV Q4H PRN PRN Reason: Pain Stop: 06/12/20 11:23 Morphine Sulfate (Morphine Sulfate 4 Mg/Ml 1 Ml Carp\Vial) 4 mg IV Q4H PRN PRN Reason: Severe Pain Stop: 06/12/20 11:23 *Rasagiline*Non- Formulary Patient's Own Med 1 ea PO Q24H [facility]; Protocol Stop: 06/17/20 07:59 Last Admin: 06/03/20 07:49 Dose: 1 mg Documented by: Ondansetron HCl (Ondansetron Inj 2 Mg/Ml 2 Ml Vial) 4 mg IV Q4H PRN PRN Reason: Nausea/Vomiting Stop: 06/16/20 14:40 Last Admin: 05/20/20 00:38 Dose: 4 mg Documented by: PG Care Time/CCT Total # of Minutes Spent Total Time Spent with Patient: Total time spent is greater than 50% in coordination of care (as documented) at patient's floor/unit and/or counseling patient: Coding Level of Care Code 07219 Subseq Hosp Care Lvl 3 Diagnoses Partial obstruction of colon K56.600 Ileus K56.7 Obstipation K59.00 Parkinson disease G20 Colitis K52.9 LLQ abdominal pain R10.32 BPH (benign prostatic hyperplasia) N40.0 Obstructive sleep apnea G47.33 Protein calorie malnutrition E46 Insomnia G47.00 Left lumbar radiculopathy M54.16 Neck pain M54.2
[2020-06-03] MEDS: SODIUM CHLORIDE 0.9% 1000ML 1,000 ML IV SCH ×2 (10:22→23:42)
--- NOTE | 2020-06-03 10:36 | Gastroenterology Progress Note ---
Date of Service June 03, 2020 Assessment & Plan (1) Small bowel obstruction: s/p laparotomy - continue supportive care post op--tolerated long clamping in last 24 hours. Repeat trial of clamping NG defer to surgery. left colon ulcer/constipation--colonoscopy as outpatient. Admission and Anticipated Discharge Date Admission Date: May 17, 2020 Subjective CC f/u SBO HPI NG clamped all day and night until this am about 0900. Had about 300 of dark bile removed as of this time since suction put on again. He had some abd distension and nausea but no pain this am. Passed some gas and small liquid stool this am. Physical Exam Gastrointestinal (Abdomen): hypoactive bowel sounds, moderate distension, no guarding nor rebound Results & Data ([facility]) Vital Signs (Past 12 Hours) Vital Signs Temp Pulse Resp BP Pulse Ox 06/03/20 07:17 36.6 C 100 H 16 134/92 95 06/02/20 22:43 36.5 C 106 H 22 122/81 94
[2020-06-03] MEDS: DICLOFENAC SOD 1% GEL 100 GM TUBE EXT PRN ×2 (11:08→18:20)
[2020-06-03] MEDS: LIDOCAINE 5% 1 PATCH TD SCH (11:46)
--- NOTE | 2020-06-03 13:42 | XRay Report ---
XR KUB/Abdomen 1 view CLINICAL HISTORY: ileus COMPARISON STUDY: 06/02/2020 FINDINGS: There is contrast within nondilated colon. An enteric tube is visualized within the stomach . There are dilated small bowel loops measuring up to 63 mm in diameter. The findings could represent a partial small bowel obstruction, or severe small bowel ileus IMPRESSION: 1. Persistent marked small bowel dilatation with loops measuring up to 63 mm in diameter 2. Contrast within nondilated colon. 3. The findings could represent a partial small bowel obstruction or severe small bowel ileus. ACT 112: Negative or not required by law. Electronically signed by: Mika Smith M.D. 06/03/2020 1:40 PM
[2020-06-03] MEDS ORDERED: GLYCERIN ADULT 12 SUPP/BOX SUPP PR ONE (14:52)
[2020-06-03] MEDS ORDERED: TPN IV SCH (16:00)
[2020-06-03] MEDS ORDERED: CENTRAL PN IV SCH (16:00)
[2020-06-03] MEDS: traZODone HCL 50 MG TAB PO SCH (20:06)
[2020-06-03] MEDS: ALFUZOSIN HCL 10 MG TAB PO SCH (20:07)
[2020-06-03] MEDS: LORazepam 1 MG/2 ML VIAL IV PRN (21:27)
[2020-06-04] MEDS: ACETAMINOPHEN 1,000 MG/100 ML VIAL IV PRN ×2 (00:11→10:12)
[2020-06-04 06:55] LABS: BUN Creatinine Ratio 34.1 (10-20); Calcium 9.3 mg/dl (8.5-10.1); Creatinine Clr Calc Pharmacy 117.2 ml/min; Est GFR (African American) 118.3; Magnesium 1.9 mg/dl (1.8-2.4); Potassium 3.9 mmol/L (3.5-5.1)
[2020-06-04 06:56] LABS: Phosphorus 2.9 mg/dl (2.5-4.9)
[2020-06-04] MEDS: CARBIDOPA/LEVODOPA 25/100MG TAB PO SCH ×4 (07:56→19:59)
[2020-06-04] MEDS: DICLOFENAC SOD 1% GEL 100 GM TUBE EXT PRN ×3 (07:56→20:01)
[2020-06-04] MEDS: LIDOCAINE 5% 1 PATCH TD SCH (07:57)
[2020-06-04] MEDS: RASAGILINE PO SCH (07:57)
[2020-06-04] MEDS: ENOXAPARIN INJ 40 MG/0.4 ML SYR SQ SCH (07:58)
--- NOTE | 2020-06-04 08:35 | Gastroenterology Progress Note ---
Date of Service June 04, 2020 Assessment & Plan (1) Small bowel obstruction: s/p laparotomy - Persistent ileus noted on KUB 06/03/2020. Continue supportive care post op. Repeat trial of clamping NG defer to surgery. left colon ulcer/constipation--colonoscopy as outpatient. Admission and Anticipated Discharge Date Admission Date: May 17, 2020 Subjective CC f/u SBO HPI: Patient denies abdominal pain, nausea, or vomiting. Remains NPO. NGT intact. Reports abdomen distension. Minimal flatus and denies bowel movement. Review of Systems Review of Systems: All systems reviewed & are unremarkable except as noted in Subjective Physical Exam Physical Exam: awake/alert Respiratory: normal respiratory effort; no respiratory distress and no labored breathing Gastrointestinal (Abdomen): Inspection/Auscultation: + abdominal surgical incision (c/d/i with surgical julieth in midline) and + hypoactive bowel sounds Percussion/Palpation: + tympanic to percussion; abdomen nontender Results & Data ([facility]) Vital Signs (Past 12 Hours) Vital Signs Temp Pulse Resp BP Pulse Ox 06/04/20 07:04 36.7 C 100 H 16 138/90 96 06/04/20 05:12 94 H 20 134/91 94 06/03/20 21:25 36.7 C 117 H 20 151/96 H 95 Laboratory Results - last 24 hr 06/04/20 06/04/20 05:46 06:10 Sodium 139 Potassium 3.9 Chloride 107 Carbon Dioxide 23 Anion Gap 10.0 BUN 22 H Creatinine 0.64 Est Cr Clr Drug Dosing 117.2 Est GFR ( Amer) 118.3 Est GFR (Non-Af Amer) 102.0 BUN/Creatinine Ratio 34.1 H Glucose 121 H POC Glucose 110 H Calcium 9.3 Phosphorus 2.9 Magnesium 1.9
--- NOTE | 2020-06-04 08:40 | Pharmacy Report ---
PHA: Parenteral Nutrition Con - Date of Service June 04, 2020 - Scope Pharmacy was consulted on 05/25 to manage parenteral nutrition orders for this patient. - Subjective The patient is currently on day [#11] of [central] parenteral nutrition for prolonged NPO/partial large bowel obstruction - Objective Height: 5 ft 10 in Weight: 78 kg Diet: NPO Intake & Output (24hrs):: Intake & Output 06/02/20 06/03/20 06/04/20 06/05/20 06:59 06:59 06:59 06:59 Intake Total 3188.917 / 3188.917 3158.583 / 3158.583 3462.317 / 3462.317 Output Total 1800 / 1800 1750 / 1750 2701 / 2701 Balance 1388.917 / 0668.667 0844.583 / 1408.583 761.317 / 761.317 Weight 78 kg Laboratory Data (Last 24 Hr):: 06/04/20 06:10 Sodium 139 Potassium 3.9 Chloride 107 Carbon Dioxide 23 BUN 22 H Creatinine 0.64 Glucose 121 H Calcium 9.3 Phosphorus 2.9 Magnesium 1.9 Nutrition Assessment:: Please refer to the Notes section of the EMR for the most recent adobe ball mixer note. - Plan Will continue TPN today, continues at goal for Kcal. Plan to increase Mg and K in TPN today as labs trending down. NG tube in place. Continues NPO status For day 11 of PN administration, the following will be ordered: Macronutrients Amino acids 125 grams/day Dextrose 325 grams/day Lipids 50 grams/day Micronutrients Sodium phosphate 24 MMol Sodium chloride 60 mEq Potassium phosphate 42 mMol Potassium acetate 40 mEq Magnesium sulfate 8.12 mEq Multivitamins 10 mL Trace Elements 1 mL Additional additives: thiamine, folic acid Total volume 2044.49 mL to be infused over 24 hrs will provide 2105 kcal/day Labs, as indicated, will be ordered per protocol Pharmacy will continue to follow and adjust parenteral nutrition orders on a daily basis. Thank you for allowing us to participate in the care of this patient.
[2020-06-04] MEDS: POLYETHYLENE (MIRALAX) 17 GM PACK PO SCH (08:57)
[2020-06-04] MEDS ORDERED: ROTIGOTINE SCH (09:00)
[2020-06-04] MEDS: PANTOprazole 40 MG in SYRINGE 0 ML IV SCH ×2 (09:21→20:01)
--- NOTE | 2020-06-04 10:11 | Surgery Progress Note ---
Date of Service June 04, 2020 Assessment & Plan (1) Ileus: has the least distention since preop contrast in colon yesterday clamping trial again today, will recheck later this afternoon Admission and Anticipated Discharge Date Admission Date: May 17, 2020 Supervising Physician Co-Signing Physician Notes I personally saw and evaluated the patient with Sami Breaux PA-C and agree with the assessment and plan. 64 yo male POD#7 Ex lap, FLOR, excision of appendiceal remnant -Only 75mL light bilious residual from NGT, will remove and start sips -Continue supportive care at this point Subjective small loose BMs, some flatus mostly with BMs Physical Exam Gastrointestinal (Abdomen): Inspection/Auscultation: + abdomen distended (minimal) Percussion/Palpation: abdomen soft Results & Data ([facility]) Vital Signs (Past 12 Hours) Vital Signs Temp Pulse Resp BP Pulse Ox 06/04/20 07:04 36.7 C 100 H 16 138/90 96 06/04/20 05:12 94 H 20 134/91 94 PG Care Time/CCT Total # of Minutes Spent Total Time Spent with Patient: Total time spent is greater than 50% in coordination of care (as documented) at patient's floor/unit and/or counseling patient: Coding Level of Care Code None Diagnoses Ileus K56.7
--- NOTE | 2020-06-04 14:17 | Progress Notes ---
DATE: 06/04/2020 The patient is postop day 6 today having had his laparotomy a week ago today for lysis of small bowel adhesions. The patient has had a difficult recovery with prolonged ileus. He had an x-ray earlier today that shows significant distention of his small intestine. His nasogastric tube has been removed today and looks like his Lopez as well. He is receiving his nutrition by peripheral alimentation. His Parkinson's disease appears to be worse. His motion is bradykinetic and he has a worst resting tremor and I am thinking that this may be also contributing to his recovery. He is not taking any narcotic pain medications which is good, but he is slow to move, which can be exacerbated by his Parkinson's. According to the patient, he is being converted from Sinemet pills to a patch, which may help improve his absorption of the medication. On exam, the patient appears to be worse as far as his Parkinson's with mask-like face, slowed speech and a resting tremor. He has bradykinesia. His abdomen is distended and tympanitic. The incision still has julieth in place, but is healing well. Plan is to repeat his exam later today and decide whether or not he needs to have his NG tube reinserted. A stercoral ulcer in his colon appears to be healing and the plan was for us to do a colonoscopy in 6-8 weeks to reassess the status of his ulcer, that will all depend on how he does from his surgical intervention. Please contact us if any GI intervention is necessary during this hospitalization as we have no further suggestions at this time.
[2020-06-04] MEDS ORDERED: TPN IV SCH (16:00)
[2020-06-04] MEDS ORDERED: CENTRAL PN IV SCH (16:00)
[2020-06-04] MEDS: [UNRECOGNIZED DRUG - OTHER] SQ SCH (19:16)
[2020-06-04] MEDS: ACETAMINOPHEN 500 MG TAB PO PRN (19:59)
[2020-06-04] MEDS: ALFUZOSIN HCL 10 MG TAB PO SCH (20:00)
--- NOTE | 2020-06-04 20:25 | Hospitalist Progress Note ---
Date of Service June 04, 2020 Assessment & Plan (1) Parkinson disease: Continue his usual Sinemet dosing QID over past few days has developed more resting tremors and rigidity spoke with Dr. Mosqueda at [facility] on 06/02 recommend clamping tube longer, at least 60 minutes and will work on getting Neupro patch, 2mg daily this is non-formulary, pharmacy will obtain and should be here 06/04 discussed with patient's neurologist Dr. Pappas from [place] he recommended apomorphine which is nonformulary spoke personally to apomorphine rep and can not be obtained in under [address] Berry states it will take 6-7 days to reach steady state on sinemet He will continue to be rigid for 4-5 days, then should feel better Will hold off on apomorphine as he should be relatively improved by the time we could obtain it anyway If he requires NG tube replacement, will start sinemet ODT (2) Partial obstruction of colon: CT abd pelvis 05/23/20 IMPRESSION: Small bowel obstruction with a transition identified within the right anterior abdomen 05/28: exploratory laparoscopy Dr. Núñez, lysis of adhesions, no obvious area of small bowel to release continue NGT, continues to have post operative ileus encourage ambulation, OOB to chair, therapy is ordered everett pulled 05/30, he is urinating normally after it was removed, has condom catheter he had a bowel movement in afternoon on 05/30, first time in over a week some flatus on 06/01 small liquid BM and flatus in the morning on 06/03 small bowel follow through on 06/01 shows contrast in the distal small bowel after 5 hours PICC line 05/28, continue TPN until he can maintain enteral nutrition Dr. Mills took for flex sigmoidoscopy on 05/20, encountered 5cm long segment of very dense, fibrous stool that was at junction of descending and sigmoid colon Dr. Mills was able to break up the stool, irrigated with saline GI medicine for repeat flex sig on 05/22/2020, did see ulceration in colon, Zosyn IV completed 14 days, treatment for stercocolitis (3) Ileus: post op ileus continues ever since 05/28 when he went for ex lap KUB 06/01 and 06/02 with dilated small bowel loops but also with gas in the colon keep NGT in place at noon will be due for Sinemet, can keep tube clamped the rest of the day/evening and allow clears liquid BM on 05/30, flatus on 06/01 and now very small liquid BM 06/03 and some flatus in morning small bowel follow through on 06/01 confirms ileus, no obvious obstruction 06-04 had BM today, NG tube pulled (4) Obstipation: due to hard stool in distal descending colon, maybe sterococal ulcer passed some flatus on 06/01 (5) Colitis: stercocolitis from very hard impacted stool in distal descending colon completed 14 days of Zosyn IV, no pain, WBC 12 continue NGT for suctioning as needed TPN will need repeat colonoscopy in 6 weeks (6) LLQ abdominal pain: see above, most of the pain is in LLQ obstipation (7) BPH (benign prostatic hyperplasia): Continue alfuzosin 10 mg p.o. every afternoon (8) Obstructive sleep apnea: CPAP at bedtime (9) Protein calorie malnutrition: poor intake for about two weeks now placed PICC, continue TPN today Cr, K , Mag, Phos all normal today (10) Insomnia: continue Ativan 1mg IV HS not working as well, add Trazodone 50mg HS (11) Left lumbar radiculopathy: shoot pain, spasms in left leg has had injections as outpatient difficult because want to avoid narcotics with his ileus and do not want to give muscle relaxer for same reasone try Lidoderm 5% patch today (12) Neck pain: chronic issue per , has seen numerous specialists without significant relief as outpatient it is worse right now being in the hospital Admission and Anticipated Discharge Date Admission Date: May 17, 2020 Subjective Patient remains on TPN Denies abdominal pain and pressure Had a BM today, no blood No nausea or vomiting NG tube was pulled today Parkinsons symptoms still severe -- he remains rigid and immobile Review of Systems Constitutional: no fever, no chills, no fatigue, no weakness, no anorexia, no weight loss and no weight gain Ear, Nose, Mouth, Throat: no nasal congestion, no sore throat and no dysphagia Respiratory: no cough and no dyspnea Cardiovascular: no chest pain, no dyspnea on exertion, no orthopnea and no palpitations Gastrointestinal: no abdominal pain, no nausea, no vomiting, no hematemesis, no dysphagia, no constipation, no diarrhea/loose stools, no blood in stools and no melena Genitourinary: no dysuria and no hematuria Musculoskeletal: no back pain, no joint pain, no myalgia and no muscle weakness Integumentary: no rash, no lesions, no skin ulcer, no erythema, no dry skin and no pruritus Neurologic: + gait abnormality, + unsteadiness, + falls, + localized weakness and + lack of coordination; no generalized weakness, no numbness, no paresthesia, no tremor(s) and no headache(s) Psychiatric: no depression, no suicidal ideation, no homicidal ideation and no anxiety Endocrine: no cold intolerance and no heat intolerance Hematologic / Lymphatic: no easy bleeding and no easy bruising Physical Exam Constitutional: well developed and well nourished; no acute distress Eyes: PERRL, conjunctivae normal, anicteric sclerae ENMT: Mouth: oral mucous membranes not dry Respiratory: normal respiratory effort; no respiratory distress and no labored breathing Auscultation: lungs clear to auscultation bilaterally; no crackles, no rales, no rhonchi and no wheezes Cardiovascular: Rate/Rhythm: regular rate and regular rhythm Heart Sounds: no murmur and no cardiac rub Vessels: normal peripheral pulses and radial pulses present; no JVD Extremities: no edema Gastrointestinal (Abdomen): Inspection/Auscultation: abdomen normal to inspection, normal bowel sounds and + abdominal surgical scar (vertical well healed); abdomen not distended Percussion/Palpation: abdomen soft; abdomen nontender, no guarding, abdomen not rigid and no hepatosplenomegaly Musculoskeletal: Head/Neck/Chest: normocephalic and head atraumatic Spine: no cervical spinal tenderness, no cervical muscular tenderness, no thoracic spinal tenderness and no lumbar spinal tenderness Skin: no rashes, warm and dry Neurologic: CN's II-XI intact bilaterally and moves all extremities Motor/Sensory: no tremor and no sensory deficit Psychiatric: Orientation: alert, oriented to person, oriented to place and oriented to time Apperance: appropriately groomed; not disheveled Affect: euthymic affect; no anxious affect and no tearful affect Genitourinary: no Everett catheter Results & Data Results & Data ([facility]) Vital Signs (Past 12 Hours) Vital Signs Temp Pulse Resp BP Pulse Ox 06/04/20 14:40 36.6 C 97 H 18 114/76 95 PG Care Time/CCT Total # of Minutes Spent Total Time Spent with Patient: Total time spent is greater than 50% in coordination of care (as documented) at patient's floor/unit and/or counseling patient: Coding Level of Care Code 09433 Subseq Hosp Care Lvl 2 Diagnoses Parkinson disease G20 Partial obstruction of colon K56.600 Ileus K56.7 Obstipation K59.00 Colitis K52.9 LLQ abdominal pain R10.32 BPH (benign prostatic hyperplasia) N40.0 Obstructive sleep apnea G47.33 Protein calorie malnutrition E46 Insomnia G47.00 Left lumbar radiculopathy M54.16 Neck pain M54.2
[2020-06-04] MEDS: LORazepam 1 MG/2 ML VIAL IV PRN (21:33)
[2020-06-04] MEDS: traZODone HCL 50 MG TAB PO SCH (21:33)
[2020-06-05] MEDS: SODIUM CHLORIDE 0.9% 1000ML 1,000 ML IV SCH (00:07)
[2020-06-05 06:28] LABS: Hematocrit (blood only) 33.8 % (42-52); Hemoglobin 11.5 g/dL (14.0-18.0); Mean Corpuscular Hemoglobin 31.8 pg (25-34); Mean Corpuscular Volume 93.4 fL (80-100); Mean Platelet Volume 10.5 fL (7.4-10.4); Platelet Count 289 K/uL (130-400); RDW Coefficient of Variation 13.7 % (11.5-14.5); Red Blood Count 3.62 M/uL (4.7-6.1); White Blood Count 7.16 K/uL (4.8-10.8)
[2020-06-05 06:53] LABS: BUN Creatinine Ratio 34.3 (10-20); Calcium 9.5 mg/dl (8.5-10.1); Creatinine Clr Calc Pharmacy 127.2 ml/min; Est GFR (African American) 122.3; Est GFR (Non-African American) 105.5; Magnesium 2.1 mg/dl (1.8-2.4); Potassium 4.2 mmol/L (3.5-5.1)
[2020-06-05 06:54] LABS: Phosphorus 3.2 mg/dl (2.5-4.9)
--- NOTE | 2020-06-05 07:32 | Surgery Progress Note ---
Date of Service June 05, 2020 Assessment & Plan (1) Ileus: continue TPN ice/popsicles for the morning will recheck later today as above. +bm yesterday. tolerating NGT out so far. contrast in colon suspect GI motility issues as a result of his Parkinson's awaiting to see if we can get the medications from [place]. If we cannot, should consider transfer to there so he can get the meds continue TPN Admission and Anticipated Discharge Date Admission Date: May 17, 2020 Subjective some flatus this AM, no further BM, no nausea Physical Exam Gastrointestinal (Abdomen): Inspection/Auscultation: + abdomen distended (slightly) Percussion/Palpation: abdomen soft Results & Data ([facility]) Vital Signs (Past 12 Hours) Vital Signs Temp Pulse Resp BP Pulse Ox 06/04/20 21:47 36.8 C 96 H 20 143/87 H 94 PG Care Time/CCT Total # of Minutes Spent Total Time Spent with Patient: Total time spent is greater than 50% in coordination of care (as documented) at patient's floor/unit and/or counseling patient: Coding Level of Care Code None Diagnoses Ileus K56.7
[2020-06-05] MEDS: DICLOFENAC SOD 1% GEL 100 GM TUBE EXT PRN ×3 (07:46→21:16)
[2020-06-05] MEDS: CARBIDOPA/LEVODOPA 25/100MG TAB PO SCH ×4 (07:50→20:07)
[2020-06-05] MEDS: RASAGILINE PO SCH (07:50)
[2020-06-05] MEDS: ACETAMINOPHEN 500 MG TAB PO PRN (07:52)
[2020-06-05] MEDS: POLYETHYLENE (MIRALAX) 17 GM PACK PO SCH (08:38)
--- NOTE | 2020-06-05 08:38 | Pharmacy Report ---
PHA: Parenteral Nutrition Con - Date of Service June 05, 2020 - Scope Pharmacy was consulted on 05/24/20 to manage parenteral nutrition orders for this patient. - Subjective The patient is currently on day # 12 of CENTRAL parenteral nutrition for PROLONGED NPO/ILEUS. - Objective Height: 5 ft 10 in Weight: 75.5 kg Diet: NPO Intake & Output (24hrs):: Intake & Output 06/03/20 06/04/20 06/05/20 06/06/20 06:59 06:59 06:59 06:59 Intake Total 3158.583 / 3158.583 3462.317 / 3462.317 2853.850 / 2853.850 Output Total 1750 / 1750 2701 / 2701 2275 / 2275 Balance 1408.583 / 1408.583 761.317 / 761.317 578.850 / 578.850 Weight 78 kg 75.5 kg Laboratory Data (Last 24 Hr):: 06/05/20 05:57 Sodium 138 Potassium 4.2 Chloride 107 Carbon Dioxide 27 BUN 20 H Creatinine 0.59 L Glucose 111 H Calcium 9.5 Phosphorus 3.2 Magnesium 2.1 Nutrition Assessment:: Please refer to the Notes section of the EMR for the most recent hog worker note. - Assessment * Labs WNL. No changes needed to PN today. Continue same formulation as 06/04/20. - Plan For day # 12 of PN administration, the following will be ordered: Macronutrients Amino acids 125 grams/day Dextrose 325 grams/day Lipids 50 grams/day Micronutrients Sodium phosphate 24 MMol Sodium chloride 60 mEq Potassium phosphate 42 mMol Potassium acetate 40 mEq Magnesium sulfate 8.12 mEq Multivitamins 10 mL Trace Elements 1 mL Additional additives: thiamine, folic acid Total volume 2044.49 mL to be infused over 24 hrs will provide 2105 kcal/day Labs, as indicated, will be ordered per protocol Pharmacy will continue to follow and adjust parenteral nutrition orders on a daily basis. Thank you for allowing us to participate in the care of this patient.
[2020-06-05] MEDS ORDERED: [UNRECOGNIZED DRUG - OTHER] SCH (08:59)
[2020-06-05] MEDS: LIDOCAINE 5% 1 PATCH TD SCH (09:36)
[2020-06-05] MEDS: ENOXAPARIN INJ 40 MG/0.4 ML SYR SQ SCH (09:37)
[2020-06-05] MEDS: PANTOprazole 40 MG in SYRINGE 0 ML IV SCH ×2 (09:37→20:06)
[2020-06-05] MEDS ORDERED: bisacodyL 10 MG SUPP PR PRN (12:09)
[2020-06-05] MEDS ORDERED: bisacodyL 10 MG SUPP PR STA (12:16)
[2020-06-05] MEDS ORDERED: TPN IV SCH (16:00)
[2020-06-05] MEDS ORDERED: CENTRAL PN IV SCH (16:00)
--- NOTE | 2020-06-05 18:08 | Hospitalist Progress Note ---
Date of Service June 05, 2020 Assessment & Plan (1) Parkinson disease: Continue his usual Sinemet dosing QID over past few days has developed more resting tremors and rigidity spoke with Dr. Mosqueda at [facility] on 06/02 recommend clamping tube longer, at least 60 minutes and will work on getting Neupro patch, 2mg daily this is non-formulary, pharmacy will obtain and should be here 06/04 discussed with patient's neurologist Dr. Pappas from [place] he recommended apomorphine which is nonformulary spoke personally to apomorphine rep and can not be obtained in under [address] Berry states it will take 6-7 days to reach steady state on sinemet He will continue to be rigid for 4-5 days, then should feel better Will hold off on apomorphine as he should be relatively improved by the time we could obtain it anyway If he requires NG tube replacement, will start sinemet ODT 06-05 no improvement in symptoms, cont sinemet regimen (2) Partial obstruction of colon: CT abd pelvis 05/23/20 IMPRESSION: Small bowel obstruction with a transition identified within the right anterior abdomen 05/28: exploratory laparoscopy Dr. Núñez, lysis of adhesions, no obvious area of small bowel to release continue NGT, continues to have post operative ileus encourage ambulation, OOB to chair, therapy is ordered everett pulled 05/30, he is urinating normally after it was removed, has condom catheter he had a bowel movement in afternoon on 05/30, first time in over a week some flatus on 06/01 small liquid BM and flatus in the morning on 06/03 small bowel follow through on 06/01 shows contrast in the distal small bowel afte r 5 hours PICC line 05/28, continue TPN until he can maintain enteral nutrition Dr. Mills took for flex sigmoidoscopy on 05/20, encountered 5cm long segment of very dense, fibrous stool that was at junction of descending and sigmoid colon Dr. Mills was able to break up the stool, irrigated with saline GI medicine for repeat flex sig on 05/22/2020, did see ulceration in colon, Zosyn IV completed 14 days, treatment for stercocolitis (3) Ileus: post op ileus continues ever since 3/15 when he went for ex lap KUB 06/01 and 06/02 with dilated small bowel loops but also with gas in the colon keep NGT in place at noon will be due for Sinemet, can keep tube clamped the rest of the day/evening and allow clears liquid BM on 05/30, flatus on 06/01 and now very small liquid BM 06/03 and some flatus in morning small bowel follow through on 06/01 confirms ileus, no obvious obstruction 06-04 had BM today, NG tube pulled 06-05 passing gas, no BM (4) Obstipation: due to hard stool in distal descending colon, maybe sterococal ulcer passed some flatus on 06/01 (5) Colitis: stercocolitis from very hard impacted stool in distal descending colon completed 14 days of Zosyn IV, no pain, WBC 12 continue NGT for suctioning as needed TPN will need repeat colonoscopy in 6 weeks (6) LLQ abdominal pain: see above, most of the pain is in LLQ obstipation (7) BPH (benign prostatic hyperplasia): Continue alfuzosin 10 mg p.o. every afternoon (8) Obstructive sleep apnea: CPAP at bedtime (9) Protein calorie malnutrition: poor intake for about two weeks now placed PICC, continue TPN today Cr, K , Mag, Phos all normal today (10) Insomnia: continue Ativan 1mg IV HS not working as well, add Trazodone 50mg HS (11) Left lumbar radiculopathy: shoot pain, spasms in left leg has had injections as outpatient difficult because want to avoid narcotics with his ileus and do not want to give muscle relaxer for same reasone try Lidoderm 5% patch today (12) Neck pain: chronic issue per , has seen numerous specialists without significant relief as outpatient it is worse right now being in the hospital Admission and Anticipated Discharge Date Admission Date: May 17, 2020 Subjective Patient denies abdominal pain Tolerating oral sinemet No improvement in rigidity or parkinsons symptoms Endorsing some "queasiness" Has not taken any PO Other than ice chips Passing some gas, no BM Review of Systems Constitutional: no fever, no chills, no fatigue, no weakness, no anorexia, no weight loss and no weight gain Ear, Nose, Mouth, Throat: no nasal congestion, no sore throat and no dysphagia Respiratory: no cough and no dyspnea Cardiovascular: no chest pain, no dyspnea on exertion, no orthopnea and no palpitations Gastrointestinal: no abdominal pain, no nausea, no vomiting, no hematemesis, no dysphagia, no constipation, no diarrhea/loose stools, no blood in stools and no melena Musculoskeletal: no back pain, no joint pain, no myalgia and no muscle weakness Integumentary: no rash, no lesions, no skin ulcer, no erythema, no dry skin and no pruritus Neurologic: no falls, no localized weakness, no generalized weakness, no numbness, no paresthesia, no tremor(s) and no headache(s) Psychiatric: no depression, no suicidal ideation, no homicidal ideation and no anxiety Endocrine: no cold intolerance and no heat intolerance Hematologic / Lymphatic: no easy bleeding and no easy bruising Physical Exam Constitutional: well developed and well nourished; no acute distress Eyes: PERRL, conjunctivae normal, anicteric sclerae ENMT: Mouth: oral mucous membranes not dry Respiratory: normal respiratory effort; no respiratory distress and no labored breathing Auscultation: lungs clear to auscultation bilaterally; no crackles, no rales, no rhonchi and no wheezes Cardiovascular: Rate/Rhythm: regular rate and regular rhythm Heart Sounds: no murmur and no cardiac rub Vessels: normal peripheral pulses and radial pulses present; no JVD Extremities: no edema Gastrointestinal (Abdomen): Inspection/Auscultation: abdomen normal to i nspection, normal bowel sounds and + abdominal surgical scar (vertical well healed); abdomen not distended Percussion/Palpation: abdomen soft; abdomen nontender, no guarding, abdomen not rigid and no hepatosplenomegaly Musculoskeletal: Head/Neck/Chest: normocephalic and head atraumatic Spine: no cervical spinal tenderness, no cervical muscular tenderness, no thoracic spinal tenderness and no lumbar spinal tenderness Skin: no rashes, warm and dry Neurologic: CN's II-XI intact bilaterally and moves all extremities Motor/Sensory: no tremor and no sensory deficit Psychiatric: Orientation: alert, oriented to person, oriented to place and oriented to time Apperance: appropriately groomed; not disheveled Affect: euthymic affect; no anxious affect and no tearful affect Results & Data Results & Data ([facility]) Vital Signs (Past 12 Hours) Vital Signs Temp Pulse Pulse Resp BP Pulse Ox 06/05/20 16:00 37 C 98 H 20 130/85 97 06/05/20 07:50 36.8 C 95 H 16 147/92 H 96 PG Care Time/CCT Total # of Minutes Spent Total Time Spent with Patient: Total time spent is greater than 50% in coordination of care (as documented) at patient's floor/unit and/or counseling patient: Coding Level of Care Code 91072 Subseq Hosp Care Lvl 2 Diagnoses Parkinson disease G20 Partial obstruction of colon K56.600 Ileus K56.7 Obstipation K59.00 Colitis K52.9 LLQ abdominal pain R10.32 BPH (benign prostatic hyperplasia) N40.0 Obstructive sleep apnea G47.33 Protein calorie malnutrition E46 Insomnia G47.00 Left lumbar radiculopathy M54.16 Neck pain M54.2
[2020-06-05] MEDS: ACETAMINOPHEN 1,000 MG/100 ML VIAL IV PRN (18:13)
[2020-06-05] MEDS: ALFUZOSIN HCL 10 MG TAB PO SCH (20:07)
[2020-06-05] MEDS: traZODone HCL 50 MG TAB PO SCH (21:16)
[2020-06-05] MEDS: LORazepam 1 MG/2 ML VIAL IV PRN (21:57)
[2020-06-06] MEDS: ACETAMINOPHEN 1,000 MG/100 ML VIAL IV PRN ×3 (03:18→21:52)
[2020-06-06 06:19] LABS: Hematocrit (blood only) 32.3 % (42-52); Hemoglobin 11.2 g/dL (14.0-18.0); Mean Corpuscular Hemoglobin 31.7 pg (25-34); Mean Corpuscular Hgb Conc 34.7 g/dL (32-36); Mean Corpuscular Volume 91.5 fL (80-100); Mean Platelet Volume 10.5 fL (7.4-10.4); Platelet Count 301 K/uL (130-400); RDW Coefficient of Variation 13.6 % (11.5-14.5); RDW Standard Deviation 45.1 fL (36.4-46.3); Red Blood Count 3.53 M/uL (4.7-6.1); White Blood Count 5.85 K/uL (4.8-10.8)
[2020-06-06 06:43] LABS: BUN Creatinine Ratio 33.1 (10-20); Calcium 9.4 mg/dl (8.5-10.1); Creatinine Clr Calc Pharmacy 115.4 ml/min; Est GFR (African American) 117.5; Est GFR (Non-African American) 101.4; Phosphorus 3.3 mg/dl (2.5-4.9); Potassium 4.2 mmol/L (3.5-5.1)
[2020-06-06] MEDS: RASAGILINE PO SCH (07:51)
[2020-06-06] MEDS: CARBIDOPA/LEVODOPA 25/100MG TAB PO SCH ×4 (07:52→20:16)
--- NOTE | 2020-06-06 08:23 | Surgery Progress Note ---
Date of Service June 06, 2020 Assessment & Plan (1) Ileus: slow progress continue TPN can start clears wants to hold supp today recheck later today as above. unfortunately I do not have anything to add from surgical perspective. I suspect his Parkinson's is the primary issue also affecting the GI tract. NGT out for 3 days now with no n/v. +flatus. Ok to slowly advance his diet. the dacosta will be getting his Parkinson's under control. Admission and Anticipated Discharge Date Admission Date: May 17, 2020 Subjective some flatus, BM from supp but felt bloated/gas pain after Physical Exam Gastrointestinal (Abdomen): Inspection/Auscultation: + abdomen distended (slight) Percussion/Palpation: abdomen soft; abdomen nontender Results & Data ([facility]) Vital Signs (Past 12 Hours) Vital Signs Temp Pulse Resp BP Pulse Ox 06/06/20 07:30 37.1 C 107 H 18 126/78 95 06/05/20 22:18 36.7 C 99 H 18 127/89 97 PG Care Time/CCT Total # of Minutes Spent Total Time Spent with Patient: Total time spent is greater than 50% in coordination of care (as documented) at patient's floor/unit and/or counseling patient: Coding Level of Care Code None Diagnoses Ileus K56.7
[2020-06-06] MEDS: PANTOprazole 40 MG in SYRINGE 0 ML IV SCH ×2 (09:17→21:51)
[2020-06-06] MEDS: DICLOFENAC SOD 1% GEL 100 GM TUBE EXT PRN ×3 (09:17→22:34)
[2020-06-06] MEDS: LIDOCAINE 5% 1 PATCH TD SCH (09:17)
[2020-06-06] MEDS: ENOXAPARIN INJ 40 MG/0.4 ML SYR SQ SCH (09:18)
[2020-06-06 11:58] LABS: Bilirubin,Total 0.7 mg/dl (0.2-1)
[2020-06-06] MEDS ORDERED: TPN IV SCH (16:00)
[2020-06-06] MEDS ORDERED: CENTRAL PN IV SCH (16:00)
--- NOTE | 2020-06-06 18:08 | Hospitalist Progress Note ---
Date of Service June 06, 2020 Assessment & Plan (1) Parkinson disease: Continue his usual Sinemet dosing QID over past few days has developed more resting tremors and rigidity spoke with Dr. Mosqueda at [facility] [place] on 06/02 recommend clamping tube longer, at least 60 minutes and will work on getting Neupro patch, 2mg daily this is non-formulary, pharmacy will obtain and should be here 06/04 discussed with patient's neurologist Dr. Pappas from [place] he recommended apomorphine which is nonformulary spoke personally to apomorphine rep and can not be obtained in under [address] Berry states it will take 6-7 days to reach steady state on sinemet He will continue to be rigid for 4-5 days, then should feel better Will hold off on apomorphine as he should be relatively improved by the time we could obtain it anyway If he requires NG tube replacement, will start sinemet ODT 06-05 no improvement in symptoms, cont sinemet regimen 06-06 filled out paperwork to get apomorphine injections per family request and as recommended by Dr. Berry (2) Ileus: post op ileus continues ever since 05/28 when he went for ex lap KUB 06/01 and 06/02 with dilated small bowel loops but also with gas in the colon keep NGT in place at noon will be due for Sinemet, can keep tube clamped the rest of the day/evening and allow clears liquid BM on 05/30, flatus on 06/01 and now very small liquid BM 06/03 and some flatus in morning small bowel follow through on 06/01 confirms ileus, no obvious obstruction 06-04 had BM today, NG tube pulled 06-05 passing gas, no BM 06-06 no BM but very little PO tolerated clears today (3) Partial obstruction of colon: CT abd pelvis 05/23/20 IMPRESSION: Small bowel obstruction with a transition identified within the right anterior abdomen 05/28: exploratory laparoscopy Dr. Núñez, lysis of adhesions, no obvious area of small bowel to release continue NGT, continues to have post operative ileus encourage ambulation, OOB to chair, therapy is ordered everett pulled 05/30, he is urinating normally after it was removed, has condom catheter he had a bowel movement in afternoon on 05/30, first time in over a week some flatus on 06/01 small liquid BM and flatus in the morning on 06/03 small bowel follow through on 06/01 shows contrast in the distal small bowel after 5 hours PICC line 05/28, continue TPN until he can maintain enteral nutrition Dr. Mills took for flex sigmoidoscopy on 05/20, encountered 5cm long segment of very dense, fibrous stool that was at junction of descending and sigmoid colon Dr. Mills was able to break up the stool, irrigated with saline GI medicine for repeat flex sig on 05/22/2020, did see ulceration in colon, Zosyn IV completed 14 days, treatment for stercocolitis (4) Obstipation: due to hard stool in distal descending colon, maybe sterococal ulcer passed some flatus on 06/01 (5) Colitis: stercocolitis from very hard impacted stool in distal descending colon completed 14 days of Zosyn IV, no pain, WBC 12 continue NGT for suctioning as needed TPN will need repeat colonoscopy in 6 weeks (6) LLQ abdominal pain: see above, most of the pain is in LLQ obstipation (7) BPH (benign prostatic hyperplasia): Continue alfuzosin 10 mg p.o. every afternoon (8) Obstructive sleep apnea: CPAP at bedtime (9) Protein calorie malnutrition: poor intake for about two weeks now placed PICC, continue TPN today Cr, K , Mag, Phos all normal today (10) Insomnia: continue Ativan 1mg IV HS not working as well, add Trazodone 50mg HS (11) Left lumbar radiculopathy: shoot pain, spasms in left leg has had injections as outpatient difficult because want to avoid narcotics with his ileus and do not want to give muscle relaxer for same reasone try Lidoderm 5% patch today (12) Neck pain: chronic issue per , has seen numerous specialists without significant relief as outpatient it is worse right now being in the hospital Admission and Anticipated Discharge Date Admission Date: May 17, 2020 Subjective Patient has no improvement in parkinsons rigidity No BM, no gas tolerated some clears today -- jello No nausea, no vomiting No difficulty with urination Neck stiffness is bothering him the most -- asking about muscle relaxant Review of Systems Constitutional: no fever, no chills, no fatigue, no weakness, no anorexia, no weight loss and no weight gain Ear, Nose, Mouth, Throat: no nasal congestion, no sore throat and no dysphagia Respiratory: no cough and no dyspnea Cardiovascular: no chest pain, no dyspnea on exertion, no orthopnea and no palpitations Gastrointestinal: no abdominal pain, no nausea, no vomiting, no hematemesis, no dysphagia, no constipation, no diarrhea/loose stools, no blood in stools and no melena Genitourinary: no dysuria and no hematuria Musculoskeletal: no back pain, no joint pain, no myalgia and no muscle weakness Integumentary: no rash, no lesions, no skin ulcer, no erythema, no dry skin and no pruritus Neurologic: + problem reported (rigidity, spasm); no falls, no localized weakness, no generalized weakness, no numbness, no paresthesia, no tremor(s) and no headache(s) Psychiatric: no depression, no suicidal ideation, no homicidal ideation and no anxiety Endocrine: no cold intolerance and no heat intolerance Hematologic / Lymphatic: no easy bleeding and no easy bruising Physical Exam Constitutional: well developed and well nourished; no acute distress Eyes: PERRL, conjunctivae normal, anicteric sclerae ENMT: Mouth: oral mucous membranes not dry Respiratory: normal respiratory effort; no respiratory distress and no labored breathing Auscultation: lungs clear to auscultation bilaterally; no crackles, no rales, no rhonchi and no wheezes Cardiovascular: Rate/Rhythm: regular rate and regular rhythm Heart Sounds: no murmur and no cardiac rub Vessels: normal peripheral pulses and radial pulses present; no JVD Extremities: no edema Gastrointestinal (Abdomen): Inspection/Auscultation: abdomen normal to inspection, normal bowel sounds and + abdominal surgical scar (vertical well healed); abdomen not distended Percussion/Palpation: abdomen soft; abdomen nontender, no guarding, abdomen not rigid and no hepatosplenomegaly Musculoskeletal: Head/Neck/Chest: normocephalic and head atraumatic Spine: no cervical spinal tenderness, no cervical muscular tenderness, no thoracic spinal tenderness and no lumbar spinal tenderness Skin: no rashes, warm and dry Neurologic: CN's II-XI intact bilaterally and moves all extremities Motor/Sensory: + tremor and + abnormal movement (rigidity); no sensory deficit Psychiatric: Orientation: alert, oriented to person, oriented to place and oriented to time Apperance: appropriately groomed; not disheveled Affect: euthymic affect; no anxious affect and no tearful affect Results & Data Results & Data ([facility]) Vital Signs (Past 12 Hours) Vital Signs Temp Pulse Resp BP Pulse Ox 06/06/20 16:00 36.6 C 101 H 18 135/87 95 06/06/20 07:30 37.1 C 107 H 18 126/78 95 PG Care Time/CCT Total # of Minutes Spent Total Time Spent with Patient: Total time spent is greater than 50% in coordination of care (as documented) at patient's floor/unit and/or counseling patient: Coding Level of Care Code 42815 Subseq Hosp Care Lvl 2 Diagnoses Parkinson disease G20 Ileus K56.7 Partial obstruction of colon K56.600 Obstipation K59.00 Colitis K52.9 LLQ abdominal pain R10.32 BPH (benign prostatic hyperplasia) N40.0 Obstructive sleep apnea G47.33 Protein calorie malnutrition E46 Insomnia G47.00 Left lumbar radiculopathy M54.16 Neck pain M54.2
[2020-06-06] MEDS: traZODone HCL 50 MG TAB PO SCH (21:35)
[2020-06-06] MEDS: ALFUZOSIN HCL 10 MG TAB PO SCH (21:36)
[2020-06-06] MEDS: LORazepam 1 MG/2 ML VIAL IV PRN (22:34)
[2020-06-06] MEDS: SODIUM CHLORIDE 0.9% 1000ML 1,000 ML IV SCH ×2 (22:54)
[2020-06-07 05:43] LABS: Hemoglobin 12.1 g/dL (14.0-18.0); Mean Corpuscular Hemoglobin 31.8 pg (25-34); Mean Corpuscular Hgb Conc 34.6 g/dL (32-36); Mean Corpuscular Volume 92.1 fL (80-100); Mean Platelet Volume 10.5 fL (7.4-10.4); Platelet Count 341 K/uL (130-400); RDW Coefficient of Variation 13.5 % (11.5-14.5); RDW Standard Deviation 45.1 fL (36.4-46.3); White Blood Count 10.26 K/uL (4.8-10.8)
[2020-06-07 06:09] LABS: BUN Creatinine Ratio 31.3 (10-20); Calcium 9.4 mg/dl (8.5-10.1); Creatinine Clr Calc Pharmacy 107.2 ml/min; Est GFR (Non-African American) 98.3; Magnesium 2.2 mg/dl (1.8-2.4); Potassium 4.2 mmol/L (3.5-5.1)
[2020-06-07 06:10] LABS: Phosphorus 3.3 mg/dl (2.5-4.9)
--- NOTE | 2020-06-07 06:10 | Communication Note ---
Date of Service: June 07, 2020 I was called by the medical service to evaluate Mr. Young as he is complaining of abdominal pain, distention, and nausea. Visited with the patient at bedside at approximately 5:50 AM. Patient notes that he did take some clear liquids in the past 24 hours but not very much. He feels that over the past half hour to hour he has had some worsening abdominal distention as well as abdominal pain and some nausea. He says he has not vomited. He notes that he did receive some morphine which did improve his pain somewhat. In addition the patient notes that he has had numerous liquid bowel movements over the past few hours. I discussed with the nurse who notes that his abdomen does not appear markedly more distended than what was noted on previous exams. On physical exam patient is alert oriented x3. He has a flat affect. Patient's abdomen has moderate distention with some tympany to percussion. There is no rebound tenderness or guarding with palpation. Patient did have some generalized pain with palpation however. KUB was performed at bedside. This study showed findings consistent with an ileus. There is also gastric distention noted. I suspect the patient continues to have an ileus. I informed the patient that if he has return of his nausea and vomiting we may have to place an NG tube however he wishes to discuss this with Dr. Núñez prior to allowing this modality to be used. We will continue to provide supportive care with additional recommendations to be forthcoming.
--- NOTE | 2020-06-07 07:41 | XRay Report ---
KUB HISTORY: Abdominal distension COMPARISON: KUB 06/03/2020. FINDINGS: Gaseous distention of the small bowel measuring up to 5.9 cm in diameter. This is stable sl ightly improved compared the prior study. Contrast within the colon has now passed into the rectum. S kin julieth are again noted. Nondilated gas-filled colon is again noted. No renal calculi. No ureter al calculi. No pneumoperitoneum or pneumatosis. IMPRESSION: 1. Stable to slight improvement in the distended gas-filled loops of small bowel. 2. The oral contrast has now passed into the rectum. ACT 112: Negative or not required by law. Electronically signed by: Ramon Farley M.D. 06/07/2020 7:39 AM
[2020-06-07] MEDS: ACETAMINOPHEN 1,000 MG/100 ML VIAL IV PRN ×2 (07:45→16:03)
--- NOTE | 2020-06-07 08:59 | Surgery Progress Note ---
Date of Service June 07, 2020 Assessment & Plan (1) Ileus: Patient is starting to open up and have more meaningful bowel function; hopefully starting to turn a corner KUB this AM revealed stable to slight improvement in the distended gas-filled loops of small bowel & oral contrast has now passed into the rectum. Will continue to take it slow with diet advancement, clears today for now as tolerates. On TPN Still in the works of obtaining his Parkinson's meds pt seen with Dr. Núñez As above. had pain overnight but after 4-5 loose bm's and large amounts of flatus he is feeling improved. currently no real pain or nausea would keep on clears for now hopefully can get his Parkinson med here and started soon. Admission and Anticipated Discharge Date Admission Date: May 17, 2020 Subjective Patient had an episode last night of increased abdominal pain and nausea, morphine given without relief. Patient did eventually start passing multiple bm's and gas and felt much better. He denies any further nausea this AM. Physical Exam Physical Exam: awake/alert Constitutional: no acute distress Respiratory: normal respiratory effort Results & Data ([facility]) Vital Signs (Past 12 Hours) Vital Signs Temp Pulse Pulse Resp BP Pulse Ox 06/07/20 07:15 37 C 111 H 18 129/86 94 06/07/20 02:38 100 H 133/89 06/07/20 01:21 36.6 C 101 H 18 151/95 H 95 KUB HISTORY: Abdominal distension COMPARISON: KUB 06/03/2020. FINDINGS: Gaseous distention of the small bowel measuring up to 5.9 cm in diameter. This is stable slightly improved compared the prior study. Contrast within the colon has now passed into the rectum. Skin julieth are again noted. Nondilated gas-filled colon is again noted. No renal calculi. No ureteral calculi. No pneumoperitoneum or pneumatosis. IMPRESSION: 1. Stable to slight improvement in the distended gas-filled loops of small bowel. 2. The oral contrast has now passed into the rectum. ACT 112: Negative or not required by law. Electronically signed by: Ramon Farley M.D. 06/07/2020 7:39 AM PG Care Time/CCT Total # of Minutes Spent Total Time Spent with Patient: Total time spent is greater than 50% in coordination of care (as documented) at patient's floor/unit and/or counseling patient: Coding Level of Care Code None Diagnoses Ileus K56.7
[2020-06-07] MEDS: CARBIDOPA/LEVODOPA 25/100MG TAB PO SCH ×4 (09:27→19:58)
[2020-06-07] MEDS: RASAGILINE PO SCH (09:27)
[2020-06-07] MEDS: ENOXAPARIN INJ 40 MG/0.4 ML SYR SQ SCH (09:28)
[2020-06-07] MEDS: LIDOCAINE 5% 1 PATCH TD SCH (09:28)
[2020-06-07] MEDS: PANTOprazole 40 MG in SYRINGE 0 ML IV SCH ×2 (09:28→21:59)
[2020-06-07] MEDS: DICLOFENAC SOD 1% GEL 100 GM TUBE EXT PRN ×3 (09:30→21:59)
--- NOTE | 2020-06-07 09:53 | Pharmacy Report ---
PHA: Parenteral Nutrition Con - Date of Service June 07, 2020 - Scope Pharmacy was consulted on 05/24/20 to manage parenteral nutrition orders for this patient. - Subjective The patient is currently on day 14 of central parenteral nutrition for prolonged NPO/malnutrition secondary to postoperative ileus/colitis. - Objective Height: 5 ft 10 in Weight: 75.5 kg Diet: NPO Intake & Output (24hrs):: Intake & Output 06/05/20 06/06/20 06/07/20 06/08/20 06:59 06:59 06:59 06:59 Intake Total 2853.850 / 2853.850 3532.490 / 3532.490 3000.49 / 3000.49 615.2 / 615.2 Output Total 2275 / 2275 2475 / 2475 2500 / 2500 Balance 578.850 / 129.171 2672.490 / 1057.490 500.49 / 500.49 615.2 / 615.2 Weight 75.5 kg 75.5 kg 75.5 kg Laboratory Data (Last 24 Hr):: 06/06/20 06/07/20 05:39 05:09 Sodium 136 Potassium 4.2 Chloride 105 Carbon Dioxide 27 BUN 22 H Creatinine 0.70 Glucose 118 H Calcium 9.4 Phosphorus 3.3 Magnesium 2.2 Total Bilirubin 0.7 AST 46 H ALT 53 Alkaline Phosphatase 146 H Triglycerides 81 Nutrition Assessment:: Please refer to the Notes section of the EMR for the most recent jewel grinder note. - Assessment * Macronutrients reduced to ~75% of goal yesterday with initiation of clear liquid diet * Minimal PO intake yesterday, discussed with hospitalist and will maintain 75% of goal macronutrients * Patient has been fluid positive 500-1000 mL/day over past couple of days * Previous order to run NS with TPN to equal total volume of 125 mL/hr - discussed with hospitalist and will d/c NS order * Electrolytes stable - will keep TPN components mostly the same * Monitor PO intake and reassess macronutrients tomorrow - Plan For day 14 of PN administration, the following will be ordered: Macronutrients Amino acids 125 grams/day Dextrose 250 grams/day Lipids 30 grams/day Micronutrients Sodium phosphate 24 MMol Sodium chloride 100 mEq Potassium phosphate 42 mMol Potassium acetate 40 mEq Magnesium sulfate 8.12 mEq Multivitamins 10 mL Trace Elements 1 mL Additional additives: thiamine 100 mg, folic acid 1 mg Total volume 1853 mL to be infused over 24 hrs will provide 1650 kcal/day Labs, as indicated, will be ordered per protocol Pharmacy will continue to follow and adjust parenteral nutrition orders on a daily basis. Thank you for allowing us to participate in the care of this patient.
[2020-06-07] MEDS ORDERED: TPN IV SCH (16:00)
[2020-06-07] MEDS ORDERED: CENTRAL PN IV SCH (16:00)
--- NOTE | 2020-06-07 17:58 | Hospitalist Progress Note ---
Date of Service June 07, 2020 Assessment & Plan (1) Parkinson disease: Continue his usual Sinemet dosing QID over past few days has developed more resting tremors and rigidity spoke with Dr. Mosqueda at [facility] on 06/02 recommend clamping tube longer, at least 60 minutes and will work on getting Neupro patch, 2mg daily this is non-formulary, pharmacy will obtain and should be here 06/04 discussed with patient's neurologist Dr. Pappas from [place] he recommended apomorphine which is nonformulary spoke personally to apomorphine rep and can not be obtained in under [address] Berry states it will take 6-7 days to reach steady state on sinemet He will continue to be rigid for 4-5 days, then should feel better Will hold off on apomorphine as he should be relatively improved by the time we could obtain it anyway If he requires NG tube replacement, will start sinemet ODT 06-05 no improvement in symptoms, cont sinemet regimen 06-06 filled out paperwork to get apomorphine injections per family request and as recommended by Dr. Berry 06-07 additional forms were faxed to me which I filled out and sent back to [employer] (2) Ileus: post op ileus continues ever since 05/28 when he went for ex lap KUB 06/01 and 06/02 with dilated small bowel loops but also with gas in the colon keep NGT in place at noon will be due for Sinemet, can keep tube clamped the rest of the day/evening and allow clears liquid BM on 05/30, flatus on 06/01 and now very small liquid BM 06/03 and some flatus in morning small bowel follow through on 06/01 confirms ileus, no obvious obstruction 06-04 had BM today, NG tube pulled 06-05 passing gas, no BM 06-06 no BM but very little PO tolerated clears today 06-07 large BM, large amount of gas (3) Depression: patient has flat affect family requesting psych eval consult placed (4) Partial obstruction of colon: CT abd pelvis 05/23/20 IMPRESSION: Small bowel obstruction with a transition identified within the right anterior abdomen 05/28: exploratory laparoscopy Dr. Núñez, lysis of adhesions, no obvious area of small bowel to release continue NGT, continues to have post operative ileus encourage ambulation, OOB to chair, therapy is ordered everett pulled 05/30, he is urinating normally after it was removed, has condom catheter he had a bowel movement in afternoon on 05/30, first time in over a week some flatus on 06/01 small liquid BM and flatus in the morning on 06/03 small bowel follow through on 06/01 shows contrast in the distal small bowel after 5 hours PICC line 05/28, continue TPN until he can maintain enteral nutrition Dr. Mills took for flex sigmoidoscopy on 05/20, encountered 5cm long segment of very dense, fibrous stool that was at junction of descending and sigmoid colon Dr. Mills was able to break up the stool, irrigated with saline GI medicine for repeat flex sig on 05/22/2020, did see ulceration in colon, Zosyn IV completed 14 days, treatment for stercocolitis (5) Obstipation: due to hard stool in distal descending colon, maybe sterococal ulcer passed some flatus on 06/01 (6) Colitis: stercocolitis from very hard impacted stool in distal descending colon completed 14 days of Zosyn IV, no pain, WBC 12 continue NGT for suctioning as needed TPN will need repeat colonoscopy in 6 weeks (7) LLQ abdominal pain: see above, most of the pain is in LLQ obstipation (8) BPH (benign prostatic hyperplasia): Continue alfuzosin 10 mg p.o. every afternoon (9) Obstructive sleep apnea: CPAP at bedtime (10) Protein calorie malnutrition: poor intake for about two weeks now placed PICC, continue TPN today Cr, K , Mag, Phos all normal today (11) Insomnia: continue Ativan 1mg IV HS not working as well, add Trazodone 50mg HS (12) Left lumbar radiculopathy: shoot pain, spasms in left leg has had injections as outpatient difficult because want to avoid narcotics with his ileus and do not want to give muscle relaxer for same reasone try Lidoderm 5% patch today (13) Neck pain: chronic issue per , has seen numerous specialists without significant relief as outpatient it is worse right now being in the hospital Admission and Anticipated Discharge Date Admission Date: May 17, 2020 Subjective Patient reports taking a couple bites of katherinebert Had a large BM today Passing a lot of gas Endorsing some nausea but no vomiting Napping this afternoon when I visited, didn't sleep well overnight Endorsed abdominal pain overnight Family believes rigidity has improved They are requesting psychiatric evaluation Review of Systems Constitutional: no fever, no chills, no fatigue, no weakness, no anorexia, no weight loss and no weight gain Ear, Nose, Mouth, Throat: no nasal congestion, no sore throat and no dysphagia Respiratory: no cough and no dyspnea Cardiovascular: no chest pain, no dyspnea on exertion, no orthopnea and no palpitations Gastrointestinal: no abdominal pain, no nausea, no vomiting, no hematemesis, no dysphagia, no constipation, no diarrhea/loose stools, no blood in stools and no melena Genitourinary: no dysuria and no hematuria Musculoskeletal: no back pain, no joint pain, no myalgia and no muscle weakness Integumentary: no rash, no lesions, no skin ulcer, no erythema, no dry skin and no pruritus Neurologic: no falls, no localized weakness, no generalized weakness, no numbness, no paresthesia, no tremor(s) and no headache(s) Psychiatric: no depression, no suicidal ideation, no homicidal ideation and no anxiety Endocrine: no cold intolerance and no heat intolerance Hematologic / Lymphatic: no easy bleeding and no easy bruising Physical Exam Constitutional: well developed and well nourished; no acute distress Eyes: PERRL, conjunctivae normal, anicteric sclerae ENMT: Mouth: oral mucous membranes not dry Respiratory: normal respiratory effort; no respiratory distress and no labored breathing Auscultation: lungs clear to auscultation bilaterally; no crackles, no rales, no rhonchi and no wheezes Cardiovascular: Rate/Rhythm: regular rate and regular rhythm Heart Sounds: no murmur and no cardiac rub Vessels: normal peripheral pulses and radial pulses present; no JVD Extremities: no edema Gastrointestinal (Abdomen): Inspection/Auscultation: abdomen normal to inspection, normal bowel sounds and + abdominal surgical scar (vertical well healed); abdomen not distended Percussion/Palpation: abdomen soft; abdomen nontender, no guarding, abdomen not rigid and no hepatosplenomegaly Musculoskeletal: Head/Neck/Chest: normocephalic and head atraumatic Spine: no cervical spinal tenderness, no cervical muscular tenderness, no thoracic spinal tenderness and no lumbar spinal tenderness Skin: no rashes, warm and dry Neurologic: CN's II-XI intact bilaterally and moves all extremities Motor/Sensory: + tremor and + abnormal movement (rigidity); no sensory deficit Psychiatric: Orientation: alert, oriented to person, oriented to place and oriented to time Apperance: appropriately groomed; not disheveled Affect: + flat affect; + affect not euthymic, no anxious affect and no tearful affect Genitourinary: everett with clear yellow urine Results & Data Results & Data ([facility]) Vital Signs (Past 12 Hours) Vital Signs Temp Pulse Pulse Resp BP Pulse Ox 06/07/20 15:48 36.6 C 101 H 22 134/88 97 06/07/20 07:15 37 C 111 H 18 129/86 94 PG Care Time/CCT Total # of Minutes Spent Total Time Spent with Patient: Total time spent is greater than 50% in coordination of care (as documented) at patient's floor/unit and/or counseling patient: Coding Level of Care Code 53117 Subseq Hosp Care Lvl 2 Diagnoses Parkinson disease G20 Ileus K56.7 Depression F32.9 Depression Type: unspecified Partial obstruction of colon K56.600 Obstipation K59.00 Colitis K52.9 LLQ abdominal pain R10.32 BPH (benign prostatic hyperplasia) N40.0 Obstructive sleep apnea G47.33 Protein calorie malnutrition E46 Insomnia G47.00 Left lumbar radiculopathy M54.16 Neck pain M54.2 (1) Depression Depression Type: unspecified Qualified Code(s): F32.9 - Major depressive disorder, single episode, unspecified
[2020-06-07] MEDS: traZODone HCL 50 MG TAB PO SCH (21:58)
[2020-06-07] MEDS: ALFUZOSIN HCL 10 MG TAB PO SCH (21:58)
[2020-06-07] MEDS: LORazepam 1 MG/2 ML VIAL IV PRN (22:49)
[2020-06-08] MEDS: ACETAMINOPHEN 1,000 MG/100 ML VIAL IV PRN ×3 (02:21→20:12)
[2020-06-08 06:01] LABS: Hematocrit (blood only) 35.1 % (42-52); Hemoglobin 11.9 g/dL (14.0-18.0); Mean Corpuscular Hemoglobin 31.2 pg (25-34); Mean Corpuscular Hgb Conc 33.9 g/dL (32-36); Mean Corpuscular Volume 92.1 fL (80-100); Mean Platelet Volume 10.2 fL (7.4-10.4); Platelet Count 292 K/uL (130-400); RDW Coefficient of Variation 13.5 % (11.5-14.5); RDW Standard Deviation 44.9 fL (36.4-46.3); Red Blood Count 3.81 M/uL (4.7-6.1); White Blood Count 4.71 K/uL (4.8-10.8)
[2020-06-08 06:16] LABS: BUN Creatinine Ratio 43.4 (10-20); Calcium 9.2 mg/dl (8.5-10.1); Est GFR (African American) 119.8; Est GFR (Non-African American) 103.4; Magnesium 2.2 mg/dl (1.8-2.4); Potassium 4.5 mmol/L (3.5-5.1)
[2020-06-08] MEDS ORDERED: SODIUM CHLORIDE 0.9% 1000ML 500 ML IV ONE (07:38)
[2020-06-08] MEDS: RASAGILINE PO SCH (07:49)
[2020-06-08] MEDS: CARBIDOPA/LEVODOPA 25/100MG TAB PO SCH ×4 (07:50→20:07)
[2020-06-08] MEDS: LIDOCAINE 5% 1 PATCH TD SCH (07:52)
[2020-06-08] MEDS: PANTOprazole 40 MG in SYRINGE 0 ML IV SCH ×2 (07:53→20:09)
[2020-06-08] MEDS: ENOXAPARIN INJ 40 MG/0.4 ML SYR SQ SCH (07:55)
[2020-06-08] MEDS: DICLOFENAC SOD 1% GEL 100 GM TUBE EXT PRN ×2 (07:56→14:20)
--- NOTE | 2020-06-08 09:10 | Surgery Progress Note ---
Date of Service June 08, 2020 Assessment & Plan (1) Ileus: He looks overall little bit better to me today. No surgical issues but I will continue to follow until we get some improvement in his GI motility. Hopefully with the institution of some additional Parkinson's medications which we are apparently attempting to get from [facility]. Dr. Lee is on-call for the weekend if any questions or concerns. Admission and Anticipated Discharge Date Admission Date: May 17, 2020 Subjective Patient seen. Sitting up eating clear liquids. No changes overnight. Currently no pain or nausea. Physical Exam Physical Exam: Alert. No acute distress. Abdomen is soft nontender. Positive bowel sounds. Results & Data ([facility]) Vital Signs (Past 12 Hours) Vital Signs Temp Pulse Pulse Resp BP Pulse Ox 06/08/20 07:26 37.0 C 107 H 16 158/96 H 95 06/07/20 22:30 36.7 C 104 H 18 152/97 H 96 PG Care Time/CCT Total # of Minutes Spent Total Time Spent with Patient: Total time spent is greater than 50% in coordination of care (as documented) at patient's floor/unit and/or counseling patient: Coding Level of Care Code None Diagnoses Ileus K56.7
[2020-06-08] MEDS ORDERED: SODIUM CHLORIDE 0.9% 1000ML 1,000 ML IV SCH (11:45)
--- NOTE | 2020-06-08 12:30 | Psychiatric Consultation ---
Date of Consultation June 08, 2020 Impression / Recommendations Impression Dr. Deven Mcduffie was directly involved in review and discussion of the patient's case and participated in medical decision making regarding treatment recommendations. RECOMMENDATIONS: 06/08/20 - Psychiatric consultation requested by hospitalist service on behalf of the patient's family due to concerns for depression. Pt does have a diagnosis of Parkinson's Disease and has been hospitalized since 05/17/20 related to complaint of LLQ abdominal pain. - Pt admits to frustrations related to prolonged hospitalization and perceived set-backs during this admission. He does feel that there has been a more consistent improvement in the past few days and he is trying to remain hopeful about his ability to regain his independence. Aside from difficulty sleeping, patient denies symptoms consistent with a clinical diagnosis of depression at this time. Furthermore, in light of his GI concerns, I would be hesitant to initiate an SSRI currently due to concerns for worsening GI sym ptoms. Pt agreed that his frustrations are likely to improve as his physical condition improves, and he is not yet interested in initiating medication to target his mood directly. Flat affect is most likely related to masked facies associated with Parkinson's disease diagnosis, rather than directly related to depression. Pt denies SI and any acute safety concerns. There is no indication for inpatient psychiatric treatment. - Pt does report sleep is an ongoing concern. He denies side effects related to initiation of trazodone and is willing to increase the dose further to target difficulty falling asleep. Trazodone increased to 100mg qHS. Pt is requesting to continue to utilize lorazepam as needed for sleep, which seems reasonable on a temporary basis, but is not as ideal for long-term use. - Pt is agreeable with referral for outpatient individual therapy. Will explore options for referrals. Family was contacted by our psychiatric nurse liaison to gather collateral information - reports also suggesting the primary concern is related to mood changes since the patient's hospitalization. - Appreciate the opportunity to participate in the care of this patient. Please reach out to our service with any additional questions or updates. Anticipate discharge to a short-term rehab facility based on case management notes. 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 Pt has had a prolonged hospitalization, GI and surgery consulted to assist with care. Psychiatric consultation was requested by our hospitalist service on behalf of the family due to concern for depression. Chief Complaint "Well, I've been here for the better part of 3 and a half weeks..." History of Present Illness Zelalem Young (Ken) is a 64-year-old male admitted medically on 05/17/20 for LLQ pain, subsequent GI and surgery consultations due to concern for obstipation - eventually having colonoscopy and sigmoidoscopy completed. Pt then required open release of small bowel obstruction which took place of 05/28/20. Psychiatric consultation was requested by our hospitalist team on behalf of the family due to concern for depression. Pt is cooperative with psychiatric assessment. He states "well, I've been here for the better part of 3 and a half weeks." Pt shares that prior to his hospital admission, he was independent with all activities and feels this has been a significant set-back for him with regard to his overall health. Pt is particularly worried about his GI issues, but states "it's like I'm being hit on multiple fronts. If it was just the GI stuff, it would be ok. But I have my neck pain and my Parkinson's to worry about too." Pt shares that "it's just been a lot of stops and starts." Pt does admit to episodes of hopelessness related to the trajectory his hospital course has taken, but states he is still hoping to regain his independence and build his strength. Pt is aware of recommendations for physical rehab on discharge and feels this will be very helpful. He states his goal for today is to be able to get out of bed. With regard to depressive symptoms, patient is only reporting concern related to poor sleep. He denies other criteria for major depressive disorder and clearly states that his episodes of depressed mood and occasional hopelessness were only present during his current hospitalization. Pt denies SI/HI, SIB and any acute safety concerns. He does believe that his mood will improve as he regains some of his functioning. Pt states that he has had brief episodes of counseling that were helpful, but otherwise denies history of psychiatric treatment. He does not feel that antidepressant medications are necessary at this time. Pt did agree to titrate trazodone to target insomnia and agreed to referral for outpatient therapy. Otherwise, he denied other needs or concerns from our service. Past Psychiatric History Current Psychiatric Diagnosis: Depression Outpatient Services: History of individual counseling with Yamileth May (previous at [facility], now independent practice). Previous Psych Admissions: None Do You Have Access To A Gun?: No History of Previous Suicide Attempt: No Past Medication Trials: Currently prescribed amitriptyline. Allergies Allergy/AdvReac Type Severity Reaction Status Date / Time No Known Drug Allergies Allergy Verified 05/22/20 14:06 Home Medications Medication Instructions Recorded Confirmed Type aspirin 81 mg tablet,delayed 81 mg PO PM 03/11/18 05/17/20 History release calcium carbonate 500 mg calcium 500 mg PO PM tab 03/11/18 05/17/20 History (1,250 mg) tablet carbidopa 25 mg-levodopa 100 mg 1 tab PO QID 03/11/18 05/17/20 History tablet multivitamin 1 tab PO PM 03/11/18 05/17/20 History psyllium seed (sugar) oral powder 1 tbs PO DAILY 03/12/18 05/17/20 History amitriptyline 25 mg tablet 25 mg PO QPM tab 01/03/19 05/17/20 History acetaminophen [Tylenol 8 Hour] 1,300 mg PO Q8H PRN 05/17/20 05/17/20 History alfuzosin [Uroxatral] 10 mg PO PM 05/17/20 05/17/20 History ibuprofen 600 mg PO Q6H PRN 05/17/20 05/17/20 History rasagiline 1 mg PO QAM 05/17/20 05/17/20 History Family History Reports father with history of depression. Otherwise, denies known family history of mental health conditions or significant substance abuse concerns. Substance Abuse History Denies significant alcohol or tobacco use. Denies use of illicit substances. Personal History Living Arrangements: Home Highest Grade Completed: Graduate School (Masters in Sport Administration) Employment Status: Retired Marital Status: Number Of Children: 2 Beliefs That Will Affect Care: Orthodox (Uatsdin) History of Legal Problems: Denies Psychological Trauma History Comment: Denies Patient History Medical History BPH (benign prostatic hyperplasia) Heart murmur History of kidney stones Left lumbar radiculopathy HX INJECTION DEC 05 2019 LLQ abdominal pain Low back pain Neck pain PINCHED NERVE AND ARTHRITIS - MILD LIMITATION WITH ROM Obstructive sleep apnea CPAP Parkinson disease Surgical History History of appendectomy History of colonoscopy History of left cataract surgery History of right cataract surgery S/P hemorrhoidectomy HX Family History Mother Breast cancer Father Hypertension Stroke Social History Smoking Status: Never smoker Hx Alcohol Use: No Hx Substance Use: No Preferred Language: [place] Communication Ability: Effective Visual Impairment: No Limitations Hearing Ability: Normal Hem Inspector Required: No Beliefs That Will Affect Care: Orthodox (Uatsdin) marital status: Current Living Situation: Spouse current occupational status: retired Other Information That Helps Us Care for You: No Feels Safe at Home: Yes Safety Concerns: Feels Safe At This Time Assistive Devices: None Physical Exam Psychiatric: Orientation: alert, oriented x 3 and cooperative Apperance: appropriately dressed, appropriately groomed and appeared stated age male of healthy-appearing weight, laying in bed. Pt is appropriately dressed for clinical setting, wearing hospital gown. Level of hygiene and grooming appear adequate. Eye Contact: good eye contact Motor Behavior: + tremor (full body tremor, observed consistently throughout appointment) movements are slowed, positioning appears rigid. Speech: soft volume, occasional stuttering Affect: + flat affect (likely primarily related to Parkinson's disease) Mood: + depressed mood (states only in the context of his hospital admission) Thought Process: goal directed thought process and clear/coherent thought process Thought Content: reality based without delu sions and + hopelessness (intermittently, stating only related to prolonged hospitalization) Suicidal Thoughts: denies suicidal thoughts, denies suicidal plan and denies suicidal intent Homicidal Thoughts: denies homicidal thoughts Hallucinations: no auditory hallucinations and no visual halluc inations Cognition: attention grossly intact and language grossly intact Estimated Intelligence: + above average estimated intelligence Insight: + fair insight Judgement: + fair judgement Vital Signs (Past 24 Hours): Last Vital Signs Temp 37.0 C 06/08/20 07:26 Pulse 107 H 06/08/20 07:26 Resp 16 06/08/20 07:26 BP 158/96 H 06/08/20 07:26 Pulse Ox 95 06/08/20 07:26 Review of Systems Constitutional: reports poor sleep, weakness Cardiovascular: denied Respiratory: denied Gastrointestinal: denied Neurological: reports tremor, worsening mobility related to Parkinson's Musculoskeletal: reports neck pain Psychiatric: denies symptoms other than stated above Total of at least 10 systems reviewed, pertinent positives as above and in HPI. Results & Data (PSY) Medications Administered Acetaminophen (Acetaminophen 500 Mg Tab) 1,000 mg PO Q8H PRN PRN Reason: Pain or Fever Stop: 07/04/20 19:05 Last Admin: 06/05/20 07:52 Dose: 1,000 mg Documented by: [id number] Admin: 06/04/20 19:59 Dose: 1,000 mg Documented by: [id number] Alfuzosin HCl (Alfuzosin Hcl 10 Mg Tab) 10 mg PO PM ZEB Stop: 06/16/20 20:59 Last Admin: 06/07/20 21:58 Dose: 10 mg Documented by: [id number] Admin: 06/06/20 21:36 Dose: 10 mg Documented by: [id number] Admin: 06/05/20 20:07 Dose: 10 mg Documented by: [id number] Admin: 06/04/20 20:00 Dose: Not Given Documented by: [id number] Admin: 06/03/20 20:07 Dose: Not Given Documented by: [id number] Admin: 06/02/20 20:07 Dose: Not Given Documented by: [id number] Admin: 06/01/20 23:23 Dose: Not Given Documented by: [id number] Admin: 05/31/20 20:06 Dose: 10 mg Documented by: [id number] Admin: 05/30/20 20:13 Dose: 10 mg Documented by: [id number] Admin: 05/29/20 20:02 Dose: Not Given Documented by: [id number] Admin: 05/28/20 19:51 Dose: Not Given Documented by: [id number] Admin: 05/27/20 19:57 Dose: Not Given Documented by: [id number] Admin: 05/26/20 19:29 Dose: Not Given Documented by: [id number] Admin: 05/25/20 20:50 Dose: Not Given Documented by: [id number] Admin: 05/23/20 20:11 Dose: 10 mg Documented by: [id number] Admin: 05/22/20 20:19 Dose: 10 mg Documented by: [id number] Admin: 05/21/20 20:04 Dose: 10 mg Documented by: [id number] Admin: 05/20/20 20:46 Dose: Not Given Documented by: [id number] Admin: 05/19/20 20:00 Dose: 10 mg Documented by: [id number] Admin: 05/18/20 20:06 Dose: 10 mg Documented by: [id number] Admin: 05/17/20 22:02 Dose: 10 mg Documented by: [id number] Carbidopa/Levodopa (Carbidopa/Levodopa 25/100mg Tab) 1 tab PO 0800,1200,1600,2000 ZEB Stop: 06/16/20 19:59 Last Admin: 06/08/20 11:58 Dose: 1 tab Documented by: [id number] Admin: 06/08/20 07:50 Dose: 1 tab Documented by: [id number] Admin: 06/07/20 19:58 Dose: 1 tab Documented by: [id number] Admin: 06/07/20 15:57 Dose: 1 tab Documented by: [id number] Admin: 06/07/20 12:49 Dose: 1 tab Documented by: [id number] Admin: 06/07/20 09:27 Dose: 1 tab Documented by: [id number] Admin: 06/06/20 20:16 Dose: 1 tab Documented by: [id number] Admin: 06/06/20 16:00 Dose: 1 tab Documented by: [id number] Admin: 06/06/20 12:13 Dose: 1 tab Documented by: [id number] Admin: 06/06/20 07:52 Dose: 1 tab Documented by: [id number] Admin: 06/05/20 20:07 Dose: 1 tab Documented by: [id number] Admin: 06/05/20 15:59 Dose: 1 tab Documented by: [id number] Admin: 06/05/20 11:47 Dose: 1 tab Documented by: [id number] Admin: 06/05/20 07:50 Dose: 1 tab Documented by: [id number] Admin: 06/04/20 19:59 Dose: 1 tab Documented by: [id number] Admin: 06/04/20 15:51 Dose: 1 tab Documented by: [id number] Admin: 06/04/20 12:01 Dose: 1 tab Documented by: [id number] Admin: 06/04/20 07:56 Dose: 1 tab Documented by: [id number] Admin: 06/03/20 20:06 Dose: 1 tab Documented by: [id number] Admin: 06/03/20 15:59 Dose: 1 tab Documented by: [id number] Admin: 06/03/20 11:35 Dose: 1 tab Documented by: [id number] Admin: 06/03/20 07:49 Dose: 1 tab Documented by: [id number] Admin: 06/02/20 20:08 Dose: 1 tab Documented by: [id number] Admin: 06/02/20 15:55 Dose: 1 tab Documented by: [id number] Admin: 06/02/20 11:55 Dose: 1 tab Documented by: [id number] Admin: 06/02/20 08:37 Dose: 1 tab Documented by: [id number] Admin: 06/01/20 20:56 Dose: 1 tab Documented by: [id number] Admin: 06/01/20 17:28 Dose: 1 tab Documented by: [id number] Admin: 06/01/20 15:50 Dose: Not Given Documented by: [id number] Admin: 06/01/20 08:02 Dose: 1 tab Documented by: [id number] Admin: 05/31/20 21:19 Dose: 1 tab Documented by: [id number] Admin: 05/31/20 16:17 Dose: 1 tab Documented by: [id number] Admin: 05/31/20 11:59 Dose: 1 tab Documented by: [id number] Admin: 05/31/20 07:55 Dose: 1 tab Documented by: [id number] Admin: 05/30/20 20:12 Dose: 1 tab Documented by: [id number] Admin: 05/30/20 15:48 Dose: 1 tab Documented by: [id number] Admin: 05/30/20 11:54 Dose: 1 tab Documented by: [id number] Admin: 05/30/20 07:59 Dose: 1 tab Documented by: [id number] Admin: 05/29/20 20:01 Dose: 1 tab Documented by: [id number] Admin: 05/29/20 16:08 Dose: 1 tab Documented by: [id number] Admin: 05/29/20 12:22 Dose: 1 tab Documented by: [id number] Admin: 05/29/20 08:05 Dose: 1 tab Documented by: [id number] Admin: 05/28/20 19:51 Dose: 1 tab Documented by: [id number] Admin: 05/28/20 16:12 Dose: Not Given Documented by: [id number] Admin: 05/28/20 12:01 Dose: Not Given Documented by: [id number] Admin: 05/28/20 08:03 Dose: Not Given Documented by: [id number] Admin: 05/27/20 19:57 Dose: 1 tab Documented by: [id number] Admin: 05/27/20 15:36 Dose: 1 tab Documented by: [id number] Admin: 05/27/20 11:55 Dose: 1 tab Documented by: [id number] Admin: 05/27/20 07:57 Dose: 1 tab Documented by: [id number] Admin: 05/26/20 19:29 Dose: 1 tab Documented by: [id number] Admin: 05/26/20 16:07 Dose: 1 tab Documented by: [id number] Admin: 05/26/20 12:00 Dose: 1 tab Documented by: [id number] Admin: 05/26/20 08:03 Dose: 1 tab Documented by: [id number] Admin: 05/25/20 20:09 Dose: 1 tab Documented by: [id number] Admin: 05/25/20 16:04 Dose: 1 tab Documented by: [id number] Admin: 05/25/20 12:05 Dose: 1 tab Documented by: [id number] Admin: 05/25/20 08:05 Dose: 1 tab Documented by: [id number] Admin: 05/24/20 19:55 Dose: 1 tab Documented by: [id number] Admin: 05/24/20 15:34 Dose: 1 tab Documented by: [id number] Admin: 05/24/20 11:55 Dose: 1 tab Documented by: [id number] Admin: 05/24/20 07:57 Dose: 1 tab Documented by: [id number] Admin: 05/23/20 20:10 Dose: 1 tab Documented by: [id number] Admin: 05/23/20 16:06 Dose: 1 tab Documented by: [id number] Admin: 05/23/20 11:47 Dose: 1 tab Documented by: [id number] Admin: 05/23/20 08:09 Dose: 1 tab Documented by: [id number] Admin: 05/22/20 20:19 Dose: 1 tab Documented by: [id number] Admin: 05/22/20 16:06 Dose: 1 tab Documented by: [id number] Admin: 05/22/20 12:03 Dose: 1 tab Documented by: [id number] Admin: 05/22/20 07:55 Dose: 1 tab Documented by: [id number] Admin: 05/21/20 20:04 Dose: 1 tab Documented by: [id number] Admin: 05/21/20 15:28 Dose: 1 tab Documented by: [id number] Admin: 05/21/20 11:50 Dose: 1 tab Documented by: [id number] Admin: 05/21/20 07:44 Dose: 1 tab Documented by: [id number] Admin: 05/20/20 19:28 Dose: 1 tab Documented by: [id number] Admin: 05/20/20 15:40 Dose: 1 tab Documented by: [id number] Admin: 05/20/20 14:32 Dose: Not Given Documented by: [id number] Admin: 05/20/20 08:13 Dose: 1 tab Documented by: [id number] Admin: 05/19/20 20:00 Dose: 1 tab Documented by: [id number] Admin: 05/19/20 16:00 Dose: 1 tab Documented by: [id number] Admin: 05/19/20 11:50 Dose: 1 tab Documented by: [id number] Admin: 05/19/20 07:45 Dose: 1 tab Documented by: [id number] Admin: 05/18/20 20:05 Dose: 1 tab Documented by: [id number] Admin: 05/18/20 15:32 Dose: 1 tab Documented by: [id number] Admin: 05/18/20 12:03 Dose: 1 tab Documented by: [id number] Admin: 05/18/20 07:38 Dose: 1 tab Documented by: [id number] Admin: 05/17/20 19:57 Dose: 1 tab Documented by: [id number] Diclofenac Sodium (Diclofenac Sod 1% Gel 100 Gm Tube) 2 gm EXT Q6H PRN PRN Reason: joint pain Stop: 06/27/20 00:14 Last Admin: 06/08/20 07:56 Dose: 2 gm Documented by: [id number] Admin: 06/07/20 21:59 Dose: 2 gm Documented by: [id number] Admin: 06/07/20 15:57 Dose: 2 gm Documented by: [id number] Admin: 06/07/20 09:30 Dose: 2 gm Documented by: [id number] Admin: 06/06/20 22:34 Dose: 2 gm Documented by: [id number] Admin: 06/06/20 16:00 Dose: 2 gm Documented by: [id number] Admin: 06/06/20 09:17 Dose: 2 gm Documented by: [id number] Admin: 06/05/20 21:16 Dose: 2 gm Documented by: [id number] Admin: 06/05/20 15:19 Dose: 2 gm Documented by: [id number] Admin: 06/05/20 07:46 Dose: 2 gm Documented by: [id number] Admin: 06/04/20 20:01 Dose: 2 gm Documented by: [id number] Admin: 06/04/20 15:54 Dose: 2 gm Documented by: [id number] Admin: 06/04/20 07:56 Dose: 2 gm Documented by: [id number] Admin: 06/03/20 18:20 Dose: 2 gm Documented by: [id number] Admin: 06/03/20 11:08 Dose: 2 gm Documented by: [id number] Admin: 06/02/20 08:39 Dose: 2 gm Documented by: [id number] Admin: 06/01/20 15:46 Dose: 2 gm Documented by: [id number] Admin: 05/31/20 05:01 Dose: 2 gm Documented by: [id number] Admin: 05/30/20 03:10 Dose: 2 gm Documented by: [id number] Admin: 05/29/20 16:12 Dose: 2 gm Documented by: [id number] Admin: 05/29/20 05:29 Dose: 2 gm Documented by: [id number] Admin: 05/28/20 20:19 Dose: 2 gm Documented by: [id number] Admin: 05/28/20 17:04 Dose: 2 gm Documented by: [id number] Enoxaparin Sodium (Enoxaparin Inj 40 Mg/0.4 Ml Syr) 40 mg SQ QAM ZEB Stop: 06/21/20 08:59 Last Admin: 06/08/20 07:55 Dose: 40 mg Documented by: [id number] Admin: 06/07/20 09:28 Dose: 40 mg Documented by: [id number] Admin: 06/06/20 09:18 Dose: 40 mg Documented by: [id number] Admin: 06/05/20 09:37 Dose: 40 mg Documented by: [id number] Admin: 06/04/20 07:58 Dose: 40 mg Documented by: [id number] Admin: 06/03/20 07:50 Dose: 40 mg Documented by: [id number] Admin: 06/02/20 08:38 Dose: 40 mg Documented by: [id number] Admin: 06/01/20 08:03 Dose: 40 mg Documented by: [id number] Admin: 05/31/20 08:13 Dose: 40 mg Documented by: [id number] Admin: 05/30/20 08:13 Dose: 40 mg Documented by: [id number] Admin: 05/27/20 09:38 Dose: 40 mg Documented by: [id number] Admin: 05/26/20 09:29 Dose: 40 mg Documented by: [id number] Admin: 05/25/20 09:47 Dose: 40 mg Documented by: [id number] Admin: 05/24/20 07:58 Dose: 40 mg Documented by: [id number] Admin: 05/23/20 08:10 Dose: 40 mg Documented by: [id number] Admin: 05/22/20 10:37 Dose: 40 mg Documented by: [id number] Heparin Sodium (Beef Lung) (Heparin 10 Unit/Ml 5 Ml Flush) 5 ml FLUSH PRN PRN PRN Reason: Flush Stop: 06/28/20 00:42 Last Admin: 06/08/20 05:32 Dose: 5 ml Documented by: [id number] Admin: 06/08/20 02:22 Dose: 5 ml Documented by: [id number] Admin: 06/07/20 22:19 Dose: 5 ml Documented by: [id number] Admin: 05/31/20 05:13 Dose: 5 ml Documented by: [id number] Promethazine HCl 12.5 mg/ (Sodium Chloride) 50.5 mls @ 202 mls/hr IV Q6H PRN PRN Reason: Nausea And Vomiting Stop: 06/16/20 14:40 Last Infusion: 05/20/20 01:38 Dose: 0 mls/hr Documented by: [id number] Admin: 05/20/20 01:00 Dose: 202 mls/hr Documented by: [id number] Infusion: 05/18/20 05:32 Dose: 0 mls/hr Documented by: [id number] Admin: 05/18/20 05:06 Dose: 202 mls/hr Documented by: [id number] Dextrose (D10w) 1,000 mls @ 0 mls/hr IV .Q0M PRN PRN Reason: protocol (see label comments) Stop: 06/24/20 15:59 Last Infusion: 05/30/20 15:15 Dose: 0 mls/hr Documented by: [id number] Admin: 05/30/20 13:29 Dose: 89.5 mls/hr Documented by: [id number] Pantoprazole Sodium 40 mg/ (Syringe) 10 mls @ 5 mls/min IV BID ZEB Stop: 06/26/20 15:59 Last Admin: 06/08/20 07:53 Dose: 5 mls/min Documented by: [id number] Admin: 06/07/20 21:59 Dose: 5 mls/min Documented by: [id number] Admin: 06/07/20 09:28 Dose: 5 mls/min Documented by: [id number] Admin: 06/06/20 21:51 Dose: 5 mls/min Documented by: [id number] Admin: 06/06/20 09:17 Dose: 5 mls/min Documented by: [id number] Admin: 06/05/20 20:06 Dose: 5 mls/min Documented by: [id number] Admin: 06/05/20 09:37 Dose: 5 mls/min Documented by: [id number] Admin: 06/04/20 20:01 Dose: 5 mls/min Documented by: [id number] Admin: 06/04/20 09:21 Dose: 5 mls/min Documented by: [id number] Admin: 06/03/20 20:06 Dose: 5 mls/min Documented by: [id number] Admin: 06/03/20 07:50 Dose: 5 mls/min Documented by: [id number] Admin: 06/02/20 20:07 Dose: 5 mls/min Documented by: [id number] Admin: 06/02/20 08:38 Dose: 5 mls/min Documented by: [id number] Admin: 06/01/20 21:00 Dose: 5 mls/min Documented by: [id number] Admin: 06/01/20 08:03 Dose: 5 mls/min Documented by: [id number] Admin: 05/31/20 20:06 Dose: 5 mls/min Documented by: [id number] Admin: 05/31/20 08:13 Dose: 5 mls/min Documented by: [id number] Admin: 05/30/20 20:13 Dose: 5 mls/min Documented by: [id number] Admin: 05/30/20 08:13 Dose: 5 mls/min Documented by: [id number] Admin: 05/29/20 20:02 Dose: 5 mls/min Documented by: [id number] Admin: 05/29/20 08:12 Dose: 5 mls/min Documented by: [id number] Admin: 05/28/20 19:57 Dose: 5 mls/min Documented by: [id number] Admin: 05/28/20 10:04 Dose: Not Given Documented by: [id number] Admin: 05/27/20 20:01 Dose: 5 mls/min Documented by: [id number] Admin: 05/27/20 15:49 Dose: 5 mls/min Documented by: [id number] Lorazepam (Ativan) 1 mg in 2 mls @ 1 mls/min IV HS PRN PRN Reason: Insomnia Stop: 06/30/20 16:24 Last Admin: 06/07/20 22:49 Dose: 1 mls/min Documented by: [id number] Admin: 06/06/20 22:34 Dose: 1 mls/min Documented by: [id number] Admin: 06/05/20 21:57 Dose: 1 mls/min Documented by: [id number] Admin: 06/04/20 21:33 Dose: 1 mls/min Documented by: [id number] Admin: 06/03/20 21:27 Dose: 1 mls/min Documented by: [id number] Admin: 06/02/20 22:33 Dose: 1 mls/min Documented by: [id number] Admin: 06/01/20 22:10 Dose: 1 mls/min Documented by: [id number] Admin: 05/31/20 23:23 Dose: 1 mls/min Documented by: [id number] Acetaminophen (Ofirmev) 1,000 mg in 100 mls @ 400 mls/hr IV Q8H PRN PRN Reason: Pain or Fever Stop: 06/11/20 15:30 Last Admin: 06/08/20 12:02 Dose: 400 mls/hr Documented by: [id number] Infusion: 06/08/20 02:45 Dose: 0 mls/hr Documented by: [id number] Admin: 06/08/20 02:21 Dose: 400 mls/hr Documented by: [id number] Infusion: 06/07/20 16:20 Dose: 0 mls/hr Documented by: [id number] Admin: 06/07/20 16:03 Dose: 400 mls/hr Documented by: [id number] Infusion: 06/07/20 08:00 Dose: 0 mls/hr Documented by: [id number] Admin: 06/07/20 07:45 Dose: 400 mls/hr Documented by: [id number] Infusion: 06/06/20 22:30 Dose: 0 mls/hr Documented by: [id number] Admin: 06/06/20 21:52 Dose: 400 mls/hr Documented by: [id number] Infusion: 06/06/20 13:09 Dose: 0 mls/hr Documented by: [id number] Admin: 06/06/20 12:48 Dose: 400 mls/hr Documented by: [id number] Infusion: 06/06/20 04:00 Dose: 0 mls/hr Documented by: [id number] Admin: 06/06/20 03:18 Dose: 400 mls/hr Documented by: [id number] Infusion: 06/05/20 18:45 Dose: 0 mls/hr Documented by: [id number] Admin: 06/05/20 18:13 Dose: 400 mls/hr Documented by: [id number] Nutrition (Parenteral) 1,853. (34 ml/ TPN BAG) 1,853.34 mls @ 77 mls/hr IV .Q24H ZEB; Protocol Stop: 06/08/20 15:59 Last Admin: 06/07/20 16:21 Dose: 77 mls/hr Documented by: [id number] Sodium Chloride (Nss 1000ml) 1,000 mls @ 48 mls/hr IV .[id number] [facility] Stop: 06/08/20 16:00 Last Admin: 06/08/20 11:59 Dose: 48 mls/hr Documented by: [id number] Lidocaine (Lidocaine 5% 1 Patch) 1 patch TD QAM [facility] Stop: 07/03/20 10:14 Last Admin: 06/08/20 07:52 Dose: 1 patch Documented by: [id number] Admin: 06/07/20 09:28 Dose: 1 patch Documented by: [id number] Admin: 06/06/20 09:17 Dose: 1 patch Documented by: [id number] Admin: 06/05/20 09:36 Dose: 1 patch Documented by: [id number] Admin: 06/04/20 07:57 Dose: 1 patch Documented by: [id number] Admin: 06/03/20 11:46 Dose: 1 patch Documented by: [id number] Miscellaneous (Neupro (Rotigotine) Transdermal 2mg/24h - Non-Formulary Medication) 1 ea N/A DAILY ZEB; Protocol Stop: 07/04/20 08:59 Last Admin: 06/04/20 18:51 Dose: Not Given Documented by: [id number] Miscellaneous (Remove Lidoderm Patch) 1 ea N/A DAILY@2100 ZEB Stop: 07/03/20 21:59 Last Admin: 06/07/20 22:00 Dose: 1 ea Documented by: [id number] Admin: 06/06/20 21:38 Dose: 1 ea Documented by: [id number] Admin: 06/05/20 21:15 Dose: Not Given Documented by: [id number] Admin: 06/04/20 20:00 Dose: 1 ea Documented by: [id number] Admin: 06/03/20 23:42 Dose: 1 ea Documented by: [id number] Morphine Sulfate (Morphine Sulfate 2 Mg/Ml Carp) 2 mg IV Q4H PRN PRN Reason: Pain Stop: 06/12/20 11:23 Last Admin: 06/07/20 02:37 Dose: 2 mg Documented by: [id number] *Rasagiline*Non- Formulary Patient's Own Med 1 ea PO Q24H ZEB; Protocol Stop: 06/17/20 07:59 Last Admin: 06/08/20 07:49 Dose: 1 mg Documented by: [id number] Admin: 06/07/20 09:27 Dose: 1 mg Documented by: [id number] Admin: 06/06/20 07:51 Dose: 1 mg Documented by: [id number] Admin: 06/05/20 07:50 Dose: 1 mg Documented by: [id number] Admin: 06/04/20 07:57 Dose: 1 mg Documented by: [id number] Admin: 06/03/20 07:49 Dose: 1 mg Documented by: [id number] Admin: 06/02/20 08:37 Dose: 1 mg Documented by: [id number] Admin: 06/01/20 08:01 Dose: 1 mg Documented by: [id number] Admin: 05/31/20 07:56 Dose: 1 mg Documented by: [id number] Admin: 05/30/20 07:57 Dose: 1 mg Documented by: [id number] Admin: 05/29/20 08:04 Dose: 1 mg Documented by: [id number] Admin: 05/28/20 08:02 Dose: Not Given Documented by: [id number] Admin: 05/27/20 07:57 Dose: 1 mg Documented by: [id number] Admin: 05/26/20 08:03 Dose: 1 mg Documented by: [id number] Admin: 05/25/20 08:05 Dose: 1 mg Documented by: [id number] Admin: 05/24/20 08:23 Dose: 1 mg Documented by: [id number] Admin: 05/23/20 08:10 Dose: 1 mg Documented by: [id number] Admin: 05/22/20 07:56 Dose: 1 mg Documented by: [id number] Admin: 05/21/20 07:45 Dose: 1 mg Documented by: [id number] Admin: 05/20/20 08:12 Dose: 1 mg Documented by: [id number] Admin: 05/19/20 07:46 Dose: 1 mg Documented by: [id number] Admin: 05/18/20 07:39 Dose: 1 mg Documented by: [id number] Ondansetron HCl (Ondansetron Inj 2 Mg/Ml 2 Ml Vial) 4 mg IV Q4H PRN PRN Reason: Nausea/Vomiting Stop: 06/16/20 14:40 Last Admin: 05/20/20 00:38 Dose: 4 mg Documented by: [id number] Admin: 05/18/20 02:18 Dose: 4 mg Documented by: [id number] Trazodone HCl (Trazodone Hcl 50 Mg Tab) 50 mg PO HS ZEB Stop: 07/03/20 20:59 Last Admin: 06/07/20 21:58 Dose: 50 mg Documented by: [id number] Admin: 06/06/20 21:35 Dose: 50 mg Documented by: [id number] Admin: 06/05/20 21:16 Dose: 50 mg Documented by: [id number] Admin: 06/04/20 21:33 Dose: 50 mg Documented by: [id number] Admin: 06/03/20 20:06 Dose: 50 mg Documented by: [id number] Coding Level of Care Code 51646 [facility] Intl Hosp Care Lvl 3 Diagnoses Depressive disorder due to another medical condition with depressive features F06.31 Insomnia G47.00 Parkinson disease G20
--- NOTE | 2020-06-08 14:44 | Hospitalist Progress Note ---
Date of Service June 08, 2020 Assessment & Plan (1) Parkinson disease: Continue his usual Sinemet dosing QID over past few days has developed more resting tremors and rigidity spoke with Dr. Mosqueda at [facility] on 06/02 recommend clamping tube longer, at least 60 minutes and will work on getting Neupro patch, 2mg daily this is non-formulary, pharmacy will obtain and should be here 06/04 discussed with patient's neurologist Dr. Pappas from [facility] he recommended apomorphine which is nonformulary spoke personally to apomorphine rep and can not be obtained in under [address] Berry states it will take 6-7 days to reach steady state on sinemet He will continue to be rigid for 4-5 days, then should feel better Will hold off on apomorphine as he should be relatively improved by the time we could obtain it anyway If he requires NG tube replacement, will start sinemet ODT 06-05 no improvement in symptoms, cont sinemet regimen 06-06 filled out paperwork to get apomorphine injections per family request and as recommended by Dr. Berry 06-07 additional forms were faxed to me which I filled out and sent back to [facility] 06-08 symptoms seem to be improving minimally on sinemet regimen [employer] is available at [phone] states that they are "investigating benefits" which takes 1-2 days and may not progress over the weekend (2) Ileus: post op ileus continues ever since 05/28 when he went for ex lap KUB 06/01 and 06/02 with dilated small bowel loops but also with gas in the colon keep NGT in place at noon will be due for Sinemet, can keep tube clamped the rest of the day/evening and allow clears liquid BM on 05/30, flatus on 06/01 and now very small liquid BM 06/03 and some flatus in morning small bowel follow through on 06/01 confirms ileus, no obvious obstruction 06-04 had BM today, NG tube pulled 06-05 passing gas, no BM 06-06 no BM but very little PO tolerated clears today 06-07 large BM, large amount of gas 06-07 tolerating clears, continuing tpn (3) Insomnia: continue Ativan 1mg IV HS not working as well, add Trazodone 50mg HS 06-08 trazodone dose increased to 100mg (4) Depression: patient has flat affect family requesting psych eval consult placed 06-08 patient does not want antidepressant at this time (5) Partial obstruction of colon: CT abd pelvis 05/23/20 IMPRESSION: Small bowel obstruction with a transition identified within the right anterior abdomen 05/28: exploratory laparoscopy Dr. Núñez, lysis of adhesions, no obvious area of small bowel to release continue NGT, continues to have post operative ileus encourage ambulation, OOB to chair, therapy is ordered everett pulled 05/30, he is urinating normally after it was removed, has condom catheter he had a bowel movement in afternoon on 05/30, first time in over a week some flatus on 06/01 small liquid BM and flatus in the morning on 06/03 small bowel follow through on 06/01 shows contrast in the distal small bowel after 5 hours PICC line 05/28, continue TPN until he can maintain enteral nutrition Dr. Mills took for flex sigmoidoscopy on 05/20, encountered 5cm long segment of very dense, fibrous stool that was at junction of descending and sigmoid colon Dr. Mills was able to break up the stool, irrigated with saline GI medicine for repeat flex sig on 05/22/2020, did see ulceration in colon, Zosyn IV completed 14 days, treatment for stercocolitis (6) Obstipation: due to hard stool in distal descending colon, maybe sterococal ulcer passed some flatus on 06/01 (7) Colitis: stercocolitis from very hard impacted stool in distal descending colon completed 14 days of Zosyn IV, no pain, WBC 12 continue NGT for suctioning as needed TPN will need repeat colonoscopy in 6 weeks (8) LLQ abdominal pain: see above, most of the pain is in LLQ obstipation (9) BPH (benign prostatic hyperplasia): Continue alfuzosin 10 mg p.o. every afternoon (10) Obstructive sleep apnea: CPAP at bedtime (11) Protein calorie malnutrition: poor intake for about two weeks now placed PICC, continue TPN today Cr, K , Mag, Phos all normal today (12) Left lumbar radiculopathy: shoot pain, spasms in left leg has had injections as outpatient difficult because want to avoid narcotics with his ileus and do not want to give muscle relaxer for same reasone try Lidoderm 5% patch today (13) Neck pain: chronic issue per , has seen numerous specialists without significant relief as outpatient it is worse right now being in the hospital Admission and Anticipated Discharge Date Admission Date: May 17, 2020 Subjective Patient had jello and broth for breakfast. Tolerated clears, little nausea, no vomiting. No BM today Denies abdominal pain Does not feel his rigidity has improved Review of Systems Constitutional: no fever, no chills, no fatigue, no weakness, no anorexia, no weight loss and no weight gain Ear, Nose, Mouth, Throat: no nasal congestion, no sore throat and no dysphagia Respiratory: no cough and no dyspnea Cardiovascular: no chest pain, no dyspnea on exertion, no orthopnea and no palpitations Gastrointestinal: no abdominal pain, no nausea, no vomiting, no hematemesis, no dysphagia, no constipation, no diarrhea/loose stools, no blood in stools and no melena Genitourinary: no dysuria and no hematuria Musculoskeletal: no back pain, no joint pain, no myalgia and no muscle weakness Integumentary: no rash, no lesions, no skin ulcer, no erythema, no dry skin and no pruritus Neurologic: + problem reported (muscular rigidity, tremor); no falls, no localized weakness, no generalized weakness, no numbness, no paresthesia, no tremor(s) and no headache(s) Psychiatric: no depression, no suicidal ideation, no homicidal ideation and no anxiety Endocrine: no cold intolerance and no heat intolerance Hematologic / Lymphatic: no easy bleeding and no easy bruising Physical Exam Constitutional: well developed and well nourished; no acute distress Eyes: PERRL, conjunctivae normal, anicteric sclerae ENMT: Mouth: oral mucous membranes not dry Respiratory: normal respiratory effort; no respiratory distress and no labored breathing Auscultation: lungs clear to auscultation bilaterally; no crackles, no rales, no rhonchi and no wheezes Cardiovascular: Rate/Rhythm: regular rate and regular rhythm Heart Sounds: no murmur and no cardiac rub Vessels: normal peripheral pulses and radial pulses present; no JVD Extremities: no edema Gastrointestinal (Abdomen): Inspection/Auscultation: abdomen normal to inspection, normal bowel sounds and + abdominal surgical scar (vertical well healed); abdomen not distended Percussion/Palpation: abdomen soft; abdomen nontender, no guarding, abdomen not rigid and no hepatosplenomegaly Musculoskeletal: Head/Neck/Chest: normocephalic and head atraumatic Spine: no cervical spinal tenderness, no cervical muscular tenderness, no thoracic spinal tenderness and no lumbar spinal tenderness Skin: no rashes, warm and dry Neurologic: CN's II-XI intact bilaterally and moves all extremities Motor/Sensory: + tremor and + abnormal movement (rigidity); no sensory deficit Psychiatric: Orientation: alert, oriented to person, oriented to place and oriented to time Apperance: appropriately groomed; not disheveled Affect: + flat affect; + affect not euthymic, no anxious affect and no tearful affect Results & Data Results & Data ([facility]) Vital Signs (Past 12 Hours) Vital Signs Temp Pulse Resp BP Pulse Ox 06/08/20 07:26 37.0 C 107 H 16 158/96 H 95 PG Care Time/CCT Total # of Minutes Spent Total Time Spent with Patient: Total time spent is greater than 50% in coordination of care (as documented) at patient's floor/unit and/or counseling patient: Coding Level of Care Code 00327 Subseq Hosp Care Lvl 2 Diagnoses Parkinson disease G20 Ileus K56.7 Insomnia G47.00 Insomnia type: unspecified Depression F32.9 Depression Type: unspecified Partial obstruction of colon K56.600 Obstipation K59.00 Colitis K52.9 LLQ abdominal pain R10.32 BPH (benign prostatic hyperplasia) N40.0 Obstructive sleep apnea G47.33 Protein calorie malnutrition E46 Left lumbar radiculopathy M54.16 Neck pain M54.2 (1) Depression Depression Type: unspecified Qualified Code(s): F32.9 - Major depressive disorder, single episode, unspecified (2) Insomnia Insomnia type: unspecified Qualified Code(s): G47.00 - Insomnia, unspecified
[2020-06-08] MEDS ORDERED: CENTRAL PN IV SCH (16:00)
[2020-06-08] MEDS ORDERED: TPN IV SCH (16:00)
[2020-06-08] MEDS: SODIUM CHLORIDE 0.9% 1000ML 1,000 ML IV SCH (16:45)
[2020-06-08] MEDS: ALFUZOSIN HCL 10 MG TAB PO SCH (20:09)
[2020-06-08] MEDS: traZODone HCL 100 MG TAB PO SCH (21:14)
[2020-06-08] MEDS: LORazepam 1 MG/2 ML VIAL IV PRN (23:21)
[2020-06-09 05:49] LABS: Hematocrit (blood only) 32.9 % (42-52); Mean Corpuscular Hemoglobin 31.1 pg (25-34); Mean Corpuscular Hgb Conc 33.4 g/dL (32-36); Mean Corpuscular Volume 92.9 fL (80-100); Mean Platelet Volume 10.3 fL (7.4-10.4); Platelet Count 282 K/uL (130-400); RDW Coefficient of Variation 13.4 % (11.5-14.5); RDW Standard Deviation 45.3 fL (36.4-46.3); Red Blood Count 3.54 M/uL (4.7-6.1); White Blood Count 6.38 K/uL (4.8-10.8)
[2020-06-09] MEDS ORDERED: MINERAL OIL 30 ML UDC PO ONE (05:59)
--- NOTE | 2020-06-09 06:12 | Surgery Progress Note ---
Date of Service June 09, 2020 Assessment & Plan (1) Small bowel obstruction: Status post exploratory laparotomy with lysis of adhesions History of Parkinson's disease Persistent ileus although some improvementpatient passing gas Would like to try more food-currently on TPN We will try full liquids and continue the TPN Try dose of mineral oil and senna syrup Continue supportive care Admission and Anticipated Discharge Date Admission Date: May 17, 2020 Results & Data ([facility]) Vital Signs (Past 12 Hours) Vital Signs Temp Pulse Resp BP Pulse Ox 06/08/20 21:50 36.9 C 109 H 14 164/94 H 94 PG Care Time/CCT Total # of Minutes Spent Total Time Spent with Patient: Total time spent is greater than 50% in coordination of care (as documented) at patient's floor/unit and/or counseling patient: Coding Level of Care Code None Diagnoses Small bowel obstruction K56.609
[2020-06-09 06:23] LABS: BUN Creatinine Ratio 42.6 (10-20); Calcium 9.2 mg/dl (8.5-10.1); Creatinine Clr Calc Pharmacy 117.2 ml/min; Est GFR (African American) 118.3; Magnesium 2.1 mg/dl (1.8-2.4); Potassium 4.1 mmol/L (3.5-5.1)
[2020-06-09] MEDS: SODIUM CHLORIDE 0.9% 1000ML 1,000 ML IV SCH (06:43)
[2020-06-09] MEDS: CARBIDOPA/LEVODOPA 25/100MG TAB PO SCH ×4 (08:07→19:32)
[2020-06-09] MEDS: RASAGILINE PO SCH (08:08)
[2020-06-09] MEDS: ACETAMINOPHEN 1,000 MG/100 ML VIAL IV PRN ×2 (08:15→16:16)
[2020-06-09] MEDS: DICLOFENAC SOD 1% GEL 100 GM TUBE EXT PRN ×3 (08:16→20:01)
[2020-06-09] MEDS: PANTOprazole 40 MG in SYRINGE 0 ML IV SCH ×2 (08:31→22:04)
[2020-06-09] MEDS: ENOXAPARIN INJ 40 MG/0.4 ML SYR SQ SCH (08:31)
--- NOTE | 2020-06-09 09:20 | Pharmacy Report ---
PHA: Parenteral Nutrition Con - Date of Service June 09, 2020 - Scope Pharmacy was consulted on 05/24/20 to manage parenteral nutrition orders for this patient. - Subjective The patient is currently on day [#] of [peripheral or central] parenteral nutrition for [INDICATION]. - Objective Height: 5 ft 10 in Weight: 75.5 kg Diet: Full Liquid Intake & Output (24hrs):: Intake & Output 06/07/20 06/08/20 06/09/20 06/10/20 06:59 06:59 06:59 06:59 Intake Total 3000.49 / 3000.49 2664.54 / 2664.54 4553.34 / 4553.34 Output Total 2500 / 2500 2325 / 2325 2750 / 2750 Balance 500.49 / 500.49 339.54 / 339.54 1803.34 / 1803.34 Weight 75.5 kg 75.5 kg Laboratory Data (Last 24 Hr):: 06/09/20 05:28 Sodium 139 Potassium 4.1 Chloride 108 H Carbon Dioxide 29 BUN 27 H Creatinine 0.64 Glucose 102 H Calcium 9.2 Phosphorus 3.0 Magnesium 2.1 Nutrition Assessment:: Please refer to the Notes section of the EMR for the most recent varnish inspector note. - Assessment * DIET ADVANCED TO FULL LIQUIDS - WILL TAPER MACROS BY ~10% * ADJUST MICRONUTRIENTS/ELECTROLYTES PER LABS - Plan For day #16 of PN administration, the following will be ordered: Macronutrients Amino acids 115 grams/day Dextrose 225 grams/day Lipids 25 grams/day Micronutrients Combined electrolytes 20 mL - contains 35 mEq Na, 20 meq K, 4.5 mEq Ca, 5 mEq Mg, 35 mEq Cl, 29.5 mEq acetate per 20 mL Sodium phosphate 36 MMol Sodium acetate 50 mEq Potassium phosphate 30 mMol Potassium acetate 20 mEq Magnesium sulfate 4.06 mEq Calcium gluconate 4.65 mEq Multivitamins 10 mL Trace Elements 1 mL Additional additives: * THIAMINE 100MG * FOLIC ACID 1MG Total volume 1697 mL to be infused over 24 hrs will provide 1475 kcal/day Labs, as indicated, will be ordered per protocol Pharmacy will continue to follow and adjust parenteral nutrition orders on a daily basis. Thank you for allowing us to participate in the care of this patient.
[2020-06-09] MEDS: LIDOCAINE 5% 1 PATCH TD SCH (10:01)
[2020-06-09] MEDS: SENNOSIDES 8.8 MG/5 ML UDC PO SCH ×3 (10:21→20:59)
[2020-06-09] MEDS: CENTRAL PN IV SCH (16:08)
[2020-06-09] MEDS: TPN IV SCH (16:08)
--- NOTE | 2020-06-09 19:04 | Hospitalist Progress Note ---
Date of Service June 09, 2020 Assessment & Plan (1) Parkinson disease: Continue his usual Sinemet dosing QID over past few days has developed more resting tremors and rigidity spoke with Dr. Mosqueda at [facility] on 06/02 recommend clamping tube longer, at least 60 minutes and will work on getting Neupro patch, 2mg daily this is non-formulary, pharmacy will obtain and should be here 06/04 discussed with patient's neurologist Dr. Pappas from [place] he recommended apomorphine which is nonformulary spoke personally to apomorphine rep and can not be obtained in under [address] Berry states it will take 6-7 days to reach steady state on sinemet He will continue to be rigid for 4-5 days, then should feel better Will hold off on apomorphine as he should be relatively improved by the time we could obtain it anyway If he requires NG tube replacement, will start sinemet ODT 06-05 no improvement in symptoms, cont sinemet regimen 06-06 filled out paperwork to get apomorphine injections per family request and as recommended by Dr. Berry 06-07 additional forms were faxed to me which I filled out and sent back to [employer] 06-08 symptoms seem to be improving minimally on sinemet regimen [employer] Ruiz is available at [phone] states that they are "investigating benefits" which takes 1-2 days and may not progress over the weekend Symptomatic the patient is doing better. No new medications have been started at this time. Will continue his current Sinemet regimented. Wait on additional guidance from specialist and potential medications. (2) Ileus: post op ileus continues ever since 05/28 when he went for ex lap KUB 06/01 and 06/02 with dilated small bowel loops but also with gas in the colon keep NGT in place at noon will be due for Sinemet, can keep tube clamped the rest of the day/ evening and allow clears liquid BM on 05/30, flatus on 06/01 and now very small liquid BM 06/03 and some flatus in morning small bowel follow through on 06/01 confirms ileus, no obvious obstruction 06-04 had BM today, NG tube pulled 06-05 passing gas, no BM 06-06 no BM but very little PO tolerated clears today 06-07 large BM, large amount of gas 06-07 tolerating clears, continuing tpn Continue to follow with General surgery (3) Insomnia: continue Ativan 1mg IV HS not working as well, add Trazodone 50mg HS 06-08 trazodone dose increased to 100mg (4) Depression: patient has flat affect family requesting psych eval consult placed 06-08 patient does not want antidepressant at this time (5) Partial obstruction of colon: CT abd pelvis 05/23/20 IMPRESSION: Small bowel obstruction with a transition identified within the right anterior abdomen 05/28: exploratory laparoscopy Dr. Núñez, lysis of adhesions, no obvious area of small bowel to release continue NGT, continues to have post operative ileus encourage ambulation, OOB to chair, therapy is ordered everett pulled 05/30, he is urinating normally after it was removed, has condom catheter he had a bowel movement in afternoon on 05/30, first time in over a week some flatus on 06/01 small liquid BM and flatus in the morning on 06/03 small bowel follow through on 06/01 shows contrast in the distal small bowel after 5 hours PICC line 05/28, continue TPN until he can maintain enteral nutrition Dr. Mills took for flex sigmoidoscopy on 05/20, encountered 5cm long segment of very dense, fibrous stool that was at junction of descending and sigmoid colon Dr. Mills was able to break up the stool, irrigated with saline GI medicine for repeat flex sig on 05/22/2020, did see ulceration in colon, Zosyn IV completed 14 days, treatment for stercocolitis (6) Obstipation: due to hard stool in distal descending colon, maybe sterococal ulcer passed some flatus on 06/01 Started on sennosides (7) Colitis: stercocolitis from very hard impacted stool in distal descending colon completed 14 days of Zosyn IV, no pain, WBC 12 continue NGT for suctioning as needed TPN will need repeat colonoscopy in 6 weeks (8) LLQ abdominal pain: see above, most of the pain is in LLQ obstipation (9) BPH (benign prostatic hyperplasia): Continue alfuzosin 10 mg p.o. every afternoon (10) Obstructive sleep apnea: CPAP at bedtime (11) Protein calorie malnutrition: poor intake for about two weeks now placed PICC, continue TPN today Cr, K , Mag, Phos all normal today (12) Left lumbar radiculopathy: shoot pain, spasms in left leg has had injections as outpatient difficult because want to avoid narcotics with his ileus and do not want to give muscle relaxer for same reasone try Lidoderm 5% patch today (13) Neck pain: chronic issue per , has seen numerous specialists without significant relief as outpatient it is worse right now being in the hospital Admission and Anticipated Discharge Date Admission Date: May 17, 2020 Subjective Patient feels he is improving slowly. Improved symptoms in regards to his Parkinson's hoping to receive other medications as recommended by his specialist Tolerating p.o. no new nausea or vomiting. Abdominal discomfort is slowly improving. No fevers chills Notes passing minimal gas no BM Review of Systems Review of Systems: All systems reviewed & are unremarkable except as noted in Subjective Physical Exam Physical Exam: Constitutional: WD/WN, vitals as above Lymphatic: No cervical lymphadenopathy Respiratory: Effort normal, CTA B/L CV: RRR, no murmur, no edema Abdomen: normal bowel sounds, soft, mild discomfort Results & Data Results & Data ([facility]) Vital Signs (Past 12 Hours) Vital Signs Temp Pulse Resp BP Pulse Ox 06/09/20 15:54 36.6 C 97 H 16 130/86 96 06/09/20 07:46 36.8 C 116 H 16 148/91 H 94 Laboratory Results Laboratory Results - last 24 hr 06/09/20 06/09/20 05:28 05:28 WBC 6.38 RBC 3.54 L Hgb 11.0 L Hct 32.9 L MCV 92.9 MCH 31.1 MCHC 33.4 RDW Std Deviation 45.3 RDW Coeff of Gregorio 13.4 Plt Count 282 MPV 10.3 Sodium 139 Potassium 4.1 Chloride 108 H Carbon Dioxide 29 Anion Gap 2.0 L BUN 27 H Creatinine 0.64 Est Cr Clr Drug Dosing 117.2 Est GFR ( Amer) 118.3 Est GFR (Non-Af Amer) 102.0 BUN/Creatinine Ratio 42.6 H Glucose 102 H Calcium 9.2 Phosphorus 3.0 Magnesium 2.1 PG Care Time/CCT Total # of Minutes Spent Total Time Spent with Patient: Total time spent is greater than 50% in coordination of care (as documented) at patient's floor/unit and/or counseling patient: Coding Level of Care Code 77592 Subseq Hosp Care Lvl 2 Diagnoses Parkinson disease G20 Ileus K56.7 Insomnia G47.00 Insomnia type: unspecified Depression F32.9 Depression Type: unspecified Partial obstruction of colon K56.600 Obstipation K59.00 Colitis K52.9 LLQ abdominal pain R10.32 BPH (benign prostatic hyperplasia) N40.0 Obstructive sleep apnea G47.33 Protein calorie malnutrition E46 Left lumbar radiculopathy M54.16 Neck pain M54.2 (1) Insomnia Insomnia type: unspecified Qualified Code(s): G47.00 - Insomnia, unspecified (2) Depression Depression Type: unspecified Qualified Code(s): F32.9 - Major depressive disorder, single episode, unspecified
[2020-06-09] MEDS: ALFUZOSIN HCL 10 MG TAB PO SCH (20:59)
[2020-06-09] MEDS: traZODone HCL 100 MG TAB PO SCH (20:59)
[2020-06-10] MEDS: LORazepam 1 MG/2 ML VIAL IV PRN ×2 (00:08→21:34)
[2020-06-10] MEDS: SODIUM CHLORIDE 0.9% 1000ML 1,000 ML IV SCH ×2 (01:56→21:22)
[2020-06-10 06:50] LABS: BUN Creatinine Ratio 37.9 (10-20); Calcium 9.2 mg/dl (8.5-10.1); Creatinine Clr Calc Pharmacy 119.1 ml/min; Est GFR (Non-African American) 102.7; Magnesium 2.2 mg/dl (1.8-2.4)
[2020-06-10 06:51] LABS: Phosphorus 3.6 mg/dl (2.5-4.9)
[2020-06-10] MEDS: RASAGILINE PO SCH ×2 (07:30→07:39)
[2020-06-10] MEDS: PANTOprazole 40 MG in SYRINGE 0 ML IV SCH ×2 (07:31→19:54)
[2020-06-10] MEDS: CARBIDOPA/LEVODOPA 25/100MG TAB PO SCH ×4 (07:32→19:52)
[2020-06-10] MEDS: LIDOCAINE 5% 1 PATCH TD SCH (07:33)
[2020-06-10] MEDS: ENOXAPARIN INJ 40 MG/0.4 ML SYR SQ SCH (07:33)
[2020-06-10] MEDS: SENNOSIDES 8.8 MG/5 ML UDC PO SCH ×2 (07:33→19:55)
--- NOTE | 2020-06-10 07:40 | Surgery Progress Note ---
Date of Service June 10, 2020 Assessment & Plan (1) Small bowel obstruction: POD 13 ex lap, Parkinson's will try soft diet cont TPN until po intake improves Admission and Anticipated Discharge Date Admission Date: May 17, 2020 Subjective small BM yesterday, tolerating full liquids, wants to try more Physical Exam Gastrointestinal (Abdomen): Inspection/Auscultation: abdomen not distended Percussion/Palpation: abdomen soft Results & Data ([facility]) Vital Signs (Past 12 Hours) Vital Signs Temp Pulse Resp BP Pulse Ox 06/09/20 23:01 36.5 C 102 H 14 159/83 H 97 PG Care Time/CCT Total # of Minutes Spent Total Time Spent with Patient: Total time spent is greater than 50% in coordination of care (as documented) at patient's floor/unit and/or counseling patient: Coding Level of Care Code None Diagnoses Small bowel obstruction K56.609
[2020-06-10] MEDS: ACETAMINOPHEN 1,000 MG/100 ML VIAL IV PRN ×2 (07:42→15:55)
[2020-06-10] MEDS: DICLOFENAC SOD 1% GEL 100 GM TUBE EXT PRN ×2 (07:49→14:53)
[2020-06-10] MEDS: TPN IV SCH ×2 (15:49→17:03)
[2020-06-10] MEDS: CENTRAL PN IV SCH ×2 (15:49→17:03)
[2020-06-10] MEDS: ALFUZOSIN HCL 10 MG TAB PO SCH (20:02)
--- NOTE | 2020-06-10 20:11 | Hospitalist Progress Note ---
Date of Service June 10, 2020 Assessment & Plan (1) Parkinson disease: continue sinemet input from prior hospitalist over past few days has developed more resting tremors and rigidity spoke with Dr. Mosqueda at [facility] on 06/02 recommend clamping tube longer, at least 60 minutes and will work on getting Neupro patch, 2mg daily this is non-formulary, pharmacy will obtain and should be here 06/04 discussed with patient's neurologist Dr. Pappas from [place] he recommended apomorphine which is nonformulary spoke personally to apomorphine rep and can not be obtained in under [address] Berry states it will take 6-7 days to reach steady state on sinemet He will continue to be rigid for 4-5 days, then should feel better Will hold off on apomorphine as he should be relatively improved by the time we could obtain it anyway If he requires NG tube replacement, will start sinemet ODT 06-05 no improvement in symptoms, cont sinemet regimen 06-06 filled out paperwork to get apomorphine injections per family request and as recommended by Dr. Berry 06-07 additional forms were faxed to me which I filled out and sent back to [facility] 06-08 symptoms seem to be improving minimally on sinemet regimen Dhaval Ruiz is available at [phone] states that they are "investigating benefits" which takes 1-2 days and may not progress over the weekend Symptomatic the patient is doing better. No new medications have been started at this time. Will continue his current Sinemet regimented. Wait on additional guidance from specialist and potential medications. (2) Ileus: improving - diet advancing (3) Insomnia: trazodone did not help. ativan for now. discussed this would be a poor technician terminal and repeater solution (4) Depression: patient has flat affect family requesting psych eval consult placed 06-08 patient does not want antidepressant at this time follow (5) Partial obstruction of colon: post op, on TPN, diet advancing (6) Obstipation: doing better (7) Colitis: stercocolitis from very hard impacted stool in distal descending colon completed 14 days of Zosyn IV, no pain, WBC 12 continue NGT for suctioning as needed TPN will need repeat colonoscopy in 6 weeks (8) LLQ abdominal pain: improved (9) BPH (benign prostatic hyperplasia): Continue alfuzosin 10 mg p.o. every afternoon (10) Obstructive sleep apnea: CPAP at bedtime (11) Protein calorie malnutrition: TPN, advancing diet (12) Left lumbar radiculopathy: conservative care/med management. outpt management (13) Neck pain: chronic issue per , has seen numerous specialists without significant relief as outpatient no complaints of this today (14) DVT prophylaxis: lovenox (15) Discharge planning issues: PT/OT eval and treat, advancing diet, movign towards being well enough to formulate a discharge plan Admission and Anticipated Discharge Date Admission Date: May 17, 2020 Subjective Slowly maturely feeling better. Ate eggs this morning no post eating pain, no nausea. Main complaint was insomnianoted that trazodone has not been helping but Ativan did. We discussed this would be a poor long-term solution, for now he wants to continue with the Ativan while he is inpatient as he feels that better sleep would help him heal quicker. Review of Systems Review of Systems: All systems reviewed & are unremarkable except as noted in HPI & below Physical Exam Physical Exam: General awake and alert pleasant no distress. HEENT normocephalic atraumatic mucous membranes moist. Breathing unlabored no accessory muscle use good effort. Skin shows no rashes no pallor or icterus. Neuro shows no focal deficits. Results & Data Results & Data ([facility]) Vital Signs (Past 12 Hours) Vital Signs Temp Pulse Resp BP Pulse Ox 06/10/20 15:00 98.4 F 114 H 16 144/95 H 95 PG Care Time/CCT Total # of Minutes Spent Total Time Spent with Patient: Total time spent is greater than 50% in coordination of care (as documented) at patient's floor/unit and/or counseling patient: Coding Level of Care Code 13733 Subseq Hosp Care Lvl 3 Diagnoses Parkinson disease G20 Ileus K56.7 Insomnia G47.00 Insomnia type: unspecified Depression F32.9 Depression Type: unspecified Partial obstruction of colon K56.600 Obstipation K59.00 Colitis K52.9 LLQ abdominal pain R10.32 BPH (benign prostatic hyperplasia) N40.0 Obstructive sleep apnea G47.33 Protein calorie malnutrition E46 Left lumbar radiculopathy M54.16 Neck pain M54.2 DVT prophylaxis Z29.9 Discharge planning issues Z02.9 (1) Insomnia Insomnia type: unspecified Qualified Code(s): G47.00 - Insomnia, unspecified (2) Depression Depression Type: unspecified Qualified Code(s): F32.9 - Major depressive disorder, single episode, unspecified
[2020-06-11] MEDS: LORazepam 1 MG/2 ML VIAL IV PRN ×2 (02:11→22:05)
[2020-06-11 06:41] LABS: BUN Creatinine Ratio 36.3 (10-20); Calcium 10.1 mg/dl (8.5-10.1); Creatinine Clr Calc Pharmacy 113.7 ml/min; Est GFR (African American) 116.8; Est GFR (Non-African American) 100.7; Magnesium 2.2 mg/dl (1.8-2.4); Phosphorus 3.8 mg/dl (2.5-4.9); Potassium 4.1 mmol/L (3.5-5.1)
[2020-06-11] MEDS: CARBIDOPA/LEVODOPA 25/100MG TAB PO SCH ×4 (07:56→19:52)
[2020-06-11] MEDS: SENNOSIDES 8.8 MG/5 ML UDC PO SCH ×2 (07:57→19:56)
[2020-06-11] MEDS: PANTOprazole 40 MG in SYRINGE 0 ML IV SCH ×2 (07:57→19:55)
[2020-06-11] MEDS: ENOXAPARIN INJ 40 MG/0.4 ML SYR SQ SCH (07:58)
[2020-06-11] MEDS: LIDOCAINE 5% 1 PATCH TD SCH (07:58)
[2020-06-11] MEDS: RASAGILINE PO SCH (08:00)
[2020-06-11] MEDS: ACETAMINOPHEN 1,000 MG/100 ML VIAL IV PRN (08:47)
[2020-06-11] MEDS: DICLOFENAC SOD 1% GEL 100 GM TUBE EXT PRN (08:48)
--- NOTE | 2020-06-11 10:00 | Surgery Progress Note ---
Date of Service June 11, 2020 Assessment & Plan (1) Small bowel obstruction: POD 14 ex lap, soft diet d/c TPN soon as above. doing better. today. feeling stronger. +formed bm. ej diet no further surgical intervention indicated. ok with me for transfer to rehab facility whenever primary service agrees will d/c julieth would continue miralax, metamucil at d/c. increase water to at lease 70 ounces daily. discussed all this with him and his . will sign off. please call if any questions or concerns. Admission and Anticipated Discharge Date Admission Date: May 17, 2020 Subjective tolerating soft diet, sitting in chair, waiting for bathroom assistance for BM Physical Exam Gastrointestinal (Abdomen): Percussion/Palpation: abdomen soft; abdomen nontender Results & Data ([facility]) Vital Signs (Past 12 Hours) Vital Signs Temp Pulse Resp BP Pulse Ox 06/11/20 07:11 36.9 C 102 H 14 132/86 95 06/10/20 23:17 36.7 C 95 H 14 137/89 96 PG Care Time/CCT Total # of Minutes Spent Total Time Spent with Patient: Total time spent is greater than 50% in co ordination of care (as documented) at patient's floor/unit and/or counseling patient: Coding Level of Care Code None Diagnoses Small bowel obstruction K56.609
[2020-06-11] MEDS: CENTRAL PN IV SCH (16:12)
[2020-06-11] MEDS: TPN IV SCH (16:12)
[2020-06-11] MEDS: ALFUZOSIN HCL 10 MG TAB PO SCH (19:56)
[2020-06-11] MEDS ORDERED: ACETAMINOPHEN SUSP 1000 MG/31.2 ML UDP PO PRN (21:21)
--- NOTE | 2020-06-11 21:21 | Billing Data ---
Date of Service June 11, 2020 Coding Level of Care Code 10510 Prolonged Care (int'l)
--- NOTE | 2020-06-11 21:21 | Hospitalist Progress Note ---
Date of Service June 11, 2020 Assessment & Plan (1) Parkinson disease: continue sinemet input from prior hospitalist: over past few days has developed more resting tremors and rigidity spoke with Dr. Mosqueda at [facility] on 06/02 recommend clamping tube longer, at least 60 minutes and will work on getting Neupro patch, 2mg daily this is non-formulary, pharmacy will obtain and should be here 06/04 discussed with patient's neurologist Dr. Pappas from [place] he recommended apomorphine which is nonformulary spoke personally to apomorphine rep and can not be obtained in under [address] Berry states it will take 6-7 days to reach steady state on sinemet He will continue to be rigid for 4-5 days, then should feel better Will hold off on apomorphine as he should be relatively improved by the time we could obtain it anyway If he requires NG tube replacement, will start sinemet ODT 06-05 no improvement in symptoms, cont sinemet regimen 06-06 filled out paperwork to get apomorphine injections per family request and as recommended by Dr. Berry 06-07 additional forms were faxed to me which I filled out and sent back to [facility] 06-08 symptoms seem to be improving minimally on sinemet regimen Dhaval Ruiz is available at [phone] states that they are "investigating benefits" which takes 1-2 days and may not progress over the weekend Symptomatic the patient is doing better. No new medications have been started at this time. Will continue his current Sinemet regimented. Wait on additional guidance from specialist and potential medications. ---> Since he is still showing tremors and bradykinesia, we will continue trying to pursue apokyn (2) Ileus: Improved, tolerating diet (3) Insomnia: trazodone did not help. ativan for now. discussed this would be a poor long term care social worker solution, probably after he is out of the hospital would be reasonable to try trazodone again versus something like Remeronhe notes his outpatient amitriptyline was not really helping (4) Depression: Would anticipate utilizing antidepressant as a sleep medicine as above, discussed further with patient's that treatment beyond simply pharmaceuticals would really be of big benefitshe notes he has been in counseling but does not go very often, but she and her daughter are heavily encouraging him to go more regularly (5) Partial obstruction of colon: post op, now doing well (6) Obstipation: Resolved (7) Colitis: Resolved. Now ongoing bowel regimen (8) LLQ abdominal pain: improved (9) BPH (benign prostatic hyperplasia): Continue alfuzosin 10 mg p.o. every afternoon (10) Obstructive sleep apnea: CPAP at bedtime (11) Protein calorie malnutrition: Tolerating regular diet. Has protein supplements. Continue to encourage p.o. intake. (12) Left lumbar radiculopathy: He does have an MRI from about 2 years ago showing a broad-based bulging disc mild impact on the anterior thecal sac and mild narrowing of the left neural foraminathis was L4-5, 1 level down he had mild narrowing of the right foramina at L5-S1. His left leg symptoms could sort of fit with the L4-5 lesion, but also could be a bit more of a peripheral/biomechanical problem. Outpatient follow-up in this regard (13) Neck pain: chronic issue Appears to be biomechanical/stiff muscles. Topical diclofenac 4 times daily, trial of OMT (14) Cervical somatic dysfunction: OMT as abovetrial of OMT ongoing as an outpatient as well (15) DVT prophylaxis: lovenox (16) Discharge planning issues: PT/OT eval and treat, anticipate rehab once is able to be arranged Time in the room approximately 545, time out of the room approximately 630. Greater than 30 minutes [id number], the 30 minutes was separate from time performing OMT, and was predominantly offering guidance/insight/counseling in regards to his overall medical condition and progress. Admission and Anticipated Discharge Date Admission Date: May 17, 2020 Subjective Seen twice today. In the morning he is out of bed doing better eating well, got up with therapy. No complaints. Later in the day present updated extensively. She has questions regarding his TPN, his Tylenol, his disposition. Also noted that he has had chronic neck pain for years upon years that actually generally is a bigger problem for him in daily life than his Parkinson's. Stiff and always painful. Also a degree of lower back/leg pain probably more leg than back. Notes that to her it seems like a "sciatica" he notes he slept better with the Ativan. We reiterated that this is a short-term solution only. She notes that generally he gets around well and prior to his hospital admission he was walking fine driving fine, and "would barely look like he had Parkinson's"she notes that his neurologist and her she had talked about a shot that might help get him over the top for his current exacerbationin review of notes from prior hospitals, it seems the major issues have been formulary/bureaucratic hold-ups. Review of Systems Review of Systems: All systems reviewed & are unremarkable except as noted in HPI & below Physical Exam Physical Exam: In general he is awake and alert pleasant no distress. HEENT normocephalic atraumatic mucous membranes moist. Breathing unlabored no accessory muscle use good effort. Skin shows no rashes no pallor or icterus. Osteopathic/musculoskeletalC-spine paraspinals very high in tone, tender, decreased range of motion. Unwinding, direct myofascial, and then later personally applied topical diclofenac to do a little bit of just simple direct massagetissue texture improved some. Patient tolerated well. Results & Data Results & Data ([facility]) Vital Signs (Past 12 Hours) Vital Signs Temp Pulse Resp BP Pulse Ox 06/11/20 16:00 97.7 F 106 H 20 141/91 H 94 PG Care Time/CCT Total # of Minutes Spent Total Time Spent with Patient: Total time spent is greater than 50% in coordination of care (as documented) at patient's floor/unit and/or counseling patient: Coding Level of Care Code 10416 Subseq Hosp Care Lvl 3 Diagnoses Parkinson disease G20 Ileus K56.7 Insomnia G47.00 Insomnia type: unspecified Depression F32.9 Depression Type: unspecified Partial obstruction of colon K56.600 Obstipation K59.00 Colitis K52.9 LLQ abdominal pain R10.32 BPH (benign prostatic hyperplasia) N40.0 Obstructive sleep apnea G47.33 Protein calorie malnutrition E46 Left lumbar radiculopathy M54.16 Neck pain M54.2 Cervical somatic dysfunction M99.01 DVT prophylaxis Z29.9 Discharge planning issues Z02.9 CPT Codes Musculoskeletal - Musculoskeletal: 8[address] Tr 1-2 Body regions ([id number]) (1) Insomnia Insomnia type: unspecified Qualified Code(s): G47.00 - Insomnia, unspecified (2) Depression Depression Type: unspecified Qualified Code(s): F32.9 - Major depressive disorder, single episode, unspecified
[2020-06-12] MEDS: DICLOFENAC SOD 1% GEL 100 GM TUBE EXT PRN ×4 (01:39→21:45)
[2020-06-12] MEDS: LORazepam 1 MG/2 ML VIAL IV PRN ×2 (01:44→22:46)
[2020-06-12] MEDS: PANTOprazole 40 MG in SYRINGE 0 ML IV SCH ×2 (08:00→21:29)
[2020-06-12] MEDS: SENNOSIDES 8.8 MG/5 ML UDC PO SCH ×2 (08:00→21:30)
[2020-06-12] MEDS: LIDOCAINE 5% 1 PATCH TD SCH (08:00)
[2020-06-12] MEDS: CARBIDOPA/LEVODOPA 25/100MG TAB PO SCH ×4 (08:01→19:32)
[2020-06-12] MEDS: ENOXAPARIN INJ 40 MG/0.4 ML SYR SQ SCH (08:01)
--- NOTE | 2020-06-12 19:37 | Hospitalist Progress Note ---
Date of Service June 12, 2020 Assessment & Plan (1) Parkinson disease: continue sinemet input from prior hospitalist: over past few days has developed more resting tremors and rigidity spoke with Dr. Mosqueda at [facility] on 06/02 recommend clamping tube longer, at least 60 minutes and will work on getting Neupro patch, 2mg daily this is non-formulary, pharmacy will obtain and should be here 06/04 discussed with patient's neurologist Dr. Pappas from [place] he recommended apomorphine which is nonformulary spoke personally to apomorphine rep and can not be obtained in under [address] Berry states it will take 6-7 days to reach steady state on sinemet He will continue to be rigid for 4-5 days, then should feel better Will hold off on apomorphine as he should be relatively improved by the time we could obtain it anyway If he requires NG tube replacement, will start sinemet ODT 06-05 no improvement in symptoms, cont sinemet regimen 06-06 filled out paperwork to get apomorphine injections per family request and as recommended by Dr. Berry 06-07 additional forms were faxed to me which I filled out and sent back to [facility] 06-08 symptoms seem to be improving minimally on sinemet regimen Dhaval inbound sales representative Joseph is available at [phone] states that they are "investigating benefits" which takes 1-2 days and may not progress over the weekend Symptomatic the patient is doing better. No new medications have been started at this time. Will continue his current Sinemet regimented. Wait on additional guidance from specialist and potential medications. ---> Since he is still showing tremors and bradykinesia, we will continue trying to pursue apokyn. today i think i completed prior auth, but the process was fairly opaque, so i might have simply set the prior auth in motion? will await further information. also had discussed w apokyn rep this AM who noted he would be involving their lining caser to help w the process (2) Ileus: Improved, tolerating diet (3) Insomnia: conitnue ativan for now. discussed some nonpharmacologic sleep strategies. discussed that i would not want to write off current plan as a fail ure from one poorer night. previously discussed this would be a poor watermaster solution, probably after he is out of the hospital would be reasonable to try trazodone again versus something like Remeronhe notes his outpatient amitriptyline was not really helping (4) Depression: Would anticipate utilizing antidepressant as a sleep medicine as above, di scussed further with patient's that treatment beyond simply pharmaceuticals would really be of big benefitshe notes he has been in counseling but does not go very often, but she and her daughter are heavily encouraging him to go more regularly (5) Partial obstruction of colon: post op, now doing well (6) Obstipation: Resolved (7) Colitis: Resolved. Now ongoing bowel regimen (8) LLQ abdominal pain: improved (9) BPH (benign prostatic hyperplasia): Continue alfuzosin 10 mg p.o. every afternoon (10) Obstructive sleep apnea: CPAP at bedtime (11) Protein calorie malnutrition: Tolerating regular diet. Has protein supplements. will take time and ongoing PO intake, but anticipate improvement. suspect malnutrition and deconditioning also amplifying the weakness that phenotypically he/ are seeing as worse parkinsonism - d/w them can't tell 100% clearly as both are playing a role - hence pursuing apokyn, but wanted it to be clear for them with expectations on recovery (ie need for aggressive PT --> that treating parksinons alone will not likely be what gets him back to moving better again) that his weakness/etc is multifactorial (12) Left lumbar radiculopathy: He does have an MRI from about 2 years ago showing a broad-based bulging disc mild impact on the anterior thecal sac and mild narrowing of the left neural foraminathis was L4-5, 1 level down he had mild narrowing of the right foramina at L5-S1. His left leg symptoms could sort of fit with the L4-5 lesion, but also could be a bit more of a peripheral/biomechanical problem. Outpatient follow-up in this regard (13) Neck pain: chronic issue Appears to be biomechanical/stiff muscles. Topical diclofenac 4 times daily, ongoing trial of OMT (14) Cervical somatic dysfunction: OMT as above againtrial of OMT ongoing as an outpatient as well (15) DVT prophylaxis: lovenox (16) Discharge planning issues: PT/OT eval and treat, anticipate rehab once is able to be arranged Admission and Anticipated Discharge Date Admission Date: May 17, 2020 Subjective ongoing neck stiffness. still stiff and slow. patient had on speakerphone - approx 20mins call in the room. one of their biggest concerns was status of apokyn. called insurance company for prior auth. person took information - not entirely sure that status after that, but apparently we will hear something (?or i will be asked for more information?) in the next 24hrs by fax. eating well awaiting rehab Review of Systems Review of Systems: All systems reviewed & are unremarkable except as noted in HPI & below Physical Exam Physical Exam: gen aao pleasant nad heent nc at mmm breathing unlabored no accessory muscles good effort skin no rashes no pallor or icterus neuro ongoing slow movements, quiet voice - maybe sl better than yesterday but more or less the same. msk/ost - R>L Cspine paraspinals high tone/tender/decreased ROM - direct myofascial and unwinding - improved. pt noted some relief. Results & Data Results & Data ([facility]) Vital Signs (Past 12 Hours) Vital Signs Temp Pulse Resp BP Pulse Ox 06/12/20 15:14 97.5 F L 109 H 18 156/96 H 96 PG Care Time/CCT Total # of Minutes Spent Total Time Spent with Patient: Total time spent is greater than 50% in coordination of care (as documented) at patient's floor/unit and/or counseling patient: Coding Level of Care Code 93373 Subseq Hosp Care Lvl 3 Diagnoses Parkinson disease G20 Ileus K56.7 Insomnia G47.00 Insomnia type: unspecified Depression F32.9 Depression Type: unspecified Partial obstruction of colon K56.600 Obstipation K59.00 Colitis K52.9 LLQ abdominal pain R10.32 BPH (benign prostatic hyperplasia) N40.0 Obstructive sleep apnea G47.33 Protein calorie malnutrition E46 Left lumbar radiculopathy M54.16 Neck pain M54.2 Cervical somatic dysfunction M99.01 DVT prophylaxis Z29.9 Discharge planning issues Z02.9 CPT Codes Musculoskeletal - Musculoskeletal: 07415 [address] Tr 1-2 Body regions ([id number]) (1) Insomnia Insomnia type: unspecified Qualified Code(s): G47.00 - Insomnia, unspecified (2) Depression Depression Type: unspecified Qualified Code(s): F32.9 - Major depressive disorder, single episode, unspecified
[2020-06-12] MEDS: ALFUZOSIN HCL 10 MG TAB PO SCH (21:44)
[2020-06-13] MEDS: LORazepam 1 MG/2 ML VIAL IV PRN ×2 (02:43→21:58)
[2020-06-13] MEDS: RASAGILINE PO SCH (08:03)
[2020-06-13] MEDS: CARBIDOPA/LEVODOPA 25/100MG TAB PO SCH ×4 (08:03→19:52)
[2020-06-13] MEDS: SENNOSIDES 8.8 MG/5 ML UDC PO SCH ×2 (08:03→20:01)
[2020-06-13] MEDS: ENOXAPARIN INJ 40 MG/0.4 ML SYR SQ SCH (08:04)
[2020-06-13] MEDS: LIDOCAINE 5% 1 PATCH TD SCH (08:04)
[2020-06-13] MEDS: DICLOFENAC SOD 1% GEL 100 GM TUBE EXT PRN ×3 (08:05→20:00)
[2020-06-13] MEDS: PANTOprazole 40 MG in SYRINGE 0 ML IV SCH ×2 (08:05→20:01)
--- NOTE | 2020-06-13 18:48 | Hospitalist Progress Note ---
Date of Service June 13, 2020 Assessment & Plan (1) Parkinson disease: continue sinemet input from prior hospitalist: over past few days has developed more resting tremors and rigidity spoke with Dr. Mosqueda at [facility] on 06/02 recommend clamping tube longer, at least 60 minutes and will work on getting Neupro patch, 2mg daily this is non-formulary, pharmacy will obtain and should be here 06/04 discussed with patient's neurologist Dr. Pappas from [place] he recommended apomorphine which is nonformulary spoke personally to apomorphine rep and can not be obtained in under [address] Berry states it will take 6-7 days to reach steady state on sinemet He will continue to be rigid for 4-5 days, then should feel better Will hold off on apomorphine as he should be relatively improved by the time we could obtain it anyway If he requires NG tube replacement, will start sinemet ODT 06-05 no improvement in symptoms, cont sinemet regimen 06-06 filled out paperwork to get apomorphine injections per family request and as recommended by Dr. Berry 06-07 additional forms were faxed to me which I filled out and sent back to [employer] 06-08 symptoms seem to be improving minimally on sinemet regimen Dhaval Ruiz is available at [phone] states that they are "investigating benefits" which takes 1-2 days and may not progress over the weekend Symptomatic the patient is doing better. No new medications have been started at this time. Will continue his current Sinemet regimented. Wait on additional guidance from specialist and potential medications. ---> Yesterday had a phone call working on prior Auth, today papers were faxed to me that I completed and faxed back. --> Continuing to remind patient and that his parkinsonian phenotype is probably 1 part Parkinson's, but 1 part deconditioning in the context of a patient with Parkinson's. Given that it is difficult to tease 1 from the other, and his Parkinson's neurologist believes that the apokyn could be helpful, it is certainly worth pursuing, but I also trying to help them not believe that that will be "the answer" quickly improving his functional statusreminding him that largely nutrition and therapy will be what improves his functional status. (2) Ileus: Resolved (3) Insomnia: conitnue ativan for now. No complaints of insomnia today (4) Depression: Would anticipate utilizing antidepressant as a sleep medicine as above, discussed further with patient's that treatment beyond simply pharmaceutic als would really be of big benefitshe notes he has been in counseling but does not go very often, but she and her daughter are heavily encouraging him to go more regularly (5) Partial obstruction of colon: post op, now doing well (6) Obstipation: Resolved (7) Colitis: Resolved. Now ongoing bowel regimen (8) LLQ abdominal pain: improved (9) BPH (benign prostatic hyperplasia): Continue alfuzosin 10 mg p.o. every afternoon (10) Obstructive sleep apnea: CPAP at bedtime (11) Protein calorie malnutrition: Tolerating regular diet. Has protein supplements. will take time and ongoing PO intake, but anticipate improvement. suspect malnutrition and deconditioning also amplifying the weakness that phenotypically he/ are seeing as worse parkinsonism - d/w them can't tell 100% clearly as both are playing a role - hence pursuing apokyn, but wanted it to be clear for them with expectations on recovery (ie need for aggressive PT --> that treating parksinons alone will not likely be what gets him back to moving better again) that his weakness/etc is multifactorial (12) Left lumbar radiculopathy: He does have an MRI from about 2 years ago showing a broad-based bulging disc mild impact on the anterior thecal sac and mild narrowing of the left n eural foraminathis was L4-5, 1 level down he had mild narrowing of the right foramina at L5-S1. His left leg symptoms could sort of fit with the L4-5 lesion, but also could be a bit more of a peripheral/biomechanical problem. Outpatient follow-up in this regard (13) Neck pain: chronic issue Appears to be biomechanical/stiff muscles. Topical diclofenac 4 times daily, ongoing trial of OMT (14) Cervical somatic dysfunction: OMT once again done todaytrial of OMT ongoing as an outpatient as well (15) DVT prophylaxis: lovenox (16) Discharge planning issues: PT/OT eval and treat, anticipate rehab once is able to be arranged Admission and Anticipated Discharge Date Admission Date: May 17, 2020 Subjective Feeling about the same. Still a bit stiff and slow. Still eating okay. Awaiting on rehab. No new complaints. Review of Systems Review of Systems: All systems reviewed & are unremarkable except as noted in HPI & below Physical Exam Physical Exam: General he is awake and alert pleasant no distress. HEENT normocephalic atraumatic mucous membranes are moist. Breathing unlabored no accessory muscle use good effort. Skin shows no rashes no pallor or icterus. Musculoskeletal/osteopathic shows right greater than left C-spine paraspinals to be high in tone, tender, decreased range of motiondirect myofascial and unwinding done with a mild degree of improvement, patient tolerated well and noted some improvement in his neck pain afterwards. Results & Data Results & Data ([facility]) Vital Signs (Past 12 Hours) Vital Signs Temp Pulse Pulse Resp BP BP Pulse Ox 06/13/20 15:35 98.2 F 98 H 16 139/88 95 06/13/20 07:00 98.2 F 105 H 16 130/95 94 PG Care Time/CCT Total # of Minutes Spent Total Time Spent with Patient: Total time spent is greater than 50% in coordination of care (as documented) at patient's floor/unit and/or counseling patient: Coding Level of Care Code 68626 Subseq Hosp Care Lvl 3 Diagnoses Parkinson disease G20 Ileus K56.7 Insomnia G47.00 Insomnia type: unspecified Depression F32.9 Depression Type: unspecified Partial obstruction of colon K56.600 Obstipation K59.00 Colitis K52.9 LLQ abdominal pain R10.32 BPH (benign prostatic hyperplasia) N40.0 Obstructive sleep apnea G47.33 Protein calorie malnutrition E46 Left lumbar radiculopathy M54.16 Neck pain M54.2 Cervical somatic dysfunction M99.01 DVT prophylaxis Z29.9 Discharge planning issues Z02.9 CPT Codes Musculoskeletal - Musculoskeletal: 41594 Osteo Adán Tr 1-2 Body regions ([id number]) (1) Insomnia Insomnia type: unspecified Qualified Code(s): G47.00 - Insomnia, unspecified (2) Depression Depression Type: unspecified Qualified Code(s): F32.9 - Major depressive disorder, single episode, unspecified
[2020-06-13] MEDS: ALFUZOSIN HCL 10 MG TAB PO SCH (20:01)
[2020-06-14] MEDS: LORazepam 1 MG/2 ML VIAL IV PRN (02:58)
[2020-06-14] MEDS: RASAGILINE PO SCH (08:00)
[2020-06-14] MEDS: CARBIDOPA/LEVODOPA 25/100MG TAB PO SCH (08:00)
[2020-06-14] MEDS: DICLOFENAC SOD 1% GEL 100 GM TUBE EXT PRN (08:05)
[2020-06-14] MEDS: LIDOCAINE 5% 1 PATCH TD SCH (08:05)
[2020-06-14] MEDS: ENOXAPARIN INJ 40 MG/0.4 ML SYR SQ SCH (09:40)
[2020-06-14] MEDS: PANTOprazole 40 MG in SYRINGE 0 ML IV SCH (09:41)
[2020-06-14] MEDS: SENNOSIDES 8.8 MG/5 ML UDC PO SCH (09:41)
--- NOTE | 2020-06-14 20:34 | Discharge Summary ---
Date of Service June 14, 2020 Admission HPI Per Admitting Provider Zelalem Young is a 64-year-old male who presents to the ER with abdominal pain. He reports 2 days of mainly LLQ abdominal cramping pain - felt like he needed to move his bowels but could not go. Seen by PCP yesterday and was ordered lab work but were unable to get this. Therefore he went home and tried Metamucil for constipation taking then twice yesterday with no effect. He does not take any regular laxatives. This morning he felt lightheaded and faint with associated nausea and diaphoresis therefore decided to come to the ER. He denies any vomiting, just nausea. His pain is generalized abdominal but more c oncentrated in left lower quadrant radiating to left flank, severity 7/10 in ER, currently 2/10. No bowel movement for past 2 days, usually regular with Metamucil daily. He reports a significant history of Parkinson's disease and has been taking his Sinemet regularly. Also notably taking amitriptyline for insomnia for last 6 months although he is unclear if this is helping his insomnia. In the ER CT was concerning for moderate amount of stool in descending colon with adjacent stranding and mild to moderate upstream colonic dilatation concerning for partial colonic obstruction suggestive of stercoral colitis. NG tube was placed with significant output of green thin liquid and relief of his abdominal discomfort. He was given Zosyn to cover for infective cause +/- translocation of bacteria. He was referred to medicine for admission and ongoing management of ischemic colitis. Principal Diagnosis Large bowel obstruction Discharge Exam General he is awake and alert pleasant no distress. HEENT normocephalic atraumatic mucous membranes moist. Breathing unlabored no accessory muscle use good effort. Skin shows no rashes no pallor or icterus. Neuro shows ongoing bradykinesia and mild tremor. Discharge Data Allergies Allergy/AdvReac Type Severity Reaction Status Date / Time No Known Drug Allergies Allergy Verified 05/22/20 14:06 Consultations 05/17/20 11:37 ED Decision to Admit Stat 05/18/20 12:34 Consult General Surgery Routine 05/19/20 10:03 Consult Gastroenterology Routine 06/06/20 12:28 Consult Patient Services Routine 06/08/20 07:49 Consult Psychiatry Routine Procedures Performed Operation Date: 05/20/20 11:00 <No data on this case meets the specified criteria> Operation Date: 05/20/20 12:30 Actual Procedures p Colonoscopy(Not Applicable) - Fernie Mills Operation Date: 05/22/20 17:45 Actual Procedures p Flexible Sigmoidoscopy - Rocky Hewitt Operation Date: 05/28/20 09:00 Actual Procedures p with conversion to Open Release of Small Bowel Obstruction, enterolysis, (Not Applicable) - Satnam Núñez, DO s repair of umbilical hernia(Not Applicable) - Satnam Núñez, DO s Laparoscopy(Not Applicable) - Satnam Núñez, DO Ordered Studies 05/17/20 09:25 CT abd pelvis IV con only Stat 05/23/20 13:15 CT abd pelvis oral con only Routine 06/01/20 10:13 FL small bowel follow through Urgent Hospital Course (1) Parkinson disease: continue sinemet input from prior hospitalist: over past few days has developed more resting tremors and rigidity spoke with Dr. Mosqueda at [facility] on 06/02 recommend clamping tube longer, at least 60 minutes and will work on getting Neupro patch, 2mg daily this is non-formulary, pharmacy will obtain and should be here 06/04 discussed with patient's neurologist Dr. Pappas from [place] he recommended apomorphine which is nonformulary spoke personally to apomorphine rep and can not be obtained in under [address] Berry states it will take 6-7 days to reach steady state on sinemet He will continue to be rigid for 4-5 days, then should feel better Will hold off on apomorphine as he should be relatively improved by the time we could obtain it anyway If he requires NG tube replacement, will start sinemet ODT 06-05 no improvement in symptoms, cont sinemet regimen 06-06 filled out paperwork to get apomorphine injections per family request and as recommended by Dr. Berry 06-07 additional forms were faxed to me which I filled out and sent back to [employer] 06-08 symptoms seem to be improving minimally on sinemet regimen Dhaval Ruiz is available at [phone] states that they are "investigating benefits" which takes 1-2 days and may not progress over the weekend Symptomatic the patient is doing better. No new medications have been started at this time. Will continue his current Sinemet regimented. Wait on additional guidance from specialist and potential medications. ---> 2 days ago had a phone call working on prior Auth, today papers were faxed to me that I completed and faxed back. Today I was called by the [employer] and told that the form I faxed back was not legible. I made another phone call to try to see what to do next, they then basically told me to recomplete the form and send it again. --> Continuing to remind patient and that his parkinsonian phenotype is probably 1 part Parkinson's, but 1 part deconditioning in the context of a patient with Parkinson's. Given that it is difficult to tease 1 from the other, and his Parkinson's neurologist believes that the apokyn could be helpful, it is certainly worth pursuing, but I also trying to help them not believe that that will be "the answer" quickly improving his functional statusreminding him that largely nutrition and therapy will be what improves his functional status. (2) Ileus: Resolved (3) Insomnia: Ongoing outpatient management, consider Remeron versus retrial of trazodone (4) Depression: Would anticipate utilizing antidepressant as a sleep medicine as above, discussed further with patient's that treatment beyond simply pharmaceuticals would really be of big benefitshe notes he has been in counseling but does not go very often, but she and her daughter are heavily encouraging him to go more regularly (5) Partial obstruction of colon: post op, now doing well (6) Obstipation: Resolved (7) Colitis: Resolved. Now ongoing bowel regimen (8) LLQ abdominal pain: improved (9) BPH (benign prostatic hyperplasia): Continue alfuzosin 10 mg p.o. every afternoon (10) Obstructive sleep apnea: CPAP at bedtime (11) Protein calorie malnutrition: Tolerating regular diet. Has protein supplements. will take time and ongoing PO intake, but anticipate improvement. suspect malnutrition and deconditioning also amplifying the weakness that phenotypically he/ are seeing as worse parkinsonism - d/w them can't tell 100% clearly as both are playing a role - hence pursuing apokyn, but wanted it to be clear for them with expectations on recovery (ie need for aggressive PT --> that treating parksinons alone will not likely be what gets him back to moving better again) that his weakness/etc is multifactorial (12) Left lumbar radiculopathy: He does have an MRI from about 2 years ago showing a broad-based bulging disc mild impact on the anterior thecal sac and mild narrowing of the left neural foraminathis was L4-5, 1 level down he had mild narrowing of the right foramina at L5-S1. His left leg symptoms could sort of fit with the L4-5 lesion, but also could be a bit more of a peripheral/biomechanical problem. Outpatient follow-up in this regard (13) Neck pain: chronic issue Appears to be biomechanical/stiff muscles. Topical diclofenac 4 times daily, [facility] (14) Cervical somatic dysfunction: OMT once again done several times during hospital stay - showed good response here, despite limited treatment and chronic pain trial of OMT ongoing as an outpatient as well (15) DVT prophylaxis: lovenox (16) Discharge planning issues: PT/OT eval and treat, stable for rehab Total Time Total Time Spent Total Time Spent (In Minutes): <30 Discharge Plan Discharge Items Patient Disposition: Transfer Inpatient Rehab Fac Reason For Visit: PARTIAL LARGE BOWEL OBSTRUCTION, COLITIS Discharge Diagnosis: Bowel obstruction resolved Activity: Per Instructions section Lifting: No more than 10 pounds Bathing Comment: may shower; no soaking in tubs/pools Exercise/Sports: Wait until after follow-up appointment Non-emergency contact: Primary Care Provider Call non-emergency contact if: you have any medication questions, your symptoms worsen, your pain is not controlled, your pain is worsening, your pain is concerning for you, you have a fever, your temperature is above 101.5, your wound has increased redness, your wound has increased drainage and your wound pain has increased Follow-up/Referrals: Satnam Núñez DO [Surgeon] - (Please call to schedule follow up in clinic within 2 weeks) Cristiano Arana MD [Primary Care Provider] - Diet: Regular Addtl Attending Provider Instructions: Bowel obstruction -Had large bowel obstruction, that seem to be a combination of slow GI transit/hard feces, and dense adhesions. Postop has done well, albeit with a slow recovery. -Tolerating regular diet -Should continue MiraLAX with a goal of at least 1 soft bowel movement daily -Fluid intake with a goal of 70 ounces minimum daily -Outpatient surgical follow-up Parkinson's/weakness -Currently is much more stiff, slow, and weak than he normally is. -This is probably a combination of his Parkinson's as well as deconditioning/malnutrition (was off of medications for a while with his surgical issues, although these have been resumed and he is tolerating well), from a Parkinson's standpoint his neurologist at [place] (Dr Saenz) had recommended a trial of Apokyn for short-term to try to assist in improving his mobility. This has been extremely difficult to obtain. I have a prior Auth underway, phone call completed 2 days ago, paperwork faxed to me and returned yesterday. If prior Auth is granted, would have phone correspondence with his neurologist to assist/guide dosing and duration. Dhaval billing customer service representative Joseph [phone] can offer assistance if needed. -If discussed with patient and his extensively, that while his "phenotype" is that of worsening Parkinson's, it likely is also because of deconditioning and malnutritionand while assisting with the Parkinson's with escalated medications may be helpful, I doubt it will be definitiveas he will still require PT/OT and nutrition support. Please follow p.o. intake, offer protein supplements, etc. Neck pain -He has chronic neck pain, it appears to be very biomechanical in naturewith very tight paraspinal musculature. Please continue topical diclofenac 4 times daily, I initiated a trial of OMT the last several days in the hospital, for which he is shown a surprisingly favorable response, given the duration of how long his neck has been painful. To this end, I would recommend ongoing trial of OMT as an outpatientgiven that he sees Dr. Arana, I specifically recommended one of the DO residents and Dr. Arana's office (Dr Monique) for an ongoing trial of OMT Low back/leg pain -Similarly he has a low back and leg situation that is likely biomechanical. Here he does have a bit of structural spine disease that could account for radiculopathy, but I suspect a trial of OMT would help with this as well Insomnia -Had been on amitriptyline, did not think it was helping. Short term in the hospital, we utilized lorazepam 1 mg at bedtime with a follow-up milligram as needed refractory insomniawe discussed that this could potentially be utilized for a very short term after discharge, but would be a terrible long-term solution. Also discussed considerations of Remeron or a retrial of trazodone. Pending Studies at Discharge: No Stand-Alone Forms: My [facility] Skilled Items Patient informed of condition?: Yes DNR: No Discharge Level of Care: Acute rehab Communicable Disease: No Discharge Prognosis: Improving Lines: None Urinary Catheter: No Medications and DC Order Prescriptions: New melatonin 3 mg Tablet 3 mg PO HS PRN (Reason: insomnia) Qty: 30 RF: 0 diclofenac sodium [Voltaren] 1 % Gel 2 g EXT Q6H Qty: 100 RF: 0 polyethylene glycol 3350 [Miralax] 17 gram/dose powder 17 g PO DAILY Qty: 119 RF: 0 pantoprazole [Protonix] 40 mg tablet,delayed release (DR/EC) 40 mg PO BID Qty: 60 RF: 0 Continued multivitamin tablet 1 tab PO PM RF: 0 aspirin [Adult Aspirin Regimen] 81 mg tablet,delayed release (DR/EC) 81 mg PO PM RF: 0 carbidopa-levodopa [Sinemet] 25-100 mg tablet 1 tab PO QID RF: 0 acetaminophen [Tylenol 8 Hour] 650 mg Tablet Extended Release 1,300 mg PO Q8H PRN (Reason: Pain) RF: 0 rasagiline 1 mg tablet 1 mg PO QAM RF: 0 alfuzosin [Uroxatral] 10 mg tablet extended release 24 hr 10 mg PO PM RF: 0 Discontinued calcium carbonate [Uazh-Ugm-253] 500 mg calcium (1,250 mg) tablet 500 mg PO PM RF: 0 psyllium seed (sugar) [Metamucil (sugar)] powder 1 tbs PO DAILY RF: 0 amitriptyline 25 mg tablet 25 mg PO QPM RF: 0 ibuprofen 200 mg Tablet 600 mg PO Q6H PRN (Reason: fever/pain) RF: 0 Discharge Orders: Discharge Order (Routine); Ordered 06/14/20 Ordered By: Jason Messer Admission Data Admit Date/Time: 05/17/20 12:21 Attending Provider: Jason Messer Admit Provider: Jose Alberto Marley Primary Care Provider: Cristiano Arana Other Providers: Geronimo Snider ; Deven Vallecillo ; Rocky Hewitt ; Marialuisa Baez at [place] ; [facility] ; Adeline Ponce ; Sharon Ward ; Ketan Everett Other Interventions: Discharge Summary Assessment (RN) Last Done: 06/14/20 09:54 Coding Level of Care Code D/C Day Management <30 mins Diagnoses Parkinson disease G20 Ileus K56.7 Insomnia G47.00 Insomnia type: unspecified Depression F32.9 Depression Type: unspecified Partial obstruction of colon K56.600 Obstipation K59.00 Colitis K52.9 LLQ abdominal pain R10.32 BPH (benign prostatic hyperplasia) N40.0 Obstructive sleep apnea G47.33 Protein calorie malnutrition E46 Left lumbar radiculopathy M54.16 Neck pain M54.2 Cervical somatic dysfunction M99.01 DVT prophylaxis Z29.9 Discharge planning issues Z02.9
--- NOTE | 2020-08-07 12:35 | GI REPORT ---
Patient Name: Zelalem Young Procedure Date: 05/22/2020 2:22 PM Date of : 1955 Admit Type: Inpatient Age: 64 Gender: Male Attending MD: Rocky Hewitt MD Procedure: Flexible Sigmoidoscopy Providers: Rocky Hewitt MD Referring MD: Referred Self Indications: Generalized abdominal distress Medicines: Midazolam 3 mg IV Complications: No immediate complications. Estimated Blood Loss: Estimated blood loss: none. Procedure: Pre-Anesthesia Assessment: - Prior to the procedure, a History and Physical was performed, and patient medications, allergies and sensitivities were reviewed. The patient's tolerance of previous anesthesia was reviewed. - The risks and benefits of the procedure and the sedation options and risks were discussed with the patient. All questions were answered and informed consent was obtained. After obtaining informed consent, the endoscope was passed under direct vision. Throughout the procedure, the patient's blood pressure, pulse, and oxygen saturations were monitored continuously. The Endoscope was introduced through the anus and advanced to 30 cm from the anal verge. The flexible sigmoidoscopy was accomplished without difficulty. The patient tolerated the procedure well. The quality of the bowel preparation was good. Findings: A few diverticula were found in the sigmoid colon. A single (solitary) circumferential ulcer was found in the simoid/distal descending colon. No bleeding was present. No stigmata of recent bleeding were seen. Impression: - Diverticulosis in the sigmoid colon. - A single (solitary) ulcer in the distal descending colon. - No specimens collected. Recommendation: - [facility] care. Rocky Hewitt M.D. Rocky Hewitt MD 08/07/2020 12:35:11 PM This report has been signed electronically. Note Initiated On: 05/22/2020 2:22 PM Number of Addenda: 0 I attest to the content of the Intraoperative Record and orders documented therein, exceptions below {[id number]}
== END 2020-06-14 11:40 ==
LOC: ED 08:42 → SUATTDRO 12:21 → 2N 12:21 → 3W 05-31 21:38

== ENCOUNTER 2023-02-18 18:40 | Inpatient (IN) ==
[2023-02-18] MEDS ORDERED: SODIUM CHLORIDE 0.9% 1,000 ML IV ONE (20:31)
[2023-02-18] MEDS ORDERED: ACETAMINOPHEN 1,000 MG/100 ML VIAL IV STA (20:50)
[2023-02-18] MEDS ORDERED: MoRPHine SULFATE 4 MG/ML 1 ML CARP\\VIAL IV STA (20:50)
[2023-02-18] MEDS ORDERED: ONDANSETRON INJ 2 MG/ML 2 ML VIAL IV STA (20:51)
--- NOTE | 2023-02-18 20:52 | Emergency Department Note ---
Impression & Plan SBO (small bowel obstruction), Parkinson disease, Abdominal pain, History of intestinal obstruction ED Provider Note NAME: VANIA OSBORN AGE: 67 SEX: M ARRIVES VIA: Walk-In INFORMANT: Patient ED PROVIDER(S): Vinayak Alvarado MD CHIEF COMPLAINT: Abdomen PLAN: Disposition: Admit MEDICAL DECISION MAKING: The patient is a pleasant 67-year-old gentleman with a past medical history of Parkinson disease, MAGDALENE, hyperlipidemia, BPH, history of bowel obstruction with surgical correction who presents to the emergency department via walk-in accompanied by his for evaluation of acute onset abdominal pain with nausea that began late this morning after having breakfast. Patient reports that he felt some of the pain improve and so had lunch later on in the day but is pain returned and more severe. His symptoms are reminiscent of when he had his previous bowel obstruction. He reports feeling healthy prior to today and denies fevers, chills, cough, congestion, urinary symptoms. On evaluation the patient is uncomfortable but no acute distress, afebrile with stable vital signs. His abdomen is distended with mild tenderness within the mid abdomen without guarding or rebound. EKG without overt acute ischemia. CXR negative for acute cardiopulmonary process per my personal preliminary review/interpretation. WBC 15.2 K with neutrophil predominance and no left shift, nonspecific. H/H and platelets within normal limits. Chemistry without metabolic acidosis. Calcium 10.6 and electrolytes otherwise without significant abnormality. LFTs are unremarkable. High-sensitivity troponin 2.9, within normal limits. Lipase not elevated. Chest x-ray negative for acute cardiopulmonary process. KUB demonstrates dilated loops of bowel concerning for obstruction better characterized on CT of the abdomen pelvis which demonstrates distended stomach that is gas and fluid-filled as well as proximal small bowel that is decompressed with multiple dilated fluid-filled loops of mid to distal small bowel measuring up to 5.2 cm in diameter. There appears to be both proximal and distal transition point within the distended loops of small bowel, consistent with closed-loop obstruction. Findings reviewed with the patient and his at the bedside. They agree with plan for NG tube placement to facilitate decompression and surgical consultation. Case was discussed with general surgery Yunior Enriquez PAC, with general surgery on-call, Dr. Mena. Case was discussed with Dr. Mendez, [facility] [place], who will evaluate the patient for admission. Further management per general surgery and hospitalist service. Triage Nursing notes reviewed and agree them. Prior/external medical records reviewed Vital Signs: reviewed Differential diagnosis: Gastroenteritis, food borne illness, infections, appendicitis, diverticulitis, inflammatory bowel disease, obstruction, GI bleed, biliary pathology, volvulus, as well as other pathologies. ER treatment provided: See below. Diagnostics interpreted by me: ECG: Normal sinus rhythm, 60 bpm, no ectopy, no overt ST elevation or depression, QTc 436, QRS 114. Cardiac Monitoring: An order for continuous cardiac monitoring was placed and demonstrated Normal sinus rhythm, 69 bpm, no ectopy Laboratory studies: See below Imaging studies: See below Consultation(s): General surgery Yunior Enriquez PAC, with general surgery on-call, Dr. Mena. Dr. Mendez, [facility] [place]. HPI: The patient is a pleasant 67-year-old gentleman with a past medical history of Parkinson disease, MAGDALENE, hyperlipidemia, BPH, history of bowel obstruction with surgical correction who presents to the emergency department via walk-in accompanied by his for evaluation of acute onset abdominal pain with nausea that began late this morning after having breakfast. Patient reports that he felt some of the pain improve and so had lunch later on in the day but is pain returned and more severe. His symptoms are reminiscent of when he had his previous bowel obstruction. He reports feeling healthy prior to today and denies fevers, chills, cough, congestion, urinary symptoms. ROS: See above HPI for pertinent positives & negatives. A total of 10 systems reviewed and were otherwise negative. VITALS:See Below PHYSICAL EXAMINATION: GENERAL: Awake, alert, uncomfortable-appearing, in no distress HENT: Normocephalic, atraumatic. Oropharynx with dry mucous membranes and otherwise unremarkable. EYES: Normal conjunctiva. Sclera non-icteric. NECK: Supple. No nuchal rigidity. FROM. No JVD. RESPIRATORY: Clear to auscultation. CARDIAC: Regular rate, normal rhythm. Extremities warm and well perfused. Pulses equal. ABDOMEN: Distended with mild tenderness within the mid abdomen without guarding or rebound. RECTAL: Deferred. MUSCULOSKELETAL: Chest examination reveals no tenderness. The back is symmetrical on inspection without obvious abnormality. There is no CVA tenderness to palpation. No joint edema. LOWER EXTREMITIES: Calves are equal size bilaterally and non-tender. No edema. No discoloration. NEURO: Normal sensorium. No sensory or motor deficits noted. SKIN: No rash or jaundice noted. Vinayak Alvarado MD Past Med/Surg History Medical History Bilateral hydronephrosis History of intestinal obstruction HOSPITALIZED MAY 2020 - [facility] Small bowel obstruction Stercoral ulcer of large intestine Colitis Left lumbar radiculopathy HX INJECTION DEC 05 2019 History of kidney stones Neck pain PINCHED NERVE AND ARTHRITIS - MILD LIMITATION WITH ROM Low back pain Parkinson disease Obstructive sleep apnea CPAP Heart murmur BPH (benign prostatic hyperplasia) Peritonitis Surgical History History of exploratory laparotomy FOR INTESTINAL PROBLEM MAY 2020 History of colonoscopy History of right cataract surgery History of left cataract surgery S/P hemorrhoidectomy HX History of appendectomy Family History Mother Breast cancer Father Hypertension Stroke Social History Smoking Status: Never smoker Second Hand Exposure: No; Do You Dip or Chew Tobacco: No; Hx Alcohol Use: No Hx Substance Use: No Preferred Language: Frisian Communication Ability: Effective Visual Impairment: No Limitations Hearing Ability: Normal Concert Manager Required: No Beliefs That Will Affect Care: Adventist (Baptist) marital status: Current Living Situation: Spouse current occupational status: retired Feels Safe at Home: Yes Assistive Devices: Walker Allergies Allergies Allergy/AdvReac Type Severity Reaction Status Date / Time No Known Allergies Allergy Verified 02/18/23 21:19 Home Meds Home Medications Medication Instructions Recorded Confirmed rasagiline 1 mg tablet (Azilect) 1 mg PO QAM 05/17/20 02/18/23 carbidopa 25 mg-levodopa 100 mg 1.5 tab PO BID 07/18/20 02/18/23 tablet (Sinemet) docusate sodium 100 mg capsule 100 mg PO TID 07/18/20 02/18/23 (Colace) diclofenac sodium 1 % topical gel 2 g EXT Q6H PRN Pain 09/11/20 02/18/23 polyethylene glycol 3350 17 gram 17 g PO DAILY 10/15/21 02/18/23 oral powder packet (Miralax) amantadine HCl 100 mg capsule 100 mg PO TID 08/04/22 02/18/23 carbidopa ER 25 mg-levodopa 100 mg 1 tab PO 6XD 08/04/22 02/18/23 tablet,extended release entacapone 200 mg tablet 200 mg PO QID 08/04/22 02/18/23 lorazepam 1 mg tablet (Ativan) 0.5 mg PO HS PRN Sleep 08/04/22 02/18/23 carbidopa 25 mg-levodopa 100 mg 1 tab PO TID 02/18/23 02/18/23 tablet escitalopram oxalate 10 mg tablet 10 mg PO DAILY 02/18/23 02/18/23 Previous Rx's Medication Instructions Recorded alfuzosin 10 mg tablet,extended 10 mg PO DAILY #90 tabs 11/03/22 release 24 hr (Uroxatral) Results & Data (ED) Vital Signs Vital Signs - 24 hr 02/18/23 19:38 02/18/23 19:59 02/18/23 20:00 Temperature 36.3 C L Temperature Source Temporal Artery Scan Pulse Rate 56 L 67 63 Pulse Rate from SpO2 Sensor Respiratory Rate 16 22 Respiratory Effort / Characteristics Non-Labored Spontaneous Respiratory Depth Normal Blood Pressure 105/69 Blood Pressure Mean 81 Pulse Oximetry 92 94 Oxygen Delivery Method Room Air Room Air Sepsis Recent Fever Within 48 Hours Yes Sepsis New/Unexplained Change in Mental Status N/A Sepsis Action Taken by Nursing No Action Required 02/18/23 20:15 02/18/23 20:30 02/18/23 20:34 Temperature Temperature Source Pulse Rate 61 68 Pulse Rate from SpO2 Sensor 66 Respiratory Rate 20 24 Respiratory Effort / Characteristics Respiratory Depth Blood Pressure 105/70 100/67 Blood Pressure Mean 81 78 Pulse Oximetry 95 94 98 Oxygen Delivery Method Room Air Sepsis Recent Fever Within 48 Hours Sepsis New/Unexplained Change in Mental Status Sepsis Action Taken by Nursing 02/18/23 20:45 02/18/23 21:00 02/18/23 21:15 Temperature Temperature Source Pulse Rate 74 80 76 Pulse Rate from SpO2 Sensor 75 79 77 Respiratory Rate 20 26 H 25 H Respiratory Effort / Characteristics Respiratory Depth Blood Pressure 103/69 96/68 L 102/67 Blood Pressure Mean 80 77 78 Pulse Oximetry 97 94 94 Oxygen Delivery Method Sepsis Recent Fever Within 48 Hours Sepsis New/Unexplained Change in Mental Status Sepsis Action Taken by Nursing 02/18/23 21:30 02/18/23 21:45 02/18/23 22:15 Temperature Temperature Source Pulse Rate 81 78 77 Pulse Rate from SpO2 Sensor 81 77 75 Respiratory Rate 18 20 19 Respiratory Effort / Characteristics Respiratory Depth Blood Pressure 94/72 L 103/79 120/80 Blood Pressure Mean 79 87 93 Pulse Oximetry 97 95 95 Oxygen Delivery Method Sepsis Recent Fever Within 48 Hours Sepsis New/Unexplained Change in Mental Status Sepsis Action Taken by Nursing 02/18/23 22:30 02/18/23 22:45 Temperature Temperature Source Pulse Rate 83 82 Pulse Rate from SpO2 Sensor 86 85 Respiratory Rate 18 19 Respiratory Effort / Characteristics Respiratory Depth Blood Pressure 120/79 113/71 Blood Pressure Mean 92 85 Pulse Oximetry 95 96 Oxygen Delivery Method Sepsis Recent Fever Within 48 Hours Sepsis New/Unexplained Change in Mental Status Sepsis Action Taken by Nursing Laboratory Data Attestation: I reviewed the patient's lab results. 02/18/23 21:15 02/18/23 21:15 Lab Results 02/18/23 02/18/23 02/18/23 Range/Units 20:01 21:15 21:22 WBC 15.23 H (4.8-10.8) K/ul RBC 5.23 (4.70-6.10) M/uL Hgb 16.1 (14.0-18.0) g/dl POC Hgb 17.0 (14.0-18.0) g/dl Hct 48.8 (42.0-52.0) % POC Hct 50 (42-52) % MCV 93.3 (80.0-100.0) fL MCH 30.8 (25.0-34.0) pg MCHC 33.0 (32.0-36.0) g/dL RDW Std Deviation 45.5 (36.4-46.3) fL RDW Coeff of Gregorio 13.2 (11.5-14.5) % Plt Count 216 (130-400) K/uL MPV 10.4 (9.4-12.4) fL Immature Gran % (Auto) 0.5 % Neut % (Auto) 92.1 % Lymph % (Auto) 3.4 % Ashe % (Auto) 3.7 % Eos % (Auto) 0.1 % Baso % (Auto) 0.2 % Neut # (Auto) 14.03 H (1.40-6.50) K/uL Lymph # (Auto) 0.52 L (1.20-3.40) K/uL Ashe # (Auto) 0.57 (0.11-0.59) K/uL Eos # (Auto) 0.01 (0.00-0.50) K/uL Baso # (Auto) 0.03 (0.00-0.20) K/uL Immature Gran # (Auto) 0.07 (0.01-0.20) K/uL POC Sodium 139 (135-144) mmol/L Sodium 137 (136-145) mmol/L POC Potassium 4.1 (3.3-5.0) mmol/L Potassium 4.2 (3.5-5.1) mmol/L POC Chloride 102 (101-112) mmol/L Chloride 102 (98-107) mmol/L Carbon Dioxide 27 (21-32) mmol/L POC Total CO2 25 (24-31) mmol/L Anion Gap 8 (3-11) POC Anion Gap 17.0 (16-25) mmol/L POC BUN 22 H (7-18) mg/dl BUN 21 (6-23) mg/dl Creatinine 1.12 (0.6-1.4) mg/dl POC Creatinine 1.1 (0.6-1.3) mg/dl Est Cr Clr Drug Dosing 64.3 ml/min Est GFR ( Amer) 77.3 ml/min Est GFR (Non-Af Amer) 66.7 ml/min BUN/Creatinine Ratio 18.8 (10-20) Glucose 128 H (70-99(Fasting)) mg/dl POC Glucose 109 H (70-99) mg/dl POC Glucose (other) 129 H (70-99) mg/dl Calcium 10.6 H (8.6-10.3) mg/dl POC Ioniz Calcium Phuc 1.22 (1.12-1.32) mmol/l Total Bilirubin 0.6 (0.2-1.0) mg/dl Direct Bilirubin 0.1 (0-0.2) mg/dl AST 13 (13-39) U/L ALT 4 L (7-52) U/L Alkaline Phosphatase 87 (34-104) U/L Troponin I High Sens 2.9 (0-20) pg/ml Total Protein 8.1 (6.0-8.3) gm/dl Albumin 4.7 (3.4-5.0) gm/dl Globulin 3.4 (2.5-4.0) gm/dl Albumin/Globulin Ratio 1.4 (0.9-2) Lipase 48 (11-82) U/L Administered Medications Discontinued Medications Benzocaine/Butamben/Tetracaine HCl (Benzocaine/Tetracain/Butam 50 Appln/5 Gm Can) 1 appln EXT NOW STA Stop: 02/18/23 23:32 Last Admin: 02/19/23 00:33 Dose: Not Given Documented By: RODNEY Sodium Chloride (Nss) 1,000 mls @ 999 mls/hr IV .Q1H1M ONE Stop: 02/18/23 21:31 Last Infusion: 02/18/23 23:00 Dose: Infused Documented By: Admin: 02/18/23 21:25 Dose: 999 mls/hr Documented By: RHONA Acetaminophen (Ofirmev) 1,000 mg in 100 mls @ 400 mls/hr IV NOW STA Stop: 02/18/23 21:04 Last Infusion: 02/18/23 23:50 Dose: Infused Documented By: Admin: 02/18/23 21:25 Dose: 400 mls/hr Documented By: RHONA Ioversol (Optiray 320 500ml) 84 ml IV ONCE ONE Stop: 02/18/23 21:54 Last Admin: 02/18/23 21:54 Dose: 84 ml Documented By: ROHIT Lidocaine HCl (Lidocaine 2% Jelly 5 Ml Tube) 5 ml EXT NOW ONE Stop: 02/18/23 23:32 Last Admin: 02/19/23 00:33 Dose: Not Given Documented By: RODNEY Morphine Sulfate (Morphine Sulfate 4 Mg/Ml 1 Ml Carp\Vial) 4 mg IV NOW STA Stop: 02/18/23 20:51 Last Admin: 02/18/23 21:25 Dose: 4 mg Documented By: RHONA Ondansetron HCl (Ondansetron Inj 2 Mg/Ml 2 Ml Vial) 4 mg IV NOW STA Stop: 02/18/23 20:52 Last Admin: 02/18/23 21:25 Dose: 4 mg Documented By: RHONA Imaging Data Radiologist's Impression: Abdomen/Pelvis CT 02/18/23 20:[address] WITH IV CONTRAST CT DOSE: 1306.51 mGy.cm HISTORY: abd pain, nausea, h/o sob TECHNIQUE: Multiaxial CT images of the abdomen and pelvis were performed following the use of intravenous contrast. A dose lowering technique was utilized adhering to the principles of ALARA. COMPARISON STUDY: Abdomen and pelvis CT 09/11/2020. FINDINGS: Bilateral lower lobe linear densities favor subsegmental atelectasis/dependent change. No pneumoperitoneum. No pneumatosis. No acute fractures identified. The stomach is mildly distended and filled with gas and fluid. The proximal small bowel is decompressed. Multiple dilated fluid-filled loops of mid to distal small bowel which measure up to 5.2 cm in diameter. There appear to be both proximal and distal transition points within the distended loops of small bowel. The proximal transition point is best seen on image 227 within the left anterior abdomen and the distal transition point is seen on image 198 within the right lower quadrant. Therefore, this is consistent with a closed loop obstruction. Trace fluid adjacent to the distended loops of small bowel within the right lower quadrant. The distal ileal loops are decompressed. There is a surgical clip within the right lower quadrant. This is consistent with a prior appendectomy. Small diverticulum within the anterior bladder. The prostate gland remains mildly enlarged. Colonic diverticulosis. No evidence for acute diverticulitis. Normal caliber abdominal aorta with mild calcified plaque. No retroperitoneal lymphadenopathy. The main portal vein is patent. Focal scarring within the upper pole of the right kidney which has progressed. There are few scattered bilateral renal hypodense lesions with the largest on the left measuring 16 mm. The majority these are subcentimeter in size and therefore technically too small to characterize but statistically represent cysts. Bilateral nephrolithiasis. No ureteral stones. No hydronephrosis. The adrenal glands, spleen, and pancreas unremarkable. There are few small gallstones. No gallbladder wall thickening. A few subcentimeter hypodense lesions within the right hepatic lobe which are also technically too small to characterize but favor cysts. IMPRESSION: 1. High-grade small bowel obstruction as described above demonstrating both proximal and distal transition points. Therefore, by definition, this is consistent with a closed loop obstruction. Urgent surgical consultation recommended. 2. Bilateral nephrolithiasis. No hydronephrosis. 3. Cholelithiasis. 4. Colonic diverticulosis. No evidence for acute diverticulitis. 5. Additional findings as described above. ACT 112: Negative or not required by law. Electronically signed by: Ramon Farley M.D. 02/18/2023 11:20 PM Discharge Plan Visit Data Chief Complaint: GI Assessment Stated Complaint: ABD PAIN, BOWEL OBSTRUCTION HISTORY ED Provider: Vinayak Alvarado Discharge Problem: SBO (small bowel obstruction), Parkinson disease, Abdominal pain, History of intestinal obstruction Forms Stand Alone Forms: [facility] Prescriptions Prescriptions: No Action carbidopa-levodopa [Sinemet] 25-100 mg tablet 1.5 tab PO BID Rx Instructions: TAKES AT 0800 & 1500. TAKES WITH CARBIDOPA-LEVODOPA ER. alfuzosin [Uroxatral] 10 mg tablet extended release 24 hr 10 mg PO DAILY Qty: 90 3RF Rx Instructions: after a meal amantadine HCl 100 mg capsule 100 mg PO TID docusate sodium [Colace] 100 mg capsule 100 mg PO TID lorazepam [Ativan] 1 mg tablet 0.5 mg PO HS PRN (Reason: Sleep) polyethylene glycol 3350 [Miralax] 17 gram powder in packet 17 g PO DAILY carbidopa-levodopa 25-100 mg tablet extended release 1 tab PO 6XD Rx Instructions: TAKES AT 0800, 1130, 1500, 1830, 2200, & 2330, TAKES WITH OTHER DOSES OF CARIDOPA-LEVODOPA. entacapone 200 mg tablet 200 mg PO QID Rx Instructions: administer at the same time as l-dopa/carbidopa dose rasagiline [Azilect] 1 mg tablet 1 mg PO QAM carbidopa-levodopa 25-100 mg Tablet 1 tab PO TID Rx Instructions: TAKES AT 1130, 1830 & 2200, TAKES WITH CARBIDOPA-LEVODOPA ER. escitalopram oxalate 10 mg tablet 10 mg PO DAILY diclofenac sodium 1 % gel 2 g EXT Q6H PRN (Reason: Pain) Referrals Referrals: Eliecer Barron MD [Outside Practitioners] - Discharge Problem: Parkinson disease Qualifiers: Dyskinesia presence: unspecified whether dyskinesia Fluctuating manifestations: unspecified whether manifestations fluctuate Qualified Code(s): G20.A1 - Parkinson's disease without dyskinesia, without mention of fluctuations Abdominal pain Qualifiers: Abdominal location: unspecified location Qualified Code(s): R10.9 - Unspecified abdominal pain
[2023-02-18 21:37] LABS: Hematocrit (blood only) 48.8 % (42.0-52.0); Hemoglobin 16.1 g/dl (14.0-18.0); Mean Corpuscular Hemoglobin 30.8 pg (25.0-34.0); Mean Corpuscular Volume 93.3 fL (80.0-100.0); Mean Platelet Volume 10.4 fL (9.4-12.4); Platelet Count 216 K/uL (130-400); RDW Coefficient of Variation 13.2 % (11.5-14.5); RDW Standard Deviation 45.5 fL (36.4-46.3); Red Blood Count 5.23 M/uL (4.70-6.10); White Blood Count 15.23 K/ul (4.8-10.8)
[2023-02-18 21:46] LABS: Albumin Globulin Ratio 1.4 (0.9-2); Albumin Level 4.7 gm/dl (3.4-5.0); BUN Creatinine Ratio 18.8 (10-20); Bilirubin Direct 0.1 mg/dl (0-0.2); Bilirubin,Total 0.6 mg/dl (0.2-1.0); Calcium 10.6 mg/dl (8.6-10.3); Creatinine Clr Calc Pharmacy 64.3 ml/min; Est GFR (African American) 77.3 ml/min; Est GFR (Non-African American) 66.7 ml/min; Globulin 3.4 gm/dl (2.5-4.0); Potassium 4.2 mmol/L (3.5-5.1); Total Protein 8.1 gm/dl (6.0-8.3)
[2023-02-18 21:49] LABS: iSTAT Creatinine 1.1 mg/dl (0.6-1.3); iSTAT Ionized Calcium 1.22 mmol/l (1.12-1.32); iSTAT Potassium 4.1 mmol/L (3.3-5.0)
[2023-02-18 21:53] LABS: Troponin I High Sensitivity 2.9 pg/ml (0-20)
[2023-02-18] MEDS ORDERED: OPTIRAY 320 500ml IV ONE (21:53)
[2023-02-18 22:18] LABS: Basophils # (auto) 0.03 K/uL (0.00-0.20); Basophils % (auto) 0.2 %; Eosinophils # (auto) 0.01 K/uL (0.00-0.50); Eosinophils % (auto) 0.1 %; Immature Granulocytes # (auto) 0.07 K/uL (0.01-0.20); Immature Granulocytes % (auto) 0.5 %; Lymphocytes # (auto) 0.52 K/uL (1.20-3.40); Lymphocytes % (auto) 3.4 %; Monocytes # (auto) 0.57 K/uL (0.11-0.59); Monocytes % (auto) 3.7 %; Neutrophils # (auto) 14.03 K/uL (1.40-6.50); Neutrophils % (auto) 92.1 %
--- NOTE | 2023-02-18 23:23 | CT Scan Report ---
ABDOMEN AND PELVIS CT WITH IV CONTRAST CT DOSE: 1306.51 mGy.cm HISTORY: abd pain, nausea, h/o sob TECHNIQUE: Multiaxial CT images of the abdomen and pelvis were performed following the use of intrave nous contrast. A dose lowering technique was utilized adhering to the principles of ALARA. COMPARISON STUDY: Abdomen and pelvis CT 09/11/2020. FINDINGS: Bilateral lower lobe linear densities favor subsegmental atelectasis/dependent change. No p neumoperitoneum. No pneumatosis. No acute fractures identified. The stomach is mildly distended and f illed with gas and fluid. The proximal small bowel is decompressed. Multiple dilated fluid-filled loo ps of mid to distal small bowel which measure up to 5.2 cm in diameter. There appear to be both proxi mal and distal transition points within the distended loops of small bowel. The proximal transition p oint is best seen on image 227 within the left anterior abdomen and the distal transition point is se en on image 198 within the right lower quadrant. Therefore, this is consistent with a closed loop obs truction. Trace fluid adjacent to the distended loops of small bowel within the right lower quadrant. The distal ileal loops are decompressed. There is a surgical clip within the right lower quadrant. T his is consistent with a prior appendectomy. Small diverticulum within the anterior bladder. The pros romano gland remains mildly enlarged. Colonic diverticulosis. No evidence for acute diverticulitis. Nor mal caliber abdominal aorta with mild calcified plaque. No retroperitoneal lymphadenopathy. The main portal vein is patent. Focal scarring within the upper pole of the right kidney which has progressed. There are few scattered bilateral renal hypodense lesions with the largest on the left measuring 16 mm. The majority these are subcentimeter in size and therefore technically too small to characterize but statistically represent cysts. Bilateral nephrolithiasis. No ureteral stones. No hydronephrosis. The adrenal glands, spleen, and pancreas unremarkable. There are few small gallstones. No gallbladder wall thickening. A few subcentimeter hypodense lesions within the right hepatic lobe which are also technically too small to characterize but favor cysts. IMPRESSION: 1. High-grade small bowel obstruction as described above demonstrating both proximal and distal trans ition points. Therefore, by definition, this is consistent with a closed loop obstruction. Urgent neymar gical consultation recommended. 2. Bilateral nephrolithiasis. No hydronephrosis. 3. Cholelithiasis. 4. Colonic diverticulosis. No evidence for acute diverticulitis. 5. Additional findings as described above. ACT 112: Negative or not required by law. Electronically signed by: Ramon Farley M.D. 02/18/2023 11:20 PM
[2023-02-18] MEDS ORDERED: BENZOCAINE/TETRACAIN/BUTAM 50 APPLN/5 GM CAN EXT STA (23:31)
[2023-02-18] MEDS ORDERED: LIDOCAINE 2% JELLY 5 ML TUBE EXT ONE (23:31)
[2023-02-19] MEDS ORDERED: ePHEDrine sulfate 50 MG/ML AMP IV PRN (00:10)
[2023-02-19] MEDS ORDERED: ONDANSETRON INJ 2 MG/ML 2 ML VIAL IV PRN (00:10)
[2023-02-19] MEDS ORDERED: fentaNYL citrate PF 100 MCG/2 ML VIAL IV PRN (00:10)
[2023-02-19] MEDS ORDERED: ATROPINE SULFATE 0.1 MG/ML 10ML SYR IV PRN (00:10)
[2023-02-19] MEDS ORDERED: HYDROmorphone INJ 1 MG/ML SYRINGE IV PRN (00:10)
--- NOTE | 2023-02-19 00:13 | Anesthesiology Consultation ---
Date of Service February 19, 2023 Assessment & Plan (1) Encounter for pre-operative examination: Chart Review Chart Review: Acceptable Risk for Surgery and Patient NOT seen in Pre Admission Testing Consults Requested none History Surgery Operation Date: 02/19/23 01:15 Proposed Procedures p Exploratory Laparotomy - [place] Mena DO Height/Weight Height: 5 ft 10 in Weight: 82.9 kg Allergies Allergy/AdvReac Type Severity Reaction Status Date / Time No Known Allergies Allergy Verified 02/18/23 21:19 Medications Home Medications Medication Instructions Recorded Confirmed Last Taken rasagiline 1 mg tablet (Azilect) 1 mg PO QAM 05/17/20 02/18/23 02/18/23 carbidopa 25 mg-levodopa 100 mg 1.5 tab PO BID 07/18/20 02/18/23 02/18/23 15:00 tablet (Sinemet) docusate sodium 100 mg capsule 100 mg PO TID 07/18/20 02/18/23 02/18/23 (Colace) diclofenac sodium 1 % topical gel 2 g EXT Q6H PRN Pain 09/11/20 02/18/23 02/19/21 polyethylene glycol 3350 17 gram 17 g PO DAILY 10/15/21 02/18/23 02/18/23 oral powder packet (Miralax) amantadine HCl 100 mg capsule 100 mg PO TID 08/04/22 02/18/23 02/18/23 15:00 carbidopa ER 25 mg-levodopa 100 mg 1 tab PO 6XD 08/04/22 02/18/23 02/18/23 18:30 tablet,extended release entacapone 200 mg tablet 200 mg PO QID 08/04/22 02/18/23 02/18/23 lorazepam 1 mg tablet (Ativan) 0.5 mg PO HS PRN Sleep 08/04/22 02/18/23 Unknown alfuzosin 10 mg tablet,extended 10 mg PO DAILY #90 tabs 11/03/22 02/18/23 02/18/23 release 24 hr (Uroxatral) carbidopa 25 mg-levodopa 100 mg 1 tab PO TID 02/18/23 02/18/23 02/18/23 18:30 tablet escitalopram oxalate 10 mg tablet 10 mg PO DAILY 02/18/23 02/18/23 02/18/23 Past Medical History Medical History Bilateral hydronephrosis History of intestinal obstruction HOSPITALIZED MAY 2020 - [facility] Small bowel obstruction Stercoral ulcer of large intestine Colitis Left lumbar radiculopathy HX INJECTION DEC 05 2019 History of kidney stones Neck pain PINCHED NERVE AND ARTHRITIS - MILD LIMITATION WITH ROM Low back pain Parkinson disease Obstructive sleep apnea CPAP Heart murmur BPH (benign prostatic hyperplasia) Peritonitis Exercise / Class Metabolic Activity II 4-5 Yardwork/Stairs/Walk up hill Past Family History Family History Mother Breast cancer Father Hypertension Stroke Past Surgical History Surgical History History of exploratory laparotomy FOR INTESTINAL PROBLEM MAY 2020 History of colonoscopy History of right cataract surgery History of left cataract surgery S/P hemorrhoidectomy HX History of appendectomy Social History Smoking Status: Never smoker Do You Dip or Chew Tobacco: No Hx Alcohol Use: No Hx Substance Use: No substance use type: does not use Physical Exam Vital Signs Last Vital Signs Temp 36.3 C L 02/18/23 19:38 Pulse 82 02/18/23 22:45 Resp 19 02/18/23 22:45 BP 113/71 02/18/23 22:45 Pulse Ox 96 02/18/23 22:45 O2 Del Method Room Air 02/18/23 20:34 Testing Laboratory Results 02/18/23 21:15 02/18/23 21:15 02/18/23 02/18/23 21:22 20:01 POC Glucose 109 H POC Glucose (other) 129 H
--- NOTE | 2023-02-19 00:23 | Surgery Consultation ---
Date of Consultation February 19, 2023 Assessment & Plan (1) SBO (small bowel obstruction): I discussed with the treating emergency room physician and the patient is being admitted on the hospital service. From surgical perspective we recommend proceeding as follows: N.p.o. status has been implemented Intravenous fluids are being provided for hydration Due to concern for closed-loop small bowel obstruction we are tentatively planning on exploratory surgery with Dr. Phoenix Mena this evening. I disc ussed the risks, benefits, and alternatives with the patient and they wish to proceed Will provide analgesics We will provide antiemetics Due to concern for high-grade small bowel obstruction and planned surgery we will place an NG tube in the emergency department for gastric decompression Will use SCDs for DVT prevention, no chemical means due to planned surgery Additional recommendations be forthcoming based on his clinical course as it unfolds Supervising Physician Co-Signing Physician Notes I personally saw and evaluated the patient with Gagan Enriquez PA-C and agree with the assessment plan. CT images and results were personally reviewed and interpreted by myself, consistent with a small bowel obstruction, possibly closed-loop Plan on taking the patient to the operating room tonight for exploratory laparotomy, possible bowel resection, possible ostomy Consent was obtained, risks discussed including bleeding, infection, anastomotic leak, injury to surrounding structures History of Present Illness Reason for Consultation: Small bowel obstruction with concern for closed-loop obstruction History of Present Illness This is a 67-year-old male who presented to the emergency department secondary to abdominal pain. This patient is known to [facility] group general surgery as the patient had a small bowel obstruction in 2020. The patient was admitted to the hospital from May 22 through June 14 of that year. He did have a small bowel obstruction that required an open release of small bowel obstruction with enterolysis and repair of an umbilical hernia along with excision of a remnant appendix. This was performed by Dr. Storm Núñez on 05/28/2022. Following the surgery it took a prolonged time for patient's bowel function to return and he required NG tube decompression along with TPN. The patient's NG tube was removed on 06/05/2022 and he did have his diet slowly advanced as tolerated. Patient notes that he has not been have any problems with small bowel obstructions until earlier today. The patient notes that he was in his usual state of health yesterday however he developed a periumbilical cramp-like abdominal pain without palliative or p rovocative factors or radiation earlier this morning. He notes that the pain resolved and he was able to eat some breakfast as well as eat lunch. He notes that he ate lunch approximate 2:00 PM but then he had recurrence of his pain with associated nausea. He did not have any emesis. Due to his history noted above he presented to the emergency department. The patient does note that he has had the above-noted surgery and he has also had an appendectomy in the past for a ruptured appendix. It is nowhere the mention that the patient notes that he did have a bowel movement earlier today before he ate his lunch. He says since recurrence of his pain he has not been having any flatus. Since arrival to the emergency department the patient has had labs and imaging which independent reviewed. Patient had a CT scan of the abdomen pelvis that showed concern for high-grade small bowel obstruction with additional concern for closed-loop obstruction. A chest x-ray was performed that did not show any evidence of pneumonia. An EKG was performed that showed normal sinus rhythm without changes indicative of acute ischemia. Labs include a CBC her white blood cell count was elevated 15.2. Hemoglobin and hematocrit along with the platelet count were normal. Chemistry profile showed sodium and potassium along with the BUN and creatinine were normal. There is no elevation of patient's LF Ts or lipase. At the time my interview patient was resting comfortably in bed he was in no distress Allergies Allergy/AdvReac Type Severity Reaction Status Date / Time No Known Allergies Allergy Verified 02/18/23 21:19 Home Medications Medication Instructions Recorded Confirmed Type rasagiline 1 mg tablet (Azilect) 1 mg PO QAM 05/17/20 02/18/23 History carbidopa 25 mg-levodopa 100 mg 1.5 tab PO BID 07/18/20 02/18/23 History tablet (Sinemet) docusate sodium 100 mg capsule 100 mg PO TID 07/18/20 02/18/23 History (Colace) diclofenac sodium 1 % topical gel 2 g EXT Q6H PRN Pain 09/11/20 02/18/23 History polyethylene glycol 3350 17 gram 17 g PO DAILY 10/15/21 02/18/23 History oral powder packet (Miralax) amantadine HCl 100 mg capsule 100 mg PO TID 08/04/22 02/18/23 History carbidopa ER 25 mg-levodopa 100 mg 1 tab PO 6XD 08/04/22 02/18/23 History tablet,extended release entacapone 200 mg tablet 200 mg PO QID 08/04/22 02/18/23 History lorazepam 1 mg tablet (Ativan) 0.5 mg PO HS PRN Sleep 08/04/22 02/18/23 History alfuzosin 10 mg tablet,extended 10 mg PO DAILY #90 tabs 11/03/22 02/18/23 Rx release 24 hr (Uroxatral) carbidopa 25 mg-levodopa 100 mg 1 tab PO TID 02/18/23 02/18/23 History tablet escitalopram oxalate 10 mg tablet 10 mg PO DAILY 02/18/23 02/18/23 History Patient History Medical History (Updated 02/19/23 @ 00:44 by Maynor Mendez, PhD, DO) Bilateral hydronephrosis History of intestinal obstruction HOSPITALIZED MAY 2020 - [facility] Small bowel obstruction Stercoral ulcer of large intestine Colitis Left lumbar radiculopathy HX INJECTION DEC 05 2019 History of kidney stones Neck pain PINCHED NERVE AND ARTHRITIS - MILD LIMITATION WITH ROM Low back pain Parkinson disease Obstructive sleep apnea CPAP Heart murmur BPH (benign prostatic hyperplasia) Peritonitis Surgical History History of exploratory laparotomy FOR INTESTINAL PROBLEM MAY 2020 History of colonoscopy History of right cataract surgery History of left cataract surgery S/P hemorrhoidectomy HX History of appendectomy Family History Mother Breast cancer Father Hypertension Stroke Social History Smoking Status: Never smoker Second Hand Exposure: No; Do You Dip or Chew Tobacco: No; Hx Alcohol Use: No Hx Substance Use: No Preferred Language: Upper Sorbian Communication Ability: Effective Visual Impairment: No Limitations Hearing Ability: Normal Tub Wash Operator Required: No Beliefs That Will Affect Care: Anglican (Spiritism) marital status: Current Living Situation: Spouse current occupational status: retired Feels Safe at Home: Yes Assistive Devices: Walker Review of Systems Constitutional: no fever and no chills Ear, Nose, Mouth, Throat: no hearing loss Respiratory: no cough and no dyspnea Cardiovascular: no chest pain Gastrointestinal: as per Subjective / HPI Genitourinary: no dysuria Musculoskeletal: no back pain Integumentary: no rash Neurologic: no localized weakness Physical Exam Constitutional: WD/WN, vitals as above Eyes: no conjunctival abnormality ENMT: Ears: no hearing impairment and no external ear abnormality Mouth: no oropharynx abnormality Respiratory: normal respiratory effort, lungs clear to auscultation Cardiovascular: Rate/Rhythm: regular rate and regular rhythm Vessels: dorsalis pedis pulses present and radial pulses present Gastrointestinal (Abdomen): Abdomen is noted to have mild to moderate distention. He has absent bowel sounds. The patient did have some pain with palpation in the periumbilical area but he does not have any rebound tenderness or guarding. There is some slight tympany noted with percussion Musculoskeletal: No calf tenderness Skin: no rashes Neurologic: moves all extremities Psychiatric: Orientation: alert and oriented x 3 Affect: + flat affect Results & Data Vital Signs (Past 12 Hours) Vital Signs Temp Pulse Resp BP Pulse Ox O2 Del Method 02/18/23 22:45 82 19 113/71 96 02/18/23 22:30 83 18 120/79 95 02/18/23 22:15 77 19 120/80 95 02/18/23 21:45 78 20 103/79 95 02/18/23 21:30 81 18 94/72 L 97 02/18/23 21:15 76 25 H 102/67 94 02/18/23 21:00 80 26 H 96/68 L 94 02/18/23 20:45 74 20 103/69 97 02/18/23 20:34 98 Room Air 02/18/23 20:30 68 24 100/67 94 02/18/23 20:15 61 20 105/70 95 02/18/23 20:00 63 22 105/69 94 Room Air 02/18/23 19:59 67 02/18/23 19:38 36.3 C L 56 L 16 92 Room Air PG Care Time/CCT Total # of Minutes Spent Total Time Spent with Patient: Total time spent is greater than 50% in coordination of care (as documented) at patient's floor/unit and/or counseling patient: Coding Level of Care Code 23346 INT INP/OBS CARE 3/75MIN Diagnoses SBO (small bowel obstruction) K56.609
[2023-02-19] MEDS ORDERED: ROCURONIUM BROMIDE 10 MG/ML 5 ML VIAL IV ONE (00:26)
[2023-02-19] MEDS ORDERED: SUCCINYLCHOLINE CHLORIDE 20 MG/ML 10 ML VIAL IV ONE (00:26)
[2023-02-19] MEDS ORDERED: LIDOCAINE 2% 2 ML VIAL/AMP(20MG/ML) INFIL ONE (00:26)
[2023-02-19] MEDS ORDERED: PHENYLEPHRINE 100MCG/ML 10ML SYR IV ONE (00:26)
[2023-02-19] MEDS ORDERED: PROPOFOL IV EMULSION 10 MG/ML 20 ML VIAL IV ONE (00:26)
[2023-02-19] MEDS ORDERED: DEXAMETHASONE SOD INJ 4 MG/ML VIAL ONE (00:26)
[2023-02-19] MEDS ORDERED: ONDANSETRON INJ 2 MG/ML 2 ML VIAL ONE (00:26)
[2023-02-19] MEDS ORDERED: MIDAZOLAM HCL 1 MG/ML 2ML VIAL ONE (00:26)
[2023-02-19] MEDS ORDERED: fentaNYL citrate PF 100 MCG/2 ML VIAL ONE ×2 (00:26→02:29)
[2023-02-19] MEDS ORDERED: SUGAMMADEX SODIUM 200 MG/2 ML VIAL IV ONE (00:27)
--- NOTE | 2023-02-19 00:29 | History & Physical Report ---
Date of Service February 19, 2023 Assessment & Plan (1) SBO (small bowel obstruction): Plan: Patient has acute small bowel obstruction by CAT scan which is possibly closed- loop. General surgery's been consulted plan is to take the patient to the OR JORDAN. In the interim n.p.o. IV fluids IV antiemetics and analgesics. With NG tube to low intermittent suction. IV Protonix for GI prophylaxis. No chemical VTE prophylaxis at this time given eminent surgery. (2) Parkinson disease: Plan: Chronic. As discussed above medications need held at this time due to NG tube and eminent surgery. Again high concern the patient and his due to the last admission in 2020 with extended NPO. An extended number of days without Parkinson's medication resulted and significant rigidity. Please consider lico nstituting Parkinson's meds JORDAN when okay with surgery postoperatively. (3) Enlarged prostate with lower urinary tract symptoms (LUTS): Plan: Sees urology as an outpatient frequently. (4) Nephrolithiasis: Plan: Sees urology as an outpatient frequently no current symptoms and creatinine is stable Plan As described above. Please refer to orders for further planning. In addition it is noted that the patient did have a blood pressure in the 90s. However he was never tachycardic. At this point he is normotensive. He will be monitored carefully. It is anticipated he will be receiving preoperative antibiotics via the surgery group. History of Present Illness Chief Complaint: Abdominal pain. Patient presents with acute abdominal pain with a history of a small bowel obstruction back in 2020 requiring exploratory laparoscopy. Primary Care Provider: Mary Funes This is a pleasant 67-year-old male who presents for further evaluation of acute abdominal pain. Back in 2020 he had a small bowel obstruction requiring progression to the OR for exploratory laparoscopy. Upon presentation the patient had a CT of the abdomen pelvis which showed a probable closed-loop obstruction consultation was obtained with general surgery in the ER and the tentative plan is to take the patient to the OR imminently for exploratory laparoscopy and possible lysis of adhesions etc. in the interim IV fluids IV pain medication IV nausea medication NG tube to low intermittent suction. In addition the CAT scan showed bilateral hydronephrosis. It should be noted the patient has Parkinson disease he is medication dependent he and his 's major concern is during their last episode in 2020 there was extended NPO. Without his medications he became very rigid reassured them after surgery as soon as okay with the surgical team we will begin to order his Carmen carvalho's meds Allergies Allergy/AdvReac Type Severity Reaction Status Date / Time No Known Allergies Allergy Verified 02/18/23 21:19 Home Medications Medication Instructions Recorded Confirmed Type rasagiline 1 mg tablet (Azilect) 1 mg PO QAM 05/17/20 02/18/23 History carbidopa 25 mg-levodopa 100 mg 1.5 tab PO BID 07/18/20 02/18/23 History tablet (Sinemet) docusate sodium 100 mg capsule 100 mg PO TID 07/18/20 02/18/23 History (Colace) diclofenac sodium 1 % topical gel 2 g EXT Q6H PRN Pain 09/11/20 02/18/23 History polyethylene glycol 3350 17 gram 17 g PO DAILY 10/15/21 02/18/23 History oral powder packet (Miralax) amantadine HCl 100 mg capsule 100 mg PO TID 08/04/22 02/18/23 History carbidopa ER 25 mg-levodopa 100 mg 1 tab PO 6XD 08/04/22 02/18/23 History tablet,extended release entacapone 200 mg tablet 200 mg PO QID 08/04/22 02/18/23 History lorazepam 1 mg tablet (Ativan) 0.5 mg PO HS PRN Sleep 08/04/22 02/18/23 History alfuzosin 10 mg tablet,extended 10 mg PO DAILY #90 tabs 11/03/22 02/18/23 Rx release 24 hr (Uroxatral) carbidopa 25 mg-levodopa 100 mg 1 tab PO TID 02/18/23 02/18/23 History tablet escitalopram oxalate 10 mg tablet 10 mg PO DAILY 02/18/23 02/18/23 History Past Med/Surg History Medical History (Updated 02/19/23 @ 00:44 by Maynor Mendez, PhD, DO) Bilateral hydronephrosis History of intestinal obstruction HOSPITALIZED MAY 2020 - [facility] Small bowel obstruction Stercoral ulcer of large intestine Colitis Left lumbar radiculopathy HX INJECTION DEC 05 2019 History of kidney stones Neck pain PINCHED NERVE AND ARTHRITIS - MILD LIMITATION WITH ROM Low back pain Parkinson disease Obstructive sleep apnea CPAP Heart murmur BPH (benign prostatic hyperplasia) Peritonitis Surgical History History of exploratory laparotomy FOR INTESTINAL PROBLEM MAY 2020 History of colonoscopy History of right cataract surgery History of left cataract surgery S/P hemorrhoidectomy HX History of appendectomy Family History Mother Breast cancer Father Hypertension Stroke Social History Smoking Status: Never smoker Second Hand Exposure: No; Do You Dip or Chew Tobacco: No; Hx Alcohol Use: No Hx Substance Use: No Preferred Language: Citizen Of [place] Communication Ability: Effective Visual Impairment: No Limitations Hearing Ability: Normal Business Continuity Consultant Required: No Beliefs That Will Affect Care: Hinduism (Restorationist) marital status: Current Living Situation: Spouse current occupational status: retired Feels Safe at Home: Yes Assistive Devices: Walker Review of Systems Review of Systems: A 10 point review of system was obtained and unless otherwise stated here or in history of present illness are negative and noncontributory to chief complaint. Physical Exam Physical Exam: HEENT: Normocephalic atraumatic pupils are equal round and reactive to light bilaterally. No scleral icterus no conjunctival injection external auditory canals are patent septum is in the midline nose is without discharge oral mucosa is pink and moist without lesion. Flat affect consistent with his parkinsonian disease NECK: Supple no rigidity no lymphadenopathy no thyromegaly no carotid bruits no JVD no masses. HEART: Regular rate and rhythm I do not appreciate any ectopy or rub. No murmur. LUNGS: Clear to auscultation bilaterally and anteriorly with no evidence of adventitious sounds/wheezes rales or rhonchi. ABDOMEN: moderately distended, no bowel sounds, the patient is not exquisitely tender however he does have morphine on board at this time EXTREMITIES: Intact, no peripheral cyanosis, clubbing or edema. Strength is 5 out of 5 in extremities x4, no pathological reflexes. NEUROGLOICAL: Cranial nerves II through XII are grossly intact with no focal deficit elicited upon examination. Mild tremor consistent with his history of Parkinson. Results & Data Results & Data Vital Signs (Past 12 Hours) Vital Signs Temp Pulse Resp BP Pulse Ox O2 Del Method 02/18/23 22:45 82 19 113/71 96 02/18/23 22:30 83 18 120/79 95 02/18/23 22:15 77 19 120/80 95 02/18/23 21:45 78 20 103/79 95 02/18/23 21:30 81 18 94/72 L 97 02/18/23 21:15 76 25 H 102/67 94 02/18/23 21:00 80 26 H 96/68 L 94 02/18/23 20:45 74 20 103/69 97 02/18/23 20:34 98 Room Air 02/18/23 20:30 68 24 100/67 94 02/18/23 20:15 61 20 105/70 95 02/18/23 20:00 63 22 105/69 94 Room Air 02/18/23 19:59 67 02/18/23 19:38 36.3 C L 56 L 16 92 Room Air Code Status & VTE Plan Code Status Full code. Discussed in depth with patient and VTE Prophylaxis Plan VTE Prophylaxis will be ordered: Yes PG Care Time/CCT Total # of Minutes Spent Total Time Spent with Patient: Total time spent is greater than 50% in coordination of care (as documented) at patient's floor/unit and/or counseling patient: Coding Level of Care Code 42150 INT INP/OBS CARE 375MIN Diagnoses SBO (small bowel obstruction) K56.609 Parkinson disease G20 Enlarged prostate with lower urinary tract symptoms (LUTS) N40.1 Nephrolithiasis N20.0
[2023-02-19] MEDS ORDERED: BUPIVACAINE/EPINEPHRINE 0.25% 1:200,000 30 ML VIAL ONE (00:57)
[2023-02-19] MEDS ORDERED: ceFAZolin 2000MG 2,000 MG/15 ML SYR IV ONE (02:38)
--- NOTE | 2023-02-19 04:14 | Post Operative Brief Note ---
PG Immediate Post Op with CF Date of Surgery February 19, 2023 Pre & Post Diagnosis Operation Date: 02/19/23 01:15 Pre-Op Diagnosis: Closed Loop Small Bowel Obstruction Post-Op Diagnosis: Closed Loop Small Bowel Obstruction, Internal Hernia, Extensive adhesions I identified the patient and participated in the time-out.: Yes Procedure Operation Date: 02/19/23 01:15 Actual Procedures p Exploratory Laparotomy and Extensive Lysis of Adhesions - Phoenix Mena DO Surgeon Phoenix Mena DO Vmware Architect Gagan Enriquez PA-C Estimated Blood Loss 50 Findings See Below Adhesions to the retroperitoneum causing an internal hernia and small bowel obstruction Extensive bowel to bowel adhesions Specimens Specimen Description: No specimen Drains Lopez Catheter Anesthesia Type General Complications none Disposition Disposition: Recovery Room
--- NOTE | 2023-02-19 04:15 | Operative Report ---
PG Post Operative Report Pre & Post Diagnosis Operation Date: 02/19/23 01:15 Pre-Op Diagnosis: Closed Loop Small Bowel Obstruction Post-Op Diagnosis: Closed Loop Small Bowel Obstruction, Internal Hernia, extensive intra-abdominal adhesions I identified the patient and participated in the time-out.: Yes Procedure Operation Date: 02/19/23 01:15 Actual Procedures p Exploratory Laparotomy and Extensive Lysis of Adhesions - Phoenix Mena DO Surgeon Phoenix Mena DO Material Handler Gagan Enriquez PA-C Estimated Blood Loss 50 Findings See Below Adhesions to the retroperitoneum causing an internal hernia and small bowel obstruction Extensive bowel to bowel adhesions Specimens None Anesthesia Type General Complications none Disposition Disposition: Recovery Room Indications 67-year-old male with CT findings of closed-loop bowel obstruction Description of Procedure The patient was brought to the OR and placed in the supine position with both arms abducted. At this time he underwent general endotracheal anesthesia without any problems. He was given appropriate pre-operative antibiotics. His abdomen was prepped and draped in the usual sterile fashion. Timeout was called. The procedure was verified as Exploratory laparotomy, possible bowel resection. Surgical, anesthesia and nursing teams agreed and the procedure was begun. A standard midline incision was made using a #10 blade scalpel. This was carried down to the fascia using electrocautery. The midline fascia was then incised with electrocautery. The peritoneum was then entered bluntly. The incision was then opened up through its entirety. There were adhesions to the abdominal wall in the left upper quadrant that were taken down using Metzenbaum scissors. There were also adhesions to the prior midline incision in the right upper quadrant that were taken down using Metzenbaum scissors. At this time I was able to identify the small bowel at the ligament of Treitz and started running the area distally. There were extensive bowel to bowel adhesions throughout the small bowel and these were lysed carefully with Metzenbaum scissors. There was an area in the right lower quadrant that was particularly stuck to the retroperitoneum. There was an internal hernia found at this point with small bowel traversing the hernia defect and causing the small bowel obstruction. Once this adhesion was lysed the small bowel was released to continue to run the bowel distally to the cecum. All of the small bowel to bowel adhesions were lysed. Once we reached the cecum there was a fair amount of adhesions in that area due to his previous appendectomy and remnant appendectomy. The small bowel was then run retrograde from the ileocecal valve to the ligament of Treitz. There were no serosal tears and the bowel was completely viable although still dilated at this time. At this point the wound was then irrigated until clear. Hemostasis was achieved using electrocautery. Hemostasis was complete. The fascia was then closed in a running fashion using 2 #1 looped PDS suture starting superiorly and inferiorly and meeting in the middle. Skin was closed with julieth. Sterile dressing was applied. All needle and sponge counts were correct x 2. At this point the patient was awakened from anesthesia, and transported to PACU in stable condition. The physician's research assistant member was present and scrubbed for the entirety of the case. He was critical in positioning the patient, prepping and draping, retraction and exposure, closure of the incision and placement of the dressings. I attest to the content of the Intraoperative Record and any orders documented therein. Any exceptions are noted below.
--- NOTE | 2023-02-19 04:37 | Critical Care Consultation ---
Date of Consultation February 19, 2023 Assessment & Plan (1) Medical misadventure: (2) SBO (small bowel obstruction): (3) Parkinson disease: (4) Obstructive sleep apnea: (5) Hyperlipidemia: Plan Reason Critically Ill: 67 YOM with un anticipated ICU admission following infi ltration of IV during induction for intubation to undergo exploratory laparotomy. Patient is s/p Exploratory Laparotomy with lysis of adhesions, and release of internal hernia causing obstruction. Neuro - Parkinson's Disease, Acute pain post surgical CAM ICU: Negative - Unfortunately following surgery there will be some delay in being able to take oral medicaitons, which will negatively effect his function with likely resulting in increase rigidity - Will need to coordinate with surgery when able to resume oral intake JORDAN - Tiered pain control Cardiac - HX HLD - hemodynamically stable following operating course- required some NEOsynepherine pushes during the case- currently without vasopressor requirements - 1.2 L crystalloid infused during case with adequate urine output - continue to monitor hemodynamics Respiratory - Medical misadventure related to Infiltration of induction agents requiring monitoring of respiratory status postoperative in ICU, MAGDALENE - Unanticipated admission to ICU following unfortunate infiltration of induction agents - Patient received succinylcholine and propofol - he was reversed after surgical case with sugammadex. - Both agents should be short lived - TOF - currently 4/4 follow respiratory efforts - wean oxygen and continue to monitor respiratory efforts with EtCO2 - MAGDALENE- continue CPAP while napping or sleeping or sedated at [id number] GI - SBO s/p exploratory laparotomy - Continue with NGT to LIWS - Imaging per surgery team - NPO- continued until cleared by surgery team RENAL/LYTES - No acute needs - ICU electrolyte protocol - BPH with LUTS - chronic- continue with everett catheter- discontinue when appropriate ENDO - No acute needs HEME - No acute needs - Leukocytosis at this time is likely related to inflammatory response- follow clinical course ID - No concerns for infective source at this time - no reported spillage or contamination from operating theater- postop abx per surgical team LINES/IV ACCESS - PIV, NGT, Everett catheter Continue use of these lines DVT PROPHYLAXIS - SCDS, hold chemoprophylaxis at this time, until hemostasis is achieved DISPO: ICU for duration of monitoring - likely can downgrade out of ICU later this morning as long as no adverse events I have personally spent 45 minutes of critical care time in the direct management of this patient. This is a life/limb threatening event. This includes time spent evaluating patient, direct bedside care, chart review, placing orders, interpretation of diagnostic studies, discussion with consultants, patient, and family members, as well as other required patient management activities. This time is exclusive of all separately billable procedures, and separate from and in addition to any other critical care service time. Thank you for allowing us to participate in the care of this patient. Please refer to my attending physician's documentation for any further recommendations. History of Present Illness Reason for Consultation: infiltration of IV during induction Requesting Physician: Phoenix Mena Attending Physician: Maynor Mendez, PhD, DO History of Present Illness 67 YOM with medical history of: Parkinson Disease, BPH with LUTS, MAGDALENE (CPAP 12cm H20). Patient presented to the EMD late in the evening on 02/18/23 for complaint of abdominal pain associated with nausea and vomiting. This appears to have had an onset earlier in the morning on 02/18/23 following breakfast. In the EMD the patient had a CT scan of his abdomen/pelvis completed. This was noted by radiology interpretation to have distended stomach that is gas and fluid-filled as well as proximal small bowel that is decompressed with multiple dilated fluid-filled loops of mid to distal small bowel and appears to be both proximal and distal transition point within the distended loops of small bowel, consistent with closed-loop obstruction. He was evaluated by surgery around midnight as well as admitted by the hospitalist service around midnight. The patient was then planned on going to the operating theater for exploratory laparotomy. In the operating room the patient was induced with succinylcholine and propofol, through PIV. This appeared to have been infiltrated and required another IV to be placed. He was brought to the ICU following surgery for concerns of delayed/prolonged absorption of infiltrated induction agents. Review of surgical note shows the patient underwent open exploratory laparotomy with lysis of adhesion, and did have a closed loop small bowel obstruction with internal hernia. Patient did have prior large and small bowel obstruction in 2020 that required laparotomy at that time. The patient arrives to the ICU easily arouseable, hemodynamically stable, normothermic and on 10L oxymask that was able to be weaned down to 4L. Will continue to monitor respiratory efforts and mentation. Once O2 is weaned down can either place patient on EtCO2 monitoring. CODE: FULL Allergies Allergy/AdvReac Type Severity Reaction Status Date / Time No Known Allergies Allergy Verified 02/18/23 21:19 Home Medications Medication Instructions Recorded Confirmed Type rasagiline 1 mg tablet (Azilect) 1 mg PO QAM 05/17/20 02/18/23 History carbidopa 25 mg-levodopa 100 mg 1.5 tab PO BID 07/18/20 02/18/23 History tablet (Sinemet) docusate sodium 100 mg capsule 100 mg PO TID 07/18/20 02/18/23 History (Colace) diclofenac sodium 1 % topical gel 2 g EXT Q6H PRN Pain 09/11/20 02/18/23 History polyethylene glycol 3350 17 gram 17 g PO DAILY 10/15/21 02/18/23 History oral powder packet (Miralax) amantadine HCl 100 mg capsule 100 mg PO TID 08/04/22 02/18/23 History carbidopa ER 25 mg-levodopa 100 mg 1 tab PO 6XD 08/04/22 02/18/23 History tablet,extended release entacapone 200 mg tablet 200 mg PO QID 08/04/22 02/18/23 History lorazepam 1 mg tablet (Ativan) 0.5 mg PO HS PRN Sleep 08/04/22 02/18/23 History alfuzosin 10 mg tablet,extended 10 mg PO DAILY #90 tabs 11/03/22 02/18/23 Rx release 24 hr (Uroxatral) carbidopa 25 mg-levodopa 100 mg 1 tab PO TID 02/18/23 02/18/23 History tablet escitalopram oxalate 10 mg tablet 10 mg PO DAILY 02/18/23 02/18/23 History Patient History Medical History Bilateral hydronephrosis History of intestinal obstruction HOSPITALIZED MAY 2020 - [facility] Small bowel obstruction Stercoral ulcer of large intestine Colitis Left lumbar radiculopathy HX INJECTION DEC 05 2019 History of kidney stones Neck pain PINCHED NERVE AND ARTHRITIS - MILD LIMITATION WITH ROM Low back pain Parkinson disease Obstructive sleep apnea CPAP Heart murmur BPH (benign prostatic hyperplasia) Peritonitis Surgical History History of exploratory laparotomy FOR INTESTINAL PROBLEM MAY 2020 History of colonoscopy History of right cataract surgery History of left cataract surgery S/P hemorrhoidectomy HX History of appendectomy Family History Mother Breast cancer Father Hypertension Stroke Social History Smoking Status: Never smoker Second Hand Exposure: No; Do You Dip or Chew Tobacco: No; Hx Alcohol Use: No Hx Substance Use: No Preferred Language: Syrian Communication Ability: Effective Visual Impairment: No Limitations Hearing Ability: Normal Pulling Unit Floorhand Required: No Beliefs That Will Affect Care: None marital status: Current Living Situation: Spouse current occupational status: retired Feels Safe at Home: Yes Safety Concerns: Feels Safe At This Time Assistive Devices: Walker Review of Systems Review of Systems: unable to obtain ROS secondary to patient parkinson's disease and is groggy following anesthesia Physical Exam Physical Exam: PHYSICAL EXAM: General: Easily arousable, comfortable appearing Head: Normocephalic, atraumatic ENT: PERRLA, EOMI, mucous membranes moist Neuro: AAO x 2 (person and place), speech clear, strength intact bilaterally 5/5, sensation intact and equal all extremities and dermatomes, no pronator drift Chest: equal rise and fall of the chest, no accessory muscle use, no heaves or thrills, Clear to auscultation, on room air, Cardiac: Regular rate and rhythm, telemetry reviewed- NSR, skin warm dry, cap refill <3 seconds, peripheral pulses +2 no JVD, S1S2, no edema GI: midline abdominal incision with no strikethrough, NGT in place draining bilious secretions : Everett to gravity draining jr colored urine Skin: no rash or erythema Results & Data Results & Data Vital Signs (Past 12 Hours) Vital Signs Temp Pulse Resp BP Pulse Ox O2 Del Method 02/19/23 01:46 Room Air 02/18/23 22:45 82 19 113/71 96 02/18/23 22:30 83 18 120/79 95 02/18/23 22:15 77 19 120/80 95 02/18/23 21:45 78 20 103/79 95 02/18/23 21:30 81 18 94/72 L 97 02/18/23 21:15 76 25 H 102/67 94 02/18/23 21:00 80 26 H 96/68 L 94 02/18/23 20:45 74 20 103/69 97 02/18/23 20:34 98 Room Air 02/18/23 20:30 68 24 100/67 94 02/18/23 20:15 61 20 105/70 95 02/18/23 20:00 63 22 105/69 94 Room Air 02/18/23 19:59 67 02/18/23 19:38 36.3 C L 56 L 16 92 Room Air Laboratory Results Abnormal lab results 02/18/23 02/18/23 02/18/23 Range/Units 20:01 21:15 21:22 WBC 15.23 H (4.8-10.8) K/ul Neut # (Auto) 14.03 H (1.40-6.50) K/uL Lymph # (Auto) 0.52 L (1.20-3.40) K/uL POC BUN 22 H (7-18) mg/dl Glucose 128 H (70-99(Fasting)) mg/dl POC Glucose 109 H (70-99) mg/dl POC Glucose (other) 129 H (70-99) mg/dl Calcium 10.6 H (8.6-10.3) mg/dl ALT 4 L (7-52) U/L Diagnostic Findings Abdomen/Pelvis CT 02/18/23 20:[address] WITH IV CONTRAST CT DOSE: 1306.51 mGy.cm HISTORY: abd pain, nausea, h/o sob TECHNIQUE: Multiaxial CT images of the abdomen and pelvis were performed following the use of intravenous contrast. A dose lowering technique was utilized adhering to the principles of ALARA. COMPARISON STUDY: Abdomen and pelvis CT 09/11/2020. FINDINGS: Bilateral lower lobe linear densities favor subsegmental atelectasis/dependent change. No pneumoperitoneum. No pneumatosis. No acute fractures identified. The stomach is mildly distended and filled with gas and fluid. The proximal small bowel is decompressed. Multiple dilated fluid-filled loops of mid to distal small bowel which measure up to 5.2 cm in diameter. There appear to be both proximal and distal transition points within the distended loops of small bowel. The proximal transition point is best seen on image 227 within the left anterior abdomen and the distal transition point is seen on image 198 within the right lower quadrant. Therefore, this is consistent with a closed loop obstruction. Trace fluid adjacent to the distended loops of small bowel within the right lower quadrant. The distal ileal loops are decompressed. There is a surgical clip within the right lower quadrant. This is consistent with a prior appendectomy. Small diverticulum within the anterior bladder. The prostate gland remains mildly enlarged. Colonic diverticulosis. No evidence for acute diverticulitis. Normal caliber abdominal aorta with mild calcified plaque. No retroperitoneal lymphadenopathy. The main portal vein is patent. Focal scarring within the upper pole of the right kidney which has progressed. There are few scattered bilateral renal hypodense lesions with the largest on the left measuring 16 mm. The majority these are subcentimeter in size and therefore technically too small to characterize but statistically represent cysts. Bilateral nephrolithiasis. No ureteral stones. No hydronephrosis. The adrenal glands, spleen, and pancreas unremarkable. There are few small gallstones. No gallbladder wall thickening. A few subcentimeter hypodense lesions within the right hepatic lobe which are also technically too small to characterize but favor cysts. IMPRESSION: 1. High-grade small bowel obstruction as described above demonstrating both proximal and distal transition points. Therefore, by definition, this is consistent with a closed loop obstruction. Urgent surgical consultation recommended. 2. Bilateral nephrolithiasis. No hydronephrosis. 3. Cholelithiasis. 4. Colonic diverticulosis. No evidence for acute diverticulitis. 5. Additional findings as described above. ACT 112: Negative or not required by law. Electronically signed by: Ramon Farley M.D. 02/18/2023 11:20 PM Medications Administered Home Medications rasagiline 1 mg tablet (Azilect) 1 mg PO QAM 05/17/20 [History Confirmed 02/18/23] carbidopa 25 mg-levodopa 100 mg tablet (Sinemet) 1.5 tab PO BID 07/18/20 [History Confirmed 02/18/23] docusate sodium 100 mg capsule (Colace) 100 mg PO TID 07/18/20 [History Confirmed 02/18/23] diclofenac sodium 1 % topical gel 2 g EXT Q6H PRN Pain 09/11/20 [History Confirmed 02/18/23] polyethylene glycol 3350 17 gram oral powder packet (Miralax) 17 g PO DAILY 10/15/21 [History Confirmed 02/18/23] amantadine HCl 100 mg capsule 100 mg PO TID 08/04/22 [History Confirmed 02/18/23] carbidopa ER 25 mg-levodopa 100 mg tablet,extended release 1 tab PO 6XD 08/04/22 [History Confirmed 02/18/23] entacapone 200 mg tablet 200 mg PO QID 08/04/22 [History Confirmed 02/18/23] lorazepam 1 mg tablet (Ativan) 0.5 mg PO HS PRN Sleep 08/04/22 [History Confirmed 02/18/23] alfuzosin 10 mg tablet,extended release 24 hr (Uroxatral) 10 mg PO DAILY #90 tabs 11/03/22 [Rx Confirmed 02/18/23] carbidopa 25 mg-levodopa 100 mg tablet 1 tab PO TID 02/18/23 [History Confirmed 02/18/23] escitalopram oxalate 10 mg tablet 10 mg PO DAILY 02/18/23 [History Confirmed 02/18/23] Active Medications Atropine Sulfate (Atropine Sulfate 0.1 Mg/Ml 10ml Syr) 0.5 mg IV Q1M PRN PRN Reason: PACU Use-HR<40 &/or Bradycardi Stop: 02/19/23 08:10 Ephedrine Sulfate (Ephedrine Sulfate 50 Mg/Ml Amp) 5 mg IV Q5M PRN PRN Reason: PACU Use Only-SBP<90 mmHg Stop: 02/19/23 08:10 Fentanyl Citrate (Fentanyl Citrate Pf 100 Mcg/2 Ml Vial) 25 mcg IV Q5M PRN PRN Reason: PACU Use Only-Pain Stop: 02/19/23 08:10 Hydromorphone HCl (Hydromorphone Inj 1 Mg/Ml Syringe) 0.25 mg IV Q5M PRN PRN Reason: PACU Use Only-Pain Stop: 02/19/23 08:10 Lactated Ringer's (Lr) 1,000 mls @ 125 mls/hr IV .Q8H [facility] Stop: 03/20/23 23:44 Last Admin: 02/19/23 04:45 Dose: 125 mls/hr Pantoprazole Sodium 40 mg/ (Syringe) 10 mls @ 5 mls/min IV DAILY@1100 [facility] Stop: 03/21/23 10:59 Acetaminophen (Ofirmev) 1,000 mg in 100 mls @ 400 mls/hr IV Q8H PRN PRN Reason: Moderate Pain (Scale 4, 5, 6) Stop: 02/22/23 04:25 Morphine Sulfate (Morphine Sulfate 4 Mg/Ml 1 Ml Carp\Vial) 3 mg IV Q3H PRN PRN Reason: Pain Stop: 03/05/23 04:25 Ondansetron HCl (Ondansetron Inj 2 Mg/Ml 2 Ml Vial) 4 mg IV ONCE PRN PRN Reason: PACU Use Only-Nausea/Vomiting Stop: 02/19/23 08:10 Ondansetron HCl (Ondansetron Inj 2 Mg/Ml 2 Ml Vial) 4 mg IV Q6H PRN PRN Reason: Nausea And Vomiting Stop: 03/21/23 04:25 Coding Level of Care Code 69734 CRITICAL CARE 1ST 30-74M Diagnoses Medical misadventure Y69 SBO (small bowel obstruction) K56.609 Parkinson disease G20 Obstructive sleep apnea G47.33 Hyperlipidemia E78.5
[2023-02-19] MEDS: LACTATED RINGER'S 1,000 ML IV SCH ×3 (04:45→18:05)
--- NOTE | 2023-02-19 04:54 | Anesthesiology Progress Note ---
Date of Service February 19, 2023 Anesthesia Post Procedure Vital Signs Vital Signs: Temp Pulse Pulse Resp BP BP Pulse Ox 02/19/23 04:33 121/81 02/19/23 04:33 36.4 C L 99 H 18 121/81 98 02/19/23 04:26 36.5 C 84 16 122/80 93 02/19/23 01:46 02/18/23 22:45 82 19 113/71 96 02/18/23 22:30 83 18 120/79 95 02/18/23 22:15 77 19 120/80 95 02/18/23 21:45 78 20 103/79 95 02/18/23 21:30 81 18 94/72 L 97 02/18/23 21:15 76 25 H 102/67 94 02/18/23 21:00 80 26 H 96/68 L 94 02/18/23 20:45 74 20 103/69 97 02/18/23 20:34 98 02/18/23 20:30 68 24 100/67 94 02/18/23 20:15 61 20 105/70 95 02/18/23 20:00 63 22 105/69 94 02/18/23 19:59 67 02/18/23 19:38 36.3 C L 56 L 16 92 O2 Del Method O2 Flow Rate 02/19/23 04:33 02/19/23 04:33 Oxymask 4 02/19/23 04:26 Oxymask 8 02/19/23 01:46 Room Air 02/18/23 22:45 02/18/23 22:30 02/18/23 22:15 02/18/23 21:45 02/18/23 21:30 02/18/23 21:15 02/18/23 21:00 02/18/23 20:45 02/18/23 20:34 Room Air 02/18/23 20:30 02/18/23 20:15 02/18/23 20:00 Room Air 02/18/23 19:59 02/18/23 19:38 Room Air Pain Intensity Lower Abdomen: Pain Intensity: 5 Transfer of Care Handoff Completed per policy Notes Mental Status: alert / awake / arousable and participated in evaluation Patient Amnestic to Procedure: Yes Nausea / Vomiting: adequately controlled Pain: adequately controlled Airway Patency, RR, SpO2: see Notes below BP & HR: stable & adequate Hydration State: stable & adequate Anesthetic Complications: see Notes below and Pt Satisfied with anesthetic care Notes: See anesthesia OR record for full details. In brief, patient had induction dose of propofol and succinylcholine given in rapid sequence given SBO and full stomach. IV that had been placed in ER was noted to be infiltrated and a new IV was placed and repeat dose of induction agents given. Rest of case was uneventful and patient was extubated and taken to ICU for recovery. Decision was made to keep him as an ICU patient in order to more closely monitor him for the next few hours for any s/s of respiratory depression given the subQ collection of induction drugs. Patient currently denied any SOB and is awake and conversant. He denies right arm pain and only has mild complaints of abdominal pain 2/2 surgery. Report given to ICU team and appreciate their close monitoring of this patient postoperatively.
[2023-02-19] MEDS: MoRPHine SULFATE 4 MG/ML 1 ML CARP\\VIAL IV PRN ×2 (04:59→12:37)
[2023-02-19 05:20] LABS: Hematocrit (blood only) 47.3 % (42.0-52.0); Hemoglobin 15.8 g/dl (14.0-18.0); Mean Corpuscular Hemoglobin 30.9 pg (25.0-34.0); Mean Corpuscular Hgb Conc 33.4 g/dL (32.0-36.0); Mean Corpuscular Volume 92.6 fL (80.0-100.0); Mean Platelet Volume 10.5 fL (9.4-12.4); Platelet Count 222 K/uL (130-400); RDW Coefficient of Variation 13.3 % (11.5-14.5); RDW Standard Deviation 45.5 fL (36.4-46.3); Red Blood Count 5.11 M/uL (4.70-6.10); White Blood Count 14.89 K/ul (4.8-10.8)
[2023-02-19 05:34] LABS: BUN Creatinine Ratio 23.5 (10-20); Calcium 9.3 mg/dl (8.6-10.3); Creatinine Clr Calc Pharmacy 70.6 ml/min; Est GFR (African American) 86.5 ml/min; Est GFR (Non-African American) 74.6 ml/min
[2023-02-19] MEDS: ACETAMINOPHEN 1,000 MG/100 ML VIAL IV PRN ×3 (05:58→22:42)
[2023-02-19] MEDS ORDERED: ICU ELECTROLYTE REPLACEMENT PROTOCOL SCH (06:00)
--- NOTE | 2023-02-19 07:11 | XRay Report ---
XR chest 1V portable CLINICAL HISTORY: Chest pain, nonspecific. COMPARISON STUDY: Chest radiograph and right rib series July 27, 2016. FINDINGS: Lung volumes are mildly diminished. Lungs are clear. There is no pneumothorax or pleural ef fusion. Cardiac size is normal. Mediastinal contours are normal. There is no evidence for pulmonary e arnav. IMPRESSION: No acute cardiopulmonary findings. ACT 112: Negative or not required by law. Electronically signed by: Mian Pizano M.D. 02/19/2023 7:10 AM
--- NOTE | 2023-02-19 07:16 | XRay Report ---
KUB CLINICAL HISTORY: check NG tube placement COMPARISON STUDY: CT of the abdomen and pelvis February 18, 2023. FINDINGS: Tip of the nasogastric tube is within the body of the stomach. Left basilar opacity favors atelectasis. Multiple dilated loops of small bowel are noted, as shown on CT. This is consistent with a small bowel obstruction. IMPRESSION: Tip of nasogastric tube within the body of the stomach. ACT 112: Negative or not required by law. Electronically signed by: Mian Pizano M.D. 02/19/2023 7:14 AM
--- NOTE | 2023-02-19 08:00 | XRay Report ---
KUB CLINICAL HISTORY: Generalized abdominal pain. FINDINGS: 3 AP, portable, supine abdominal radiographs are compared to study dated 05/17/2021 and corre lated with abdominal CT dated 09/11/2020. Surgical clips are noted in the right lower quadrant. There is marked gaseous distention of the small bowel loops consistent with a small bowel obstruction. Smal l bowel loops measure up to 5.5 cm. No evidence of intraperitoneal free air is seen on these supine i mages. Phleboliths are seen in the pelvis. The skeletal structures are osteopenic and appear intact. There is moderate lumbosacral spondylosis. The lung bases are clear as imaged. IMPRESSION: Small bowel obstruction. Electronically signed by: Chacho Velasco M.D. 02/19/2023 7:58 AM
--- NOTE | 2023-02-19 08:18 | Critical Care Progress Note ---
Date of Service February 19, 2023 Assessment & Plan (1) Medical misadventure: (2) SBO (small bowel obstruction): (3) Parkinson disease: (4) Obstructive sleep apnea: (5) Hyperlipidemia: Plan Reason Critically Ill: 67 YOM with un anticipated ICU admission following infiltration of IV during induction for intubation to undergo exploratory laparotomy. Patient is s/p Exploratory Laparotomy with lysis of adhesions, and release of internal hernia causing obstruction. Neuro - Parkinson's Disease, Acute pain post surgical CAM ICU: Negative - Improving mentation this morning. - Has been monitored overnight with improvement. - Will need to coordinate with surgery when able to resume oral intake JORDAN Cardiac - HX HLD - hemodynamically stable following operating course- required some NEOsynepherine pushes during the case - has not required vasopressors all night. - 1.2 L crystalloid infused during case with adequate urine output - continue to monitor hemodynamics Respiratory - Medical misadventure related to Infiltration of induction agents requiring monitoring of respiratory status postoperative in ICU, MAGDALENE - Unanticipated admission to ICU following unfortunate infiltration of induction agents - Patient received succinylcholine and propofol - he was reversed after surgical case with sugammadex. - Both agents should be short lived - TOF - currently 4/4 follow respiratory efforts - wean oxygen and continue to monitor respiratory efforts with EtCO2 - MAGDALENE- continue CPAP while napping or sleeping or sedated at [id number] - Without decline overnight. Medications that had infiltrated our rapidly metabolized. I would assume that at this point, the patient as well as at the window of negative effects of these medications. GI - SBO s/p exploratory laparotomy - Continue with NGT to LIWS - Imaging per surgery team - NPO- continued until cleared by surgery team RENAL/LYTES - No acute needs - ICU electrolyte protocol - BPH with LUTS - chronic- continue with everett catheter- discontinue when appropriate ENDO - No acute needs HEME - No acute needs - Leukocytosis at this time is likely related to inflammatory response- follow clinical course ID - No concerns for infective source at this time - no reported spillage or contamination from operating theater- postop abx per surgical team LINES/IV ACCESS - PIV, NGT, Everett catheter Continue use of these lines DVT PROPHYLAXIS - SCDS, hold chemoprophylaxis at this time, until hemostasis is achieved DISPO: ICU for duration of monitoring - patient stable for downgrade from the ICU this morning. Thank you for allowing us to precipitate in the care of this pleasant patient. The patient is stable for downgrade from ICU at this time. Admission and Anticipated Discharge Date Admission Date: February 19, 2023 Subjective Patient seen and evaluated at bedside. He reports that he is having some lower abdominal discomfort. He is worried about restarting his Parkinson's medications as well. Otherwise, he offers no significant complaints this morning. Review of Systems Review of Systems: A complete 10 point review of systems was reviewed with the patient with pertinent positives and negatives as per history of present illness. All else were negative. Physical Exam Physical Exam: VITAL SIGNS - Vital signs and nursing notes were reviewed. GENERAL - 67-year-old male appearing his stated age who is in no acute distress. NOSE - Midline and without cyanosis. NGT in place. MOUTH/OROPHARYNX - Without perioral cyanosis. Buccal mucosa pink and dry. NECK - Neck with FROM. Supple to palpation. No nuchal rigidity. LUNGS - Chest wall symmetric without accessory muscle use, intercostals retractions, or central cyanosis. Normal vesicular breath sounds CTA B/L. No wheezes, rales, or rhonchi appreciated. CARDIAC - RRR with S1/S2. No murmur, rubs, or gallops appreciated. ABDOMEN - Midline incision dressing clean,dry, and intact. Abdominal contour flat without pulsations or visible masses. BS hypoactive all four quadrants. Mild tenderness to palpation appreciated diffusely. No guarding. No Rebound Tenderness. NEUROLOGIC - Cranial nerves II through XII grossly intact. PSYCH - A&Ox3 and cooperates fully with examiner. Results & Data Results & Data Vital Signs (Past 12 Hours) Vital Signs Temp Pulse Pulse Pulse Resp BP BP 02/19/23 05:29 85 02/19/23 05:00 02/19/23 05:00 85 17 124/81 02/19/23 05:00 02/19/23 04:33 121/81 02/19/23 04:33 36.4 C L 99 H 18 121/81 02/19/23 04:26 36.5 C 84 16 122/80 02/19/23 01:46 02/18/23 22:45 82 19 113/71 02/18/23 22:30 83 18 120/79 02/18/23 22:15 77 19 120/80 02/18/23 21:45 78 20 103/79 02/18/23 21:30 81 18 94/72 L 02/18/23 21:15 76 25 H 102/67 02/18/23 21:00 80 26 H 96/68 L 02/18/23 20:45 74 20 103/69 02/18/23 20:34 02/18/23 20:30 68 24 100/67 Pulse Ox Pulse Ox O2 Del Method O2 Del Method O2 Flow Rate O2 Flow Rate 02/19/23 05:29 02/19/23 05:00 Nasal Cannula 2 02/19/23 05:00 95 Nasal Cannula 2 02/19/23 05:00 97 Nasal Cannula 2 02/19/23 04:33 02/19/23 04:33 98 Oxymask 4 02/19/23 04:26 93 Oxymask 8 02/19/23 01:46 Room Air 02/18/23 22:45 96 02/18/23 22:30 95 02/18/23 22:15 95 02/18/23 21:45 95 02/18/23 21:30 97 02/18/23 21:15 94 02/18/23 21:00 94 02/18/23 20:45 97 02/18/23 20:34 98 Room Air 02/18/23 20:30 94 Coding Level of Care Code 25420 SUB INP/OBS CARE MIN Diagnoses Medical misadventure Y69 SBO (small bowel obstruction) K56.609 Parkinson disease G20 Obstructive sleep apnea G47.33 Hyperlipidemia E78.5
--- NOTE | 2023-02-19 09:03 | Surgery Progress Note ---
Date of Service February 19, 2023 Assessment & Plan (1) SBO (small bowel obstruction): Plan: He is doing well a few hours after surgery Continue his NG tube and n.p.o. status Leave Lopez in place for today His labs were reviewed Encourage ambulation and incentive spirometry (2) Status post laparotomy with lysis of adhesions: Admission and Anticipated Discharge Date Admission Date: February 19, 2023 Subjective Patient seen and examined. Doing well and his pain is controlled. Afebrile. His vital signs been stable since surgery. Physical Exam Constitutional: WD/WN, vitals as above Gastrointestinal (Abdomen): Abdominal dressing clean dry and intact Appropriately tender to palpation Results & Data Vital Signs (Past 12 Hours) Vital Signs Temp Pulse Pulse Pulse Resp BP BP 02/19/23 05:29 85 02/19/23 05:00 02/19/23 05:00 85 17 124/81 02/19/23 05:00 02/19/23 04:33 121/81 02/19/23 04:33 36.4 C L 99 H 18 121/81 02/19/23 04:26 36.5 C 84 16 122/80 02/19/23 01:46 02/18/23 22:45 82 19 113/71 02/18/23 22:30 83 18 120/79 02/18/23 22:15 77 19 120/80 02/18/23 21:45 78 20 103/79 02/18/23 21:30 81 18 94/72 L 02/18/23 21:15 76 25 H 102/67 Pulse Ox Pulse Ox O2 Del Method O2 Del Method O2 Flow Rate O2 Flow Rate 02/19/23 05:29 02/19/23 05:00 Nasal Cannula 2 02/19/23 05:00 95 Nasal Cannula 2 02/19/23 05:00 97 Nasal Cannula 2 02/19/23 04:33 02/19/23 04:33 98 Oxymask 4 02/19/23 04:26 93 Oxymask 8 02/19/23 01:46 Room Air 02/18/23 22:45 96 02/18/23 22:30 95 02/18/23 22:15 95 02/18/23 21:45 95 02/18/23 21:30 97 02/18/23 21:15 94 PG Care Time/CCT Total # of Minutes Spent Total Time Spent with Patient: Total time spent is greater than 50% in coordination of care (as documented) at patient's floor/unit and/or counseling patient: Coding Level of Care Code 54167 Post Operative Follow-Up Diagnoses SBO (small bowel obstruction) K56.609 Status post laparotomy with lysis of adhesions Z98.890
[2023-02-19] MEDS: PANTOprazole 40 MG in SYRINGE 0 ML IV SCH (12:31)
--- NOTE | 2023-02-19 14:12 | Electrocardiogram Report ---
Test Reason : Blood Pressure : / mmHG Vent. Rate : 060 BPM Atrial Rate : 060 BPM P-R Int : 186 ms QRS Dur : 114 ms QT Int : 436 ms P-R-T Axes : 008 056 054 degrees QTc Int : 436 ms Normal sinus rhythm Normal ECG When compared with ECG of 17-MAY-2020 08:58, Vent. rate has decreased BY 43 BPM Nonspecific T wave abnormality no longer evident in Inferior leads Nonspecific T wave abnormality no longer evident in Lateral leads Confirmed by Cristiano Jackman ([id number]) on 02/19/2023 2:12:19 PM Referred By: REFERRED SELF Confirmed By:Cristiano Jackman
--- NOTE | 2023-02-19 16:42 | Hospitalist Progress Note ---
Date of Service February 19, 2023 Assessment & Plan (1) Medical misadventure: (2) SBO (small bowel obstruction): (3) Parkinson disease: (4) Obstructive sleep apnea: (5) Hyperlipidemia: Plan Reas undergo exploratory laparotomy. Patient is s/p Exploratory Laparotomy with lysis of adhesions, and release of internal hernia causing obstruction. Neuro - Parkinson's Disease, Acute pain post surgical CAM ICU: Negative - Improving mentation this morning. - Has been monitored overnight with improvement. - Will need to coordinate with surgery when able to resume oral intake JORDAN Cardiac - HX HLD - hemodynamically stable following operating course- required some NEOsynepherine pushes during the case - has not required vasopressors all night. - 1.2 L crystalloid infused during case with adequate urine output - continue to monitor hemodynamics Respiratory - Medical misadventure related to Infiltration of induction agents requiring monitoring of respiratory status postoperative in ICU, MAGDALENE - Unanticipated admission to ICU following unfortunate infiltration of induction agents - Patient received succinylcholine and propofol - he was reversed after surgical case with sugammadex. - Both agents should be short lived - TOF - currently 4/4 follow respiratory efforts - wean oxygen and continue to monitor respiratory efforts with EtCO2 - MAGDALENE- continue CPAP while napping or sleeping or sedated at [id number] - Without decline overnight. Medications that had infiltrated our rapidly metabolized. I would assume that at this point, the patient as well as at the window of negative effects of these medications. GI - SBO s/p exploratory laparotomy - Continue with NGT to LIWS - Imaging per surgery team - NPO- continued until cleared by surgery team RENAL/LYTES - No acute needs - ICU electrolyte protocol - BPH with LUTS - chronic- continue with everett catheter- discontinue when appropriate ENDO - No acute needs HEME - No acute needs - Leukocytosis at this time is likely related to inflammatory response- follow clinical course ID - No concerns for infective source at this time - no reported spillage or contamination from operating theater- postop abx per surgical team LINES/IV ACCESS - PIV, NGT, Everett catheter Continue use of these lines DVT PROPHYLAXIS - SCDS, hold chemoprophylaxis at this time, until hemostasis is achieved DISPO: ICU for duration of monitoring - patient stable for downgrade from the ICU this morning. Thank you for allowing us to precipitate in the care of this pleasant patient. The patient is stable for downgrade from ICU at this time. Admission and Anticipated Discharge Date Admission Date: February 19, 2023 Subjective Patient seen and examined. Doing well and his pain is controlled. Afebrile. His vital signs been stable since surgery. Physical Exam Physical Exam: VITAL SIGNS - Vital signs and nursing notes were reviewed. GENERAL - 67-year-old male appearing his stated age who is in no acute distress. NOSE - Midline and without cyanosis. NGT in place. MOUTH/OROPHARYNX - Without perioral cyanosis. Buccal mucosa pink and dry. NECK - Neck with FROM. Supple to palpation. No nuchal rigidity. LUNGS - Chest wall symmetric without accessory muscle use, intercostals retractions, or central cyanosis. Normal vesicular breath sounds CTA B/L. No wheezes, rales, or rhonchi appreciated. CARDIAC - RRR with S1/S2. No murmur, rubs, or gallops appreciated. ABDOMEN - Midline incision dressing clean,dry, and intact. Abdominal contour flat without pulsations or visible masses. BS hypoactive all four quadrants. Mild tenderness to palpation appreciated diffusely. No guarding. No Rebound Tenderness. NEUROLOGIC - Cranial nerves II through XII grossly intact. PSYCH - A&Ox3 and cooperates fully with examiner. Constitutional: WD/WN, vitals as above Eyes: no conjunctival abnormality ENMT: Mouth: no TMJ abnormality and no dentition abnormality Mallampati Class: II Neck: normal visual inspection Respiratory: normal respiratory effort, lungs clear to auscultation normal respiratory effort Auscultation: lungs clear to auscultation bilaterally Cardiovascular: Rate/Rhythm: regular rate and regular rhythm Vessels: dorsalis pedis pulses present and radial pulses present Musculoskeletal: Spine: + limited cervical ROM; no pain with cervical ROM Skin: no rashes Neurologic: moves all extremities Psychiatric: Orientation: alert and oriented x 3 Affect: + flat affect Results & Data Results & Data Vital Signs (Past 12 Hours) Vital Signs Temp Pulse Pulse Resp BP BP Pulse Ox 02/19/23 16:26 100 H 02/19/23 15:00 106 H 14 118/73 97 02/19/23 14:00 98 H 10 L 114/71 97 02/19/23 13:00 97 H 10 L 106/65 96 02/19/23 12:00 104 H 11 L 115/67 97 02/19/23 11:15 02/19/23 11:08 02/19/23 11:07 96 H 02/19/23 11:00 101 H 12 101/69 97 02/19/23 10:00 99 H 11 L 111/73 96 02/19/23 09:00 36.4 C L 02/19/23 09:00 102 H 12 111/66 96 02/19/23 08:00 113 H 13 133/85 95 02/19/23 07:00 96 H 12 115/77 97 02/19/23 05:29 85 02/19/23 05:00 02/19/23 05:00 85 17 124/81 95 02/19/23 05:00 Pulse Ox O2 Del Method O2 Del Method O2 Flow Rate O2 Flow Rate 02/19/23 16:26 02/19/23 15:00 02/19/23 14:00 02/19/23 13:00 02/19/23 12:00 02/19/23 11:15 Nasal Cannula 2 02/19/23 11:08 Nasal Cannula 02/19/23 11:07 02/19/23 11:00 02/19/23 10:00 02/19/23 09:00 02/19/23 09:00 02/19/23 08:00 02/19/23 07:00 02/19/23 05:29 02/19/23 05:00 Nasal Cannula 2 02/19/23 05:00 Nasal Cannula 2 02/19/23 05:00 97 Nasal Cannula 2 PG Care Time/CCT Total # of Minutes Spent Total Time Spent with Patient: Total time spent is greater than 50% in coordination of care (as documented) at patient's floor/unit and/or counseling patient: Coding Diagnoses Medical misadventure Y69 SBO (small bowel obstruction) K56.609 Parkinson disease G20 Obstructive sleep apnea G47.33 Hyperlipidemia E78.5
[2023-02-19] MEDS: CARBIDOPA/LEVODOP 10/100MG TAB NG SCH (17:16)
[2023-02-19] MEDS: RASAGILINE: ORDER AWAITING ACTION SCH (17:58)
[2023-02-19] MEDS ORDERED: CARBIDOPA/LEVODOPA 25/100MG TAB PO SCH (18:30)
[2023-02-19] MEDS ORDERED: ENTACAPONE 200 MG TAB PO SCH (18:30)
[2023-02-19] MEDS ORDERED: CARBIDOPA/LEVODOP 10/100MG TAB PO SCH (21:00)
[2023-02-19] MEDS: LORazepam 0.5 MG TAB PO PRN (22:42)
[2023-02-19] MEDS: ENTACAPONE 200 MG TAB PO SCH (22:43)
[2023-02-19] MEDS: CARBIDOPA/LEVODOPA 25/100MG TAB NG SCH (22:44)
[2023-02-20] MEDS: LACTATED RINGER'S 1,000 ML IV SCH ×3 (00:43→17:00)
[2023-02-20] MEDS: ONDANSETRON INJ 2 MG/ML 2 ML VIAL IV PRN ×2 (00:43→08:35)
[2023-02-20] MEDS: MoRPHine SULFATE 4 MG/ML 1 ML CARP\\VIAL IV PRN ×4 (00:43→15:47)
[2023-02-20] MEDS: RASAGILINE: ORDER AWAITING ACTION SCH (00:49)
[2023-02-20] MEDS ORDERED: KETOROLAC TROMETHAMINE 15 MG/ML VIAL IV ONE (01:12)
[2023-02-20 06:37] LABS: Hematocrit (blood only) 41.9 % (42.0-52.0); Hemoglobin 14.3 g/dl (14.0-18.0); Mean Corpuscular Hemoglobin 31.4 pg (25.0-34.0); Mean Corpuscular Hgb Conc 34.1 g/dL (32.0-36.0); Mean Corpuscular Volume 91.9 fL (80.0-100.0); Mean Platelet Volume 10.7 fL (9.4-12.4); Platelet Count 205 K/uL (130-400); RDW Coefficient of Variation 13.5 % (11.5-14.5); RDW Standard Deviation 46.3 fL (36.4-46.3); Red Blood Count 4.56 M/uL (4.70-6.10)
[2023-02-20 07:03] LABS: BUN Creatinine Ratio 19.8 (10-20); Calcium 9.1 mg/dl (8.6-10.3); Creatinine Clr Calc Pharmacy 88.9 ml/min; Est GFR (African American) 105.1 ml/min; Est GFR (Non-African American) 90.7 ml/min; Potassium 4.2 mmol/L (3.5-5.1)
[2023-02-20] MEDS: ESCITALOPRAM OXALATE 10 MG TAB PO SCH (08:10)
[2023-02-20] MEDS: RASAGILINE MESYLATE 1 MG TAB PO SCH (08:11)
--- NOTE | 2023-02-20 09:50 | Surgery Progress Note ---
Date of Service February 20, 2023 Assessment & Plan (1) Status post laparotomy with lysis of adhesions: Plan: Patient resting in bed, out of ICU Reports he has not tried to get out of bed yet or walk since surgery, encouraged to get OOB, ambulated , placed PT consult NG tube has aprox. 100cc since 0600. Will keep another day Requesting to meet with hospitalnurse rodrigo caputo waiting for response Lopez catheter can be removed today Ordered Lovenox 40mg SQ AM VSS temp 99.1 this AM WBC 6.9 Pt seen and examined with Dr. Mena Admission and Anticipated Discharge Date Admission Date: February 19, 2023 Supervising Physician Co-Signing Physician Notes I personally saw and evaluated the patient with Jhony VELÁSQUEZ and agree with the assessment plan. POD#1 Exlap, extensive FLOR for SBO Doing well, Keep NGT in place, can clamp PRN for his Parkinson's meds Await more meaningful return of bowel function Encourage ambulation and IS Start DVT prophylaxis with Lovenox today Continue IVF, replace Lytes PRN Subjective Patient resting in bed, out of ICU Reports he has not tried to get out of bed yet or walk since surgery NG tube has aprox. 100cc since 0600 Requesting to meet with hospitalnurse rodrigo caputo waiting for response Review of Systems Constitutional: no fever and no chills Respiratory: no dyspnea Cardiovascular: no chest pain Gastrointestinal: no nausea and no vomiting Integumentary: + wounds abdominal incision covered with gauze, abd , medipore tape CDI Physical Exam Physical Exam: alert wake Constitutional: cooperative and comfortable; no acute distress Respiratory: normal respiratory effort and able to speak in complete s entences; no respiratory distress Cardiovascular: Rate/Rhythm: regular rate Gastrointestinal (Abdomen): Inspection/Auscultation: + abdomen distended and + abdominal surgical incision Percussion/Palpation: + abdomen tender and abdomen soft Results & Data Vital Signs (Past 12 Hours) Vital Signs Temp Pulse Pulse Pulse Resp BP Pulse Ox 02/20/23 07:53 85 02/20/23 07:35 99.1 F 96 H 18 134/86 94 02/20/23 03:12 97.9 F 104 H 18 130/82 92 02/20/23 00:00 93 H 02/19/23 23:45 98.4 F 94 H 20 129/86 92 O2 Del Method 02/20/23 07:53 02/20/23 07:35 Room Air 02/20/23 03:12 Room Air 02/20/23 00:00 02/19/23 23:45 Room Air PG Care Time/CCT Total # of Minutes Spent Total Time Spent with Patient: Total time spent is greater than 50% in coordination of care (as documented) at patient's floor/unit and/or counseling patient: Coding Level of Care Code 09669 Post Operative Follow-Up Diagnoses Status post laparotomy with lysis of adhesions Z98.890
[2023-02-20] MEDS: ENTACAPONE 200 MG TAB PO SCH ×4 (12:13→18:43)
[2023-02-20] MEDS: CARBIDOPA/LEVODOPA 25/100MG TAB NG SCH ×2 (12:17→15:29)
[2023-02-20] MEDS: PANTOprazole 40 MG in SYRINGE 0 ML IV SCH (12:17)
[2023-02-20] MEDS: CARBIDOPA/LEVODOP 10/100MG TAB NG SCH (12:17)
[2023-02-20] MEDS: ENOXAPARIN INJ 40 MG/0.4 ML SYR SQ SCH (12:18)
[2023-02-20] MEDS ORDERED: Nursing to Pharmacy Communication SCH ×3 (12:45)
[2023-02-20] MEDS ORDERED: AMANTADINE HCL 50 MG/5 ML PO SCH (13:00)
[2023-02-20] MEDS ORDERED: CARBIDOPA/LEVODOPA 25/100MG TAB NG SCH (13:00)
[2023-02-20] MEDS: AMANTADINE HCL 100 MG CAPSULE PO SCH (15:32)
[2023-02-20] MEDS: CARBIDOPA/LEVODOPA 25/100MG EXT REL TAB PO SCH ×4 (15:33→23:30)
[2023-02-20] MEDS: CARBIDOPA/LEVODOPA 25/100MG TAB PO SCH ×2 (18:43→22:04)
--- NOTE | 2023-02-20 19:41 | Hospitalist Progress Note ---
Date of Service February 20, 2023 Assessment & Plan (1) SBO (small bowel obstruction): Plan: Due to closed-loop, s/p surgery, currently patient is connected to intermittent suction (2) Parkinson disease: Plan: Given patient developed rapid rigidity due to Parkinson disease as per my discussion with the and the primary neurology patient was presumed on his home medications, the case was discussed with the primary neurologist, the toy consultant surgeon is in agreement to clamp the NG tube for 45 minutes each time after he receives Parkinson medication, he would like to start a medication for restless syndrome, I started on low-dose Requip, I warned him about the potential side effects of Requip (3) Obstructive sleep apnea: (4) Hyperlipidemia: Plan: Hold statin for now Admission and Anticipated Discharge Date Admission Date: February 19, 2023 Subjective Discussed with the and the patient, patient asked me to talk to his neurologist at [facility], communicated with his neurologist with history, continue current regimen, as per communication with surgery we clamped the NG tube for 45 minutes after he received his Parkinson medications, that be about 5 times a day. The patient would like to start a medication for restless leg syndrome I started a low-dose of Requip Review of Systems Review of Systems: A complete 10 point review of systems was reviewed with the patient with pertinent positives and negatives as per history of present illness. All else were negative. Physical Exam Physical Exam: alert wake Constitutional: WD/WN, vitals as above cooperative and comfortable; no acute distress Eyes: no conjunctival abnormality ENMT: Mouth: no TMJ abnormality and no dentition abnormality Mallampati Class: II Neck: normal visual inspection Respiratory: normal respiratory effort, lungs clear to auscultation normal respiratory effort and able to speak in complete sentences; no respiratory distress Auscultation: lungs clear to auscultation bilaterally Cardiovascular: Rate/Rhythm: regular rate and regular rhythm Vessels: dorsalis pedis pulses present and radial pulses present Gastrointestinal (Abdomen): Inspection/Auscultation: + abdomen distended and + abdominal surgical incision Percussion/Palpation: + abdomen tender and abdomen soft Musculoskeletal: Spine: + limited cervical ROM; no pain with cervical ROM Skin: no rashes Neurologic: moves all extremities Psychiatric: Orientation: alert and oriented x 3 Affect: + flat affect Results & Data Results & Data Vital Signs (Past 12 Hours) Vital Signs Temp Pulse Pulse Pulse Resp BP Pulse Ox 12/08/23 17:37 98 H 02/20/23 16:54 36.6 C 76 18 136/81 97 02/20/23 11:30 36.2 C L 90 17 138/88 93 02/20/23 07:53 85 O2 Del Method 02/20/23 17:37 02/20/23 16:54 Room Air 02/20/23 11:30 Room Air 02/20/23 07:53 PG Care Time/CCT Total # of Minutes Spent Total Time Spent with Patient: Total time spent is greater than 50% in coordination of care (as documented) at patient's floor/unit and/or counseling patient: Coding Level of Care Code 47399 SUB INP/OBS CARE 3/50MIN Diagnoses SBO (small bowel obstruction) K56.609 Parkinson disease G20 Obstructive sleep apnea G47.33 Hyperlipidemia E78.5
[2023-02-20] MEDS: rOPINIRole HCL 0.25 MG TABLET PO SCH (22:04)
[2023-02-21] MEDS: MoRPHine SULFATE 4 MG/ML 1 ML CARP\\VIAL IV PRN ×2 (01:21→13:10)
[2023-02-21] MEDS: LACTATED RINGER'S 1,000 ML IV SCH ×4 (01:22→23:46)
[2023-02-21] MEDS: CARBIDOPA/LEVODOPA 25/100MG TAB NG SCH ×2 (08:17→15:40)
[2023-02-21] MEDS: CARBIDOPA/LEVODOPA 25/100MG EXT REL TAB PO SCH ×6 (08:19→23:37)
[2023-02-21] MEDS: ENTACAPONE 200 MG TAB PO SCH ×4 (08:20→18:36)
[2023-02-21] MEDS: ESCITALOPRAM OXALATE 10 MG TAB PO SCH (08:20)
[2023-02-21] MEDS: AMANTADINE HCL 100 MG CAPSULE PO SCH ×3 (08:20→15:40)
[2023-02-21] MEDS: RASAGILINE MESYLATE 1 MG TAB PO SCH (08:21)
[2023-02-21] MEDS: ENOXAPARIN INJ 40 MG/0.4 ML SYR SQ SCH (08:22)
[2023-02-21] MEDS: ACETAMINOPHEN 1,000 MG/100 ML VIAL IV PRN ×2 (10:05→22:45)
[2023-02-21] MEDS: ONDANSETRON INJ 2 MG/ML 2 ML VIAL IV PRN ×4 (10:08→22:44)
[2023-02-21] MEDS: PANTOprazole 40 MG in SYRINGE 0 ML IV SCH (11:30)
[2023-02-21] MEDS: CARBIDOPA/LEVODOPA 25/100MG TAB PO SCH ×3 (11:33→22:22)
--- NOTE | 2023-02-21 11:46 | Surgery Progress Note ---
Date of Service February 21, 2023 Assessment & Plan (1) Status post laparotomy with lysis of adhesions: Plan: POD #2 status post exploratory laparotomy with lysis of adhesions. No flatus yet Continue NG tube, clamp for Parkinson's meds PT/OT for out of bed and ambulation DVT prophylaxis with SCDs and Lovenox Encourage aggressive pulmonary toilet with incentive spirometry Admission and Anticipated Discharge Date Admission Date: February 19, 2023 Subjective POD #2 status post exploratory laparotomy with lysis of adhesions for small bowel obstruction. He denies any flatus at this time. Some nausea when the NG tube was clamped for too long. Minimal pain. No fevers or chills. Physical Exam Physical Exam: NAD, A&O x 3 AFVSS Abdomen: Soft, nontender Moderate distention, NG in place Incision without erythema or discharge; julieth in place Results & Data Vital Signs (Past 12 Hours) Vital Signs Temp Pulse Pulse Resp BP Pulse Ox O2 Del Method 02/21/23 09:05 36.6 C 105 H 18 143/88 H 92 Room Air 02/21/23 07:15 86 02/21/23 03:28 36.9 C 86 18 129/87 92 Room Air
--- NOTE | 2023-02-21 16:49 | Hospitalist Progress Note ---
Date of Service February 21, 2023 Assessment & Plan (1) SBO (small bowel obstruction): Plan: Due to closed-loop, s/p lysing the adhesions, postop day 2, patient has hypoactive bowel sounds, still is connected to low intermittent suction, more than 600 cc of fluid has been retained, discussed with the surgeon, stress and mobility, I discussed with the patient to remove the Lopez catheter so he can be more ambulatory however he decided to keep the catheter for at least for today, PT OT consult is pending, feel nauseated, when it is clamped for more than 45 minutes, discussed with the surgeon, with put on Zofran 45 minutes before clamping (2) Parkinson disease: Plan: Advanced Parkinson disease, patient taking short acting/long-acting Sinemet plus amantadine plus entacapone plus rasagiline, patient developed some rigidity, discussed with his primary neurologist and decision, we increased the length of clamping to 1-1/2, premedicate the patient with Zofran to prevent nausea/vomiting, also increase the dose of short acting Sinemet for 1 and half tablet to 2 tablets (3) Obstructive sleep apnea: (4) Hyperlipidemia: Plan: Hold statin for now Admission and Anticipated Discharge Date Admission Date: February 19, 2023 Subjective POD #2 status post exploratory laparotomy with lysis of adhesions for small bowel obstruction. He denies any flatus at this time. Some nausea when the NG tube was clamped for too long. Minimal pain. No fevers or chills. Complaining of having rigidity possibly due to Parkinson disease, discussed with his neurologist, we increased the dose of Sinemet from 1 and half tablet to 2 tablets twice daily, I discussed the case also with the surgeon, we increased the length of clamping to 1 hour and a half hopefully that help with better absorption Physical Exam Physical Exam: alert wake Constitutional: WD/WN, vitals as above cooperative and comfortable; no acute distress Eyes: no conjunctival abnormality ENMT: Mouth: no TMJ abnormality and no dentition abnormality Mallampati Class: II Neck: normal visual inspection Respiratory: normal respiratory effort, lungs clear to auscultation normal respiratory effort and able to speak in complete sentences; no respiratory distress Auscultation: lungs clear to auscultation bilaterally Cardiovascular: Rate/Rhythm: regular rate and regular rhythm Vessels: dorsalis pedis pulses present and radial pulses present Gastrointestinal (Abdomen): Inspection/Auscultation: + abdomen distended and + abdominal surgical incision Percussion/Palpation: + abdomen tender and abdomen soft Musculoskeletal: Spine: + limited cervical ROM; no pain with cervical ROM Skin: no rashes Neurologic: moves all extremities Psychiatric: Orientation: alert and oriented x 3 Affect: + flat affect Results & Data Results & Data Vital Signs (Past 12 Hours) Vital Signs Temp Pulse Pulse Resp BP Pulse Ox O2 Del Method 02/21/23 15:44 36.4 C L 88 18 125/84 90 Room Air 02/21/23 15:02 84 02/21/23 12:00 36.6 C 98 H 17 130/86 91 Room Air 02/21/23 09:05 36.6 C 105 H 18 143/88 H 92 Room Air 02/21/23 07:15 86 PG Care Time/CCT Total # of Minutes Spent Total Time Spent with Patient: Total time spent is greater than 50% in coordination of care (as documented) at patient's floor/unit and/or counseling patient: Coding Level of Care Code 86398 SUB INP/OBS CARE 3/50MIN Diagnoses SBO (small bowel obstruction) K56.609 Parkinson disease G20 Obstructive sleep apnea G47.33 Hyperlipidemia E78.5
[2023-02-21] MEDS: rOPINIRole HCL 0.25 MG TABLET PO SCH (22:22)
[2023-02-22] MEDS ORDERED: ACETAMINOPHEN 1,000 MG/100 ML VIAL IV STA ×2 (04:52→13:49)
[2023-02-22 05:56] LABS: Hematocrit (blood only) 39.6 % (42.0-52.0); Hemoglobin 13.4 g/dl (14.0-18.0); Mean Corpuscular Hgb Conc 33.8 g/dL (32.0-36.0); Mean Corpuscular Volume 91.7 fL (80.0-100.0); Mean Platelet Volume 10.6 fL (9.4-12.4); Platelet Count 181 K/uL (130-400); RDW Coefficient of Variation 13.2 % (11.5-14.5); Red Blood Count 4.32 M/uL (4.70-6.10); White Blood Count 6.88 K/ul (4.8-10.8)
[2023-02-22] MEDS: ONDANSETRON INJ 2 MG/ML 2 ML VIAL IV PRN ×5 (07:24→21:26)
[2023-02-22 07:48] LABS: BUN Creatinine Ratio 26.7 (10-20); Calcium 9.1 mg/dl (8.6-10.3); Est GFR (African American) 108.5 ml/min; Est GFR (Non-African American) 93.6 ml/min
[2023-02-22] MEDS: LACTATED RINGER'S 1,000 ML IV SCH ×2 (07:52→16:23)
[2023-02-22] MEDS: AMANTADINE HCL 100 MG CAPSULE PO SCH ×3 (08:02→15:10)
[2023-02-22] MEDS: CARBIDOPA/LEVODOPA 25/100MG TAB NG SCH ×2 (08:03→15:12)
[2023-02-22] MEDS: CARBIDOPA/LEVODOPA 25/100MG EXT REL TAB PO SCH ×6 (08:03→23:30)
[2023-02-22] MEDS: ENTACAPONE 200 MG TAB PO SCH ×4 (08:04→18:25)
[2023-02-22] MEDS: ESCITALOPRAM OXALATE 10 MG TAB PO SCH (08:04)
[2023-02-22] MEDS: ENOXAPARIN INJ 40 MG/0.4 ML SYR SQ SCH (08:05)
[2023-02-22] MEDS: RASAGILINE MESYLATE 1 MG TAB PO SCH (08:06)
[2023-02-22] MEDS: PANTOprazole 40 MG in SYRINGE 0 ML IV SCH (10:36)
[2023-02-22] MEDS: CARBIDOPA/LEVODOPA 25/100MG TAB PO SCH ×3 (11:29→22:13)
--- NOTE | 2023-02-22 12:33 | Surgery Progress Note ---
Date of Service February 22, 2023 Assessment & Plan (1) Status post laparotomy with lysis of adhesions: Plan: POD #3 status post exploratory laparotomy with lysis of adhesions. Passing flatus now. will d/c ng today. If tolerates, can start clears tomorrow. Ok to take meds with sip of water. PT/OT for out of bed and ambulation DVT prophylaxis with SCDs and Lovenox Encourage aggressive pulmonary toilet with incentive spirometry Admission and Anticipated Discharge Date Admission Date: February 19, 2023 Subjective POD#3 FLOR. Passing flatus. Feels better since he started his Parkinson's meds. Minimal nausea with ng clamping. Pain well controlled. Physical Exam Constitutional: WD/WN, vitals as above Respiratory: normal respiratory effort, lungs clear to auscultation Gastrointestinal (Abdomen): Inspection/Auscultation: abdomen normal to inspection, normal bowel sounds and + abdominal surgical incision (clean); abdomen not distended Percussion/Palpation: abdomen soft; abdomen nontender Results & Data Vital Signs (Past 12 Hours) Vital Signs Temp Pulse Pulse Resp BP BP Pulse Ox 02/22/23 11:45 36.7 C 80 17 120/76 92 02/22/23 08:39 36.5 C 74 17 124/77 93 02/22/23 07:31 72 02/22/23 03:28 02/22/23 03:24 36.7 C 91 H 20 137/88 92 O2 Del Method 02/22/23 11:45 Room Air 02/22/23 08:39 Room Air 02/22/23 07:31 02/22/23 03:28 Room Air 02/22/23 03:24 Room Air Laboratory Results Abnormal lab results 02/22/23 Range/Units 05:29 RBC 4.32 L (4.70-6.10) M/uL Hgb 13.4 L (14.0-18.0) g/dl Hct 39.6 L (42.0-52.0) % BUN/Creatinine Ratio 26.7 H (10-20)
[2023-02-22] MEDS ORDERED: ACETAMINOPHEN 1,000 MG/100 ML VIAL IV ONE ×2 (13:59→14:00)
--- NOTE | 2023-02-22 17:09 | Hospitalist Progress Note ---
Date of Service February 22, 2023 Assessment & Plan (1) SBO (small bowel obstruction): Plan: Due to closed-loop, s/p lysing the adhesions, postop day 3, patient has hypoactive bowel sounds, however passing gas, NG tube is removed, according to the surgical note patient can be started on oral for tomorrow currently he can do meds with sips of water improving, patient was ambulatory today, seen by PT and OT (2) Parkinson disease: Plan: Advanced Parkinson disease, patient taking short acting/long-acting Sinemet plus amantadine plus entacapone plus rasagiline, today he is doing fine, continue current regimen (3) Obstructive sleep apnea: (4) Hyperlipidemia: Plan: Hold statin for now Admission and Anticipated Discharge Date Admission Date: February 19, 2023 Subjective POD#3 FLOR. Passing flatus. Feels better since he started his Parkinson's meds. Minimal nausea with ng clamping. Pain well controlled. Review of Systems Review of Systems: A complete 10 point review of systems was reviewed with the patient with pertinent positives and negatives as per history of present illness. All else were negative. Physical Exam Physical Exam: alert wake Constitutional: WD/WN, vitals as above cooperative and comfortable; no acute distress Eyes: no conjunctival abnormality ENMT: Mouth: no TMJ abnormality and no dentition abnormality Mallampati Class: II Neck: normal visual inspection Respiratory: normal respiratory effort, lungs clear to auscultation normal respiratory effort and able to speak in complete sentences; no respiratory distress Auscultation: lungs clear to auscultation bilaterally Cardiovascular: Rate/Rhythm: regular rate and regular rhythm Vessels: dorsalis pedis pulses present and radial pulses present Gastrointestinal (Abdomen): Inspection/Auscultation: + abdomen distended and + abdominal surgical incision Percussion/Palpation: + abdomen tender and abdomen soft Musculoskeletal: Spine: + limited cervical ROM; no pain with cervical ROM Skin: no rashes Neurologic: moves all extremities Psychiatric: Orientation: alert and oriented x 3 Affect: + flat affect Results & Data Results & Data Vital Signs (Past 12 Hours) Vital Signs Temp Pulse Pulse Resp BP Pulse Ox O2 Del Method 02/22/23 15:34 36.7 C 82 18 142/84 H 91 Room Air 02/22/23 14:47 79 02/22/23 11:45 36.7 C 80 17 120/76 92 Room Air 02/22/23 08:39 36.5 C 74 17 124/77 93 Room Air 02/22/23 07:31 72 PG Care Time/CCT Total # of Minutes Spent Total Time Spent with Patient: Total time spent is greater than 50% in coordination of care (as documented) at patient's floor/unit and/or counseling patient: Coding Level of Care Code 22793 SUB INP/OBS CARE 3/50MIN Diagnoses SBO (small bowel obstruction) K56.609 Parkinson disease G20 Obstructive sleep apnea G47.33 Hyperlipidemia E78.5
[2023-02-22] MEDS: rOPINIRole HCL 0.25 MG TABLET PO SCH (23:30)
[2023-02-23] MEDS: LACTATED RINGER'S 1,000 ML IV SCH ×3 (00:33→16:48)
[2023-02-23 06:38] LABS: Basophils # (auto) 0.02 K/uL (0.00-0.20); Basophils % (auto) 0.3 %; Eosinophils # (auto) 0.12 K/uL (0.00-0.50); Hematocrit (blood only) 36.4 % (42.0-52.0); Hemoglobin 12.1 g/dl (14.0-18.0); Immature Granulocytes # (auto) 0.02 K/uL (0.01-0.20); Immature Granulocytes % (auto) 0.3 %; Lymphocytes # (auto) 0.68 K/uL (1.20-3.40); Lymphocytes % (auto) 11.4 %; Mean Corpuscular Hemoglobin 30.9 pg (25.0-34.0); Mean Corpuscular Hgb Conc 33.2 g/dL (32.0-36.0); Mean Corpuscular Volume 92.9 fL (80.0-100.0); Mean Platelet Volume 10.8 fL (9.4-12.4); Monocytes # (auto) 0.56 K/uL (0.11-0.59); Monocytes % (auto) 9.4 %; Neutrophils # (auto) 4.56 K/uL (1.40-6.50); Neutrophils % (auto) 76.6 %; Platelet Count 205 K/uL (130-400); RDW Coefficient of Variation 12.9 % (11.5-14.5); RDW Standard Deviation 43.9 fL (36.4-46.3); Red Blood Count 3.92 M/uL (4.70-6.10); White Blood Count 5.96 K/ul (4.8-10.8)
[2023-02-23 06:52] LABS: BUN Creatinine Ratio 24.6 (10-20); Calcium 8.8 mg/dl (8.6-10.3); Creatinine Clr Calc Pharmacy 104.3 ml/min; Est GFR (African American) 112.3 ml/min; Est GFR (Non-African American) 96.9 ml/min; Potassium 3.7 mmol/L (3.5-5.1)
[2023-02-23] MEDS: ENTACAPONE 200 MG TAB PO SCH ×4 (07:57→18:26)
[2023-02-23] MEDS: ESCITALOPRAM OXALATE 10 MG TAB PO SCH (07:58)
[2023-02-23] MEDS: AMANTADINE HCL 100 MG CAPSULE PO SCH ×3 (07:58→15:17)
[2023-02-23] MEDS: CARBIDOPA/LEVODOPA 25/100MG EXT REL TAB PO SCH ×6 (07:58→23:54)
[2023-02-23] MEDS: ENOXAPARIN INJ 40 MG/0.4 ML SYR SQ SCH (07:59)
[2023-02-23] MEDS: CARBIDOPA/LEVODOPA 25/100MG TAB NG SCH ×2 (08:00→15:17)
[2023-02-23] MEDS: RASAGILINE MESYLATE 1 MG TAB PO SCH (08:00)
[2023-02-23] MEDS ORDERED: POTASSIUM CHLORIDE CRTAB 20 MEQ TABCR PO STA (09:01)
--- NOTE | 2023-02-23 10:13 | Surgery Progress Note ---
Date of Service February 23, 2023 Assessment & Plan (1) Status post laparotomy with lysis of adhesions: Plan: He is doing well and has had some return of bowel function Start clear liquids for today His labs are reviewed and all look good Encourage ambulation spirometry Admission and Anticipated Discharge Date Admission Date: February 19, 2023 Subjective Patient seen and examined. Denies any nausea or vomiting. NG tube was removed yesterday and has had a decent amount of flatus and bowel movement. Afebrile. Physical Exam Constitutional: WD/WN, vitals as above Gastrointestinal (Abdomen): Soft, appropriately tender to palpation, mild distention Surgical dressing clean dry and intact Results & Data Vital Signs (Past 12 Hours) Vital Signs Temp Pulse Pulse Pulse Resp BP BP 02/23/23 08:11 36.8 C 81 22 138/76 02/23/23 07:43 67 02/23/23 04:00 36.5 C 79 18 143/85 H 02/23/23 03:47 02/22/23 23:00 36.7 C 88 18 142/89 H 02/22/23 22:22 74 Pulse Ox O2 Del Method 02/23/23 08:11 94 Room Air 02/23/23 07:43 02/23/23 04:00 94 Room Air 02/23/23 03:47 Room Air 02/22/23 23:00 94 Room Air 02/22/23 22:22 PG Care Time/CCT Total # of Minutes Spent Total Time Spent with Patient: Total time spent is greater than 50% in coordination of care (as documented) at patient's floor/unit and/or counseling patient: Coding Level of Care Code 19180 Post Operative Follow-Up Diagnoses Status post laparotomy with lysis of adhesions Z98.890
[2023-02-23] MEDS: CARBIDOPA/LEVODOPA 25/100MG TAB PO SCH ×3 (11:30→22:01)
[2023-02-23] MEDS: PANTOprazole 40 MG in SYRINGE 0 ML IV SCH (11:31)
--- NOTE | 2023-02-23 17:47 | Hospitalist Progress Note ---
Date of Service February 23, 2023 Assessment & Plan (1) SBO (small bowel obstruction): Plan: Due to closed-loop, s/p lysing the adhesions, postop day 4 patient has hypoactive bowel sounds, however passing gas, NG tube is removed on02/23, yesterday clear liquid today, tolerated well (2) Parkinson disease: Plan: Advanced Parkinson disease, patient taking short acting/long-acting Sinemet plus amantadine plus entacapone plus rasagiline, today he is doing fine, continue current regimen (3) Restless leg syndrome: Plan: discussed with his neurologist on Thursday, I started on gabapentin 200 mg at bedtime, I started already on Requip, however according the patient had minimal benefits I stoppedRequip 0.25 (4) Obstructive sleep apnea: (5) Hyperlipidemia: Plan: Hold statin for now Admission and Anticipated Discharge Date Admission Date: February 19, 2023 Subjective no complaint today, currently patient on clear liquid diet, NG tube was removed yesterday and has had a decent amount of flatus and bowel movement. from neurology standpoint his Parkinson symptoms are well-managed Physical Exam Physical Exam: alert wake Constitutional: WD/WN, vitals as above cooperative and comfortable; no acute distress Eyes: no conjunctival abnormality ENMT: Mouth: no TMJ abnormality and no dentition abnormality Mallampati Class: II Neck: normal visual inspection Respiratory: normal respiratory effort, lungs clear to auscultation normal respiratory effort and able to speak in complete sentences; no respiratory distress Auscultation: lungs clear to auscultation bilaterally Cardiovascular: Rate/Rhythm: regular rate and regular rhythm Vessels: dorsalis pedis pulses present and radial pulses present Gastrointestinal (Abdomen): Inspection/Auscultation: + abdomen distended and + abdominal surgical incision Percussion/Palpation: + abdomen tender and abdomen soft Musculoskeletal: Spine: + limited cervical ROM; no pain with cervical ROM Skin: no rashes Neurologic: moves all extremities Psychiatric: Orientation: alert and oriented x 3 Affect: + flat affect Results & Data Results & Data Vital Signs (Past 12 Hours) Vital Signs Temp Pulse Pulse Pulse Resp BP Pulse Ox 02/23/23 15:53 36.6 C 76 18 144/84 H 95 02/23/23 15:32 67 02/23/23 12:06 36.3 C L 72 18 138/80 94 02/23/23 08:11 36.8 C 81 22 138/76 94 02/23/23 07:43 67 O2 Del Method 02/23/23 15:53 Room Air 02/23/23 15:32 02/23/23 12:06 Room Air 02/23/23 08:11 Room Air 02/23/23 07:43 PG Care Time/CCT Total # of Minutes Spent Total Time Spent with Patient: Total time spent is greater than 50% in coordination of care (as documented) at patient's floor/unit and/or counseling patient: Coding Level of Care Code 84356 SUB INP/OBS CARE 3/50MIN Diagnoses SBO (small bowel obstruction) K56.609 Parkinson disease G20 Restless leg syndrome G25.81 Obstructive sleep apnea G47.33 Hyperlipidemia E78.5
[2023-02-23] MEDS: GABAPENTIN 300 MG CAP PO SCH (22:01)
[2023-02-23] MEDS: LORazepam 0.5 MG TAB PO PRN (23:54)
[2023-02-24] MEDS: LACTATED RINGER'S 1,000 ML IV SCH ×2 (01:24→08:38)
[2023-02-24 06:25] LABS: Basophils # (auto) 0.03 K/uL (0.00-0.20); Basophils % (auto) 0.6 %; Eosinophils # (auto) 0.11 K/uL (0.00-0.50); Hematocrit (blood only) 35.5 % (42.0-52.0); Hemoglobin 12.1 g/dl (14.0-18.0); Immature Granulocytes # (auto) 0.07 K/uL (0.01-0.20); Immature Granulocytes % (auto) 1.3 %; Lymphocytes # (auto) 0.54 K/uL (1.20-3.40); Lymphocytes % (auto) 10.1 %; Mean Corpuscular Hemoglobin 31.2 pg (25.0-34.0); Mean Corpuscular Hgb Conc 34.1 g/dL (32.0-36.0); Mean Corpuscular Volume 91.5 fL (80.0-100.0); Mean Platelet Volume 10.4 fL (9.4-12.4); Monocytes # (auto) 0.61 K/uL (0.11-0.59); Monocytes % (auto) 11.4 %; Neutrophils # (auto) 4.01 K/uL (1.40-6.50); Neutrophils % (auto) 74.6 %; Platelet Count 196 K/uL (130-400); RDW Coefficient of Variation 12.7 % (11.5-14.5); RDW Standard Deviation 41.8 fL (36.4-46.3); Red Blood Count 3.88 M/uL (4.70-6.10); White Blood Count 5.37 K/ul (4.8-10.8)
[2023-02-24 06:39] LABS: BUN Creatinine Ratio 17.5 (10-20); Calcium 8.6 mg/dl (8.6-10.3); Creatinine Clr Calc Pharmacy 114.3 ml/min; Est GFR (African American) 116.5 ml/min; Est GFR (Non-African American) 100.5 ml/min; Potassium 3.6 mmol/L (3.5-5.1)
[2023-02-24] MEDS: ENTACAPONE 200 MG TAB PO SCH ×4 (07:58→18:35)
[2023-02-24] MEDS: CARBIDOPA/LEVODOPA 25/100MG TAB NG SCH ×2 (07:59→15:13)
[2023-02-24] MEDS: ESCITALOPRAM OXALATE 10 MG TAB PO SCH (07:59)
[2023-02-24] MEDS: AMANTADINE HCL 100 MG CAPSULE PO SCH ×3 (07:59→15:13)
[2023-02-24] MEDS: ENOXAPARIN INJ 40 MG/0.4 ML SYR SQ SCH (08:00)
[2023-02-24] MEDS: RASAGILINE MESYLATE 1 MG TAB PO SCH (08:01)
[2023-02-24] MEDS: CARBIDOPA/LEVODOPA 25/100MG EXT REL TAB PO SCH ×6 (08:01→23:41)
--- NOTE | 2023-02-24 08:30 | Surgery Progress Note ---
Date of Service February 24, 2023 Assessment & Plan (1) Status post laparotomy with lysis of adhesions: Plan: POD 5 Pt sitting up in chair Reports expected post operative discomfort, tolerable No N/V + flatus +bm Tolerating clears will advance to fulls Reports adequate PO fluid in take will d/c iv fluids Dressing removed staple midline , CDI, no s/s of infection noted VSS WBC wnl Encouraged OOB and ambulation Seen and examined with Dr. Mena Admission and Anticipated Discharge Date Admission Date: February 19, 2023 Supervising Physician Co-Signing Physician Notes I personally saw and evaluated the patient with Jhony VELÁSQUEZ and agree with the assessment plan. POD#5 Exlap, extensive FLOR for SBO Tolerating clear liquids, advance to full for today He has had return of bowel function Encourage ambulation/IS Tentative plan would be to advance to low fiber tomorrow with possible discharge if he continues to progress well Subjective Pt sitting up in chair Reports expected post operative discomfort, tolerable No N/V + flatus +bm Review of Systems Constitutional: no fever and no chills Respiratory: no dyspnea Cardiovascular: no chest pain Gastrointestinal: no abdominal pain, no nausea and no vomiting Genitourinary: no problem reported Integumentary: no problem reported Physical Exam Physical Exam: alert wake Constitutional: cooperative and comfortable; no acute distress Respiratory: normal respiratory effort and able to speak in complete sentences; no respiratory distress Cardiovascular: Rate/Rhythm: regular rate Gastrointestinal (Abdomen): Inspection/Auscultation: + abdominal surgical incision (CDI julieth , may keep open to air ) Percussion/Palpation: abdomen soft; no guarding Results & Data Vital Signs (Past 12 Hours) Vital Signs Temp Pulse Pulse Resp BP Pulse Ox O2 Del Method 02/24/23 07:38 97.7 F 68 18 129/77 93 Room Air 02/24/23 07:24 73 02/24/23 03:20 97.7 F 67 18 149/85 H 93 Room Air 02/24/23 02:11 Room Air 02/24/23 00:24 99.1 F 77 20 132/82 92 Room Air 02/23/23 22:01 76 PG Care Time/CCT Total # of Minutes Spent Total Time Spent with Patient: Total time spent is greater than 50% in coordination of care (as documented) at patient's floor/unit and/or counseling patient: Coding Level of Care Code 25712 Post Operative Follow-Up Diagnoses Status post laparotomy with lysis of adhesions Z98.890
[2023-02-24] MEDS: CARBIDOPA/LEVODOPA 25/100MG TAB PO SCH ×3 (11:29→22:16)
[2023-02-24] MEDS: PANTOprazole 40 MG in SYRINGE 0 ML IV SCH (11:30)
--- NOTE | 2023-02-24 17:55 | Hospitalist Progress Note ---
Date of Service February 24, 2023 Assessment & Plan (1) SBO (small bowel obstruction): Plan: Due to closed-loop, s/p lysing the adhesions, postoperative. NG tube was removed on 02/23 Clear liquid diet started on 02/23 Tolerated well Advance to full liquid diet today 02/24 Plan is to advance to a solid diet tomorrow 02/25 If tolerates solid diet, will discharge on 02/26 (2) Parkinson disease: Plan: Advanced Parkinson disease, patient taking short acting/long-acting Sinemet plus amantadine plus entacapone plus rasagiline, today he is doing fine, continue current regimen (3) Restless leg syndrome: Plan: discussed with his neurologist on Thursday, he was started on gabapentin 200 mg at bedtime Requip was discontinued due to minimal benefits (4) Obstructive sleep apnea: (5) Hyperlipidemia: Plan: Hold statin for now Admission and Anticipated Discharge Date Admission Date: February 19, 2023 Subjective Patient feels well. Denies chest pain or shortness of breath. He is tolerating a clear liquid diet. He has had several bowel movements, initially liquid, now more solid. He is excited about trying a full liquid diet. Review of Systems Review of Systems: All systems reviewed & are unremarkable except as noted in Subjective Physical Exam Physical Exam: General: Awake, conversant Heart: S1, S2/regular rate and rhythm, no murmur rubs or gallops Lungs: Clear to auscultation bilaterally. Normal effort Abdomen: Soft/nontender/nondistended. No hepatosplenomegaly Extremities: No clubbing/cyanosis. No edema Behavior: Appropriate, cooperative Results & Data Results & Data Vital Signs (Past 12 Hours) Vital Signs Temp Pulse Pulse Resp BP Pulse Ox O2 Del Method 02/24/23 15:47 36.8 C 89 18 129/87 96 Room Air 02/24/23 15:42 87 02/24/23 11:23 37.0 C 80 18 126/78 95 Room Air 02/24/23 07:38 36.5 C 68 18 129/77 93 Room Air 02/24/23 07:24 73 Laboratory Results Lab Results 02/18/23 02/18/23 02/18/23 Range/Units 20:01 21:15 21:22 WBC 15.23 H (4.8-10.8) K/ul RBC 5.23 (4.70-6.10) M/uL Hgb 16.1 (14.0-18.0) g/dl POC Hgb 17.0 (14.0-18.0) g/dl Hct 48.8 (42.0-52.0) % POC Hct 50 (42-52) % MCV 93.3 (80.0-100.0) fL MCH 30.8 (25.0-34.0) pg MCHC 33.0 (32.0-36.0) g/dL RDW Std Deviation 45.5 (36.4-46.3) fL RDW Coeff of Gregorio 13.2 (11.5-14.5) % Plt Count 216 (130-400) K/uL MPV 10.4 (9.4-12.4) fL Immature Gran % (Auto) 0.5 % Neut % (Auto) 92.1 % Lymph % (Auto) 3.4 % Castro % (Auto) 3.7 % Eos % (Auto) 0.1 % Baso % (Auto) 0.2 % Neut # (Auto) 14.03 H (1.40-6.50) K/uL Lymph # (Auto) 0.52 L (1.20-3.40) K/uL Castro # (Auto) 0.57 (0.11-0.59) K/uL Eos # (Auto) 0.01 (0.00-0.50) K/uL Baso # (Auto) 0.03 (0.00-0.20) K/uL Immature Gran # (Auto) 0.07 (0.01-0.20) K/uL POC Sodium 139 (135-144) mmol/L Sodium 137 (136-145) mmol/L POC Potassium 4.1 (3.3-5.0) mmol/L Potassium 4.2 (3.5-5.1) mmol/L POC Chloride 102 (101-112) mmol/L Chloride 102 (98-107) mmol/L Carbon Dioxide 27 (21-32) mmol/L POC Total CO2 25 (24-31) mmol/L Anion Gap 8 (3-11) POC Anion Gap 17.0 (16-25) mmol/L POC BUN 22 H (7-18) mg/dl BUN 21 (6-23) mg/dl Creatinine 1.12 (0.6-1.4) mg/dl POC Creatinine 1.1 (0.6-1.3) mg/dl Est Cr Clr Drug Dosing 64.3 ml/min Est GFR ( Amer) 77.3 ml/min Est GFR (Non-Af Amer) 66.7 ml/min BUN/Creatinine Ratio 18.8 (10-20) Glucose 128 H (70-99(Fasting)) mg/dl POC Glucose 109 H (70-99) mg/dl POC Glucose (other) 129 H (70-99) mg/dl Calcium 10.6 H (8.6-10.3) mg/dl POC Ioniz Calcium Phuc 1.22 (1.12-1.32) mmol/l Total Bilirubin 0.6 (0.2-1.0) mg/dl Direct Bilirubin 0.1 (0-0.2) mg/dl AST 13 (13-39) U/L ALT 4 L (7-52) U/L Alkaline Phosphatase 87 (34-104) U/L Troponin I High Sens 2.9 (0-20) pg/ml Total Protein 8.1 (6.0-8.3) gm/dl Albumin 4.7 (3.4-5.0) gm/dl Globulin 3.4 (2.5-4.0) gm/dl Albumin/Globulin Ratio 1.4 (0.9-2) Lipase 48 (11-82) U/L 02/19/23 02/19/23 02/20/23 Range/Units 04:59 05:05 05:33 WBC 14.89 H 6.90 (4.8-10.8) K/ul RBC 5.11 4.56 L (4.70-6.10) M/uL Hgb 15.8 14.3 (14.0-18.0) g/dl POC Hgb (14.0-18.0) g/dl Hct 47.3 41.9 L (42.0-52.0) % POC Hct (42-52) % MCV 92.6 91.9 (80.0-100.0) fL MCH 30.9 31.4 (25.0-34.0) pg MCHC 33.4 34.1 (32.0-36.0) g/dL RDW Std Deviation 45.5 46.3 (36.4-46.3) fL RDW Coeff of Gregorio 13.3 13.5 (11.5-14.5) % Plt Count 222 205 (130-400) K/uL MPV 10.5 10.7 (9.4-12.4) fL Immature Gran % (Auto) % Neut % (Auto) % Lymph % (Auto) % Castro % (Auto) % Eos % (Auto) % Baso % (Auto) % Neut # (Auto) (1.40-6.50) K/uL Lymph # (Auto) (1.20-3.40) K/uL Castro # (Auto) (0.11-0.59) K/uL Eos # (Auto) (0.00-0.50) K/uL Baso # (Auto) (0.00-0.20) K/uL Immature Gran # (Auto) (0.01-0.20) K/uL POC Sodium (135-144) mmol/L Sodium 139 139 (136-145) mmol/L POC Potassium (3.3-5.0) mmol/L Potassium 5.0 4.2 (3.5-5.1) mmol/L POC Chloride (101-112) mmol/L Chloride 105 105 (98-107) mmol/L Carbon Dioxide 25 28 (21-32) mmol/L POC Total CO2 (24-31) mmol/L Anion Gap 9 6 (3-11) POC Anion Gap (16-25) mmol/L POC BUN (7-18) mg/dl BUN 24 H 16 (6-23) mg/dl Creatinine 1.02 0.81 (0.6-1.4) mg/dl POC Creatinine (0.6-1.3) mg/dl Est Cr Clr Drug Dosing 70.6 88.9 ml/min Est GFR ( Amer) 86.5 105.1 ml/min Est GFR (Non-Af Amer) 74.6 90.7 ml/min BUN/Creatinine Ratio 23.5 H 19.8 (10-20) Glucose 172 H 108 H (70-99(Fasting)) mg/dl POC Glucose 169 H (70-99) mg/dl POC Glucose (other) (70-99) mg/dl Calcium 9.3 9.1 (8.6-10.3) mg/dl POC Ioniz Calcium Phuc (1.12-1.32) mmol/l Total Bilirubin (0.2-1.0) mg/dl Direct Bilirubin (0-0.2) mg/dl AST (13-39) U/L ALT (7-52) U/L Alkaline Phosphatase (34-104) U/L Troponin I High Sens (0-20) pg/ml Total Protein (6.0-8.3) gm/dl Albumin (3.4-5.0) gm/dl Globulin (2.5-4.0) gm/dl Albumin/Globulin Ratio (0.9-2) Lipase (11-82) U/L 02/22/23 02/23/23 02/24/23 Range/Units 05:29 05:33 05:20 WBC 6.88 5.96 5.37 (4.8-10.8) K/ul RBC 4.32 L 3.92 L 3.88 L (4.70-6.10) M/uL Hgb 13.4 L 12.1 L 12.1 L (14.0-18.0) g/dl POC Hgb (14.0-18.0) g/dl Hct 39.6 L 36.4 L 35.5 L (42.0-52.0) % POC Hct (42-52) % MCV 91.7 92.9 91.5 (80.0-100.0) fL MCH 31.0 30.9 31.2 (25.0-34.0) pg MCHC 33.8 33.2 34.1 (32.0-36.0) g/dL RDW Std Deviation 45.0 43.9 41.8 (36.4-46.3) fL RDW Coeff of Gregorio 13.2 12.9 12.7 (11.5-14.5) % Plt Count 181 205 196 (130-400) K/uL MPV 10.6 10.8 10.4 (9.4-12.4) fL Immature Gran % (Auto) 0.3 1.3 % Neut % (Auto) 76.6 74.6 % Lymph % (Auto) 11.4 10.1 % Castro % (Auto) 9.4 11.4 % Eos % (Auto) 2.0 2.0 % Baso % (Auto) 0.3 0.6 % Neut # (Auto) 4.56 4.01 (1.40-6.50) K/uL Lymph # (Auto) 0.68 L 0.54 L (1.20-3.40) K/uL Castro # (Auto) 0.56 0.61 H (0.11-0.59) K/uL Eos # (Auto) 0.12 0.11 (0.00-0.50) K/uL Baso # (Auto) 0.02 0.03 (0.00-0.20) K/uL Immature Gran # (Auto) 0.02 0.07 (0.01-0.20) K/uL POC Sodium (135-144) mmol/L Sodium 138 136 134 L (136-145) mmol/L POC Potassium (3.3-5.0) mmol/L Potassium 4.0 3.7 3.6 (3.5-5.1) mmol/L POC Chloride (101-112) mmol/L Chloride 105 103 102 (98-107) mmol/L Carbon Dioxide 27 26 26 (21-32) mmol/L POC Total CO2 (24-31) mmol/L Anion Gap 6 7 6 (3-11) POC Anion Gap (16-25) mmol/L POC BUN (7-18) mg/dl BUN 20 17 11 (6-23) mg/dl Creatinine 0.75 0.69 0.63 (0.6-1.4) mg/dl POC Creatinine (0.6-1.3) mg/dl Est Cr Clr Drug Dosing 96.0 104.3 114.3 ml/min Est GFR ( Amer) 108.5 112.3 116.5 ml/min Est GFR (Non-Af Amer) 93.6 96.9 100.5 ml/min BUN/Creatinine Ratio 26.7 H 24.6 H 17.5 (10-20) Glucose 78 66 L 78 (70-99(Fasting)) mg/dl POC Glucose (70-99) mg/dl POC Glucose (other) (70-99) mg/dl Calcium 9.1 8.8 8.6 (8.6-10.3) mg/dl POC Ioniz Calcium Phuc (1.12-1.32) mmol/l Total Bilirubin (0.2-1.0) mg/dl Direct Bilirubin (0-0.2) mg/dl AST (13-39) U/L ALT (7-52) U/L Alkaline Phosphatase (34-104) U/L Troponin I High Sens (0-20) pg/ml Total Protein (6.0-8.3) gm/dl Albumin (3.4-5.0) gm/dl Globulin (2.5-4.0) gm/dl Albumin/Globulin Ratio (0.9-2) Lipase (11-82) U/L PG Care Time/CCT Total # of Minutes Spent Total Time Spent with Patient: Total time spent is greater than 50% in coordination of care (as documented) at patient's floor/unit and/or counseling patient: Coding Level of Care Code 22782 SUB INP/OBS CARE 2/35MIN Diagnoses SBO (small bowel obstruction) K56.609 Parkinson disease G20 Restless leg syndrome G25.81 Obstructive sleep apnea G47.33 Hyperlipidemia E78.5
[2023-02-24] MEDS: GABAPENTIN 300 MG CAP PO SCH (22:16)
[2023-02-24] MEDS: LORazepam 0.5 MG TAB PO PRN (22:16)
[2023-02-25 06:33] LABS: Basophils # (auto) 0.02 K/uL (0.00-0.20); Basophils % (auto) 0.4 %; Eosinophils # (auto) 0.13 K/uL (0.00-0.50); Eosinophils % (auto) 2.4 %; Hematocrit (blood only) 36.8 % (42.0-52.0); Hemoglobin 12.4 g/dl (14.0-18.0); Immature Granulocytes # (auto) 0.04 K/uL (0.01-0.20); Immature Granulocytes % (auto) 0.8 %; Lymphocytes # (auto) 0.63 K/uL (1.20-3.40); Lymphocytes % (auto) 11.9 %; Mean Corpuscular Hemoglobin 30.5 pg (25.0-34.0); Mean Corpuscular Hgb Conc 33.7 g/dL (32.0-36.0); Mean Corpuscular Volume 90.6 fL (80.0-100.0); Mean Platelet Volume 10.7 fL (9.4-12.4); Monocytes % (auto) 11.3 %; Neutrophils # (auto) 3.89 K/uL (1.40-6.50); Neutrophils % (auto) 73.2 %; Platelet Count 216 K/uL (130-400); RDW Coefficient of Variation 12.6 % (11.5-14.5); RDW Standard Deviation 41.7 fL (36.4-46.3); Red Blood Count 4.06 M/uL (4.70-6.10); White Blood Count 5.31 K/ul (4.8-10.8)
[2023-02-25 06:48] LABS: BUN Creatinine Ratio 14.9 (10-20); Calcium 8.7 mg/dl (8.6-10.3); Creatinine Clr Calc Pharmacy 107.4 ml/min; Est GFR (African American) 113.6 ml/min; Potassium 3.4 mmol/L (3.5-5.1)
[2023-02-25] MEDS ORDERED: POTASSIUM CHLORIDE CRTAB 20 MEQ TABCR PO STA ×2 (07:04→07:47)
[2023-02-25] MEDS: ENTACAPONE 200 MG TAB PO SCH ×4 (08:16→18:36)
[2023-02-25] MEDS: AMANTADINE HCL 100 MG CAPSULE PO SCH ×3 (08:16→15:26)
[2023-02-25] MEDS: CARBIDOPA/LEVODOPA 25/100MG EXT REL TAB PO SCH ×6 (08:16→23:37)
[2023-02-25] MEDS: ESCITALOPRAM OXALATE 10 MG TAB PO SCH (08:17)
[2023-02-25] MEDS: RASAGILINE MESYLATE 1 MG TAB PO SCH (08:17)
[2023-02-25] MEDS: CARBIDOPA/LEVODOPA 25/100MG TAB NG SCH ×2 (08:17→15:27)
[2023-02-25] MEDS: ENOXAPARIN INJ 40 MG/0.4 ML SYR SQ SCH (08:18)
--- NOTE | 2023-02-25 08:20 | Surgery Progress Note ---
Date of Service February 25, 2023 Assessment & Plan (1) Status post laparotomy with lysis of adhesions: Plan: POD 6 Pt sitting up in chair Reports expected post operative discomfort, tolerable No N/V + flatus +bm Tolerating fulls, advanced to low fiber julieth midline , CDI, no s/s of infection noted VSS WBC wnl Encouraged OOB and ambulation Reports wanting to stay today to see how he tolerates low fiber diet Questions answered about diet moving forward, continue low fiber for next 2 weeks Follow up with established GI doctor to discuss current bowel regimen, as patient reports he has a history of straining with BMs currently taking Colace and polyethylene glycol o/p (2) Hypokalemia: Plan: potassium 3.4 ordered 40MEQ PO Admission and Anticipated Discharge Date Admission Date: February 19, 2023 Supervising Physician Co-Signing Physician Notes I personally saw and evaluated the patient with Jhony VELÁSQUEZ and agree with the assessment plan. POD#6 Exlap, extensive FLOR for SBO Tolerating full liquids, advance to low fiber for today Continues to do well Can be discharged tomorrow if tolerates his diet today Follow up with me in 1 week for staple removal Subjective Pt sitting up bed Reports expected post operative discomfort, tolerable No N/V + flatus +bm Tolerating fulls Encouraged OOB and ambulation Review of Systems Constitutional: no fever and no chills Ear, Nose, Mouth, Throat: no hearing loss Respiratory: no dyspnea Cardiovascular: no chest pain Gastrointestinal: no abdominal pain, no nausea and no vomiting Genitourinary: no problem reported Neurologic: no abnormal speech and no memory loss Psychiatric: no problem reported Physical Exam Physical Exam: alert wake Constitutional: cooperative and comfortable; no acute distress ENMT: external ear and nose normal, oropharynx normal Respiratory: normal respiratory effort and able to speak in complete sentences; no respiratory distress Cardiovascular: Rate/Rhythm: regular rate Gastrointestinal (Abdomen): Inspection/Auscultation: + abdomen distended and + abdominal surgical incision (CDI julieth , may keep open to air ) Percussion/Palpation: + abdomen tender and abdomen soft; no guarding Neurologic: awake; not confused Speech / Cognition: normal speech Psychiatric: A+Ox3, euthymic affect Orientation: oriented x 3 and cooperative Results & Data Vital Signs (Past 12 Hours) Vital Signs Temp Pulse Pulse Resp BP Pulse Ox O2 Del Method 12/13/23 07:40 97.9 F 80 18 139/82 94 Room Air 02/25/23 03:58 97.9 F 90 20 135/82 92 Room Air 02/24/23 23:21 98.8 F 78 20 136/84 95 Room Air 02/24/23 21:58 94 H PG Care Time/CCT Total # of Minutes Spent Total Time Spent with Patient: Total time spent is greater than 50% in coordination of care (as documented) at patient's floor/unit and/or counseling patient: Coding Level of Care Code 70900 Post Operative Follow-Up Diagnoses Status post laparotomy with lysis of adhesions Z98.890 Hypokalemia E87.6
[2023-02-25] MEDS: PANTOprazole 40 MG in SYRINGE 0 ML IV SCH (11:38)
[2023-02-25] MEDS: CARBIDOPA/LEVODOPA 25/100MG TAB PO SCH ×3 (11:39→21:54)
--- NOTE | 2023-02-25 14:33 | Hospitalist Progress Note ---
Date of Service February 25, 2023 Assessment & Plan (1) SBO (small bowel obstruction): Plan: Due to closed-loop, s/p lysing the adhesions, postoperative. NG tube was removed on 02/23 Clear liquid diet started on 02/23 Advance to full liquid diet 02/24. Tolerated well. Advance to solid diet today 02/25 If tolerates solid diet, will discharge on 02/26 (2) Parkinson disease: Plan: Advanced Parkinson disease, patient taking short acting/long-acting Sinemet plus amantadine plus entacapone plus rasagiline, today he is doing fine, continue current regimen (3) Restless leg syndrome: Plan: discussed with his neurologist on Thursday, he was started on gabapentin 200 mg at bedtime Requip was discontinued due to minimal benefits (4) Obstructive sleep apnea: (5) Hyperlipidemia: Plan: Hold statin for now Admission and Anticipated Discharge Date Admission Date: February 19, 2023 Subjective patient feels well. Tolerating full liquid diet. He is happy to know that he has been advance to a solid diet today. He has had several solid bowel movements between yesterday and today. Review of Systems Review of Systems: All systems reviewed & are unremarkable except as noted in Subjective Physical Exam Physical Exam: General: Awake, conversant Heart: S1, S2/regular rate and rhythm, no murmur rubs or gallops Lungs: Clear to auscultation bilaterally. Normal effort Abdomen: Soft/nontender/nondistended. No hepatosplenomegaly Extremities: No clubbing/cyanosis. No edema Behavior: Appropriate, cooperative Results & Data Results & Data Vital Signs (Past 12 Hours) Vital Signs Temp Pulse Pulse Resp BP Pulse Ox O2 Del Method 02/25/23 11:22 37.0 C 83 18 125/82 95 Room Air 02/25/23 09:39 83 02/25/23 07:40 36.6 C 80 18 139/82 94 Room Air 02/25/23 03:58 36.6 C 90 20 135/82 92 Room Air Laboratory Results Abnormal lab results 02/25/23 Range/Units 05:28 RBC 4.06 L (4.70-6.10) M/uL Hgb 12.4 L (14.0-18.0) g/dl Hct 36.8 L (42.0-52.0) % Lymph # (Auto) 0.63 L (1.20-3.40) K/uL [place] # (Auto) 0.60 H (0.11-0.59) K/uL Sodium 135 L (136-145) mmol/L Potassium 3.4 L (3.5-5.1) mmol/L PG Care Time/CCT Total # of Minutes Spent Total Time Spent with Patient: Total time spent is greater than 50% in coordination of care (as documented) at patient's floor/unit and/or counseling patient: Coding Level of Care Code 41723 SUB INP/OBS CARE 2/35MIN Diagnoses SBO (small bowel obstruction) K56.609 Parkinson disease G20 Restless leg syndrome G25.81 Obstructive sleep apnea G47.33 Hyperlipidemia E78.5
[2023-02-25] MEDS ORDERED: ACETAMINOPHEN 325 MG TAB PO STA (17:29)
[2023-02-25] MEDS: GABAPENTIN 300 MG CAP PO SCH (21:54)
[2023-02-25] MEDS: LORazepam 0.5 MG TAB PO PRN (21:56)
[2023-02-26 06:09] LABS: BUN Creatinine Ratio 16.7 (10-20); Calcium 8.8 mg/dl (8.6-10.3); Est GFR (African American) 110.3 ml/min; Est GFR (Non-African American) 95.2 ml/min; Potassium 3.8 mmol/L (3.5-5.1)
[2023-02-26 06:10] LABS: Basophils # (auto) 0.03 K/uL (0.00-0.20); Basophils % (auto) 0.5 %; Eosinophils # (auto) 0.12 K/uL (0.00-0.50); Hematocrit (blood only) 37.5 % (42.0-52.0); Hemoglobin 12.8 g/dl (14.0-18.0); Immature Granulocytes # (auto) 0.07 K/uL (0.01-0.20); Immature Granulocytes % (auto) 1.2 %; Lymphocytes # (auto) 0.83 K/uL (1.20-3.40); Lymphocytes % (auto) 14.1 %; Mean Corpuscular Hemoglobin 30.8 pg (25.0-34.0); Mean Corpuscular Hgb Conc 34.1 g/dL (32.0-36.0); Mean Corpuscular Volume 90.4 fL (80.0-100.0); Monocytes # (auto) 0.67 K/uL (0.11-0.59); Monocytes % (auto) 11.4 %; Neutrophils # (auto) 4.18 K/uL (1.40-6.50); Neutrophils % (auto) 70.8 %; Platelet Count 233 K/uL (130-400); RDW Coefficient of Variation 12.8 % (11.5-14.5); RDW Standard Deviation 42.4 fL (36.4-46.3); Red Blood Count 4.15 M/uL (4.70-6.10)
[2023-02-26] MEDS: CARBIDOPA/LEVODOPA 25/100MG TAB NG SCH (07:47)
[2023-02-26] MEDS: ESCITALOPRAM OXALATE 10 MG TAB PO SCH (07:47)
[2023-02-26] MEDS: CARBIDOPA/LEVODOPA 25/100MG EXT REL TAB PO SCH (07:48)
[2023-02-26] MEDS: RASAGILINE MESYLATE 1 MG TAB PO SCH (07:48)
[2023-02-26] MEDS: ENTACAPONE 200 MG TAB PO SCH (07:49)
[2023-02-26] MEDS: AMANTADINE HCL 100 MG CAPSULE PO SCH (07:49)
[2023-02-26] MEDS: ENOXAPARIN INJ 40 MG/0.4 ML SYR SQ SCH (07:49)
[2023-02-26] MEDS ORDERED: PANTOprazole 40 MG TAB PO SCH (09:00)
--- NOTE | 2023-02-26 09:28 | Surgery Progress Note ---
Date of Service February 26, 2023 Assessment & Plan (1) Status post laparotomy with lysis of adhesions: Plan: POD 7 tolerating low fiber diet no abd pain julieth midline CDI will removed at o/p f/u Vss , CBC wnl stable for d/c from a surgical standpoint follow up in office with Dr. Mena , call with questions or concerns Admission and Anticipated Discharge Date Admission Date: February 19, 2023 Subjective patient offers no complaints Review of Systems Constitutional: no fever and no chills Ear, Nose, Mouth, Throat: no hearing loss Respiratory: no dyspnea Cardiovascular: no chest pain Gastrointestinal: no abdominal pain, no nausea and no vomiting Genitourinary: no problem reported Integumentary: no problem reported Neurologic: no abnormal speech and no memory loss Psychiatric: no problem reported Physical Exam Physical Exam: alert wake Constitutional: cooperative and comfortable; no acute distress ENMT: external ear and nose normal, oropharynx normal Respiratory: normal respiratory effort and able to speak in complete sentences; no respiratory distress Cardiovascular: Rate/Rhythm: regular rate Gastrointestinal (Abdomen): Inspection/Auscultation: + abdominal surgical incision (midline julieth CDI) Percussion/Palpation: + abdomen tender and abdomen soft; no guarding Neurologic: awake; not confused Speech / Cognition: normal speech Psychiatric: A+Ox3, euthymic affect Orientation: oriented x 3 and cooperative Results & Data Vital Signs (Past 12 Hours) Vital Signs Temp Pulse Pulse Resp BP Pulse Ox O2 Del Method 02/26/23 08:10 97.9 F 84 18 147/89 H 96 Room Air 02/26/23 07:00 85 02/26/23 04:12 98.2 F 89 20 119/75 92 Room Air 02/26/23 00:23 98.4 F 90 20 132/85 93 Room Air 02/25/23 22:47 84 PG Care Time/CCT Total # of Minutes Spent Total Time Spent with Patient: Total time spent is greater than 50% in coordination of care (as documented) at patient's floor/unit and/or counseling patient: Coding Level of Care Code 02313 Post Operative Follow-Up Diagnoses Status post laparotomy with lysis of adhesions Z98.890
--- NOTE | 2023-02-26 10:07 | Discharge Summary ---
Date of Service February 26, 2023 Admission HPI Per Admitting Provider This is a pleasant 67-year-old male who presents for further evaluation of acute abdominal pain. Back in 2020 he had a small bowel obstruction requiring progression to the OR for exploratory laparoscopy. Upon presentation the patient had a CT of the abdomen pelvis which showed a probable closed-loop obstruction consultation was obtained with general surgery in the ER and the tentative plan is to take the patient to the OR imminently for exploratory laparoscopy and possible lysis of adhesions etc. in the interim IV fluids IV pain medication IV nausea medication NG tube to low intermittent suction. In addition the CAT scan showed bilateral hydronephrosis. It should be noted the patient has Parkinson disease he is medication dependent he and his 's major concern is during their last episode in 2020 there was extended NPO. Without his medications he became very rigid reassured them after surgery as soon as okay with the surgical team we will begin to order his Parkinson's meds Admission Exam Per Admitting Provider HEENT: Normocephalic atraumatic pupils are equal round and reactive to light bilaterally. No scleral icterus no conjunctival injection external auditory canals are patent septum is in the midline nose is without discharge oral mucosa is pink and moist without lesion. Flat affect consistent with his parkinsonian disease NECK: Supple no rigidity no lymphadenopathy no thyromegaly no carotid bruits no JVD no masses. HEART: Regular rate and rhythm I do not appreciate any ectopy or rub. No murmur. LUNGS: Clear to auscultation bilaterally and anteriorly with no evidence of adventitious sounds/wheezes rales or rhonchi. ABDOMEN: moderately distended, no bowel sounds, the patient is not exquisitely tender however he does have morphine on board at this time EXTREMITIES: Intact, no peripheral cyanosis, clubbing or edema. Strength is 5 out of 5 in extremities x4, no pathological reflexes. NEUROGLOICAL: Cranial nerves II through XII are grossly intact with no focal deficit elicited upon examination. Mild tremor consistent with his history of Parkinson. Principal Diagnosis small bowel obstruction status post exploratory laparotomy and extensive lysis of adhesions on 02/19 Discharge Exam General: Awake, conversant Heart: S1, S2/regular rate and rhythm, no murmur rubs or gallops Lungs: Clear to auscultation bilaterally. Normal effort Abdomen: Soft/nontender/nondistended. No hepatosplenomegaly Extremities: No clubbing/cyanosis. No edema Behavior: Appropriate, cooperative Discharge Data Allergies Allergy/AdvReac Type Severity Reaction Status Date / Time No Known Allergies Allergy Verified 02/18/23 21:19 Consultations 02/18/23 23:32 ED Decision to Admit Stat 02/19/23 00:21 Consult General Surgery Stat 02/19/23 04:26 Consult [employer] Routine Procedures Performed Operation Date: 02/19/23 01:15 Actual Procedures p Exploratory Laparotomy and Extensive Lysis of Adhesions - Phoenix Mena DO Ordered Studies 02/18/23 20:50 CT abd pelvis IV con only Stat Hospital Course (1) SBO (small bowel obstruction): Status post exploratory laparotomy and extensive lysis of adhesions on 02/19 NG tube was removed on 02/23 Clear liquid diet started on 02/23 Advance to full liquid diet 02/24. Tolerated well. Advance to solid diet 02/25 Tolerating solid meals Having bowel movements Discharge today (2) Parkinson disease: Advanced Parkinson disease, patient taking short acting/long-acting Sinemet plus amantadine plus entacapone plus rasagiline, today he is doing fine, continue current regimen During this hospital stay, he was n.p.o. and was missing his Sinemet doses. It caused him to start becoming rigid. He was then given higher doses of Sinemet during the hospital stay. Not rigid anymore. He will be discharged on his usual home regimen (3) Restless leg syndrome: discussed with his neurologist on Thursday, he was started on gabapentin 200 mg at bedtime Requip was discontinued due to minimal benefits Patient is being discharged on gabapentin (4) Obstructive sleep apnea: (5) Hyperlipidemia: Resume statin Plan Discharge today Total Time Total Time Spent Total Time Spent (In Minutes): 35 Discharge Plan Discharge Items Patient Disposition: Home - Self-Care Reason For Visit: ABD PAIN - SBO BY CT Discharge Diagnosis: small bowel obstruction status post exploratory laparotomy and extensive lysis of adhesions on 02/19 Activity: As commented below Lifting: No more than 10 pounds Bathing Comment: you can shower. no pools or baths for 2 weeks Exercise/Sports: Wait until after follow-up appointment Exercise Comment: walking is ok, avoid stretching Non-emergency contact: Surgeon Call non-emergency contact if: you have any medication questions, your pain is worsening, your pain is unusual for you, your temperature is above 101, your wound has increased redness, your wound has increased drainage and your wound pain has increased Follow-up/Referrals: Phoenix Mena DO [Physician] - 03/05/23 10:15 am () Eliecer Barron MD [Outside Practitioners] - Diet: Low Fiber Addtl Attending Provider Instructions: You have julieth that will need to come out at your follow up appointment. Please keep surgical area clean and dry. You can apply gauze and tape for comfort, Change your dressing daily. Advised to follow-up with PCP in 1 week Pending Studies at Discharge: No Stand-Alone Forms: [facility] Medications and DC Order Prescriptions: New oxycodone 5 mg tablet 5 - 10 mg PO .[id number] MDD no more than 6 tabs in 24hours PRN (Reason: pain) Qty: 10 0RF Rx Instructions: take one to two tablets by mouth every 4-6 hours as needed for pain. gabapentin 300 mg Capsule 300 mg PO QPM 30 Days Qty: 30 0RF Continued carbidopa-levodopa [Sinemet] 25-100 mg tablet 1.5 tab PO BID Rx Instructions: TAKES AT 0800 & 1500. TAKES WITH CARBIDOPA-LEVODOPA ER. alfuzosin [Uroxatral] 10 mg tablet extended release 24 hr 10 mg PO DAILY Qty: 90 3RF Rx Instructions: after a meal amantadine HCl 100 mg capsule 100 mg PO TID docusate sodium [Colace] 100 mg capsule 100 mg PO TID lorazepam [Ativan] 1 mg tablet 0.5 mg PO HS PRN (Reason: Sleep) polyethylene glycol 3350 [Miralax] 17 gram powder in packet 17 g PO DAILY carbidopa-levodopa 25-100 mg tablet extended release 1 tab PO 6XD Rx Instructions: TAKES AT 0800, 1130, 1500, 1830, 2200, & 2330, TAKES WITH OTHER DOSES OF CARIDOPA-LEVODOPA. entacapone 200 mg tablet 200 mg PO QID Rx Instructions: administer at the same time as l-dopa/carbidopa dose rasagiline [Azilect] 1 mg tablet 1 mg PO QAM carbidopa-levodopa 25-100 mg Tablet 1 tab PO TID Rx Instructions: TAKES AT 1130, 1830 & 2200, TAKES WITH CARBIDOPA-LEVODOPA ER. escitalopram oxalate 10 mg tablet 10 mg PO DAILY diclofenac sodium 1 % gel 2 g EXT Q6H PRN (Reason: Pain) Discharge Orders: Discharge Order (Routine); Ordered 02/26/23 Ordered By: Gilberto Galeana/Other Patient Handouts: Low-Fiber Diet Admission Data Admit Date/Time: 02/19/23 04:07 Attending Provider: Gilberto Almazan Admit Provider: Phoenix Mena Primary Care Provider: Mary Funes Other Providers: Pepito Encinas; Phoenix Mena; Ken Moyer; [facility] Other Interventions: Discharge Summary Assessment (RN) Last Done: 02/26/23 10:20 Coding Level of Care Code 25854 INP/OBS DISCH >30 MIN Diagnoses SBO (small bowel obstruction) K56.609 Parkinson disease G20 Restless leg syndrome G25.81 Obstructive sleep apnea G47.33 Hyperlipidemia E78.5
== END 2023-02-26 11:10 | disposition home or self-care (01) | DRG 336 ==
LOC: ED 18:40 → OR 02-19 01:40 → 1E 02-19 01:46 → SUATTDRO 02-19 04:07 → 2N 02-19 17:54